=== PATIENT | male | born 1955 | race Two or more races ===

== ENCOUNTER → 2019-01-04 16:23 | Outpatient (CLI) | payer MEDICAID, SELFPAY ==
[2019-01-04 15:28] VITALS: BMI 30.7
[2019-01-04 17:40] LABS: International Normalized Ratio 1.1; Partial Thromboplast Time 30.7 Seconds (24.1-36.2)
[2019-01-04 17:45] LABS: Hemoglobin 14.2 g/dl (13.0-16.5); Mean Corp Hgb Conc 33.8 g/gl (32-36); Mean Corpuscular Volume 94.6 fL (80-94); Platelet Count 155 K/mm3 (150-450); RBC Distribution Width CV 13.3 % (11.6-14.6); RBC Distribution Width SD 44.8 fl (35.1-43.9); Red Blood Count 4.44 M/mm3 (4.6-6.2)
[2019-01-04 17:50] LABS: AST(SGOT) 19 U/L (15-37); Alanine Aminotransfer ALT/SGPT 23 U/L (16-61); Albumin, Serum 4.1 g/dL (3.2-5.0); Alkaline Phosphatase 51 U/L (45-117); Anion Gap 3 (5-15); BUN 16 mg/dL (7-18); Bilirubin, Direct 0.12 mg/dL (0.00-0.30); Calcium,Total 8.9 mg/dL (8.5-10.1); Chloride 107 mmol/L (98-107); Cholesterol 206 mg/dL (200); Creatinine, Serum 1.23 mg/dL (0.70-1.30); EST Glomerular Filtration Rate 63 mL/min (>60); Est Glom Filt Rate - Afr Amer 77 mL/min (>60); Globulin 3.6 g/dL (2.2-4.2); Glucose 90 mg/dL (74-106); High Density Lipoprotein 32 mg/dL; Magnesium 2.3 mg/dL (1.6-2.6); Potassium 4.7 mmol/L (3.5-5.1); Protein, Total 7.7 g/dL (6.4-8.2); Sodium Level 138 mmol/L (136-145); T4 Total, Thyroxin 7.8 ug/dL (4.5-12.1); Triglycerides 349 mg/dL; Very Low Density Lipoprotein 70 mg/dL (5-40)
[2019-01-04 17:59] LABS: Scan Indicated on CBC? Y/N NO
== END ==
PROVIDERS: Referring Provider Internal Medicine Cardiovascular Disease; Visit Provider Internal Medicine Cardiovascular Disease
DX: I47.2 Ventricular tachycardia (principal); R07.9 Chest pain, unspecified; E78.5 Hyperlipidemia, unspecified; I25.10 Atherosclerotic heart disease of native coronary artery without angina pectoris; Z95.1 Presence of aortocoronary bypass graft
CPT/HCPCS: 36415; 80048; 80061; 80076; 83735; 84436; 84443; 85027; 85610; 85730

== ENCOUNTER → 2019-01-05 12:49 | Outpatient (CLI) | payer MEDICAID, SELFPAY ==
[2019-01-04 15:28] VITALS: BMI 30.7
[2019-01-05 13:54] LABS: Cholesterol 206 mg/dL (200); High Density Lipoprotein 32 mg/dL; Triglycerides 360 mg/dL; Very Low Density Lipoprotein 72 mg/dL (5-40)
== END ==
PROVIDERS: Referring Provider Internal Medicine Cardiovascular Disease; Visit Provider Internal Medicine Cardiovascular Disease
DX: E78.5 Hyperlipidemia, unspecified (principal); I25.10 Atherosclerotic heart disease of native coronary artery without angina pectoris; Z95.5 Presence of coronary angioplasty implant and graft
CPT/HCPCS: 36415; 80061

== ENCOUNTER → 2019-01-19 10:31 | Outpatient (CLI) | payer MEDICAID, SELFPAY ==
[2019-01-04 15:28] VITALS: BMI 30.7
[2019-01-19 09:40] VITALS: BMI 30.7
--- NOTE | 2019-01-19 10:33 | STEWCON_ITS ---
Version 2 Reason For Study: S/P CABG Stress Results Protocol: LINA WITH DEFINITY Maximum Predicted HR: 158 bpm Target HR: 134 bpm % Maximum Predicted HR: 75 % DurationHeart Rate Stage (mm:ss) (bpm) BP Comment BASELINE 50 120/602CC DEFINITY STAGE 1 3:00 80 132/60 STAGE 2 3:00 106 160/80SOB STAGE 3 2:16 118 / INCREASED SOB, 1 CC DEFINITY RECOVERY 77 160/800.5 CC DEFINITY Stress Duration: 8:16 mm:ss Maximum Stress HR: 118 bpm Baseline Echocardiogram Findings The estimated ejection fraction is 50 %. Stress Echo Wall motion Data Resting WM Intermediate WM Stress WM Resting Wall Motion Wall Motion Stress Mid-Posterior: Mildly Mid-Inferior: Mildly hypokinetic. hypokinetic. Lateral-Basal: Mildly hypokinetic. Posterior-Basal: Mildly hypokinetic. EKG Data The baseline ECG displays normal sinus rhythm. The patient exercised according to the regular Lina protocol for a total duration of 8:16. The maximum heart rate attained was 118 beats per minute. This was 74% of maximum predicted heart rate. The patient exercised into stage 3 of the Lina protocol. During stress, there were no ST or T wave changes noted to suggest ischemia. No clinical angina was noted. Interpretation Summary The estimated ejection fraction is 50 %. Mid-Posterior: Mildly hypokinetic at baseline Abnormal, submaximal, treadmill echocardiogram. Positive for ischemia by echocardiographic criteria. No anginal symptoms noted. Patient had ventricular bigeminy at rest, followed by ventricular couplets, ventricular triplets, with eventual normalization during the first part of exercise. The patient then developed PVCs, ventricular couplets and ventricular triplets in the early stages of recovery. Patient had baseline mild inferior posterior hypokinesis which then worsened to posterior lateral and inferolateral hypokinesis at peak exercise. Poor echo windows requiring Definity agent. Hypertensive BP response to exercise. Average exercise capacity for age. Final LVEF of 55%. Test terminated due to dyspnea. The study was technically difficult. Contrast injection was performed. Ordering Physician: Abraham Dai Referring Physician: Abraham Dai Performed By: Aurora Hui RDCS, RVT
== END ==
PROVIDERS: Referring Provider Internal Medicine Cardiovascular Disease; Visit Provider Internal Medicine Cardiovascular Disease
DX: I25.10 Atherosclerotic heart disease of native coronary artery without angina pectoris (principal); I10 Essential (primary) hypertension; I47.2 Ventricular tachycardia; E78.5 Hyperlipidemia, unspecified; R07.9 Chest pain, unspecified; Z95.1 Presence of aortocoronary bypass graft
CPT/HCPCS: 93017; 93350; Q9957; A4216; C8928

== ENCOUNTER 2019-01-26 08:41 | Day surgery (SDC) | payer MEDICAID, SELFPAY ==
--- NOTE | 2018-01-20 15:45 | HP_ITS ---
HPI HPI Surgical H&P: Yes Details: DEBBIE EDDY, is a 63 nondiabetic hypertensive [place] M who presents to the office today for a follow-up on his blood pressure adjustments after recent establishment. Patient also has a stress test scheduled for today. He does have a history of hypertension, hypercholesterolemia, coronary artery disease status post 3 vessel bypass surgery on 02/27/07 in [place]. Apparently this may have been complicated by a right pleural effusion requiring a chest tube. Patient relocated to the [facility] recently and is here with his son who is also a patient of mine. Patient has not taken his medications for little over a year or takes them intermittently. He has not seen a doctorate of chiropractic in some time. He has not had a stress test or catheterization since his bypass surgery. At his last office visit we started him on a low-dose of Coreg. However it was noted that this needed to be monitored closely as he does have a history of bradycardia. Patient is a previous smoker who quit in 2006 after a [id number] smoking history. It was noted that according to his son his physicians in [place] had recommended a pacemaker prior to his departure however he did not receive that. Patient states that he feels slightly better since his last office visit however he does note occasional lightheadedness and dizziness. He also does note palpitations. He does feel that he is short of breath with exertional activities. 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 Is patient in pain?: No Allergies No Known Allergies Allergy (Verified 01/19/19 09:40) Medications aspirin 81 mg tablet,delayed release 81 mg PO DAILY #90 tab 01/04/19 [Rx Confirmed 01/19/19] carvedilol 3.125 mg tablet 3.125 mg PO BID #30 tab 01/04/19 [Rx Confirmed 01/19/19] gemfibrozil 600 mg tablet 600 mg PO BID #180 tab 01/04/19 [Rx Confirmed 01/19/19] clopidogrel 75 mg tablet 75 mg PO DAILY #30 tab 01/19/19 [Rx] [facility] Medical History Abnormal stress echo (Acute) Chest pain (Acute) Ventricular tachycardia (Acute) Hypertension (Chronic) Hyperlipidemia (Chronic) Atherosclerotic heart disease of [place] coronary artery without angina pectoris (Chronic) Surgical History S/P CABG (coronary artery bypass graft) (Chronic 02/27/07) Family History Other CAD (coronary artery disease) Myocardial infarction Social History Smoking Status: Former smoker quit date: 02/16/07 ROS Const Const: Positive for other (Transferring care to our office, had CABG.); negative for fatigue, weakness, body ache, fever(s), headache(s), chills, frequent falls, night sweats, daytime sleepiness, difficulty sleeping, excessive sweating, weight gain, weight loss, increased appetite, poor appetite or anorexia Eyes Eyes: Negative for blind spots, loss of peripheral vision, transient loss of vision, blurry vision, change in vision, double vision, floaters, tunnel vision or other ENT ENT: Negative for headache(s) or balance problems Cardio Chest Pain: Yes (occasionally on exertion) Palpitations: No Muscle aches with walking: None Resp Respiratory: Positive for SOB with activity; negative for SOB at rest, SOB orthopnea\SOB lying down, Cough, Coughing up blood/hemoptysis, chest congestion, pain on inspiration, snoring, stridor, wheezing, crackles, paroxysmal nocturnal dyspnea or other GI GI: Negative nausea, vomiting, heartburn, constipation, belching, bloating, cramping, vomiting blood/hematemesis, bright, red blood in stools, black,tarry stools, loose stools, Difficulty Swallowing or other : Negative for hematuria, frequent nighttime urination/ nocturia, erectile dysfunction or abnormal vaginal bleeding Musc Musc: Negative for muscle aches/ myalgia, muscle weakness, joint pain or balance problems Skin Skin: Negative redness, non-healing lesions, rash, unusual bruising, skin ulcer, wounds, jaundice or other Neuro Neuro: Negative for frequent falls, headache(s), weakness, blurry vision or double vision [place] Hematologic/Lymphatic: Negative for easy bleeding, easy bruising, enlarged lymph nodes or other Endo Endo: Negative for fatigue or excessive sweating Psych Psych: Negative for anxiety, depression, thoughts of harming anyone, thoughts of harming yourself, visual hallucinations, panic attacks or audible hallucinations Allergy Allergy/Immunology: Negative for rash Cardiology Exam Const Appearance: cooperative, healthy appearing and no acute distress Nutritional Appearance: well nourished Orientation: alert, oriented x3 and oriented to person Head Head: normal to inspection, normocephalic and atraumatic Nose: external nose normal Face and Sinus: face symmetric Mouth: oral mucosae normal Eyes General: appearance normal, both eyes and all related structures Eyelids: eyelids normal Conjunctivae: conjunctivae normal Pupils: PERRL and normal by confrontation EOM: EOM intact bilaterally Neck Neck: normal visual inspection and full ROM Carotids: normal carotid upstroke Chest Chest inspection: normal inspection of the chest Auscultation: Bilateral: Clear to Auscultation Cardio Palpation: normal PMI Rate: regular rate Rhythm: regular rhythm and ectopic beats Heart sounds: S1 normal and S2 normal GI GI: normal to inspection, no hepatosplenomegaly and bowel sounds present Neuro General: alert, awake, oriented x3, CN's II-XI intact bilaterally and moves all extremities Skin Skin: no rashes or lesions noted Extremities Pulses: Normal: Right Femoral Pulse, Left Femoral Pulse, Right Dorsalis Pedis Pulse, Left Dorsalis Pedis Pulse, Right Posterior Tibial Pulse, Left Posterior Tibial Pulse, Right Radial Pulse, Left Radial Pulse Lower Extremity Edema: None: Bilateral Psych Psychological: normal affect Assessment & Plan 1. Atherosclerosis of [place] coronary artery of [place] heart without angina pectoris I25.10 CABG 02/27/2007 @ [facility]. Plan Patient does not have any symptoms of angina however he does have shortness of breath with exertion. He also does note fatigue. He did have a stress echo today which was abnormal. Because of his significantly abnormal stress test we will proceed with a diagnostic heart catheterization patient is agreeable to proceed Orders Orders: 12 Lead EKG performed by ARMANDO 01/19/19 2. Essential hypertension I10 Plan Blood pressure is better controlled with current dose of Coreg however based upon his frequent PVCs and bradycardia this may need to be adjusted. We will reconsider adjusting medications after his stress test 3. Pure hypercholesterolemia E78.00; E78.0 Plan Recent lipid profile demonstrates a total cholesterol of 206, HDL 32, LDL 102, triglycerides 360. Patient will continue with current dose of gemfibrozil. We will continue to monitor 4. Frequent PVCs I49.3 Plan With frequent amount of PVCs, ventricular couplets and ventricular triplets will proceed with a diagnostic heart catheterization in lieu of his abnormal stress test that patient had done today. Plan Detail Additional Comments The above patient was discussed with Dr. Dai, he agrees with plan of care. Thank you for allowing us to participate in patient's plan of care, if you have any questions please do not hesitate to call. This note was generated using a voice recognition system and there may be incorrect words, spelling or punctuation errors that were not noted when reviewing the office note prior to saving. Follow Up 1 Month (MMM) Coding Level of Care Code Off vis,est,level 4 Diagnoses Atherosclerosis of [place] coronary artery of [place] heart without angina pectoris I25.10 ??[place] vs. transplanted heart: [place] heart Essential hypertension I10 ??Hypertension type: essential hypertension Pure hypercholesterolemia E78.00; E78.0 ??Hyperlipidemia type: pure hypercholesterolemia Frequent PVCs I49.3 Coding Level of Care Code Off vis,est,level 4 Diagnoses Atherosclerosis of [place] coronary artery of [place] heart without angina pectoris I25.10 ??[place] vs. transplanted heart: [place] heart Essential hypertension I10 ??Hypertension type: essential hypertension Pure hypercholesterolemia E78.00; E78.0 ??Hyperlipidemia type: pure hypercholesterolemia Frequent PVCs I49.3 Supplemental Info Supplemental Information Stress echocardiogram: The estimated ejection fraction is 50 %. Mid-Posterior: Mildly hypokinetic at baseline Abnormal, submaximal, treadmill echocardiogram. Positive for ischemia by echocardiographic criteria. No anginal symptoms noted. Patient had ventricular bigeminy at rest, followed by ventricular couplets, ventricular triplets, with eventual normalization during the first part of exercise. The patient then developed PVCs, ventricular couplets and ventricular triplets in the early stages of recovery. Patient had baseline mild inferior posterior hypokinesis which then worsened to posterior lateral and inferolateral hypokinesis at peak exercise. Poor echo windows requiring Definity agent. Hypertensive BP response to exercise. Average exercise capacity for age. Final LVEF of 55%. Test terminated due to dyspnea. The study was technically difficult. Contrast injection was performed. Labs LDL Cholesterol 102 mg/dL (0-130) 01/05/19 HDL Cholesterol 32 mg/dL (40-) L 01/05/19 Triglycerides 360 mg/dL (-199) H 01/05/19 VLDL Cholesterol 72 mg/dL (5-40) H 01/05/19 Diagnostics Electrocardiogram 01/19/19 Stress Echocardiogram 01/19/19
[2019-01-19 09:40] VITALS: BMI 30.7
[2019-01-19 18:18] VITALS: BMI 30.7
--- NOTE | 2019-01-24 13:11 | RAD_ITS ---
STUDY: X-RAY CHEST REASON FOR EXAM: Male, 63 years old. Chest pain/pressure TECHNIQUE: PA and lateral views of the chest. COMPARISON: None. FINDINGS: The lungs are clear and expanded. There is no demonstrated pleural abnormality. Sternal cerclage wires and vascular clips are present from a prior sternotomy and coronary artery bypass graft procedure (CABG). Normal mediastinum and estefania. Normal visualized pulmonary arteries. Normal visualized aortic arch and descending thoracic aorta. Normal visualized thoracic spine. Normal visualized ribs, clavicles, and shoulders. There is no demonstrated abnormality of the visualized soft tissue structures of the upper abdomen. RAD/Chest PA and Lateral IMPRESSION: Normal x-ray examination of the chest. Electronically Signed: Sen Amaya MD at 13:24 EDT , Service support ,
[2019-01-25 09:37] VITALS: BMI 30.7
[2019-01-26] VITALS (27 sets, daily range): BP systolic 126–179; BP diastolic 42–100; PULSE 33–50; RESP 10–21; TEMP 36.6–36.8; O2SAT 92–100; BMI 31.1
--- NOTE | 2019-01-26 12:46 | CL.I_ITS ---
Patient Name: DEBBIE EDDY Study Date: 01/26/2019 Performing: Abraham Dai MD Ht: 68 inches 173 cm : 1955 Wt: 203.1 lbs 92 kg Age: 63 Gender: male BSA: 2.06 PROCEDURE(S) PERFORMED TN12-UPI/COR/LV/CABG [id number], CORONARY OR GRAFT, INITIAL VESSEL [id number] W OR WO PTCA, SINGLE CORONARY ARTERY CLINICAL PROFILE AND CO-MORBIDITIES Indications: Stable Known CAD, Cardiac Arrythmia, LV Dysfunction Heart Failure: NYHA Class: 2, Newly Diagnosed: No, Heart Failure Type: Systolic Stress/Imaging Date: 01/19/2019 Stress Echocardiogram: Positive Intermediate Risk Angina Classification Anginal Classification w/in 2 Weeks: CCS III CAD Presentations: Other: Palpitations, excessive PVCs, NSVT, Dyspnea on exertion, pre-syncope. Comorbidities/Risk Factors: Hypertension Dyslipidemia Prior CHF Prior [place] Prior CABG CONCLUSIONS Segmented LV systolic dysfunction- Severe LVEF: by LV gram 20-25 % Depressed Left Ventricular systolic function - Severe Triple vessel CAD of the LAD, LCX and RCA Patent CHAPA to LAD with L to L collaterals to OM Widely patent SVG to LCX Occluded SVG to RCA. Successful PTCA/DARRIUS ostial LAD with a 2.5 x 8 Promus Synergy, post dilated with a 2.75 x 8 NC Balloon at 14 mela; 85%-->0%, no dissection. RECOMMENDATIONS Staged for FFR Referred for immediate PCI Management as per referring Voltmeter Operator Highly recommend quitting all tobacco products Follow up with primary rice field worker Risk factor modification ASA Indefinitley Plavix for at least 12 months Routine post interventional care Refer for Outpatient Cardiac Rehab Manual sheath removal per protocol Follow up with Dr. Suhas Marks for PPM/AICD d/t severe LV dysfunction and PVCs/NSVT. Continue AMIO loading; start cozaar and lasix. Manual sheath removal due to concern for impact on inferior epigastric artery. DESCRIPTION OF PROCEDURE The patient arrived to the procedure lab. The risks and benefits of the procedure as well as a full d escription of our services here and lack of surgical backup were fully explained to the patient and/o r their significant other prior to the catheterization. The Timeout was completed, verifying the salvador ect patient and procedure. The patient's procedural site was prepped and draped in the usual fashion. Local anesthetic was given subcutaneously to right groin region with Lidocaine 2%. Using a modified Seldinger technique, arterial access was obtained via the right femoral artery, a 4Fr sheath was inse rted. Left Coronary Artery selective angiography was performed in multiple views using a 4 Fr. JL5 c atheter. Right Coronary Artery selective angiography was then performed in multiple views using a 4 F r. 3DRC catheter. Saphenous Vein graft to the RCA selective angiography was performed in multiple vie ws using a 4 Fr. 3DRC catheter. Left internal mammary artery graft to the LAD selective angiography was performed in multiple views using a 4 Fr. 3DRC catheter. Saphenous Vein graft to the Circumflex selective angiography was performed in multiple views using a 4 Fr. AR MOD 2 catheter. Lef t Ventriculography was performed in MEJIA projection using a 4 Fr. Pigtail catheter. LV to AO pullback pressures were then recordedThe images were reviewed and options discussed. A decision was then made to proceed with an Intervention, IVUS or other adjunct procedure. Arterial sheath was exchanged for a 6 Fr Sheath. EBU 3.75 Guide catheter was inserted and engaged into the LCA. The FFR/iFR wire was inserted. Adenosine was then given per protocol. Pressures and FF R/iFR were then recorded. FFR Ratio Baseline: 0.94 FFR Ratio post Adenosine: 0.82 Synergy 2.50x8 Drug Eluting stent was inserted. Angiogram performed post stent deployment. KS Emerge 2.75x8 Balloon cath eter was inserted. PTCA balloon inflated at 14 atms for 12 secs. PTCA balloon inflated at 14 atms for 6 secs. Angiogram performed post balloon dilatation. Contrast was injected through the sheath and th e Right Iliac and Femoral artery were assessed for possible closure device. The arterial sheath was sutured in place and capped CORONARY ANGIOGRAPHY DOMINANCE: Right Dominant LEFT HEART ASSESSMENT Left Ventricular Ejection Fraction: by LV Gram 20-25 % LVEDP: 26 mmHg Depressed Left Ventricular systolic function Inferior Basal Akinesis. Anterior Hypokinesis - Severe LEFT MAIN: No significant disease noted LEFT ANTERIOR DECENDING ARTERY: OSTIAL LAD: 75 % Stenosis MID LAD: is occluded CIRCUMFLEX ARTERY: is occluded RIGHT CORONARY ARTERY: is occluded GRAFTS: CHAPA graft to the LAD is patent Saphenous Vein graft to the Mid CIRC is patent Saphenous Vein graft to the RCA is totally occluded COLLATERAL FLOW: Collateral flow from Left to Left Collateral flow from Left to Right INTERVENTION INFORMATION LESION SITE: LAD (Ostial) Lesion Complexity: High/C, thrombus present: No, lesion length: 8 mm, culprit lesion: Yes Pre Stenosis: 85 % Pre intervention ABIGAIL flow: 3 PROCEDURE: FFR, Drug Eluting Stent with pre and post dilatation Post Stenosis: 0 % Post intervention ABIGAIL flow: 3 Lesion Devices: EdRover 6 Fr EBU3.75 100cm Guide Catheter IGT Devices ( [employer]) Coronary FFR Wire Matthew Sci Synergy MR DARRIUS 2.50x08 Matthew Sci NC EMERGE MR 2.75x08 BALLOON COMPLICATIONS No Complications PROCEDURE MEDICATIONS Oxygen: 2 L/min via nasal cannula Adenosine drip for FFR 774 ml IV-total infused 24.8 @ 01/26/2019 12:06:53 Heparin 6000 unit(s) IV 01/26/2019 12:00:48 Nitro 200 mcg IC 01/26/2019 12:05:42 Nitro 200 mcg IC 01/26/2019 12:05:42 Nitro 200 mcg IC 01/26/2019 12:15:27 IV Bolus: .9 NaCl 500 ml total 01/26/2019 12:29:10 SUMMARY OF HEMODYNAMIC DATA Time AIR REST ECG 09:17:41 AO 161/84 (109) SA 11:41:01 LV 156/1, 24 11:54:42 LV 165/0, 26 11:54:49 LVp 166/5, 30 11:54:58 AOp 159/60 (89) 11:55:03 AO 167/74 (103) 11:55:23 Signed By Abraham Dai MD On 01/26/2019 12:46:03 PM Abraham Dai MD
--- NOTE | 2019-01-26 13:31 | EKG12_ITS ---
Test Reason : POST PCI Blood Pressure : / mmHG Vent. Rate : 036 BPM Atrial Rate : 036 BPM P-R Int : 180 ms QRS Dur : 100 ms QT Int : 534 ms P-R-T Axes : 048 -20 -74 degrees QTc Int : 412 ms Marked sinus bradycardia ST & T wave abnormality, consider lateral ischemia Abnormal ECG No previous ECGs available Confirmed by YURI HEAD, BC ([id number]), editor news APRIL LEE ([id number]) on 01/31/2019 5:22:16 PM Referred By: Abraham Dai Confirmed By:BC WELCH MD
[2019-01-26 14:11] LABS: ACT Activated Clotting Time 197 sec (74-137)
--- NOTE | 2019-01-26 14:29 | CRPHASE1 ---
Patient Communication PHII Cardiac Rehab Discussed with Patient:: Yes Guide to Cardiac Rehab Given to Patient:: Yes Cardiac Rehab Facility Choice List Given to Patient:: Yes Choice Program [facility] CR PHII:: Communication Given to CR, Refer to [facility] Chaplain:: Abraham Dai Phase II Cardiac Rehab:: Yes Sessions:: 36 sessions - 3 days/wk, 12 weeks Risk Factors/Lifestyle Smoking Status: Former smoker Hx Hypertension: Yes Hx Diabetes Mellitus Type 1: No Hx Diabetes Mellitus Type 2: No Hx Dyslipidemia: Yes Hx Obesity: Yes Height: 5 ft 7 in Weight:: 90 kg BMI: 31.1 Stress: Long-standing Family History: Family History (Last Updated 01/04/19 @ 15:27 by Shannon Kaur) Other CAD (coronary artery disease) Myocardial infarction Hospital Course Cardiac Cath Date:: 01/26/19 Medical/Surgical History [place]:: Yes - 2006 Hypertension:: Yes Dyslipidemia:: Yes Arrhythmias:: Yes CABG: Yes PTCA:: Yes - 01/26/2019 Discharge/Home/Social Eval Discharge Disposition: Home Cardiac Rehabilitation Info Cardiac Rehabilitation Program Information: Cardiac Rehabilitation is important for patients like you who are recovering from a heart problem. Cardiac rehabilitation programs are recognized as integral to the continued care of the patient with coronary heart disease. The cardiac rehabilitation program is designed to optimize a patient's physical, psychological, and social functioning. Health ambulatory care work in cardiac rehabilitation programs and assist you with getting the treatments you need to get stronger and healthier - like exercise, healthy eating habits, and medications. Cardiac rehabilitation has been show to help people with heart problems live longer and have better life enjoyment than people who do not go to cardiac rehabilitation. Please contact the Cardiac Rehabilitation Program at [facility] at in two weeks if you have not heard from them.
--- NOTE | 2019-01-26 14:33 | CRPHASE1_ITS ---
Patient Communication PHII Cardiac Rehab Discussed with Patient:: Yes Guide to Cardiac Rehab Given to Patient:: Yes Cardiac Rehab Facility Choice List Given to Patient:: Yes Choice Program [facility] CR PHII:: Communication Given to CR, Refer to [facility] Grassland Conservationist:: Abraham Dai Phase II Cardiac Rehab:: Yes Sessions:: 36 sessions - 3 days/wk, 12 weeks Risk Factors/Lifestyle Smoking Status: Former smoker Hx Hypertension: Yes Hx Diabetes Mellitus Type 1: No Hx Diabetes Mellitus Type 2: No Hx Dyslipidemia: Yes Hx Obesity: Yes Height: 5 ft 7 in Weight:: 90 kg BMI: 31.1 Stress: Long-standing Family History: Family History (Last Updated 01/04/19 @ 15:27 by Shannon Kaur) Other CAD (coronary artery disease) Myocardial infarction Hospital Course Cardiac Cath Date:: 01/26/19 Medical/Surgical History [place]:: Yes - 2006 Hypertension:: Yes Dyslipidemia:: Yes Arrhythmias:: Yes CABG: Yes PTCA:: Yes - 01/26/2019 Discharge/Home/Social Eval Discharge Disposition: Home Cardiac Rehabilitation Info Cardiac Rehabilitation Program Information: Cardiac Rehabilitation is important for patients like you who are recovering from a heart problem. Cardiac rehabilitation programs are recognized as integral to the continued care of the patient with coronary heart disease. The cardiac rehabilitation program is designed to optimize a patient's physical, psychological, and social functioning. Health care specialist work in cardiac rehabilitation programs and assist you with getting the treatments you need to get stronger and healthier - like exercise, healthy eating habits, and medic ations. Cardiac rehabilitation has been show to help people with heart problems live longer and have better life enjoyment than people who do not go to cardiac rehabilitation. Please contact the Cardiac Rehabilitation Program at [facility] at in two weeks if you have not heard from them.
--- NOTE | 2019-01-26 14:34 | CRPH1.INSTRU ---
General Education Antiplatelet therapy: Patient communicates acknowledgment, Needs reinforcement Compliance of all prescribed medications: Patient communicates acknowledgment, Needs reinforcement Smoking Patient Nicotine/Smoking Risk Factors Are:: Non-smoker Dyslipidemia Patient Dyslipidemia Risk Factors Are:: Total Cholesterol - 206, Triglycerides - 360, HDL - 32, LDL - 102 Recommendations Include:: Lipid profile provided Overweight/Obesity Patient Overweight/Obesity Risk Factors Are:: Obesity - > or = 30 Hypertension Hypertension:: Patient communicates acknowledgment Heart Disease Patient Heart Disease Risk Factors Are:: Family history of heart disease < 65 years old, Previous cardiac event Heart Disease Response Code:: Patient communicates acknowledgment Diabetes Patient Diabetes Risk Factors Are:: No documented hx of diabetes Metabolic Syndrome Patient Metabolic Syndrome Risk Factors Are [3 of 5]:: Waist circumference > 35 [female] or 40 [male], High triglyceride >150, Hypertension, Low HDL <40 [male] or < 50 [female] Recommendations Include:: Encouraged follow-up with Primary Care Physician Metabolic Syndrome Response Code:: Needs reinforcement Sedentary Patient Sedentary Risk Factors Are:: Lack of regular exercise Recommendations Include:: Benefits of regular exercise, Discussed home walking program Sedentary Response Code:: Patient communicates acknowledgment Stress Recommendations Include:: Identification of stressors, and assessment of coping skills Stress Response Code:: Patient communicates acknowledgment
[2019-01-26] MEDS: 0.9% Normal Saline 1,000 ML 150 ML IV (15:00)
[2019-01-26 15:11] LABS: ACT Activated Clotting Time 153 sec (74-137)
[2019-01-26] MEDS: Gemfibrozil 600 MG Tablet PO (17:33)
[2019-01-26] MEDS: Amiodarone 200 MG Tablet 400 MG PO (22:19)
[2019-01-27] VITALS (15 sets, daily range): BP systolic 131–194; BP diastolic 53–94; PULSE 35–51; RESP 12–20; TEMP 36.7–36.9; O2SAT 93–100
[2019-01-27 04:55] LABS: Anion Gap 7 (5-15); BUN 14 mg/dL (7-18); BUN/Creat Ratio 11.1 RATIO (10-20); Calcium,Total 8.4 mg/dL (8.5-10.1); Chloride 111 mmol/L (98-107); Creatinine, Serum 1.26 mg/dL (0.70-1.30); EST Glomerular Filtration Rate 61 mL/min (>60); Est Glom Filt Rate - Afr Amer 74 mL/min (>60); Estimated Creatinine Clearance 56.83 ml/min; Glucose 102 mg/dL (74-106); Potassium 4.1 mmol/L (3.5-5.1); Sodium Level 143 mmol/L (136-145)
[2019-01-27 05:41] LABS: Hematocrit 37.7 % (40-54); Hemoglobin 12.7 g/dl (13.0-16.5); Mean Corp Hgb Conc 33.7 g/gl (32-36); Mean Corpuscular Hgb 30.9 pg (27.0-32.0); Mean Corpuscular Volume 91.7 fL (80-94); Mean Platelet Vol. 12.7 fl (6.2-12.0); Platelet Count 141 K/mm3 (150-450); RBC Distribution Width SD 39.6 fl (35.1-43.9); Red Blood Count 4.11 M/mm3 (4.6-6.2); White Blood Count 5.1 K/mm3 (4.4-11.0)
[2019-01-27 05:45] LABS: Scan Indicated on CBC? Y/N NO
[2019-01-27] MEDS: Gemfibrozil 600 MG Tablet PO (08:12)
[2019-01-27] MEDS: Clopidogrel Bisulfate 75 MG Tablet PO (08:12)
[2019-01-27] MEDS: Aspirin E.C. 81 MG Tablet PO (08:12)
[2019-01-27] MEDS: Carvedilol 3.125 MG TABLET PO (08:12)
[2019-01-27] MEDS: Losartan Potassium 25 MG Tablet PO (08:13)
[2019-01-27] MEDS: Furosemide 20 MG Tablet PO (08:13)
--- NOTE | 2019-01-27 09:26 | PCM.PN.CARD ---
Subjectve: Patient feels much better this morning. No 24-hour events. Telemetry showed sinus bradycardia with rare PVCs. No ventricular tachycardia. Right groin is clean/dry/intact. Hemoglobin and creatinine are within nominal limits. EKG shows sinus bradycardia, QT corrected of 4 1 4 ms. Objective: Vital Signs Temp Pulse Resp BP Pulse Ox 98.0 F 44 L 12 194/92 H 100 01/27/19 08:00 01/27/19 08:00 01/27/19 08:00 01/27/19 08:00 01/27/19 08:00 Oxygen Delivery Method Room Air Weight: 196 lb 3.382 oz Body Mass Index (BMI) 31.1 Intake and Output for Last 24 Hours 01/25/19 01/26/19 01/27/19 23:59 23:59 23:59 Intake Total 1200 / 1200 240 / 240 Output Total 1050 / 1050 850 / 850 Balance 150 / 150 -610 / -610 General: Awake, Alert, Oriented x 3 HEENT: PERRL, EOMI, Sclera Non Icteric Neck: Supple, Good ROM, No Lymph Node Enlargement Lungs: Clear to auscultation Cardiovascular: Regular Rhythm, Normal S1, Normal S2, No Murmurs, No Rubs, No Gallops Vascular: No Carotid Bruits, Normal Femoral Pulses, Normal Radial Pulses, Normal Dorsalis Pedal Pulse, Normal Posterior Tibial Pulses Abdomen: Bowel Sounds Present, Soft, Non Tender, No HSM, No Organomegaly Extremities: No Cyanosis, No Clubbing, No edema Neurological: No Focal Motor or Sensory Deficit 01/27/19 04:25: Sodium 143, Potassium 4.1, Chloride 111 H, Carbon Dioxide 25.0, Anion Gap 7, BUN 14, Creatinine 1.26, Est GFR (MDRD) Af Amer 74, Est GFR (MDRD) Non-Af 61, BUN/Creatinine Ratio 11.1, Glucose 102, Calcium 8.4 L 01/27/19 04:25: WBC 5.1, RBC 4.11 L, Hgb 12.7 L, Hct 37.7 L, MCV 91.7, MCH 30.9, MCHC 33.7, RDW 12.0, RDW Differential 39.6, Plt Count 141 L, MPV 12.7 H Rhythm: EKG: ECHO: Stress Test: Cardiac Cath: PCI: CT Surgery: Holter monitor: EPS: PPM: CXR: Chest CT Scan: Medical Necessity - Tobacco Use Smoking Status: Former smoker Assessment/Plan 1. Coronary artery disease: The patient is status post catheterization and FFR guided angioplasty and stenting of his ostial LAD giving rise to 2 moderately long diagonal branches. He had 2 out of his 3 grafts were patent, and his saphenous vein graft to the right system and [place] right coronary artery are occluded. His LV function is below 30% and the patient will require either a dual-chamber pacemaker/AICD or an AICD only. This will be arranged with Dr. Graham in the upcoming future. The meantime we will continue his aspirin, Plavix, Coreg, and we will start him on Cozaar 25 mg p.o. daily and Lasix 20 mill grams a day and titrate up as an outpatient. 2. PVCs: The patient had a copious amount of PVCs better than 50% of his total heartbeats before 24-hour period. Since starting amiodarone these have markedly improved to a minimum PVCs. We will decrease his amiodarone to 200 mg p.o. daily and continue his Coreg. 3. Hyperlipidemia: Continue aggressive LDL reduction. Continue statin based medications. 4. Patient will be discharged home and follow-up with Dr. Dai going forward. Code Visit Inpatient E&M: [id number] [facility] L2
--- NOTE | 2019-01-27 09:46 | DCINST_ITS ---
Discharge Diet: Low fat/ Low Cholesterol Discharge Activity: - - Do not lift anything greater than 10 lbs until I see you next week May shower in (days): 1 Lifting Restrictions: 10 pounds and also avoid any pushing or pulling for 3 days after your test. Call your doctor if your incision/area has: Continuous Slow Oozing, Sudden Increased Bleeding, Increased Pain/ Swelling, Increased Redness, Foul Smelling Discharge, Swelling at the incision site Call your doctor if you observe: Fever of 101 or Higher, Shortness of breath, Chest pain Remove Dressing in (days):: 1 Cleanse incision/area with: Soap & Water Additional Dressing/Incision Instructions:: Keep the dressing (bandage) on until the next morning. You may then shower, but do not take a tub bath for 5 days after your test. It is normal to have some tenderness and discomfort at the puncture site. Sometimes bruising also occurs. However, if pain, numbness, or coldness occurs below the puncture site (in your leg, toes, arms or fingers) call your doctor at once. You may have a small, marble sized knot at the puncture site. This is normal. Do not rub it. It will go away in 4-6 weeks. Bleeding can occur from the area where the puncture was done. Blood may spurt or drip from the site. If blood spurts, apply pressure right away to stop bleeding and call 911. Although rare, bleeding into the tissue (hematoma) can also occur. If this happens, a large, firm area goose egg under the skin will appear. If any of these occur, lie down as flat as you can and have someone apply firm pressure to the cath site with a gauze pad or a clean washcloth for 10-15 minutes. Call 911 or go to the Emergency Department. Additional Instructions: You were started on several medications during this hospital stay. Your started on amiodarone this is an 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. He will take this once a day. You were also started on Cozaar and Lasix. Cozaar is a blood pressure medication and Lasix as a diuretic. It is suggested that you take your Lasix in the morning. You may find that when you start your Lasix that he may urinate more frequently for the first few weeks. Both of these medications will help with your heart function. He will continue with your Coreg at 3.125 mg twice a day. You were also started on Plavix prior to your heart catheterization. This is a blood thinner. This will help with keeping her stent open. You cannot stop this medication and less if you discuss this with our office. She will be on this medication for at least one year. When you were seen in the office we will further discuss a prophylactic ICD with pacemaker. Plans are to have the scheduled for placement in February. I do not when she is starting cardiac rehab until after I see you next week. This may be put on hold until after you have your ICD placement. We will discuss this at that time. Allergies/Adverse Reactions: Allergies No Known Allergies Allergy (Verified 01/25/19 09:38) Medications to take at Discharge aspirin 81 mg tablet,delayed release 81 mg PO DAILY #90 tab 01/04/19 carvedilol 3.125 mg tablet 3.125 mg PO BID #30 tab 01/04/19 gemfibrozil 600 mg tablet 600 mg PO BID #180 tab 01/04/19 clopidogrel 75 mg tablet 75 mg PO DAILY #30 tab 01/19/19 Amiodarone HCl 200 mg PO DAILY #30 tablet 01/27/19 Furosemide [Lasix] 20 mg PO DAILY #30 tablet 01/27/19 Losartan Potassium [Cozaar] 25 mg PO DAILY #30 tablet 01/27/19 Nitroglycerin [Nitrostat] 0.4 mg SUBLINGUAL Q5M PRN #25 tablet 01/27/19 The following prescriptions were given: Amiodarone HCl 200 mg PO DAILY #30 tablet Furosemide [Lasix] 20 mg PO DAILY #30 tablet Losartan Potassium [Cozaar] 25 mg PO DAILY #30 tablet Nitroglycerin [Nitrostat] 0.4 mg SUBLINGUAL Q5M PRN #25 tablet PRN Reason: Cardiac/Chest Pain Orders to be completed after discharge: Phase II, Outpatient Cardiac Rehab Location: None Selected Primary Care Physician: Omar King MD [Primary Care Provider] - Please follow up with your Primary Care Physician in: 2-4 weeks Test Results: Test results from this visit will be discussed in further detail at your follow- up appointment, if applicable. Please Follow Up With: Khadijah Mckeon PA When: 02/04 at 1130 Cardiac Rehabilitation Info Cardiac Rehabilitation Program Information: Cardiac Rehabilitation is important for patients like you who are recovering from a heart problem. Cardiac rehabilitation programs are recognized as integral to the continued care of the patient with coronary heart disease. The cardiac rehabilitation program is designed to optimize a patient's physical, psychological, and social functioning. Health patient centered care specialist work in cardiac rehabilitation programs and assist you with getting the treatments you need to get stronger and healthier - like exercise, healthy eating habits, and medications. Cardiac rehabilitation has been show to help people with heart problems live longer and have better life enjoyment than people who do not go to cardiac rehabilitation. Please contact the Cardiac Rehabilitation Program at [facility] at in two weeks if you have not heard from them.
--- NOTE | 2019-01-27 10:00 | EKG12_ITS ---
Test Reason : AM EKG Blood Pressure : / mmHG Vent. Rate : 041 BPM Atrial Rate : 041 BPM P-R Int : 178 ms QRS Dur : 102 ms QT Int : 502 ms P-R-T Axes : 050 -19 257 degrees QTc Int : 414 ms Marked sinus bradycardia with occasional Premature ventricular complexes Abnormal ECG No previous ECGs available Confirmed by YURI HEAD, BC ([id number]), newspaper or periodical editor APRIL LEE ([id number] on 01/31/2019 5:21:51 PM Referred By: Abraham Dai Confirmed By:BC WELCH MD
== END 2019-01-27 11:35 | disposition home or self-care (01) ==
LOC: CLSP 08:44 → ICU 01-27 08:29
PROVIDERS: Family Provider Family Medicine; PCP Family Medicine; Referring Provider Internal Medicine Cardiovascular Disease; Visit Provider Internal Medicine Cardiovascular Disease
DX: I25.10 Atherosclerotic heart disease of native coronary artery without angina pectoris (principal); I11.0 Hypertensive heart disease with heart failure; I50.20 Unspecified systolic (congestive) heart failure; I47.2 Ventricular tachycardia; I25.2 Old myocardial infarction; I49.3 Ventricular premature depolarization; E78.5 Hyperlipidemia, unspecified; E78.00 Pure hypercholesterolemia, unspecified; Z95.1 Presence of aortocoronary bypass graft; Z95.5 Presence of coronary angioplasty implant and graft; Z79.82 Long term (current) use of aspirin; Z79.01 Long term (current) use of anticoagulants; Z79.899 Other long term (current) drug therapy; Z87.891 Personal history of nicotine dependence
CPT/HCPCS: 71046; 80048; 85027; 85347; 92928; 93005; 93458; 93571; J0153; J7030; J7040; Q9967; C1725; C1769; C1874; C1887; C1894; C9600

== ENCOUNTER 2019-02-04 23:50 | Observation (INO) | payer MEDICAID, SELFPAY ==
[2019-01-26 14:33] VITALS: BMI 31.1
[2019-02-04 11:40] VITALS: BMI 30.2
[2019-02-04 23:51] VITALS: BP 128/98; PULSE 65; RESP 13; TEMP 36.6; O2SAT 98; BMI 30.2
[2019-02-05] VITALS (10 sets, daily range): BP systolic 110–152; BP diastolic 62–86; PULSE 30–47; RESP 15–18; TEMP 36.2–36.7; O2SAT 97–100; BMI 29.5; BMI 29.6
--- NOTE | 2019-02-05 00:08 | EKG12_ITS ---
Test Reason : CP Blood Pressure : / mmHG Vent. Rate : 055 BPM Atrial Rate : 043 BPM P-R Int : 150 ms QRS Dur : 106 ms QT Int : 512 ms P-R-T Axes : 035 -25 135 degrees QTc Int : 489 ms Marked sinus bradycardia with frequent Premature ventricular complexes ST & T wave abnormality, consider anterolateral ischemia Abnormal ECG Confirmed by KERRIE HEAD, CHUCHO ([id number]), editor managing director APRIL LEE ([id number] on 02/08/2019 1:58:08 PM Referred By: Jose Bond Confirmed By:CHUCHO SY MD
--- NOTE | 2019-02-05 00:09 | RAD_ITS ---
HISTORY: Chest Pain EXAM:XR Chest 2 Views COMPARISON: 01/24/2019 FINDINGS: EKG leads in place. No significant change. Normal heart size. No vascular congestion, pleural effusion, or acute pulmonary infiltration. No pneumothorax. Midline sternotomy sutures and retrosternal surgical clips related to previous CABG. RAD/Chest PA and Lateral IMPRESSION: 1. No acute cardiopulmonary disease. No significant interval change. 2. Previous CABG. at 0045 Reported and signed by: Hugo Ling MD Electronically Signed: Hugo Ling, at 0:44 EDT Tel , Service support ,
[2019-02-05 00:35] LABS: Absolute Lymphocyte Count 1.93 X10^3/ul (0.83-4.51); Absolute Neutrophil Count 3.4 X10^3/uL (2.0-7.7); Basophil# 0.02 X10^3/uL; Basophil% 0.3 % (0-1); Eosinophil# 0.18 X10^3/uL; Eosinophils% 2.9 % (0-5); Hematocrit 39.3 % (40-54); Hemoglobin 13.7 g/dl (13.0-16.5); Lymphocyte # 1.93 X10^3/ul (4.0); Lymphocyte % 31.1 % (19-41); Mean Corp Hgb Conc 34.9 g/gl (32-36); Mean Corpuscular Hgb 31.2 pg (27.0-32.0); Mean Corpuscular Volume 89.5 fL (80-94); Monocyte# 0.62 X10^3/uL; Neutrophil # 3.43 X10^3/uL (2.7-7.7); Neutrophil % 55.4 % (47-70); Platelet Count 171 K/mm3 (150-450); RBC Distribution Width CV 11.8 % (11.6-14.6); RBC Distribution Width SD 37.7 fl (35.1-43.9); Red Blood Count 4.39 M/mm3 (4.6-6.2); White Blood Count 6.2 K/mm3 (4.4-11.0)
[2019-02-05 00:39] LABS: POSITIVE COUNT NO; POSITIVE DIFFERENTIAL NO; POSITIVE MORPHOLOGY NO
[2019-02-05 00:46] LABS: Anion Gap 7 (5-15); BUN 22 mg/dL (7-18); BUN/Creat Ratio 16.7 RATIO (10-20); Calcium,Total 8.4 mg/dL (8.5-10.1); Chloride 101 mmol/L (98-107); Creatinine, Serum 1.32 mg/dL (0.70-1.30); EST Glomerular Filtration Rate 58 mL/min (>60); Est Glom Filt Rate - Afr Amer 71 mL/min (>60); Estimated Creatinine Clearance 54.25 ml/min; Glucose 175 mg/dL (74-106); Potassium 5.9 mmol/L (3.5-5.1); Sodium Level 134 mmol/L (136-145)
--- NOTE | 2019-02-05 01:18 | HP.PCM_ITS ---
Problem List (1) Chest pain Status: Acute (2) Hypertension Status: Chronic Qualifiers: Hypertension type: essential hypertension Qualified Code(s): I10 - Essential (primary) hypertension (3) S/P CABG (coronary artery bypass graft) Status: Chronic Comment: CABG 02/27/2007 @ [facility]. (Unable to obtain report, Patient states X 3 vessels) History of Present Illness Date of Admission: 02/05/19 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: Palpitations and chest pain The patient is a 63 year old M with a significant history of CAD status post CABG in 2017; coronary stents on 20 January 2019; hypertension; and bradycardia who presented to the emergency department with few hour history of palpitations and continuous excruciating chest pain. His chest pain is primarily located under his left breast. Also had an episode where he had pain that started from his left upper chest and moved to under his left breast. He denies any nausea, vomiting or diaphoresis. Paramedics gave him nitroglycerin under his tongue that took his chest pain away. Also he was given aspirin by the paramedics. He reported that he felt as if the pain was going into his throat. At the emergency department patient was found to have sinus bradycardia and PVCs bigeminy. Before patient came to emergency department the plan was for patient to have a pacemaker; sometime middle of February 2019.. Patient had multiple family members who had congenital heart disease and sudden cardiac . He had many family members dying in their 40s from sudden cardiac . Past Medical History Past Medical History (Chronic Problems): Chronic Problems (Last Reviewed 02/05/19 @ 04:19 by Jose Bond MD) Stented coronary artery (Chronic 01/26/19) Segmented LV systolic dysfunction- Severe LVEF: by LV gram 20-25 % Depressed Left Ventricular systolic function - Severe Triple vessel CAD of the LAD, LCX and RCA Patent CHAPA to LAD with L to L collaterals to OM Widely patent SVG to LCX Occluded SVG to RCA. Successful PTCA/DARRIUS ostial LAD with a 2.5 x 8 Promus Synergy, post dilated with a 2.75 x 8 NC Balloon at 14 mela; 85%-->0%, no dissection. Per MANE @ [facility] 01/26/2019 Hypertension (Chronic) Hyperlipidemia (Chronic) S/P CABG (coronary artery bypass graft) (Chronic 02/27/07) CABG 02/27/2007 @ [facility]. (Unable to obtain report, Patient states X 3 vessels) Atherosclerotic heart disease of [place] coronary artery without angina pectoris (Chronic) CABG 02/27/2007 @ [facility], [facility]. Medical History: Medical History (Last Reviewed 02/05/19 @ 04:19 by Jose Bond MD) Abnormal stress echo (Acute) R94.39 Chest pain (Acute) R07.9 Ventricular tachycardia (Acute) I47.2 Hypertension (Chronic) I10 Hyperlipidemia (Chronic) E78.5 Atherosclerotic heart disease of [place] coronary artery without angina pectoris (Chronic) I25.10 [facility] Allergies No Known Allergies Allergy (Verified 02/04/19 23:51) Home Medications: Ambulatory Orders Medication Instructions Recorded aspirin 81 mg tablet,delayed 81 mg PO DAILY #90 tab 01/04/19 release Nitroglycerin [Nitrostat] 0.4 mg SUBLINGUAL Q5M PRN #25 01/27/19 tablet amiodarone 200 mg tablet 200 mg PO DAILY #90 tab 02/04/19 carvedilol 3.125 mg tablet 3.125 mg PO BID #180 tab 02/04/19 clopidogrel 75 mg tablet 75 mg PO DAILY #90 tab 02/04/19 furosemide 20 mg tablet 20 mg PO DAILY #90 tab 02/04/19 gemfibrozil 600 mg tablet 600 mg PO BID #180 tab 02/04/19 losartan 25 mg tablet 25 mg PO DAILY #90 tab 02/04/19 Surgical History: Surgical History (Last Updated 01/26/19 @ 13:04 by Shannon Kaur) Stented coronary artery (Chronic) Onset Date: 01/26/19 Z95.5 Segmented LV systolic dysfunction- Severe LVEF: by LV gram 20-25 % Depressed Left Ventricular systolic function - Severe Triple vessel CAD of the LAD, LCX and RCA Patent CHAPA to LAD with L to L collaterals to OM Widely patent SVG to LCX Occluded SVG to RCA. Successful PTCA/DARRIUS ostial LAD with a 2.5 x 8 Promus Synergy, post dilated with a 2.75 x 8 NC Balloon at 14 mela; 85%-->0%, no dissection. Per DJN @ [facility] 01/26/2019 S/P CABG (coronary artery bypass graft) (Chronic) Onset Date: 02/27/07 Z95.1 [facility] (Unable to obtain report, Patient states X 3 vessels) Lives: With Family Smoking Status: Former smoker Alcohol: None - *Family History Maternal Family History: Family History (Last Updated 02/05/19 @ 04:18 by Jose Bond MD) Other CAD (coronary artery disease) Myocardial infarction Tuberculosis Paternal Family History: Family History (Last Updated 02/05/19 @ 04:18 by Jose Bond MD) Other CAD (coronary artery disease) Myocardial infarction Tuberculosis Review of Systems Constitutional: Denies: Chills, Fever, Weight Change HEENT: Denies: Head Aches, Sinus Congestion, Sinus Drainage Cardiovascular: Reports: Chest Pain, Palpitations Respiratory: Denies: Cough, Shortness of breath at rest, Sputum production Gastrointestinal: Denies: Abdominal Pain, Nausea, Vomiting Genitourinary: Denies: Dysuria Musculoskeletal: Denies: Joint Pain, Joint Tenderness Skin: Denies: Rash, Wounds Neurological: Denies: Numbness, Tingling, Focal weakness Psychiatric: Denies: Anxiety, Depression, Homicidal Ideations, Suicidal Ideations Hematologic/ Lymphatic: Denies: Easy Bruising, Easy Bleeding VTE Information - Inpt Only VTE Present on Admission: No VTE Mechan Device Prophylaxis: None VTE Pharm Prophylaxis ordered?: Yes - Physical Exam General: Alert, Oriented x3, Cooperative HEENT: Atraumatic, PERRLA, EOMI, Normocephalic Neck: Supple, No JVD, Negative Carotid Bruits Lungs: Clear to auscultation, Normal air movement Cardiovascular: No murmurs, Bradycardic Abdomen: Bowel Sounds Present, Soft, Non Tender Extremities: No edema, Capillary Refill Less than 3 Seconds Skin: No rashes, No breakdown Musculoskeletal: No Tenderness to Palpation of Joints or Extremities Neurological: Cranial nerves II-XII grossly intact Psych/Mental Status: Normal Affect, Appropriate Vital Signs Temp Pulse Resp BP Pulse Ox 97.9 F 47 L 15 129/78 H 98 02/04/19 23:51 02/05/19 00:48 02/05/19 00:48 02/05/19 00:48 02/05/19 00:48 Oxygen Delivery Method Room Air Weight: 87.543 kg Body Mass Index (BMI) 30.2 Laboratory Tests Past 24 Hrs 02/05/19 02/05/19 00:05 00:05 WBC 6.2 RBC 4.39 L Hgb 13.7 Hct 39.3 L MCV 89.5 MCH 31.2 MCHC 34.9 RDW 11.8 RDW Differential 37.7 Plt Count 171 MPV 12.0 Immature Gran % (Auto) 0.300 Neut % (Auto) 55.4 Lymph % (Auto) 31.1 [place] % (Auto) 10.0 Eos % (Auto) 2.9 Baso % (Auto) 0.3 Absolute Neuts (auto) 3.4 Absolute Lymphs (auto) 1.93 Total Counted Not Reportable Sodium 134 L Potassium 5.9 H Chloride 101 Carbon Dioxide 26.0 Anion Gap 7 BUN 22 H Creatinine 1.32 H Estim Creat Clear Calc 54.25 Est GFR (MDRD) Af Amer 71 Est GFR (MDRD) Non-Af 58 L BUN/Creatinine Ratio 16.7 Glucose 175 H Calcium 8.4 L Troponin I < 0.015 Assessment/Plan All Active Problems (Last Reviewed 02/05/19 @ 04:19 by Jose Bond MD) Abnormal stress echo (Acute) Chest pain (Acute) Ventricular tachycardia (Acute) The patient is a 63 year old M with a significant history of CAD status post CABG in 2017; coronary stents on 20 January 2019; hypertension; and bradycardia who presented to the emergency department with few hour history of palpitations and continuous excruciating chest pain. Chest pain Admit to a monitored bed on pcu CXR independently reviewed confirms no acute cardiopulmonary process. EKG independently reviewed confirms marked sinus bradycardia with bigeminy PVCs. Received aspirin 325 mg by paramedics. ASA 81 mg p.o. daily continued. Plavix continued SL NTG 0.4 mg prn as needed for chest pain Serial cardiac enzymes Stat EKG as needed for chest pain At the time of evaluation patient's chest pain was normal. Since patient has extensive cardiac history will consult cardiology. Losartan continued Bradycardia with PVCs We will hold carvedilol and amiodarone until cardiology sees patient. Of note he reports being compliant with his medication. Ischemic cardiomyopathy His ejection fraction is 20-25% and the plan was a prophylactic ICD placement. Lasix continued. Hyperlipidemia Notably patient is not on any statin at this time. His lipids on 01/05/2019 showed a triglyceride of 360; cholesterol of 206; and LDL cholesterol was 102. Gemfibrozil continued. Will defer hyperlipidemia/ statin therapy to cardiology. Hyperkalemia Likely spurious His potassium was 5.9 but reportedly it was hemolyzed. Repeat potassium returned at 4.1. DVT prophylaxis Subcutaneous Lovenox ordered. Code Visit OBSV E&M: 79150 Initial observation care L3
--- NOTE | 2019-02-05 01:18 | ED.VISSUMM ---
- ER Visit Summary Date of Service: 02/05/19 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: Chest pain History of Present Illness: The patient is a 63 M who presents with chest pain. This began about 30 minutes prior to presentation. It was with light activity. It was on the left lower chest. It has since resolved. No associated nausea shortness of breath or diaphoresis. He does have a history of coronary disease, ischemic cardiomyopathy, history of nonsustained ventricular tachycardia. He has a history of CABG and stents. He is scheduled for a pacemaker per the cardiology note his last EF was 20-25%. Physical Examination: Afebrile vitals unremarkable Moist mucous membranes Heart regular bradycardia Lungs are clear Abdomen soft Extremities nontender Test Results: EKG shows ventricular bigeminy at a rate of 55. Labs notable for BUN 22, creatinine 1.32. Potassium is 5.9 but hemolyzed. Troponin negative. Chest x-ray shows no acute disease. Emergency Department Course and Treatment: Patient was given aspirin. Given patient's chest pain with extensive cardiac history as well as bradycardia and already plan for pacer defibrillator patient will be admitted. Treatment Plan: [] Disposition: Abdomen Impression: Chest pain Ventricular bigeminy This note was generated with [employer] dictation software. It may contain incorrect words, spelling, and punctuation that were not noted in review of the chart prior to signing ED Disposition - Plan for ED Patient: Referrals: Omar King MD [Primary Care Provider] -
--- NOTE | 2019-02-05 03:09 | EKG12_ITS ---
Test Reason : CP ADMISSION Blood Pressure : / mmHG Vent. Rate : 034 BPM Atrial Rate : 034 BPM P-R Int : 168 ms QRS Dur : 092 ms QT Int : 532 ms P-R-T Axes : -05 -33 268 degrees QTc Int : 399 ms Marked sinus bradycardia Left axis deviation ST & T wave abnormality, consider inferior ischemia ST & T wave abnormality, consider anterolateral ischemia Abnormal ECG When compared with ECG of 27-JAN-2019 04:53, Premature ventricular complexes are no longer Present Inverted T waves have replaced nonspecific T wave abnormality in Inferior leads Inverted T waves have replaced nonspecific T wave abnormality in Anterior leads Confirmed by JAZLYN MARIE ([id number]), fan mail editor JUSTIN BAILEY ([id number]) on 02/10/2019 11:06:47 AM Referred By: Jose Bond Confirmed By:JAZLYN MARIE
[2019-02-05 04:01] LABS: Potassium 4.1 mmol/L (3.5-5.1)
[2019-02-05] MEDS: Aspirin E.C. 81 MG Tablet PO (10:26)
[2019-02-05] MEDS: Gemfibrozil 600 MG Tablet PO (10:26)
[2019-02-05] MEDS: Enoxaparin 40 MG/0.4 ML Syringe SC (10:26)
[2019-02-05] MEDS: Losartan Potassium 25 MG Tablet PO (10:26)
[2019-02-05] MEDS: Clopidogrel Bisulfate 75 MG Tablet PO (10:26)
[2019-02-05] MEDS: Furosemide 20 MG Tablet PO (10:26)
--- NOTE | 2019-02-05 12:17 | PN_ITS ---
<Maninder Darnell - Last Filed: 02/05/19 12:08> Subjective: Pt complains of intermittent episodes of vibrating sensation over his left chest that have occurred since his last stent. Last episode was around 6:30 am to 7 AM, at that time he had PVCs on the monitor. He has no chest pain this AM. No LH or syncope. No SOB. He is eager to have a pacemaker / ICD placed, as expresses frustration at being discharged from the hospital only to be re-admitted later. He does not want to go home and then have to come back later again if there is still an underlying problem. - Physical Exam General: Alert, Oriented x3, Cooperative HEENT: Atraumatic, PERRLA, EOMI, Normocephalic Neck: Supple, No JVD, Negative Carotid Bruits Lungs: Clear to auscultation, Normal air movement Cardiovascular: Regular rate, No murmurs, Bradycardic Abdomen: Bowel Sounds Present, Soft, Non Tender Extremities: No edema, Capillary Refill Less than 3 Seconds Skin: No rashes, No breakdown Musculoskeletal: No Tenderness to Palpation of Joints or Extremities Neurological: Cranial nerves II-XII grossly intact Psych/Mental Status: Normal Affect, Appropriate, Alert and oriented to time, place, person, mood and affect Vital Signs Temp Pulse Resp BP Pulse Ox 98.1 F 56 L 16 136/66 H 100 02/05/19 11:00 02/05/19 11:00 02/05/19 11:00 02/05/19 11:00 02/05/19 11:00 Oxygen Delivery Method Room Air Weight: 194 lb 7.163 oz Body Mass Index (BMI) 29.5 Intake and Output for Last 24 Hours 02/03/19 02/04/19 02/05/19 23:59 23:59 23:59 Intake Total 0 / 0 Balance 0 / 0 Laboratory Tests Past 24 Hrs 02/05/19 02/05/19 02/05/19 00:05 00:05 03:25 WBC 6.2 RBC 4.39 L Hgb 13.7 Hct 39.3 L MCV 89.5 MCH 31.2 MCHC 34.9 RDW 11.8 RDW Differential 37.7 Plt Count 171 MPV 12.0 Immature Gran % (Auto) 0.300 Neut % (Auto) 55.4 Lymph % (Auto) 31.1 [place] % (Auto) 10.0 Eos % (Auto) 2.9 Baso % (Auto) 0.3 Absolute Neuts (auto) 3.4 Absolute Lymphs (auto) 1.93 Total Counted Not Reportable Sodium 134 L Potassium 5.9 H Chloride 101 Carbon Dioxide 26.0 Anion Gap 7 BUN 22 H Creatinine 1.32 H Estim Creat Clear Calc 54.25 Est GFR (MDRD) Af Amer 71 Est GFR (MDRD) Non-Af 58 L BUN/Creatinine Ratio 16.7 Glucose 175 H Calcium 8.4 L Troponin I < 0.015 0.015 02/05/19 02/05/19 03:25 06:20 WBC RBC Hgb Hct MCV MCH MCHC RDW RDW Differential Plt Count MPV Immature Gran % (Auto) Neut % (Auto) Lymph % (Auto) [place] % (Auto) Eos % (Auto) Baso % (Auto) Absolute Neuts (auto) Absolute Lymphs (auto) Total Counted Sodium Potassium 4.1 Chloride Carbon Dioxide Anion Gap BUN Creatinine Estim Creat Clear Calc Est GFR (MDRD) Af Amer Est GFR (MDRD) Non-Af BUN/Creatinine Ratio Glucose Calcium Troponin I 0.016 Medical Necessity - Tobacco Use Smoking Status: Former smoker Assessment/Plan All Active Problems (Last Reviewed 02/05/19 @ 04:19 by Jose Bond MD) Abnormal stress echo (Acute) Chest pain (Acute) Ventricular tachycardia (Acute) 1. Chest pain in the setting of CAD with prior CABG/PCI - recent x1 stent ostial LAD, placed per Dr. Dai on 01/27/2019. No further CP. Bradycardic into the 30s, I do not appreciate a block on the monitor or EKG. It is starting to improve. Coreg and Amio were held this AM. Cardiology to see the patient today. -cxr neg -trop neg -PVCs on tele -At last visit it was noted that he will later require possibly a dual chamber PM/AICD in the future. 2. Ischemic CM - EF 20-25%, previously considered for AICD. No evidence of CHF at this time. 3. PVC's - as noted on prior cardiology notes he was started on amio for this. He continues to have PVCs on the monitor, amio is held now given the b radycardia. 4. HLD - on gemfibrozil, not on statin. 5. Hx Nicotine abuse - no longer smokes. 6. HTN - improved DVT ppx: lovenox This patient was seen by Maninder Darnell PA-C under the supervision of Dr. Dominguez <Kishore Dominguez - Last Filed: 02/05/19 14:54> - Physical Exam General: Alert, Cooperative HEENT: Atraumatic, Normocephalic Lungs: Clear to auscultation, Normal air movement Cardiovascular: No murmurs, Bradycardic Abdomen: Bowel Sounds Present, Soft, Non Tender, Non-Distended Extremities: No edema, No Calf Tenderness Skin: No rashes, No breakdown Psych/Mental Status: Normal Affect, Appropriate Vital Signs Temp Pulse Resp BP Pulse Ox 36.7 C 45 L 16 136/66 H 98 02/05/19 11:00 02/05/19 13:05 02/05/19 11:00 02/05/19 11:00 02/05/19 11:16 Oxygen Delivery Method Room Air Weight: 88.2 kg Body Mass Index (BMI) 29.5 Intake and Output for Last 24 Hours 02/03/19 02/04/19 02/05/19 23:59 23:59 23:59 Intake Total 720 / 720 Balance 720 / 720 Laboratory Tests Past 24 Hrs 02/05/19 02/05/19 02/05/19 00:05 00:05 03:25 WBC 6.2 RBC 4.39 L Hgb 13.7 Hct 39.3 L MCV 89.5 MCH 31.2 MCHC 34.9 RDW 11.8 RDW Differential 37.7 Plt Count 171 MPV 12.0 Immature Gran % (Auto) 0.300 Neut % (Auto) 55.4 Lymph % (Auto) 31.1 [place] % (Auto) 10.0 Eos % (Auto) 2.9 Baso % (Auto) 0.3 Absolute Neuts (auto) 3.4 Absolute Lymphs (auto) 1.93 Total Counted Not Reportable Sodium 134 L Potassium 5.9 H Chloride 101 Carbon Dioxide 26.0 Anion Gap 7 BUN 22 H Creatinine 1.32 H Estim Creat Clear Calc 54.25 Est GFR (MDRD) Af Amer 71 Est GFR (MDRD) Non-Af 58 L BUN/Creatinine Ratio 16.7 Glucose 175 H Calcium 8.4 L Troponin I < 0.015 0.015 02/05/19 02/05/19 03:25 06:20 WBC RBC Hgb Hct MCV MCH MCHC RDW RDW Differential Plt Count MPV Immature Gran % (Auto) Neut % (Auto) Lymph % (Auto) [place] % (Auto) Eos % (Auto) Baso % (Auto) Absolute Neuts (auto) Absolute Lymphs (auto) Total Counted Sodium Potassium 4.1 Chloride Carbon Dioxide Anion Gap BUN Creatinine Estim Creat Clear Calc Est GFR (MDRD) Af Amer Est GFR (MDRD) Non-Af BUN/Creatinine Ratio Glucose Calcium Troponin I 0.016 Assessment/Plan Patient seen and examined independently. Data reviewed. I agree with the above note by the physician educational assistant. 1. Chest pain: Patient with known occlusion to the SVG of the right coronary artery with a left to right collaterals. Patient continue with aspirin and Plavix and nitrates. Recommendation from cardiology is to maximize beta- blockers, however given his bradycardia, that will need to be addressed first. With the patient's bradycardia it is felt by cardiology that needs to be evaluated for defibrillator/pacemaker so that the beta-blockers can be uptitrated. Cardiology has initiated conversation with [facility] and awaiting acceptance and potential transfer to the facility. Code Visit Inpatient E&M: 40488 Subs Hosp L2
--- NOTE | 2019-02-05 12:30 | PCM.CONS.C ---
Reason for Consult Date of Consultation: 02/05/19 History of Present Illness: The patient is a 63 year old M past medical history significant for coronary artery disease status post myocardial infarction and coronary artery bypass graft surgery in 2006. He has recently had an abnormal stress test. Coronary angiography was performed. His vein graft to the RCA was noted to be totally occluded. Left to right collaterals were noted. CHAPA to the LAD was patent and so was the vein graft to the obtuse marginal branch. Ostial LAD had significant stenosis. This was supplying to unprotected diagonal branches. Percutaneous intervention was performed to the ostial LAD with placement of drug-eluting stent. Last night patient had some left-sided chest discomfort. It was perceived as both sharp and pressure-like. No associated shortness of breath. No diaphoresis but says that he did have some pallor. Also felt palpitations. EMS was called. Patient was given nitroglycerin. This relieved his chest discomfort. On arrival to the emergency room, patient was noted to be bradycardic with his heart rate going down as low as into the 30s. Also noted ventricular bigeminy. He had previously been started on amiodarone for frequent PVCs with ventricular bigeminy and trigeminy. The amiodarone has been held today for his bradycardia. Patient denies any exertional angina. He denies any history of syncope or presyncope. No orthopnea or PND. Ejection fraction on left ventriculography was noted to be around 25-30%. [] Past Medical History Allergies/Adverse Reactions: Allergies No Known Allergies Allergy (Verified 02/04/19 23:51) Home Medications: Ambulatory Orders Medication Instructions Recorded aspirin 81 mg tablet,delayed 81 mg PO DAILY #90 tab 01/04/19 release Nitroglycerin [Nitrostat] 0.4 mg SUBLINGUAL Q5M PRN #25 01/27/19 tablet amiodarone 200 mg tablet 200 mg PO DAILY #90 tab 02/04/19 carvedilol 3.125 mg tablet 3.125 mg PO BID #180 tab 02/04/19 clopidogrel 75 mg tablet 75 mg PO DAILY #90 tab 02/04/19 furosemide 20 mg tablet 20 mg PO DAILY #90 tab 02/04/19 gemfibrozil 600 mg tablet 600 mg PO BID #180 tab 02/04/19 losartan 25 mg tablet 25 mg PO DAILY #90 tab 02/04/19 Past Medical History (Chronic Problems): Chronic Problems (Last Reviewed 02/05/19 @ 04:19 by Jose Bond MD) Stented coronary artery (Chronic 01/26/19) Segmented LV systolic dysfunction- Severe LVEF: by LV gram 20-25 % Depressed Left Ventricular systolic function - Severe Triple vessel CAD of the LAD, LCX and RCA Patent CHAPA to LAD with L to L collaterals to OM Widely patent SVG to LCX Occluded SVG to RCA. Successful PTCA/DARRIUS ostial LAD with a 2.5 x 8 Promus Synergy, post dilated with a 2.75 x 8 NC Balloon at 14 mela; 85%-->0%, no dissection. Per DJN @ [facility] 01/26/2019 Hypertension (Chronic) Hyperlipidemia (Chronic) S/P CABG (coronary artery bypass graft) (Chronic 02/27/07) [facility] (Unable to obtain report, Patient states X 3 vessels) Atherosclerotic heart disease of [place] coronary artery without angina pectoris (Chronic) CAB[facility]2007 [facility] - *Family History Maternal Family History: Family History (Last Updated 02/05/19 @ 04:18 by Jose Bond MD) Other CAD (coronary artery disease) Myocardial infarction Tuberculosis Paternal Family History: Family History (Last Updated 02/05/19 @ 04:18 by Jose Bond MD) Other CAD (coronary artery disease) Myocardial infarction Tuberculosis Lives: With Family Smoking Status: Former smoker Alcohol: None Review of Systems - Review of Systems General: Denies: Fever, Chills Cardiovascular: Reports: Chest Discomfort at Rest, Palpitations. Denies: Shortness of Breath, Orthopnea, PND, Peripheral Edema, Lightheadedness, Dizziness, Near Syncope, Syncope Respiratory: Denies: Cough, Hemoptysis Gastrointestinal: Denies: Abdominal Discomfort, Jaundice, Nausea, Emesis, Hematemesis Neurological: Denies: History of TIA, History of CVA Subjectve: Comfortable. No apparent distress. Objective: Vital Signs Temp Pulse Resp BP Pulse Ox 98.1 F 56 L 16 136/66 H 98 02/05/19 11:00 02/05/19 11:00 02/05/19 11:00 02/05/19 11:00 02/05/19 11:16 Oxygen Delivery Method Room Air Weight: 88.2 kg Body Mass Index (BMI) 29.5 Intake and Output for Last 24 Hours 02/03/19 02/04/19 02/05/19 23:59 23:59 23:59 Intake Total 0 / 0 Balance 0 / 0 General: Healthy Appearing, Awake, Alert, Oriented x 3, No Acute Distress HEENT: Atraumatic, Normocephalic Oral: Moist Mucosa Neck: Supple, No JVD Lungs: Clear to auscultation Cardiovascular: Regular Rhythm, Normal S1, Normal S2, Positive S3 Abdomen: Bowel Sounds Present, Soft Extremities: No edema Neurological: No Focal Motor or Sensory Deficit Psych/Mental Status: Appropriate 02/05/19 00:05: WBC 6.2, RBC 4.39 L, Hgb 13.7, Hct 39.3 L, MCV 89.5, MCH 31.2, MCHC 34.9, RDW 11.8, RDW Differential 37.7, Plt Count 171, MPV 12.0, Immature Gran % (Auto) 0.300, Neut % (Auto) 55.4, Lymph % (Auto) 31.1, [place] % (Auto) 10.0, Eos % (Auto) 2.9, Baso % (Auto) 0.3, Absolute Neuts (auto) 3.4, Total Counted Not Reportable 02/05/19 00:05: Sodium 134 L, Potassium 5.9 H, Chloride 101, Carbon Dioxide 26.0, Anion Gap 7, BUN 22 H, Creatinine 1.32 H, Est GFR (MDRD) Af Amer 71, Est GFR (MDRD) Non-Af 58 L, BUN/Creatinine Ratio 16.7, Glucose 175 H, Calcium 8.4 L, Troponin I < 0.015 02/05/19 03:25: Troponin I 0.015 02/05/19 03:25: Potassium 4.1 02/05/19 06:20: Troponin I 0.016 Rhythm: Sinus bradycardia. Occasional PVCs EKG: EKG from earlier this morning showed sinus bradycardia. Heart rate was 32 bpm. T wave changes consistent with anterolateral ischemia ECHO: Stress Test: Cardiac Cath: Ejection fraction on left ventriculography was noted to be 25-30% PCI: CT Surgery: Holter monitor: EPS: PPM: CXR: Chest CT Scan: Assessment/Plan 1. Chest pain. Consider angina pectoris. Patient has totally occluded SVG to the right coronary artery. Left to right collaterals noted. Start on nitrates. Continue aspirin and Plavix. Recent intervention to the ostial LAD supplying diagonals. Maximize beta blockers after backup permanent pacemaker/defibrillator is placed. 2. Ischemic cardiomyopathy. Functional class II. Ejection fraction 25-30% on left ventriculography. Continue angiotensin receptor irasema. Continue beta-blockers. 3. Palpitations. Ischemic cardiomyopathy as noted in #2 above. Marked sinus bradycardia with amiodarone and low-dose beta-irasema. Agree with stopping amiodarone. Continue beta-blockers. Patient is at increased risk for sudden cardiac . Need to maximize beta irasema however unable to do so presently because of sinus bradycardia with low doses. Recommend backup permanent pacemaker/defibrillator. We will try to make arrangements for transfer for placement of ICD/PPM. 4. Dyslipidemia. Managed as per internal medicine.
--- NOTE | 2019-02-05 12:35 | CON.PCM_ITS ---
Reason for Consult Date of Consultation: 02/05/19 History of Present Illness: The patient is a 63 year old M past medical history significant for coronary artery disease status post myocardial infarction and coronary artery bypass graft surgery in 2006. He has recently had an abnormal stress test. Coronary angiography was performed. His vein graft to the RCA was noted to be totally occluded. Left to right collaterals were noted. CHAPA to the LAD was patent and so was the vein graft to the obtuse marginal branch. Ostial LAD had significant stenosis. This was supplying to unprotected diagonal branches. Percutaneous intervention was performed to the ostial LAD with placement of drug-eluting stent. Last night patient had some left-sided chest discomfort. It was perceived as both sharp and pressure-like. No associated shortness of breath. No diaphoresis but says that he did have some pallor. Also felt palpitations. EMS was called. Patient was given nitroglycerin. This relieved his chest discomfort. On arrival to the emergency room, patient was noted to be bradycardic with his heart rate going down as low as into the 30s. Also noted ventricular bigeminy. He had previously been started on amiodarone for frequent PVCs with ventricular bigeminy and trigeminy. The amiodarone has been held today for his bradycardia. Patient denies any exertional angina. He denies any history of syncope or presyncope. No orthopnea or PND. Ejection fraction on left ventriculography was noted to be around 25-30%. [] Past Medical History Allergies/Adverse Reactions: Allergies No Known Allergies Allergy (Verified 02/04/19 23:51) Home Medications: Ambulatory Orders Medication Instructions Recorded aspirin 81 mg tablet,delayed 81 mg PO DAILY #90 tab 01/04/19 release Nitroglycerin [Nitrostat] 0.4 mg SUBLINGUAL Q5M PRN #25 01/27/19 tablet amiodarone 200 mg tablet 200 mg PO DAILY #90 tab 02/04/19 carvedilol 3.125 mg tablet 3.125 mg PO BID #180 tab 02/04/19 clopidogrel 75 mg tablet 75 mg PO DAILY #90 tab 02/04/19 furosemide 20 mg tablet 20 mg PO DAILY #90 tab 02/04/19 gemfibrozil 600 mg tablet 600 mg PO BID #180 tab 02/04/19 losartan 25 mg tablet 25 mg PO DAILY #90 tab 02/04/19 Past Medical History (Chronic Problems): Chronic Problems (Last Reviewed 02/05/19 @ 04:19 by Jose Bond MD) Stented coronary artery (Chronic 01/26/19) Segmented LV systolic dysfunction- Severe LVEF: by LV gram 20-25 % Depressed Left Ventricular systolic function - Severe Triple vessel CAD of the LAD, LCX and RCA Patent CHAPA to LAD with L to L collaterals to OM Widely patent SVG to LCX Occluded SVG to RCA. Successful PTCA/DARRIUS ostial LAD with a 2.5 x 8 Promus Synergy, post dilated with a 2.75 x 8 NC Balloon at 14 mela; 85%-->0%, no dissection. Per DJN @ [facility] 01/26/2019 Hypertension (Chronic) Hyperlipidemia (Chronic) S/P CABG (coronary artery bypass graft) (Chronic 02/27/07) [facility] (Unable to obtain report, Patient states X 3 vessels) Atherosclerotic heart disease of [place] coronary artery without angina pectoris (Chronic) [facility]2007 [facility] - *Family History Maternal Family History: Family History (Last Updated 02/05/19 @ 04:18 by Jose Bond MD) Other CAD (coronary artery disease) Myocardial infarction Tuberculosis Paternal Family History: Family History (Last Updated 02/05/19 @ 04:18 by Jose Bond MD) Other CAD (coronary artery disease) Myocardial infarction Tuberculosis Lives: With Family Smoking Status: Former smoker Alcohol: None Review of Systems - Review of Systems General: Denies: Fever, Chills Cardiovascular: Reports: Chest Discomfort at Rest, Palpitations. Denies: Shortness of Breath, Orthopnea, PND, Peripheral Edema, Lightheadedness, Dizziness, Near Syncope, Syncope Respiratory: Denies: Cough, Hemoptysis Gastrointestinal: Denies: Abdominal Discomfort, Jaundice, Nausea, Emesis, Hematemesis Neurological: Denies: History of TIA, History of CVA Subjectve: Comfortable. No apparent distress. Objective: Vital Signs Temp Pulse Resp BP Pulse Ox 98.1 F 56 L 16 136/66 H 98 02/05/19 11:00 02/05/19 11:00 02/05/19 11:00 02/05/19 11:00 02/05/19 11:16 Oxygen Delivery Method Room Air Weight: 88.2 kg Body Mass Index (BMI) 29.5 Intake and Output for Last 24 Hours 02/03/19 02/04/19 02/05/19 23:59 23:59 23:59 Intake Total 0 / 0 Balance 0 / 0 General: Healthy Appearing, Awake, Alert, Oriented x 3, No Acute Distress HEENT: Atraumatic, Normocephalic Oral: Moist Mucosa Neck: Supple, No JVD Lungs: Clear to auscultation Cardiovascular: Regular Rhythm, Normal S1, Normal S2, Positive S3 Abdomen: Bowel Sounds Present, Soft Extremities: No edema Neurological: No Focal Motor or Sensory Deficit Psych/Mental Status: Appropriate 02/05/19 00:05: WBC 6.2, RBC 4.39 L, Hgb 13.7, Hct 39.3 L, MCV 89.5, MCH 31.2, MCHC 34.9, RDW 11.8, RDW Differential 37.7, Plt Count 171, MPV 12.0, Immature Gran % (Auto) 0.300, Neut % (Auto) 55.4, Lymph % (Auto) 31.1, [facility] % (Auto) 10.0, Eos % (Auto) 2.9, Baso % (Auto) 0.3, Absolute Neuts (auto) 3.4, Total Counted Not Reportable 02/05/19 00:05: Sodium 134 L, Potassium 5.9 H, Chloride 101, Carbon Dioxide 26.0, Anion Gap 7, BUN 22 H, Creatinine 1.32 H, Est GFR (MDRD) Af Amer 71, Est GFR (MDRD) Non-Af 58 L, BUN/Creatinine Ratio 16.7, Glucose 175 H, Calcium 8.4 L, Troponin I < 0.015 02/05/19 03:25: Troponin I 0.015 02/05/19 03:25: Potassium 4.1 02/05/19 06:20: Troponin I 0.016 Rhythm: Sinus bradycardia. Occasional PVCs EKG: EKG from earlier this morning showed sinus bradycardia. Heart rate was 32 bpm. T wave changes consistent with anterolateral ischemia ECHO: Stress Test: Cardiac Cath: Ejection fraction on left ventriculography was noted to be 25-30% PCI: CT Surgery: Holter monitor: EPS: PPM: CXR: Chest CT Scan: Assessment/Plan 1. Chest pain. Consider angina pectoris. Patient has totally occluded SVG to the right coronary artery. Left to right collaterals noted. Start on nitrates. Continue aspirin and Plavix. Recent intervention to the ostial LAD supplying diagonals. Maximize beta blockers after backup permanent pacemaker/defibrillator is placed. 2. Ischemic cardiomyopathy. Functional class II. Ejection fraction 25-30% on left ventriculography. Continue angiotensin receptor irasema. Continue beta- blockers. 3. Palpitations. Ischemic cardiomyopathy as noted in #2 above. Marked sinus bradycardia with amiodarone and low-dose beta-irasema. Agree with stopping amiodarone. Continue beta-blockers. Patient is at increased risk for sudden cardiac . Need to maximize beta irasema however unable to do so presently because of sinus bradycardia with low doses. Recommend backup permanent pacemaker/defibrillator. We will try to make arrangements for transfer for placement of ICD/PPM. 4. Dyslipidemia. Managed as per internal medicine.
--- NOTE | 2019-02-05 12:43 | CASEMGMT ---
Insurance: Patient may be transferred to a tertiary care center. According to [employer] website the following hospitals are in network: [facility], [facility], [facility], [facility], [facility] in [place], and [facility]. [facility] is also in network. There were more on list however, these appear to be the main ones. Christa SWAN MSW
[2019-02-05] MEDS: Isosorbide DN 10 MG Tablet 5 MG PO (13:43)
--- NOTE | 2019-02-05 15:03 | PCM.DC.SUM ---
<Maninder Darnell - Last Filed: 02/05/19 15:12> Discharge Date and Diagnosis Date of Admission: 02/05/19 Date of Discharge: 02/05/19 - Primary Discharge Diagnosis Chest pain Bradycardia Recent stent CAD, prior stents/cabg Ischemic CM PVCs HLD Hx former smoker HTN - Secondary Discharge Diagnosis Chronic Problems (Last Reviewed 02/05/19 @ 04:19 by Jose Bond MD) Stented coronary artery (Chronic 01/26/19) Segmented LV systolic dysfunction- Severe LVEF: by LV gram 20-25 % Depressed Left Ventricular systolic function - Severe Triple vessel CAD of the LAD, LCX and RCA Patent CHAPA to LAD with L to L collaterals to OM Widely patent SVG to LCX Occluded SVG to RCA. Successful PTCA/DARRIUS ostial LAD with a 2.5 x 8 Promus Synergy, post dilated with a 2.75 x 8 NC Balloon at 14 mela; 85%-->0%, no dissection. Per DJN @ [facility] 01/26/2019 Hypertension (Chronic) Hyperlipidemia (Chronic) S/P CABG (coronary artery bypass graft) (Chronic 02/27/07) [facility] (Unable to obtain report, Patient states X 3 vessels) Atherosclerotic heart disease of [place] coronary artery without angina pectoris (Chronic) [facility] Hospital Course and Treatment Imaging Results: IMAGING: RAD/Chest PA and Lateral IMPRESSION: 1. No acute cardiopulmonary disease. No significant interval change. 2. Previous CABG. Consults: Cardiology - Jorge Operations: None Procedures: None Summary of Care Provided: Hospital Course: The patient is a 63 year old M with past medical history notably CAD with prior CABG, ischemic CM, HTN, HLD, PVCs, former 45 year smoker, presented to the emergency room with complaints of chest pain. The patient had a recent stent placed on 01/27/2019 to the LAD ostium. While at home he developed palpitations, excruciating chest pain under his left breast, that was relieved with nitroglycerin. He is found to have PVCs and sinus bradycardia in the emergency room. Troponin was negative, chest x-ray was negative. Cardiology was called and he was admitted to the PCU on telemetry. Throughout the night he continued to have palpitations and bradycardia. His amiodarone and Coreg were discontinued, he did have some improvement in his heart rate from the 30s to the 50s. He had previously been assessed for possible pacemaker and AICD placement given his cardiomyopathy. He has an underlying ejection fraction of 20-25%. After evaluation by cardiology it was decided he would be transferred to tertiary center for further intervention. He was discharged [facility] in stable condition. This patient was seen by Maninder Darnell PA-C under the supervision of Dr. Dominguez. [] - Physical Exam General: Alert, Oriented x3, Cooperative HEENT: Atraumatic, PERRLA, EOMI, Normocephalic Neck: Supple, No JVD, Negative Carotid Bruits Lungs: Clear to auscultation, Normal air movement Cardiovascular: No murmurs, Bradycardic Abdomen: Bowel Sounds Present, Soft, Non Tender Extremities: No edema, Capillary Refill Less than 3 Seconds Skin: No rashes, No breakdown Musculoskeletal: No Tenderness to Palpation of Joints or Extremities Neurological: Cranial nerves II-XII grossly intact Psych/Mental Status: Normal Affect, Appropriate, Alert and oriented to time, place, person, mood and affect Vital Signs Temp Pulse Resp BP Pulse Ox 98.1 F 45 L 16 136/66 H 98 02/05/19 11:00 02/05/19 13:05 02/05/19 11:00 02/05/19 11:00 02/05/19 11:16 Oxygen Delivery Method Room Air Weight: 194 lb 7.163 oz Body Mass Index (BMI) 29.5 Intake and Output for Last 24 Hours 02/03/19 02/04/19 02/05/19 23:59 23:59 23:59 Intake Total 720 / 720 Balance 720 / 720 Laboratory Tests Past 24 Hrs 02/05/19 02/05/19 02/05/19 00:05 00:05 03:25 WBC 6.2 RBC 4.39 L Hgb 13.7 Hct 39.3 L MCV 89.5 MCH 31.2 MCHC 34.9 RDW 11.8 RDW Differential 37.7 Plt Count 171 MPV 12.0 Immature Gran % (Auto) 0.300 Neut % (Auto) 55.4 Lymph % (Auto) 31.1 [place] % (Auto) 10.0 Eos % (Auto) 2.9 Baso % (Auto) 0.3 Absolute Neuts (auto) 3.4 Absolute Lymphs (auto) 1.93 Total Counted Not Reportable Sodium 134 L Potassium 5.9 H Chloride 101 Carbon Dioxide 26.0 Anion Gap 7 BUN 22 H Creatinine 1.32 H Estim Creat Clear Calc 54.25 Est GFR (MDRD) Af Amer 71 Est GFR (MDRD) Non-Af 58 L BUN/Creatinine Ratio 16.7 Glucose 175 H Calcium 8.4 L Troponin I < 0.015 0.015 02/05/19 02/05/19 03:25 06:20 WBC RBC Hgb Hct MCV MCH MCHC RDW RDW Differential Plt Count MPV Immature Gran % (Auto) Neut % (Auto) Lymph % (Auto) [place] % (Auto) Eos % (Auto) Baso % (Auto) Absolute Neuts (auto) Absolute Lymphs (auto) Total Counted Sodium Potassium 4.1 Chloride Carbon Dioxide Anion Gap BUN Creatinine Estim Creat Clear Calc Est GFR (MDRD) Af Amer Est GFR (MDRD) Non-Af BUN/Creatinine Ratio Glucose Calcium Troponin I 0.016 Discharge Diet: - - As directed by receiving facility Discharge Activity: - - As directed by receiving facility Home Medications: Medications to take at Discharge aspirin 81 mg tablet,delayed release 81 mg PO DAILY #90 tab 01/04/19 Nitroglycerin [Nitrostat] 0.4 mg SUBLINGUAL Q5M PRN #25 tablet 01/27/19 amiodarone 200 mg tablet 200 mg PO DAILY #90 tab 02/04/19 carvedilol 3.125 mg tablet 3.125 mg PO BID #180 tab 02/04/19 clopidogrel 75 mg tablet 75 mg PO DAILY #90 tab 02/04/19 furosemide 20 mg tablet 20 mg PO DAILY #90 tab 02/04/19 gemfibrozil 600 mg tablet 600 mg PO BID #180 tab 02/04/19 losartan 25 mg tablet 25 mg PO DAILY #90 tab 02/04/19 Primary Care Physician: Omar King MD [Primary Care Provider] - Please follow up with your Primary Care Physician in: As directed Please Follow Up With: Abraham Dai MD When: As directed Disposition: Acute care Hospital Minutes spent on discharge:: 35 Patient Condition:: Stable Medical Necessity - Tobacco Use Smoking Status: Former smoker Meaningful Use Info Meaningful Use Diagnoses (Choose all that apply): None applicable <Kishore Dominguez - Last Filed: 02/05/19 15:14> Discharge Date and Diagnosis - Secondary Discharge Diagnosis Chronic Problems (Last Reviewed 02/05/19 @ 04:19 by Jose Bond MD) Stented coronary artery (Chronic 01/26/19) Segmented LV systolic dysfunction- Severe LVEF: by LV gram 20-25 % Depressed Left Ventricular systolic function - Severe Triple vessel CAD of the LAD, LCX and RCA Patent CHAPA to LAD with L to L collaterals to OM Widely patent SVG to LCX Occluded SVG to RCA. Successful PTCA/DARRIUS ostial LAD with a 2.5 x 8 Promus Synergy, post dilated with a 2.75 x 8 NC Balloon at 14 mela; 85%-->0%, no dissection. Per DJN @ [facility] 01/26/2019 Hypertension (Chronic) Hyperlipidemia (Chronic) S/P CABG (coronary artery bypass graft) (Chronic 02/27/07) [facility] (Unable to obtain report, Patient states X 3 vessels) Atherosclerotic heart disease of [place] coronary artery without angina pectoris (Chronic) CAB[facility]2007 [facility] Hospital Course and Treatment Operations: None Procedures: None Summary of Care Provided: Patient seen and examined independently. Data reviewed. I agree with the above note by the physician clinical project assistant. 1. Chest pain: Patient with known occlusion to the SVG of the right coronary artery with a left to right collaterals. Patient continue with aspirin and Plavix and nitrates. Recommendation from cardiology is to maximize beta-blockers, however given his bradycardia, that will need to be addressed first. With the patient's bradycardia it is felt by cardiology that needs to be evaluated for defibrillator/pacemaker so that the beta-blockers can be uptitrated. Cardiology has initiated conversation with [facility] and awaiting acceptance and potential transfer to the facility. - Physical Exam Vital Signs Temp Pulse Resp BP Pulse Ox 36.7 C 45 L 16 136/66 H 98 02/05/19 11:00 02/05/19 13:05 02/05/19 11:00 02/05/19 11:00 02/05/19 11:16 Oxygen Delivery Method Room Air Weight: 88.2 kg Body Mass Index (BMI) 29.5 Intake and Output for Last 24 Hours 02/03/19 02/04/19 02/05/19 23:59 23:59 23:59 Intake Total 720 / 720 Balance 720 / 720 Laboratory Tests Past 24 Hrs 02/05/19 02/05/19 02/05/19 00:05 00:05 03:25 WBC 6.2 RBC 4.39 L Hgb 13.7 Hct 39.3 L MCV 89.5 MCH 31.2 MCHC 34.9 RDW 11.8 RDW Differential 37.7 Plt Count 171 MPV 12.0 Immature Gran % (Auto) 0.300 Neut % (Auto) 55.4 Lymph % (Auto) 31.1 [place] % (Auto) 10.0 Eos % (Auto) 2.9 Baso % (Auto) 0.3 Absolute Neuts (auto) 3.4 Absolute Lymphs (auto) 1.93 Total Counted Not Reportable Sodium 134 L Potassium 5.9 H Chloride 101 Carbon Dioxide 26.0 Anion Gap 7 BUN 22 H Creatinine 1.32 H Estim Creat Clear Calc 54.25 Est GFR (MDRD) Af Amer 71 Est GFR (MDRD) Non-Af 58 L BUN/Creatinine Ratio 16.7 Glucose 175 H Calcium 8.4 L Troponin I < 0.015 0.015 02/05/19 02/05/19 03:25 06:20 WBC RBC Hgb Hct MCV MCH MCHC RDW RDW Differential Plt Count MPV Immature Gran % (Auto) Neut % (Auto) Lymph % (Auto) [place] % (Auto) Eos % (Auto) Baso % (Auto) Absolute Neuts (auto) Absolute Lymphs (auto) Total Counted Sodium Potassium 4.1 Chloride Carbon Dioxide Anion Gap BUN Creatinine Estim Creat Clear Calc Est GFR (MDRD) Af Amer Est GFR (MDRD) Non-Af BUN/Creatinine Ratio Glucose Calcium Troponin I 0.016 Discharge Diet: - Discharge Activity: - Disposition: Acute care Hospital Patient Condition:: Stable Medical Necessity - Tobacco Use Smoking Status: Former smoker Meaningful Use Info Meaningful Use Diagnoses (Choose all that apply): None applicable Code Visit OBSV E&M: 20344 Observation care discharge
--- NOTE | 2019-02-05 15:09 | DS.PCM_ITS ---
Addendum entered and electronically signed by ОЛЬГА Coffman 02/05/19 15:12: Code Visit Accepting physician is Dr. Marbella Gardner Original Note: <Maninder Darnell - Last Filed: 02/05/19 15:12> Discharge Date and Diagnosis Date of Admission: 02/05/19 Date of Discharge: 02/05/19 - Primary Discharge Diagnosis Chest pain Bradycardia Recent stent CAD, prior stents/cabg Ischemic CM PVCs HLD Hx former smoker HTN - Secondary Discharge Diagnosis Chronic Problems (Last Reviewed 02/05/19 @ 04:19 by Jose Bond MD) Stented coronary artery (Chronic 01/26/19) Segmented LV systolic dysfunction- Severe LVEF: by LV gram 20-25 % Depressed Left Ventricular systolic function - Severe Triple vessel CAD of the LAD, LCX and RCA Patent CHAPA to LAD with L to L collaterals to OM Widely patent SVG to LCX Occluded SVG to RCA. Successful PTCA/DARRIUS ostial LAD with a 2.5 x 8 Promus Synergy, post dilated with a 2.75 x 8 NC Balloon at 14 mela; 85%-->0%, no dissection. Per DJN @ [facility] 01/26/2019 Hypertension (Chronic) Hyperlipidemia (Chronic) S/P CABG (coronary artery bypass graft) (Chronic 02/27/07) CABG 02[facility]27/[address] @ [facility] (Unable to obtain report, Patient states X 3 vessels) Atherosclerotic heart disease of [place] coronary artery without angina pectoris (Chronic) CABG 02/27/[address] @ [facility] Hospital Course and Treatment Imaging Results: IMAGING: RAD/Chest PA and Lateral IMPRESSION: 1. No acute cardiopulmonary disease. No significant interval change. 2. Previous CABG. Consults: Cardiology - Jorge Operations: None Procedures: None Summary of Care Provided: Hospital Course: The patient is a 63 year old M with past medical history notably CAD with prior CABG, ischemic CM, HTN, HLD, PVCs, former 45 year smoker, presented to the emergency room with complaints of chest pain. The patient had a recent stent placed on 01/27/2019 to the LAD ostium. While at home he developed palpitations, excruciating chest pain under his left breast, that was relieved with nitroglycerin. He is found to have PVCs and sinus bradycardia in the emergency room. Troponin was negative, chest x-ray was negative. Cardiology was called and he was admitted to the PCU on telemetry. Throughout the night he continued to have palpitations and bradycardia. His amiodarone and Coreg were discontinued, he did have some improvement in his heart rate from the 30s to the 50s. He had previously been assessed for possible pacemaker and AICD placement given his cardiomyopathy. He has an underlying ejection fraction of 20-25%. After evaluation by cardiology it was decided he would be transferred to tertiary center for further intervention. He was discharged [facility] in stable condition. This patient was seen by Maninder Darnell PA-C under the supervision of Dr. Dominguez. [] - Physical Exam General: Alert, Oriented x3, Cooperative HEENT: Atraumatic, PERRLA, EOMI, Normocephalic Neck: Supple, No JVD, Negative Carotid Bruits Lungs: Clear to auscultation, Normal air movement Cardiovascular: No murmurs, Bradycardic Abdomen: Bowel Sounds Present, Soft, Non Tender Extremities: No edema, Capillary Refill Less than 3 Seconds Skin: No rashes, No breakdown Musculoskeletal: No Tenderness to Palpation of Joints or Extremities Neurological: Cranial nerves II-XII grossly intact Psych/Mental Status: Normal Affect, Appropriate, Alert and oriented to time, place, person, mood and affect Vital Signs Temp Pulse Resp BP Pulse Ox 98.1 F 45 L 16 136/66 H 98 02/05/19 11:00 02/05/19 13:05 02/05/19 11:00 02/05/19 11:00 02/05/19 11:16 Oxygen Delivery Method Room Air Weight: 194 lb 7.163 oz Body Mass Index (BMI) 29.5 Intake and Output for Last 24 Hours 02/03/19 02/04/19 02/05/19 23:59 23:59 23:59 Intake Total 720 / 720 Balance 720 / 720 Laboratory Tests Past 24 Hrs 02/05/19 02/05/19 02/05/19 00:05 00:05 03:25 WBC 6.2 RBC 4.39 L Hgb 13.7 Hct 39.3 L MCV 89.5 MCH 31.2 MCHC 34.9 RDW 11.8 RDW Differential 37.7 Plt Count 171 MPV 12.0 Immature Gran % (Auto) 0.300 Neut % (Auto) 55.4 Lymph % (Auto) 31.1 [place] % (Auto) 10.0 Eos % (Auto) 2.9 Baso % (Auto) 0.3 Absolute Neuts (auto) 3.4 Absolute Lymphs (auto) 1.93 Total Counted Not Reportable Sodium 134 L Potassium 5.9 H Chloride 101 Carbon Dioxide 26.0 Anion Gap 7 BUN 22 H Creatinine 1.32 H Estim Creat Clear Calc 54.25 Est GFR (MDRD) Af Amer 71 Est GFR (MDRD) Non-Af 58 L BUN/Creatinine Ratio 16.7 Glucose 175 H Calcium 8.4 L Troponin I < 0.015 0.015 02/05/19 02/05/19 03:25 06:20 WBC RBC Hgb Hct MCV MCH MCHC RDW RDW Differential Plt Count MPV Immature Gran % (Auto) Neut % (Auto) Lymph % (Auto) [place] % (Auto) Eos % (Auto) Baso % (Auto) Absolute Neuts (auto) Absolute Lymphs (auto) Total Counted Sodium Potassium 4.1 Chloride Carbon Dioxide Anion Gap BUN Creatinine Estim Creat Clear Calc Est GFR (MDRD) Af Amer Est GFR (MDRD) Non-Af BUN/Creatinine Ratio Glucose Calcium Troponin I 0.016 Discharge Diet: - - As directed by receiving facility Discharge Activity: - - As directed by receiving facility Home Medications: Medications to take at Discharge aspirin 81 mg tablet,delayed release 81 mg PO DAILY #90 tab 01/04/19 Nitroglycerin [Nitrostat] 0.4 mg SUBLINGUAL Q5M PRN #25 tablet 01/27/19 amiodarone 200 mg tablet 200 mg PO DAILY #90 tab 02/04/19 carvedilol 3.125 mg tablet 3.125 mg PO BID #180 tab 02/04/19 clopidogrel 75 mg tablet 75 mg PO DAILY #90 tab 02/04/19 furosemide 20 mg tablet 20 mg PO DAILY #90 tab 02/04/19 gemfibrozil 600 mg tablet 600 mg PO BID #180 tab 02/04/19 losartan 25 mg tablet 25 mg PO DAILY #90 tab 02/04/19 Primary Care Physician: Omar King MD [Primary Care Provider] - Please follow up with your Primary Care Physician in: As directed Please Follow Up With: Abraham Dai MD When: As directed Disposition: Acute care Hospital Minutes spent on discharge:: 35 Patient Condition:: Stable Medical Necessity - Tobacco Use Smoking Status: Former smoker Meaningful Use Info Meaningful Use Diagnoses (Choose all that apply): None applicable <Kishore Dominguez - Last Filed: 02/05/19 15:14> Discharge Date and Diagnosis - Secondary Discharge Diagnosis Chronic Problems (Last Reviewed 02/05/19 @ 04:19 by Jose Bond MD) Stented coronary artery (Chronic 01/26/19) Segmented LV systolic dysfunction- Severe LVEF: by LV gram 20-25 % Depressed Left Ventricular systolic function - Severe Triple vessel CAD of the LAD, LCX and RCA Patent CHAPA to LAD with L to L collaterals to OM Widely patent SVG to LCX Occluded SVG to RCA. Successful PTCA/DARRIUS ostial LAD with a 2.5 x 8 Promus Synergy, post dilated with a 2.75 x 8 NC Balloon at 14 mela; 85%-->0%, no dissection. Per DJN @ [facility] 01/26/2019 Hypertension (Chronic) Hyperlipidemia (Chronic) S/P CABG (coronary artery bypass graft) (Chronic 02/27/07) [facility]2007 [facility] (Unable to obtain report, Patient states X 3 vessels) Atherosclerotic heart disease of [place] coronary artery without angina pectoris (Chronic) CABG 02/27/2007 @ [facility] Hospital Course and Treatment Operations: None Procedures: None Summary of Care Provided: Patient seen and examined independently. Data reviewed. I agree with the above note by the physician administrative office assistant. 1. Chest pain: Patient with known occlusion to the SVG of the right coronary artery with a left to right collaterals. Patient continue with aspirin and Plavix and nitrates. Recommendation from cardiology is to maximize beta- blockers, however given his bradycardia, that will need to be addressed first. With the patient's bradycardia it is felt by cardiology that needs to be evaluated for defibrillator/pacemaker so that the beta-blockers can be uptitrated. Cardiology has initiated conversation with [facility] and awaiting acceptance and potential transfer to the facility. - Physical Exam Vital Signs Temp Pulse Resp BP Pulse Ox 36.7 C 45 L 16 136/66 H 98 02/05/19 11:00 02/05/19 13:05 02/05/19 11:00 02/05/19 11:00 02/05/19 11:16 Oxygen Delivery Method Room Air Weight: 88.2 kg Body Mass Index (BMI) 29.5 Intake and Output for Last 24 Hours 02/03/19 02/04/19 02/05/19 23:59 23:59 23:59 Intake Total 720 / 720 Balance 720 / 720 Laboratory Tests Past 24 Hrs 02/05/19 02/05/19 02/05/19 00:05 00:05 03:25 WBC 6.2 RBC 4.39 L Hgb 13.7 Hct 39.3 L MCV 89.5 MCH 31.2 MCHC 34.9 RDW 11.8 RDW Differential 37.7 Plt Count 171 MPV 12.0 Immature Gran % (Auto) 0.300 Neut % (Auto) 55.4 Lymph % (Auto) 31.1 [place] % (Auto) 10.0 Eos % (Auto) 2.9 Baso % (Auto) 0.3 Absolute Neuts (auto) 3.4 Absolute Lymphs (auto) 1.93 Total Counted Not Reportable Sodium 134 L Potassium 5.9 H Chloride 101 Carbon Dioxide 26.0 Anion Gap 7 BUN 22 H Creatinine 1.32 H Estim Creat Clear Calc 54.25 Est GFR (MDRD) Af Amer 71 Est GFR (MDRD) Non-Af 58 L BUN/Creatinine Ratio 16.7 Glucose 175 H Calcium 8.4 L Troponin I < 0.015 0.015 02/05/19 02/05/19 03:25 06:20 WBC RBC Hgb Hct MCV MCH MCHC RDW RDW Differential Plt Count MPV Immature Gran % (Auto) Neut % (Auto) Lymph % (Auto) [place] % (Auto) Eos % (Auto) Baso % (Auto) Absolute Neuts (auto) Absolute Lymphs (auto) Total Counted Sodium Potassium 4.1 Chloride Carbon Dioxide Anion Gap BUN Creatinine Estim Creat Clear Calc Est GFR (MDRD) Af Amer Est GFR (MDRD) Non-Af BUN/Creatinine Ratio Glucose Calcium Troponin I 0.016 Discharge Diet: - Discharge Activity: - Disposition: Acute care Hospital Patient Condition:: Stable Medical Necessity - Tobacco Use Smoking Status: Former smoker Meaningful Use Info Meaningful Use Diagnoses (Choose all that apply): None applicable Code Visit OBSV E&M: 34794 Observation care discharge
--- NOTE | 2019-02-05 15:25 | NURSING ---
report called to Maddy REEVES at [facility]
== END 2019-02-05 15:53 | disposition short-term general hospital (02) ==
LOC: ED 02-05 00:14 → PCU 02-05 01:44
PROVIDERS: Admitting Provider Hospitalist; Emergency Provider Emergency Medicine; Family Provider Family Medicine; PCP Family Medicine; Referring Provider Hospitalist
DX: R07.89 Other chest pain (principal); I25.10 Atherosclerotic heart disease of native coronary artery without angina pectoris; E78.5 Hyperlipidemia, unspecified; I25.5 Ischemic cardiomyopathy; I10 Essential (primary) hypertension; I49.3 Ventricular premature depolarization; E87.5 Hyperkalemia; Z79.899 Other long term (current) drug therapy; Z79.02 Long term (current) use of antithrombotics/antiplatelets; Z79.82 Long term (current) use of aspirin; Z95.1 Presence of aortocoronary bypass graft; Z87.891 Personal history of nicotine dependence; Z82.49 Family history of ischemic heart disease and other diseases of the circulatory system; I25.2 Old myocardial infarction; R94.39 Abnormal result of other cardiovascular function study
CPT/HCPCS: 36415; 71046; 80048; 84132; 84484; 85025; 93005; 96372; 99218; 99285; J7030; G0378

== ENCOUNTER → 2019-02-25 10:49 | Outpatient (CLI) | payer MEDICAID, SELFPAY ==
[2019-01-26 14:33] VITALS: BMI 31.1
[2019-02-05 02:32] VITALS: BMI 29.5
[2019-02-25 12:35] LABS: AST(SGOT) 12 U/L (15-37); Alanine Aminotransfer ALT/SGPT 18 U/L (16-61); Alkaline Phosphatase 50 U/L (45-117); Bilirubin, Direct 0.14 mg/dL (0.00-0.30); Cholesterol 159 mg/dL (200); Globulin 3.7 g/dL (2.2-4.2); High Density Lipoprotein 56 mg/dL; Protein, Total 7.7 g/dL (6.4-8.2); Triglycerides 124 mg/dL; Very Low Density Lipoprotein 25 mg/dL (5-40)
== END ==
PROVIDERS: Family Provider Family Medicine; PCP Family Medicine; Referring Provider Internal Medicine Cardiovascular Disease; Visit Provider Internal Medicine Cardiovascular Disease
DX: E78.5 Hyperlipidemia, unspecified (principal); I25.10 Atherosclerotic heart disease of native coronary artery without angina pectoris
CPT/HCPCS: 36415; 80061; 80076

== ENCOUNTER → 2019-11-11 07:11 | Outpatient (CLI) | payer MEDICAID, SELFPAY ==
[2019-01-26 14:33] VITALS: BMI 31.1
[2019-11-10 15:00] VITALS: BMI 32.2
[2019-11-11 07:39] LABS: Absolute Neutrophil Count 2.8 X10^3/uL (2.0-7.7); Basophil# 0.02 X10^3/uL; Basophil% 0.4 % (0-1); Eosinophil# 0.09 X10^3/uL; Eosinophils% 1.8 % (0-5); Hemoglobin 13.6 g/dL (13.0-16.5); Lymphocyte % 31.6 % (19-41); Mean Corp Hgb Conc 32.4 g/dL (32-36); Mean Corpuscular Hgb 28.6 pg (27.0-32.0); Mean Corpuscular Volume 88.2 fL (80-94); Mean Platelet Vol. 10.7 fl (6.2-12.0); Monocyte# 0.51 X10^3/uL; Monocyte% 10.1 % (0-10); NRBC Flagged by Analyzer 0 % (0-5); Neutrophil # 2.82 X10^3/uL (2.7-7.7); Neutrophil % 55.7 % (47-70); Platelet Count 194 K/mm3 (150-450); RBC Distribution Width CV 12.1 % (11.6-14.6); RBC Distribution Width SD 39.5 fl (35.1-43.9); Red Blood Count 4.76 M/mm3 (4.6-6.2); White Blood Count 5.1 K/mm3 (4.4-11.0)
[2019-11-11 08:02] LABS: AST(SGOT) 21 U/L (15-37); Alanine Aminotransfer ALT/SGPT 32 U/L (16-61); Albumin, Serum 4.2 g/dL (3.2-5.0); Alkaline Phosphatase 49 U/L (45-117); Anion Gap 6 (5-15); BUN 16 mg/dL (7-18); BUN/Creat Ratio 12.1 RATIO (10-20); Bilirubin, Direct 0.13 mg/dL (0.00-0.30); Calcium,Total 9.2 mg/dL (8.5-10.1); Chloride 106 mmol/L (98-107); Cholesterol 182 mg/dL (200); Creatinine, Serum 1.32 mg/dL (0.70-1.30); EST Glomerular Filtration Rate 58 mL/min (>60); Est Glom Filt Rate - Afr Amer 70 mL/min (>60); Globulin 3.6 g/dL (2.2-4.2); Glucose 124 mg/dL (74-106); High Density Lipoprotein 42 mg/dL; Magnesium 2.4 mg/dL (1.6-2.6); Potassium 4.3 mmol/L (3.5-5.1); Protein, Total 7.8 g/dL (6.4-8.2); Sodium Level 140 mmol/L (136-145); Triglycerides 187 mg/dL; Very Low Density Lipoprotein 37 mg/dL (5-40)
== END ==
PROVIDERS: PCP Family Medicine; Referring Provider Nurse Practitioner Family; Visit Provider Nurse Practitioner Family
DX: I10 Essential (primary) hypertension (principal); I25.5 Ischemic cardiomyopathy; I25.10 Atherosclerotic heart disease of native coronary artery without angina pectoris; E78.5 Hyperlipidemia, unspecified; Z95.810 Presence of automatic (implantable) cardiac defibrillator; Z95.1 Presence of aortocoronary bypass graft
CPT/HCPCS: 36415; 80048; 80061; 80076; 83735; 85025

== ENCOUNTER → 2021-03-25 11:23 | Outpatient (CLI) | payer MEDICAID, SELFPAY ==
[2019-01-26 14:33] VITALS: BMI 31.1
[2021-03-25 10:39] VITALS: BMI 33.3
[2021-03-25 11:42] LABS: Absolute Lymphocyte Count 1.48 X10^3/uL (0.83-4.51); Absolute Neutrophil Count 4.8 X10^3/uL (2.0-7.7); Basophil# 0.03 X10^3/uL; Basophil% 0.4 % (0-1); Eosinophil# 0.07 X10^3/uL; Hematocrit 39.4 % (40-54); Hemoglobin 13.2 g/dL (13.0-16.5); Lymphocyte # 1.48 X10^3/ul (0.83-4.51); Lymphocyte % 20.9 % (19-41); Mean Corp Hgb Conc 33.5 g/dL (32-36); Mean Corpuscular Volume 86.6 fL (80-94); Mean Platelet Vol. 11.2 fl (6.2-12.0); Monocyte# 0.66 X10^3/uL; Monocyte% 9.3 % (0-10); NRBC Flagged by Analyzer 0 % (0-5); Neutrophil % 67.7 % (47-70); Platelet Count 212 K/mm3 (150-450); RBC Distribution Width CV 14.6 % (11.6-14.6); RBC Distribution Width SD 46.5 fl (35.1-43.9); Red Blood Count 4.55 M/mm3 (4.6-6.2); White Blood Count 7.1 K/mm3 (4.4-11.0)
[2021-03-25 12:21] LABS: ALB/GLOB Ratio 1.1 RATIO (0.9-2.4); AST(SGOT) 18 U/L (15-37); Alanine Aminotransfer ALT/SGPT 27 U/L (16-61); Albumin, Serum 3.9 g/dL (3.2-5.0); Alkaline Phosphatase 52 U/L (45-117); Anion Gap 5 (5-15); BUN 18 mg/dL (7-18); BUN/Creat Ratio 12.9 RATIO (10-20); Calcium,Total 8.9 mg/dL (8.5-10.1); Chloride 102 mmol/L (98-107); Cholesterol 167 mg/dL (200); Creatinine, Serum 1.39 mg/dL (0.70-1.30); EST Glomerular Filtration Rate 55 mL/min (>60); Est Glom Filt Rate - Afr Amer 66 mL/min (>60); Globulin 3.7 g/dL (2.2-4.2); Glucose 316 mg/dL (74-106); High Density Lipoprotein 41 mg/dL; Protein, Total 7.6 g/dL (6.4-8.2); Sodium Level 137 mmol/L (136-145); Triglycerides 355 mg/dL; Very Low Density Lipoprotein 71 mg/dL (5-40)
== END ==
PROVIDERS: Physician Assistant Medical; PCP Family Medicine; Referring Provider Internal Medicine Cardiovascular Disease; Visit Provider Internal Medicine Cardiovascular Disease
DX: I10 Essential (primary) hypertension (principal); I25.5 Ischemic cardiomyopathy; E78.00 Pure hypercholesterolemia, unspecified; I25.10 Atherosclerotic heart disease of native coronary artery without angina pectoris; Z95.810 Presence of automatic (implantable) cardiac defibrillator
CPT/HCPCS: 36415; 80053; 80061; 85025

== ENCOUNTER → 2021-04-03 10:54 | Outpatient (CLI) | payer MEDICAID, SELFPAY ==
[2019-01-26 14:33] VITALS: BMI 31.1
[2021-04-03 09:45] VITALS: BMI 33.3
[2021-04-03 12:39] LABS: PSA,Total- Diagnostic 0.83 ng/mL (0.0-4.0)
[2021-04-03 12:44] LABS: Hemoglobin A1c 7.2 % (3.8-5.6)
[2021-04-03 12:50] LABS: Microalbumin,Random Urine 20.6 mg/L (NO RANGE EST.); Microalbumin:Creatinine Ratio 7.6 mg/g CRE (<30 mg/g CRE)
== END ==
PROVIDERS: PCP Internal Medicine; Referring Provider Internal Medicine; Visit Provider Internal Medicine
DX: E11.9 Type 2 diabetes mellitus without complications (principal); N40.0 Benign prostatic hyperplasia without lower urinary tract symptoms
CPT/HCPCS: 36415; 82043; 82570; 83036; 84153

== ENCOUNTER → 2021-04-23 19:55 | Outpatient (CLI) | payer MEDICAID, SELFPAY ==
[2019-01-26 14:33] VITALS: BMI 31.1
[2021-04-03 09:45] VITALS: BMI 33.3
== END ==
PROVIDERS: PCP Internal Medicine; Referring Provider Internal Medicine; Visit Provider Internal Medicine
DX: G47.10 Hypersomnia, unspecified (principal)
CPT/HCPCS: 95810

== ENCOUNTER 2021-05-02 13:00 | Outpatient (RCR) | payer MEDICAID, SELFPAY ==
[2019-01-26 14:33] VITALS: BMI 31.1
[2021-04-03 09:45] VITALS: BMI 33.3
== END 2021-05-18 23:59 ==
LOC: DC 13:00
PROVIDERS: PCP Internal Medicine; Visit Provider Internal Medicine
DX: E11.9 Type 2 diabetes mellitus without complications (principal)
CPT/HCPCS: 97802; G0108

== ENCOUNTER → 2021-05-10 09:15 | Outpatient (CLI) | payer MEDICAID, SELFPAY ==
[2019-01-26 14:33] VITALS: BMI 31.1
[2021-05-09 16:05] VITALS: BMI 33.3
[2021-05-10 12:35] LABS: Anion Gap 6 (5-15); BUN 15 mg/dL (7-18); Calcium,Total 9.3 mg/dL (8.5-10.1); Chloride 103 mmol/L (98-107); Creatinine, Serum 1.25 mg/dL (0.70-1.30); EST Glomerular Filtration Rate 62 mL/min (>60); Est Glom Filt Rate - Afr Amer 75 mL/min (>60); Glucose 95 mg/dL (74-106); Potassium 4.4 mmol/L (3.5-5.1); Sodium Level 137 mmol/L (136-145); Uric Acid 6.9 mg/dL (3.5-7.2)
== END ==
PROVIDERS: PCP Internal Medicine; Referring Provider Internal Medicine; Visit Provider Internal Medicine
DX: I10 Essential (primary) hypertension (principal); M10.9 Gout, unspecified
CPT/HCPCS: 36415; 80048; 84550

== ENCOUNTER 2021-12-12 13:51 | Outpatient (CLI) | payer MEDICAID, SELFPAY ==
[2019-01-26 14:33] VITALS: BMI 31.1
[2021-12-12 15:41] LABS: Anion Gap 6 (5-15); BUN 22 mg/dL (7-18); BUN/Creat Ratio 19.3 RATIO (10-20); Calcium,Total 8.6 mg/dL (8.5-10.1); Chloride 108 mmol/L (98-107); Creatinine, Serum 1.14 mg/dL (0.70-1.30); EST Glomerular Filtration Rate 68 mL/min (>60); Est Glom Filt Rate - Afr Amer 83 mL/min (>60); Glucose 134 mg/dL (74-106); Potassium 3.8 mmol/L (3.5-5.1); Sodium Level 140 mmol/L (136-145)
[2021-12-12 15:59] LABS: Hemoglobin A1c 5.9 % (3.8-5.6)
[2021-12-12 16:03] LABS: Microalbumin,Random Urine 8.7 mg/L (NO RANGE EST.); Microalbumin:Creatinine Ratio 34.4 mg/g CRE (<30 mg/g CRE)
== END 2021-12-12 23:59 | disposition home or self-care (01) ==
LOC: BIMLAB 13:52
PROVIDERS: PCP Internal Medicine; Referring Provider Internal Medicine; Visit Provider Internal Medicine
DX: E11.9 Type 2 diabetes mellitus without complications (principal)
CPT/HCPCS: 36415; 80048; 82043; 82570; 83036

== ENCOUNTER → 2022-07-04 | Outpatient (CLI) | payer MEDICAID, SELFPAY ==
[2019-01-26 14:33] VITALS: BMI 31.1
--- NOTE | 2022-07-04 16:01 | RAD_ITS ---
STUDY: X-RAY CHEST REASON FOR EXAM: Male, 67 years old. Amiodarone TECHNIQUE: XR Chest 2 Views COMPARISON: 02/05/2019 FINDINGS: There are multiple median sternotomy wires. There is a left sided pacemaker batterypack. Normal size heart. Normal mediastinum and estefania. Normal visualized pulmonary arteries. There is atherosclerotic calcification of the aortic arch with tortuosity. There are diffuse degenerative changes of the visualized thoracic spine. There is degenerative osteoarthritis of the bilateral shoulders. There is no demonstrated abnormality of the visualized soft tissue structures of the upper abdomen. RAD/Chest PA and Lateral IMPRESSION: There are no acute findings. Electronically Signed: Checo Sims MD at 16:17 EDT ,
== END | disposition home or self-care (01) ==
LOC: RAD 16:00
PROVIDERS: PCP Internal Medicine; Referring Provider Internal Medicine Cardiovascular Disease; Visit Provider Internal Medicine Cardiovascular Disease
DX: Z79.899 Other long term (current) drug therapy (principal)
CPT/HCPCS: 71046

== ENCOUNTER → 2022-07-07 | Outpatient (CLI) | payer MEDICAID, SELFPAY ==
[2019-01-26 14:33] VITALS: BMI 31.1
[2022-07-07 11:38] LABS: Absolute Lymphocyte Count 2.06 X10^3/uL (0.83-4.51); Absolute Neutrophil Count 3.9 X10^3/uL (2.0-7.7); Basophil# 0.03 X10^3/uL; Basophil% 0.4 % (0-1); Eosinophil# 0.32 X10^3/uL; Eosinophils% 4.6 % (0-5); Hematocrit 42.2 % (40-54); Lymphocyte # 2.06 X10^3/ul (0.83-4.51); Lymphocyte % 29.8 % (19-41); Mean Corp Hgb Conc 33.2 g/dL (32-36); Mean Corpuscular Hgb 29.9 pg (27.0-32.0); Mean Platelet Vol. 11.2 fl (6.2-12.0); Monocyte# 0.59 X10^3/uL; Monocyte% 8.5 % (0-10); NRBC Flagged by Analyzer 0 % (0-5); Neutrophil # 3.86 X10^3/uL (2.7-7.7); Platelet Count 221 K/mm3 (150-450); RBC Distribution Width CV 13.3 % (11.6-14.6); RBC Distribution Width SD 43.7 fl (35.1-43.9); Red Blood Count 4.69 M/mm3 (4.6-6.2); White Blood Count 6.9 K/mm3 (4.4-11.0)
[2022-07-07 12:57] LABS: ALB/GLOB Ratio 0.9 RATIO (0.9-2.4); AST(SGOT) 19 U/L (15-37); Alanine Aminotransfer ALT/SGPT 28 U/L (16-61); Albumin, Serum 4.1 g/dL (3.2-5.0); Alkaline Phosphatase 56 U/L (45-117); Anion Gap 12 (5-15); BUN 20 mg/dL (7-18); BUN/Creat Ratio 14.3 RATIO (10-20); Calcium,Total 9.2 mg/dL (8.5-10.1); Chloride 103 mmol/L (98-107); Cholesterol 156 mg/dL (200); EST Glomerular Filtration Rate 54 mL/min (>60); Est Glom Filt Rate - Afr Amer 65 mL/min (>60); Globulin 4.6 g/dL (2.2-4.2); Glucose 120 mg/dL (74-106); High Density Lipoprotein 39 mg/dL; Potassium 4.3 mmol/L (3.5-5.1); Protein, Total 8.7 g/dL (6.4-8.2); Sodium Level 138 mmol/L (136-145); T4 Free Direct 0.94 ng/dL (0.76-1.46); Thyroid Stim Hormone (TSH) 6.58 uIU/mL (0.358-3.74); Triglycerides 145 mg/dL; Very Low Density Lipoprotein 29 mg/dL (5-40)
== END | disposition home or self-care (01) ==
LOC: LAB 09:23
PROVIDERS: PCP Internal Medicine; Referring Provider Nurse Practitioner Gerontology; Visit Provider Nurse Practitioner Gerontology
DX: I25.10 Atherosclerotic heart disease of native coronary artery without angina pectoris (principal); E78.00 Pure hypercholesterolemia, unspecified; Z79.899 Other long term (current) drug therapy
CPT/HCPCS: 36415; 80053; 80061; 84439; 84443; 85025

== ENCOUNTER → 2022-07-14 | Outpatient (CLI) | payer MEDICAID, SELFPAY ==
[2019-01-26 14:33] VITALS: BMI 31.1
--- NOTE | 2022-07-14 14:51 | RAD_ITS ---
EXAM: XR RIGHT FINGERS, 2 OR MORE VIEWS CLINICAL INDICATION: Right Thumb Pain TECHNIQUE: Frontal, lateral and oblique views of the fingers of the right hand. This report was created using adSage report generation technology. COMPARISON: None. FINDINGS: No acute or healing fracture or malalignment. Mild soft tissue fullness may represent swelling along the dorsal aspect of the first metacarpophalangeal joint. Mild degenerative changes at the first metacarpophalangeal joint. Mild degenerative changes at the first carpometacarpal joint No other focal soft tissue abnormalities. No other osseous or articular abnormalities. RAD/Finger(s) Min 2 Views IMPRESSION: Mild degenerative changes at the first metacarpophalangeal joint. No acute or healing fracture or malalignment. Electronically Signed: Chato Gonzales MD at 4:19 EDT ,
--- NOTE | 2022-07-14 14:51 | RAD_ITS ---
EXAM: XR LEFT SHOULDER COMPLETE, 2 OR MORE VIEWS CLINICAL INDICATION: Left Shoulder pain TECHNIQUE: Two or more views of the left shoulder. This report was created using Personally report generation technology. COMPARISON: None. FINDINGS: Moderate degenerative disease at the inferior glenohumeral joint. No acute or healing fracture or malalignment CABG post surgical changes. Left-sided AICD/pacer. Intact sternotomy wires. RAD/Shoulder min 2 Views IMPRESSION: No acute or healing fracture or malalignment. Electronically Signed: Chato Gonzales MD at 4:22 EDT ,
== END | disposition home or self-care (01) ==
LOC: MTRAD 14:50
PROVIDERS: PCP Internal Medicine; Referring Provider Internal Medicine; Visit Provider Internal Medicine
DX: M79.644 Pain in right finger(s) (principal); M25.512 Pain in left shoulder
CPT/HCPCS: 73030; 73140

== ENCOUNTER 2022-07-25 15:13 | Outpatient (RCR) | payer MEDICAID, SELFPAY ==
[2019-01-26 14:33] VITALS: BMI 31.1
--- NOTE | 2022-07-25 16:34 | HP.PTEVAL_ITS ---
Patient's Visit Information DEBBIE EDDY is a 67 year old M referred to Physical Therapy by Dr. Antonina Means MD with a diagnosis of PAIN IN LEFT SHOULDER. Date of Evaluation: 07/25/22 Physical Therapist: Mehdi Roque PT, Cert MDT, OCS - Visit Plan Frequency: 1-2x /Week Duration: 4 Weeks Plan: PRECAUTIONS: PACEMAKER. PATIENT WILL DO EX'S AT HOME. RECOMMEND OT FOR RIGHT THUMB. PT INTEVERTIONS WITH POSTURAL EX'S ,RTC/SCAPULAR STRENGTHNEING AND PATIENT EDUCATION - Subjective This 67 y/o male presents to physical therapy for left shoulder pain. This patient unable to speak [place] thus needs pacemaker. Patient has had left shoulder ~ 5months . Patient has had insidious onset of left shoulder pain . Pain located left shoulder global. Patient seen x-rays mod DJD/OA AC shoulder joint. Aggravating lifting , occasional ROM ,sleeping on left . Alleviating rest. Denies paresthesia/tingling . Patient has h/o CABG x3 2019 ,pacemaker pacemaker 2019. Patient pain affects QOL and function . Patient taking medication for pain. Patient has right thumb pain discussed with patient family needs order for thumb. VOCATION: retired. SOCAIL: lives with son - Pain Left Pain Intensity (Out of 10): 10 - Objective POSTURE: mild forward posture. PALPTION: unremarkable. NEURO: denies paresthesia/tingling. AROM: shoulder flexion/abduction 160 degrees ,ER 90 degrees ,IR T9. MMT: RTC/DELTOID 4/5 - Special Tests L Shoulder External Rotation Lag Test - RC Tear: Negative L Shoulder Empty Can - SS: Negative L Shoulder Neer - Impingement: Positive L Shoulder Kay Jerzy - Impingement: Positive L Shoulder Shrug Sign - OA/Adhesive Capsulitis: Negative - Balance/Special Test Scores Quick DASH Score: 22.7250 - Goals Goal 1:: Patient to be I with HEP for shoulder Goal Time Frame: 4-6 Weeks Goal 2:: Patient to demonstrate 50% improvement with improved function and less pain Goal Time Frame: 4-6 Weeks Goal 3:: Patient to improve quick dash by 5 points to improve QOL Goal Time Frame: 4-6 Weeks - Rehabilitation Potential Physical Therapy Diagnosis: This patient has left shoulder pain which showed OA AC with with pain with certain activity and has symptoms when sleeping on left shoulder Rehabilitation Potential: Good - Anticipated Interventions Patient/Client Instruction: Educate patient on: Condition, Plan of Care For the Purpose of:: To decrease pain, To increase ROM, To improve muscle performance and motor function, To improve ability to perform ADL's, To increase tolerance to activity/condition/position, To improve ability of physical actions for home/community/work/leisure, To improve health of tissue, To decrease soft tissue restriction, To increase flexibility/ROM, To reduce risk of recurrence Therapeutic Exercise to Include: Strength training, Postural training, Flexibilty training, Active ROM For the Purpose of:: To decrease pain, To increase ROM, To improve muscle performance and motor function, To improve ability to perform ADL's, To increase tolerance to activity/condition/position, To improve ability of physical actions for home/community/work/leisure, To improve health of tissue, To decrease soft tissue restriction, To increase flexibility/ROM, To prevent re-injury Thank you for the opportunity to evaluate your patient. For Medicare and Medicare HMO plans, please review the plan of care and approve it. It will need to be FAXED BACK to us at [phone] for Medicare purposes. For Medicare only, by signing this I certify the plan of care. Please let me know if there are questions or concerns regarding this plan of care. Physician Signature: Date:
--- NOTE | 2022-10-07 12:13 | HP.PTDCNRP_ITS ---
DEBBIE EDDY was seen in my office for initial evaluation on 07/25/22. The following Plan of Care was established for this patient: Initial Frequency: 1-2x /Week Initial Duration: 4 Weeks Patient/Client Instruction: Educate patient on: Condition, Plan of Care For the Purpose of:: To decrease pain, To increase ROM, To improve muscle performance and motor function, To improve ability to perform ADL's, To increase tolerance to activity/condition/position, To improve ability of physical actions for home/community/work/leisure, To improve health of tissue, To decrease soft tissue restriction, To increase flexibility/ROM, To reduce risk of recurrence Therapeutic Exercise to Include: Strength training, Postural training, Flexibilty training, Active ROM For the Purpose of:: To decrease pain, To increase ROM, To improve muscle per formance and motor function, To improve ability to perform ADL's, To increase tolerance to activity/condition/position, To improve ability of physical actions for home/community/work/leisure, To improve health of tissue, To decrease soft tissue restriction, To increase flexibility/ROM, To prevent re-injury This patient was last seen in our office . Pertinent comments regarding their Physical therapy will appear below: Patient seen for PT for shoulder pain for Evaluation and HEP thus d/c At this point I will be discontinuing this patient from physical therapy. I wo uld be happy to see this patient again in the future if found appropriate by the physician. Thank you! Mehdi Roque, PT, Cert MDT, OCS Balance/Gait/Functional tests - Balance/Special Test Scores Quick DASH Score: 22.7250
== END 2022-07-25 19:00 | disposition home or self-care (01) ==
LOC: PT 15:13
PROVIDERS: PCP Internal Medicine; Referring Provider Internal Medicine; Visit Provider Internal Medicine
DX: M79.644 Pain in right finger(s) (principal); M25.512 Pain in left shoulder
CPT/HCPCS: 97110; 97162

== ENCOUNTER → 2022-07-28 | Outpatient (CLI) | payer MEDICAID, SELFPAY ==
[2019-01-26 14:33] VITALS: BMI 31.1
--- NOTE | 2022-07-28 13:06 | ECHOD_ITS ---
Reason For Study: Cardiomyopathy Procedure This was a 2D Doppler, Color Flow transthoracic echocardiogram. Exam performed in department. Left Ventricle Mildly dilated left ventricle. Mild concentric left ventricular hypertrophy. Severe global left ventricular systolic dysfunction. The left ventricular ejection fraction is 30 %. Diastolic function is indeterminate. Right Ventricle There is a pacemaker lead in the right ventricle. Atria The left atrium is severely enlarged. ICD or pacer leads identified within the right atrium. Mitral Valve Mild (1+) mitral valve insufficiency. Tricuspid Valve Trivial tricuspid valve insufficiency. Aortic Valve Trisinus/trileaflet aortic valve. There is no aortic stenosis. No aortic valve insufficiency. Pulmonic Valve The pulmonic valve is not well visualized. Great Vessels Normal sized aortic root. Pericardium/Pleural No pericardial effusion. MMode/2D Measurements & Calculations LVIDd: 5.8 cm IVSd: 1.2 cm Ao root diam: 3.5 cm LVIDs: 4.5 cm LVPWd: 0.98 cm LA dimension: 4.7 cm RVDd: 4.3 cm FS: 23.2 % LAV(MOD-bp): 37.8 ml LA A4 area: 16.3 cm2 RA A4 area: 12.7 cm2 LAV(MOD-bp) Indexed: 18.7 ml/m2 LAV(MOD-sp2): 33.6 ml LAV(MOD-sp4): 42.3 ml Time Measurements MV dec time: 0.32 sec Doppler Measurements & Calculations MV E max octavio: 50.6 cm/sec Lat Peak E' Octavio: 8.4 cm/sec Med Peak E' Octavio: 5.2 cm/sec MV A max octavio: 81.3 cm/sec E/E' lat: 6.0 E/E' med: 9.8 MV E/A: 0.62 MV V2 max: 94.9 cm/sec MV P1/2t max octavio: 66.3 cm/sec Ao V2 max: 112.9 cm/sec MV max P.6 mmHg MV P1/2t: 116.4 msec Ao max P.1 mmHg MV V2 mean: 48.8 cm/sec MV dec slope: 166.9 cm/sec2 Ao V2 mean: 78.8 cm/sec MV mean P.1 mmHg MVA(P1/2t): 1.9 cm2 Ao mean P.8 mmHg MV V2 VTI: 23.5 cm Ao V2 VTI: 25.8 cm LV V1 max: 89.8 cm/sec PA V2 max: 97.5 cm/sec TR max octavio: 245.2 cm/sec LV V1 max P.2 mmHg PA V2 mean: 64.3 cm/sec TR max P.2 mmHg LV V1 mean P.5 mmHg LV V1 mean: 55.9 cm/sec LV V1 VTI: 19.3 cm ECHO/Echo Complete Interpretation Summary Mildly dilated left ventricle. Mild concentric left ventricular hypertrophy. The left ventricular ejection fraction is 30 %. Diastolic function is indeterminate. The left atrium is severely enlarged. Ordering Physician: Peggy Alvarenga Referring Physician: Antonina Means Performed By: Ronald Moore RCS
== END | disposition home or self-care (01) ==
PROVIDERS: PCP Internal Medicine; Referring Provider Nurse Practitioner Gerontology; Visit Provider Nurse Practitioner Gerontology
DX: I25.5 Ischemic cardiomyopathy (principal)
CPT/HCPCS: 93306

== ENCOUNTER → 2022-09-25 | Outpatient (CLI) | payer MEDICAID, SELFPAY ==
[2019-01-26 14:33] VITALS: BMI 31.1
[2022-09-25 13:00] LABS: Thyroid Stim Hormone (TSH) 7.75 uIU/mL (0.358-3.74)
== END | disposition home or self-care (01) ==
LOC: LAB 11:27
PROVIDERS: PCP Internal Medicine; Visit Provider Internal Medicine Cardiovascular Disease
DX: E11.9 Type 2 diabetes mellitus without complications (principal)
CPT/HCPCS: 36415; 84443

== ENCOUNTER → 2022-10-24 | Outpatient (CLI) | payer MEDICAID, SELFPAY ==
[2019-01-26 14:33] VITALS: BMI 31.1
[2022-10-24 12:16] LABS: Absolute Lymphocyte Count 1.93 X10^3/uL (0.83-4.51); Absolute Neutrophil Count 6.3 X10^3/uL (2.0-7.7); Basophil# 0.03 X10^3/uL; Basophil% 0.3 % (0-1); Eosinophil# 0.15 X10^3/uL; Eosinophils% 1.7 % (0-5); Hematocrit 35.3 % (40-54); Hemoglobin 12.2 g/dL (13.0-16.5); Lymphocyte # 1.93 X10^3/ul (0.83-4.51); Lymphocyte % 21.6 % (19-41); Mean Corp Hgb Conc 34.6 g/dL (32-36); Mean Corpuscular Hgb 30.6 pg (27.0-32.0); Mean Corpuscular Volume 88.5 fL (80-94); Mean Platelet Vol. 10.9 fl (6.2-12.0); Monocyte# 0.55 X10^3/uL; Monocyte% 6.2 % (0-10); NRBC Flagged by Analyzer 0 % (0-5); Neutrophil # 6.25 X10^3/uL (2.7-7.7); Neutrophil % 69.9 % (47-70); Platelet Count 198 K/mm3 (150-450); RBC Distribution Width CV 15.6 % (11.6-14.6); RBC Distribution Width SD 50.1 fl (35.1-43.9); Red Blood Count 3.99 M/mm3 (4.6-6.2); White Blood Count 8.9 K/mm3 (4.4-11.0)
[2022-10-24 12:27] LABS: AST(SGOT) 15 U/L (15-37); Alanine Aminotransfer ALT/SGPT 22 U/L (16-61); Alkaline Phosphatase 45 U/L (45-117); Anion Gap 7 (5-15); BUN 21 mg/dL (7-18); BUN/Creat Ratio 15.3 RATIO (10-20); Calcium,Total 9.6 mg/dL (8.5-10.1); Chloride 102 mmol/L (98-107); Creatinine, Serum 1.37 mg/dL (0.70-1.30); EST Glomerular Filtration Rate 55 mL/min (>60); Est Glom Filt Rate - Afr Amer 67 mL/min (>60); Globulin 4.1 g/dL (2.2-4.2); Glucose 146 mg/dL (74-106); Potassium 4.3 mmol/L (3.5-5.1); Protein, Total 8.1 g/dL (6.4-8.2); Sodium Level 136 mmol/L (136-145)
== END | disposition home or self-care (01) ==
LOC: BIMLAB 10:31
PROVIDERS: PCP Internal Medicine; Referring Provider Internal Medicine; Visit Provider Internal Medicine
DX: E11.9 Type 2 diabetes mellitus without complications (principal)
CPT/HCPCS: 36415; 80053; 85025

== ENCOUNTER → 2023-04-30 | Outpatient (CLI) | payer MEDICAID, SELFPAY ==
[2019-01-26 14:33] VITALS: BMI 31.1
[2023-04-30 14:42] LABS: Hematocrit 36.3 % (40-54); Mean Corp Hgb Conc 33.1 g/dL (32-36); Mean Corpuscular Hgb 29.6 pg (27.0-32.0); Mean Corpuscular Volume 89.4 fL (80-94); Mean Platelet Vol. 11.2 fl (6.2-12.0); Platelet Count 231 K/mm3 (150-450); RBC Distribution Width CV 14.3 % (11.6-14.6); RBC Distribution Width SD 46.4 fl (35.1-43.9); Red Blood Count 4.06 M/mm3 (4.6-6.2); White Blood Count 7.3 K/mm3 (4.4-11.0)
[2023-04-30 16:00] LABS: Thyroid Stim Hormone (TSH) 7.01 uIU/mL (0.358-3.74)
== END | disposition home or self-care (01) ==
PROVIDERS: PCP Internal Medicine; Referring Provider Internal Medicine Cardiovascular Disease; Visit Provider Internal Medicine Cardiovascular Disease
DX: I25.10 Atherosclerotic heart disease of native coronary artery without angina pectoris (principal); I25.5 Ischemic cardiomyopathy; D64.9 Anemia, unspecified; E03.9 Hypothyroidism, unspecified
CPT/HCPCS: 36415; 84443; 85027

== ENCOUNTER → 2023-05-08 | Outpatient (CLI) | payer MEDICAID, SELFPAY ==
[2019-01-26 14:33] VITALS: BMI 31.1
--- NOTE | 2023-05-08 09:08 | CDU_ITS ---
Reason For Study: CAD Rt. Velocities/BP Lt. Velocities/BP Prox CCA 104.7/26.7 cm/sec. Prox CCA 108.8/24.1 cm/sec. Mid CCA 113.5/31.1 cm/sec. Mid CCA 101.4/29.0 cm/sec. Dist CCA 89.7/24.8 cm/sec. Dist CCA 95.3/26.5 cm/sec. Prox ICA 69.9/16.0 cm/sec. Prox ICA 89.1/10.6 cm/sec. Mid ICA 79.8/24.8 cm/sec. Mid ICA 97.7/26.5 cm/sec. Dist ICA 74.0/30.4 cm/sec. Dist ICA 91.6/36.3 cm/sec. Rt. ICA/CCA = 79.8/113.5=1.4. Lt. ICA/CCA = 97.7/101.4=1.0. Prox ECA 100.7/21.5 cm/sec. Prox ECA 80.6/15.5 cm/sec. Rt. Vert. 33.9/12.1 cm/sec. Lt. Vert. 51.6/16.6 cm/sec. Right Extracranial There is intimal thickening but no significant atherosclerotic plaque noted in the right common carotid artery. There is intimal thickening but no significant atherosclerotic plaque noted in the right internal carotid artery. There is no significant atherosclerotic plaque noted in the right external carotid artery. Antegrade flow is noted in the right vertebral artery. Left Extracranial There is intimal thickening but no significant atherosclerotic plaque noted in the left common carotid artery. There is intimal thickening but no significant atherosclerotic plaque noted in the left internal carotid artery. There is intimal thickening but no significant atherosclerotic plaque noted in the left external carotid artery. Antegrade flow is noted in the left vertebral artery. Procedure Carotid Duplex 70008. This is a Carotid Duplex examination using B-mode, color flow and specral Doppler. Exam performed in department. VL/Carotid Duplex Ultrasound Interpretation Summary Normal right extracranial internal carotid. Normal left extracranial internal carotid. Patent and antegrade vertebrals bilaterally. Ordering Physician: Paola Patel Referring Physician: Antonina Means Performed By: Dipti Camara, VINNY, RVT
== END | disposition home or self-care (01) ==
LOC: PSN 09:06
PROVIDERS: PCP Internal Medicine; Referring Provider Internal Medicine Cardiovascular Disease; Visit Provider Internal Medicine Cardiovascular Disease
DX: I25.10 Atherosclerotic heart disease of native coronary artery without angina pectoris (principal); D64.9 Anemia, unspecified; E03.9 Hypothyroidism, unspecified; G47.10 Hypersomnia, unspecified; R07.9 Chest pain, unspecified
CPT/HCPCS: 93880

== ENCOUNTER → 2023-05-29 | Outpatient (CLI) | payer MEDICAID, SELFPAY ==
[2019-01-26 14:33] VITALS: BMI 31.1
--- NOTE | 2023-05-31 07:02 | PFT ---
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 Respiratory therapy reported good patient effort. Bronchodilators were used during testing. INTERPRETATION: Forced expiration spirometry demonstrates no evidence of a large airways obstructive ventilatory defect. There was no significant response to aerosolized bronchodilators. Spirograms are of good quality and plateau normally. Body plethysmography was performed and revealed lung volumes to be within normal limits. Diffusing capacity by single breath CO was mildly reduced at 70% of predicted. IMPRESSION: Isolated mild reduction in diffusing capacity.
== END | disposition home or self-care (01) ==
LOC: PSN 10:52
PROVIDERS: PCP Internal Medicine; Referring Provider Internal Medicine Cardiovascular Disease; Visit Provider Internal Medicine Cardiovascular Disease
DX: I47.20 Ventricular tachycardia, unspecified (principal); E03.2 Hypothyroidism due to medicaments and other exogenous substances; T46.2X1A Poisoning by other antidysrhythmic drugs, accidental (unintentional), initial encounter
CPT/HCPCS: 93225; 93226; 94060; 94726; 94729

== ENCOUNTER → 2023-07-13 | Outpatient (CLI) | payer MEDICAID, SELFPAY ==
[2019-01-26 14:33] VITALS: BMI 31.1
[2023-07-13 16:51] LABS: Absolute Lymphocyte Count 1.63 X10^3/uL (0.83-4.51); Basophil# 0.04 X10^3/uL; Basophil% 0.8 % (0-1); Eosinophil# 0.09 X10^3/uL; Eosinophils% 1.7 % (0-5); Hematocrit 36.4 % (40-54); Hemoglobin 12.4 g/dL (13.0-16.5); Lymphocyte # 1.63 X10^3/ul (0.83-4.51); Lymphocyte % 30.8 % (19-41); Mean Corp Hgb Conc 34.1 g/dL (32-36); Mean Corpuscular Volume 87.9 fL (80-94); Mean Platelet Vol. 11.1 fl (6.2-12.0); Monocyte# 0.48 X10^3/uL; Monocyte% 9.1 % (0-10); NRBC Flagged by Analyzer 0 % (0-5); Neutrophil # 3.03 X10^3/uL (2.7-7.7); Neutrophil % 57.2 % (47-70); Platelet Count 228 K/mm3 (150-450); RBC Distribution Width CV 14.3 % (11.6-14.6); RBC Distribution Width SD 45.6 fl (35.1-43.9); Red Blood Count 4.14 M/mm3 (4.6-6.2); White Blood Count 5.3 K/mm3 (4.4-11.0)
[2023-07-13 18:01] LABS: ALB/GLOB Ratio 1.1 RATIO (0.9-2.4); AST(SGOT) 18 U/L (15-37); Alanine Aminotransfer ALT/SGPT 24 U/L (16-61); Albumin, Serum 4.1 g/dL (3.2-5.0); Alkaline Phosphatase 43 U/L (45-117); Anion Gap 6 (5-15); BUN 23 mg/dL (7-18); BUN/Creat Ratio 14.1 RATIO (10-20); Calcium,Total 9.3 mg/dL (8.5-10.1); Chloride 108 mmol/L (98-107); Cholesterol 157 mg/dL (200); Creatinine, Serum 1.63 mg/dL (0.70-1.30); EST Glomerular Filtration Rate 45 mL/min (>60); Est Glom Filt Rate - Afr Amer 55 mL/min (>60); Globulin 3.8 g/dL (2.2-4.2); Glucose 127 mg/dL (74-106); High Density Lipoprotein 46 mg/dL; PSA,Total - Annual Screen 0.98 ng/mL (0.00-4.00); Potassium 3.9 mmol/L (3.5-5.1); Protein, Total 7.9 g/dL (6.4-8.2); Sodium Level 138 mmol/L (136-145); Thyroid Stim Hormone (TSH) 2.72 uIU/mL (0.358-3.74); Triglycerides 130 mg/dL; Very Low Density Lipoprotein 26 mg/dL (5-40)
== END | disposition home or self-care (01) ==
LOC: BIMLAB 15:32
PROVIDERS: PCP Internal Medicine; Referring Provider Internal Medicine; Visit Provider Internal Medicine
DX: N40.0 Benign prostatic hyperplasia without lower urinary tract symptoms (principal); E03.9 Hypothyroidism, unspecified; I10 Essential (primary) hypertension
CPT/HCPCS: 84153; 36415; 80053; 80061; 84443; 85025; G0103

== ENCOUNTER → 2024-01-20 | Outpatient (CLI) | payer MEDICAID, SELFPAY ==
[2019-01-26 14:33] VITALS: BMI 31.1
[2024-01-20 12:26] LABS: Absolute Neutrophil Count 5.6 X10^3/uL (2.0-7.7); Basophil# 0.03 X10^3/uL; Basophil% 0.4 % (0-1); Eosinophil# 0.05 X10^3/uL; Eosinophils% 0.6 % (0-5); Hematocrit 40.6 % (40-54); Hemoglobin 13.2 g/dL (13.0-16.5); Lymphocyte % 22.5 % (19-41); Mean Corp Hgb Conc 32.5 g/dL (32-36); Mean Corpuscular Hgb 28.3 pg (27.0-32.0); Mean Corpuscular Volume 87.1 fL (80-94); Mean Platelet Vol. 11.5 fl (6.2-12.0); Monocyte# 0.53 X10^3/uL; Monocyte% 6.6 % (0-10); NRBC Flagged by Analyzer 0 % (0-5); Neutrophil # 5.57 X10^3/uL (2.7-7.7); Neutrophil % 69.5 % (47-70); Platelet Count 182 K/mm3 (150-450); RBC Distribution Width CV 14.4 % (11.6-14.6); Red Blood Count 4.66 M/mm3 (4.6-6.2)
[2024-01-20 12:42] LABS: Vitamin B12 209 pg/mL (211-911)
[2024-01-20 12:56] LABS: ALB/GLOB Ratio 1.1 RATIO (0.9-2.4); AST(SGOT) 22 U/L (15-37); Alanine Aminotransfer ALT/SGPT 31 U/L (16-61); Albumin, Serum 4.1 g/dL (3.2-5.0); Alkaline Phosphatase 49 U/L (45-117); Anion Gap 6 (5-15); BUN 22 mg/dL (7-18); BUN/Creat Ratio 15.7 RATIO (10-20); Calcium,Total 9.3 mg/dL (8.5-10.1); Chloride 103 mmol/L (98-107); EST Glomerular Filtration Rate 54 mL/min (>60); Est Glom Filt Rate - Afr Amer 65 mL/min (>60); Globulin 3.6 g/dL (2.2-4.2); Glucose 154 mg/dL (74-106); PSA,Total- Diagnostic 0.97 ng/mL (0.0-4.0); Potassium 3.9 mmol/L (3.5-5.1); Protein, Total 7.7 g/dL (6.4-8.2); Sodium Level 137 mmol/L (136-145); T4 Free Direct 1.04 ng/dL (0.76-1.46); Thyroid Stim Hormone (TSH) 4.45 uIU/mL (0.358-3.74); Uric Acid 6.7 mg/dL (3.5-7.2)
== END | disposition home or self-care (01) ==
LOC: BIMLAB 09:47
PROVIDERS: PCP Internal Medicine; Referring Provider Internal Medicine; Visit Provider Internal Medicine
DX: G62.9 Polyneuropathy, unspecified (principal); E11.9 Type 2 diabetes mellitus without complications; N40.0 Benign prostatic hyperplasia without lower urinary tract symptoms; E03.9 Hypothyroidism, unspecified
CPT/HCPCS: 36415; 80053; 82607; 84153; 84439; 84443; 84550; 85025

== ENCOUNTER → 2024-02-24 | Outpatient (CLI) | payer MEDICAID, SELFPAY ==
[2019-01-26 14:33] VITALS: BMI 31.1
--- NOTE | 2024-02-24 13:06 | ART_ITS ---
Reason For Study: PVD Procedure A bilateral lower extremity continuous wave Doppler with analog waveform analysis,segmental pressures,and ankle brachial indexes without exercise. Left Segmental Pressures Left brachial= 111mmHg. Left posterior tibial artery = 137mmHg. Left dorsalis pedis artery = 126mmHg. Left digit = 97 mmHg. The left dorsalis pedis waveforms are triphasic. The left posterior tibial artery waveforms are triphasic. Right Segmental Pressures Right brachial= 118mmHg. Right posterior tibial artery = 142mmHg. Right dorsalis pedis artery = 142mmHg. Right digit = 124 mmHg. The right dorsalis pedis waveforms are triphasic. The right posterior tibial artery waveforms are triphasic. Indices The right ankle brachial index by the dorsalis pedis is 1.20. The right ankle brachial index by the posterior tibial artery is 1.20. The right digital-brachial index is 1.05. The left ankle brachial index by the dorsalis pedis is 1.07. The left ankle brachial index by the posterior tibial artery is 1.16. The left digital-brachial index is 0.82. VL/Lower Ext Art Exam w/o Exercis Interpretation Summary Triphasic Doppler waveforms are noted at ankle level bilaterally. Pulse-volume recordings appear satisfactory at all levels bilaterally. Resting ankle-brachial indices are norm al bilaterally. Digital-brachial indices are normal bilaterally. There is no evidence of significant arterial occlusive disease in the lower ext remities bilaterally. Ordering Physician: Abraham Patel Referring Physician: Antonina Means Performed By: Elise Rowe RVT
== END | disposition home or self-care (01) ==
LOC: CVS 13:03
PROVIDERS: PCP Internal Medicine; Referring Provider Podiatrist; Visit Provider Podiatrist
DX: I73.89 Other specified peripheral vascular diseases (principal)
CPT/HCPCS: 93923

== ENCOUNTER → 2024-03-02 | Outpatient (CLI) | payer MEDICAID, SELFPAY ==
[2019-01-26 14:33] VITALS: BMI 31.1
--- NOTE | 2024-03-02 14:54 | NEURO_ITS ---
NCS and/or EMG Patient Report Ordering Doctor: Abraham Patel DATE OF SERVICE: 03/02/24 Zaid presents with complaints of numbness and tingling in both feet for the past 18 months. He denies any back pain. Electrodiagnostic findings: Right peroneal motor nerve demonstrates prolonged distal latency with reduced amplitude and reduced conduction velocity. No significant drop in conduction across the fibular head. Left peroneal motor nerve demonstrates normal distal latency with reduced amplitude and reduced c onduction velocity. There is no significant drop in conduction across the fibular head. Right tibial motor nerve demonstrates normal distal latency with reduced amplitude and reduced conduction velocity. Left tibial motor nerve demonstrates normal distal latency with reduced amplitude and reduced conduction velocity. Prolonged tibial and peroneal F?waves. H-reflex is prolonged bilaterally. Sensory responses are not obtainable. Needle EMG testing was performed in the lower limbs. Motor unit action potentials of increased amplitude and duration noted bilaterally in the tibialis anterior and gastrocnemius. Electrodiagnostic impression: This is an abnormal study in the lower limbs 1. 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 This may be secondary to diabetes. 2. No electrodiagnostic evidence is noted for lumbosacral radiculopathy Multi Select Codes Neurology Neurology Interp Codes: 31100-11 Musc test done w/n test comp (interp) (2) and 89180-77 Nrv cndj test 9-10 studies (interp)
== END | disposition home or self-care (01) ==
LOC: PSN 12:18
PROVIDERS: PCP Internal Medicine; Referring Provider Podiatrist; Visit Provider Podiatrist
DX: R20.0 Anesthesia of skin (principal)
CPT/HCPCS: 95886; 95911

== ENCOUNTER → 2024-03-04 | Outpatient (CLI) | payer MEDICAID, SELFPAY ==
[2019-01-26 14:33] VITALS: BMI 31.1
[2024-03-04 11:17] LABS: Cholesterol 114 mg/dL (200); High Density Lipoprotein 41 mg/dL; Triglycerides 142 mg/dL; Very Low Density Lipoprotein 28 mg/dL (5-40)
[2024-03-04 11:44] LABS: Thyroid Stim Hormone (TSH) 2.94 uIU/mL (0.358-3.74)
== END | disposition home or self-care (01) ==
LOC: MTLAB 09:15
PROVIDERS: Internal Medicine Cardiovascular Disease; PCP Internal Medicine; Referring Provider Internal Medicine; Visit Provider Internal Medicine
DX: E03.9 Hypothyroidism, unspecified (principal); E78.00 Pure hypercholesterolemia, unspecified; N18.9 Chronic kidney disease, unspecified; R94.39 Abnormal result of other cardiovascular function study; I25.10 Atherosclerotic heart disease of native coronary artery without angina pectoris; Z95.810 Presence of automatic (implantable) cardiac defibrillator; Z95.5 Presence of coronary angioplasty implant and graft
CPT/HCPCS: 36415; 80061; 84443

== ENCOUNTER → 2024-04-01 | Outpatient (CLI) | payer MEDICAID, SELFPAY ==
[2019-01-26 14:33] VITALS: BMI 31.1
--- NOTE | 2024-04-01 13:06 | ECHOD_ITS ---
Reason For Study: CAD/ASHD Procedure This was a 2D Doppler, Color Flow transthoracic echocardiogram. Exam performed in department. Left Ventricle Normal LV size. Mild concentric left ventricular hypertrophy. Left ventricular systolic ejection fraction estimated at 45 to 50%. Normal diastology for age. Right Ventricle Normal right ventricle. There is a pacemaker lead in the right ventricle. Atria The left atrium is moderately enlarged. ICD or pacer leads identified within the right atrium. Mitral Valve Mild (1+) mitral valve insufficiency. Tricuspid Valve Mild (1+) tricuspid valve insufficiency. Normal pulmonary artery pressure. Aortic Valve Trisinus/trileaflet aortic valve. Pulmonic Valve The pulmonic valve is not well visualized. Great Vessels Normal sized aortic root. Pericardium/Pleural No pericardial effusion. MMode/2D Measurements & Calculations LVIDd: 5.2 cm IVSd: 0.94 cm Ao root diam: 3.0 cm LVIDs: 3.5 cm LVPWd: 1.4 cm RVDd: 3.9 cm FS: 33.3 % LAV(MOD-bp): 42.4 ml LVAd ap4: 24.9 cm2 SV(MOD-sp4): 26.3 ml LAV(MOD-bp) Indexed: 21.3 ml/m2 LVLd ap4: 7.9 cm LAV(MOD-sp2): 41.1 ml EDV(MOD-sp4): 64.9 ml LAV(MOD-sp4): 39.0 ml EDV(sp4-el): 66.7 ml LVAs ap4: 17.3 cm2 LVLs ap4: 7.0 cm ESV(MOD-sp4): 38.7 ml ESV(sp4-el): 36.7 ml EF(MOD-sp4): 40.4 % EF(sp4-el): 45.0 % SV(sp4-el): 30.0 ml LA A4 area: 15.6 cm2 LA dimension(2D): 4.2 cm RA A4 area: 15.8 cm2 TAPSE: 1.7 cm Time Measurements MV dec time: 0.30 sec Doppler Measurements & Calculations MV E max octavio: 68.5 cm/sec Lat Peak E' Octavio: 9.9 cm/sec Med Peak E' Octavio: 7.7 cm/sec MV A max octavio: 84.4 cm/sec E/E' lat: 6.9 E/E' med: 8.9 MV E/A: 0.81 Ao V2 max: 126.1 cm/sec LV V1 max: 113.9 cm/sec PA V2 max: 119.8 cm/sec Ao max P.4 mmHg LV V1 max P.2 mmHg TR max octavio: 250.8 cm/sec TR max P.2 mmHg ECHO/Echo Complete Interpretation Summary Mild concentric left ventricular hypertrophy. Left ventricular systolic ejection fraction estimated at 45 to 50% The left atrium is moderately enlarged. Mild (1+) mitral valve insufficiency. Mild (1+) tricuspid valve insufficiency. Ordering Physician: Paola Patel Referring Physician: MARCIN STODDARD Performed By: Malka Rose RDCS
== END | disposition home or self-care (01) ==
LOC: CVS 13:05
PROVIDERS: PCP Internal Medicine; Referring Provider Internal Medicine Cardiovascular Disease; Visit Provider Internal Medicine Cardiovascular Disease
DX: I25.10 Atherosclerotic heart disease of native coronary artery without angina pectoris (principal); N18.9 Chronic kidney disease, unspecified; R94.39 Abnormal result of other cardiovascular function study; Z95.5 Presence of coronary angioplasty implant and graft; Z95.810 Presence of automatic (implantable) cardiac defibrillator
CPT/HCPCS: 93306

== ENCOUNTER → 2024-04-29 | Outpatient (CLI) | payer MEDICAID, SELFPAY ==
[2019-01-26 14:33] VITALS: BMI 31.1
[2024-04-29 13:27] LABS: Vitamin B12 513 pg/mL (211-911)
[2024-04-29 13:33] LABS: Anion Gap 7 (5-15); BUN 18 mg/dL (7-18); BUN/Creat Ratio 14.8 RATIO (10-20); Calcium,Total 9.5 mg/dL (8.5-10.1); Chloride 109 mmol/L (98-107); Creatinine, Serum 1.22 mg/dL (0.70-1.30); EST Glomerular Filtration Rate 63 mL/min (>60); Est Glom Filt Rate - Afr Amer 76 mL/min (>60); Glucose 97 mg/dL (74-106); Potassium 4.8 mmol/L (3.5-5.1); Sodium Level 139 mmol/L (136-145)
== END | disposition home or self-care (01) ==
LOC: BIMLAB 09:28
PROVIDERS: PCP Internal Medicine; Referring Provider Internal Medicine; Visit Provider Internal Medicine
DX: G62.9 Polyneuropathy, unspecified (principal); E11.42 Type 2 diabetes mellitus with diabetic polyneuropathy
CPT/HCPCS: 36415; 80048; 82607

== ENCOUNTER → 2024-09-07 | Outpatient (CLI) | payer MEDICAID, SELFPAY ==
[2019-01-26 14:33] VITALS: BMI 31.1
[2024-09-07 12:20] LABS: Absolute Lymphocyte Count 1.63 X10^3/uL (0.83-4.51); Absolute Neutrophil Count 8.5 X10^3/uL (2.0-7.7); Basophil# 0.04 X10^3/uL; Basophil% 0.4 % (0-1); Eosinophil# 0.04 X10^3/uL; Eosinophils% 0.4 % (0-5); Hematocrit 38.2 % (40-54); Hemoglobin 12.5 g/dL (13.0-16.5); Lymphocyte # 1.63 X10^3/ul (0.83-4.51); Lymphocyte % 14.6 % (19-41); Mean Corp Hgb Conc 32.7 g/dL (32-36); Mean Corpuscular Hgb 28.2 pg (27.0-32.0); Mean Corpuscular Volume 86.2 fL (80-94); Mean Platelet Vol. 12.5 fl (6.2-12.0); Monocyte# 0.84 X10^3/uL; Monocyte% 7.5 % (0-10); NRBC Flagged by Analyzer 0 % (0-5); Neutrophil # 8.52 X10^3/uL (2.7-7.7); Neutrophil % 76.6 % (47-70); Platelet Count 148 K/mm3 (150-450); RBC Distribution Width CV 14.6 % (11.6-14.6); RBC Distribution Width SD 46.2 fl (35.1-43.9); Red Blood Count 4.43 M/mm3 (4.6-6.2); White Blood Count 11.1 K/mm3 (4.4-11.0)
[2024-09-07 12:46] LABS: ALB/GLOB Ratio 1.1 RATIO (0.9-2.4); AST(SGOT) 23 U/L (15-37); Alanine Aminotransfer ALT/SGPT 29 U/L (16-61); Albumin, Serum 3.9 g/dL (3.2-5.0); Alkaline Phosphatase 44 U/L (45-117); Anion Gap 4 (5-15); BUN 19 mg/dL (7-18); BUN/Creat Ratio 18.3 RATIO (10-20); Bilirubin, Direct 0.24 mg/dL (0.00-0.30); Calcium,Total 9.3 mg/dL (8.5-10.1); Chloride 110 mmol/L (98-107); Cholesterol 99 mg/dL (200); Creatinine, Serum 1.04 mg/dL (0.70-1.30); EST Glomerular Filtration Rate 75 mL/min (>60); Est Glom Filt Rate - Afr Amer 91 mL/min (>60); Globulin 3.4 g/dL (2.2-4.2); Glucose 104 mg/dL (74-106); High Density Lipoprotein 49 mg/dL; Potassium 4.3 mmol/L (3.5-5.1); Protein, Total 7.3 g/dL (6.4-8.2); Sodium Level 140 mmol/L (136-145); Triglycerides 65 mg/dL; Very Low Density Lipoprotein 13 mg/dL (5-40)
== END | disposition home or self-care (01) ==
PROVIDERS: Internal Medicine Cardiovascular Disease; PCP Internal Medicine; Referring Provider Physician Assistant; Visit Provider Physician Assistant
DX: E78.00 Pure hypercholesterolemia, unspecified (principal); N18.9 Chronic kidney disease, unspecified; E03.9 Hypothyroidism, unspecified
CPT/HCPCS: 36415; 80053; 80061; 82248; 84443; 85025

== ENCOUNTER → 2025-07-05 | Outpatient (CLI) | payer MEDICAID, SELFPAY ==
[2019-01-26 14:33] VITALS: BMI 31.1
[2025-07-05 15:23] LABS: Hematocrit 36.5 % (40-54); Hemoglobin 12.0 g/dL (13.0-16.5); Mean Corp Hgb Conc 32.9 g/dL (32-36); Mean Corpuscular Volume 84.5 fL (80-94); Mean Platelet Vol. 12.1 fl (6.2-12.0); Platelet Count 153 K/mm3 (150-450); RBC Distribution Width CV 13.7 % (11.6-14.6); RBC Distribution Width SD 42.7 fl (35.1-43.9); Red Blood Count 4.32 M/mm3 (4.6-6.2); White Blood Count 6.4 K/mm3 (4.4-11.0)
[2025-07-05 15:43] LABS: Prothrombin Time (Protime)PT. 14.3 SECONDS (11.7-14.9)
[2025-07-05 16:05] LABS: AST(SGOT) 29 U/L (<=37); Alanine Aminotransfer ALT/SGPT 27 U/L (<=46); Albumin, Serum 4.5 g/dL (3.4-4.8); Alkaline Phosphatase 49 U/L (40-129); Anion Gap 13 (5-15); BUN 19 mg/dL (4-19); BUN/Creat Ratio 14.7 RATIO (10-20); Calcium,Total 9.6 mg/dL (7.6-11.0); Carbon Dioxide 23.9 mmol/L (21.0-32.0); Chloride 101 mmol/L (98-108); Cholesterol 129 mg/dL (<=200); Globulin 3.1 g/dL (2.2-4.2); Glucose 91 mg/dL (70-99); Low Density Lipoprotein Calc. 60 mg/dL; PSA,Total - Annual Screen 0.82 ng/mL (0.02-4.00); Potassium 4.2 mmol/L (3.3-5.1); Triglycerides 127 mg/dL; Very Low Density Lipoprotein 25 mg/dL (5-40); cholesterol:hdl ratio screen 2.95
--- OUTSIDE RECORDS SUMMARY | 2025-07-05 19:46 | XMS RPT_ITS | CCD ---
Author Organization [facility] Care Team Providers Care Documentation Clerk Name Role Phone Dr. Antonina Means Primary Care Provider [phone] Dr. Antonina Means Referring Provider [phone] Lyle DIAMOND SIZER, ANNA Woods Attending Provider Dr. Antonina Means Attending Provider [phone] Perri Sierra Attending Provider Unavailable Dr. Paola Patel Attending Provider [phone] Dr. Antonina Means Primary Care Provider [phone] Dr. Antonina Means Referring Provider [phone] ANNA Alvarenga NP Attending Provider Dr. Antonina Means Attending Provider [phone] Perri Sierra Attending Provider Unavailable Dr. Paola Patel Attending Provider [phone] ОЛЬГА Jimenez Attending Provider Unavailab Tiffanie Menezes Attending Provider Unavailable Dr. Antonina Means Primary Care Provider [phone] Dr. Antonina Means Referring Provider [phone] Dr. Antonina Means Primary Care Provider [phone] Dr. Robert Saucedo Attending Provider [phone] Dr. Robert Saucedo Referring Provider [phone] Clifton Azar Attending Provider Unavailable Dr. Antonina Means Referring Provider [phone] Dr. Paola Patel Attending Provider [phone] Miguelangel, Dr. Sarkar Primary Care Provider [phone] Dr. Kishore Baker Attending Provider [phone] Jorge, Dr. Guevara Referring Provider [phone] Jorge, Dr. Guevara Other Provider Dr. Bairon Yañez Attending Provider Oleelidia, Dr. Sarkar Primary Care Provider [phone] Dr. Robert Saucedo Attending Provider [phone] Lewis, Dr. Jones Referring Provider [phone] Antonina Means Attending Provider [phone] Miguelangel, Dr. Sarkar Referring Provider [phone] DORIAN Feliz Attending Provider Unavailable Hugo Khan Attending Unavailable Oleghe, Efewongbe Referring Unavailable Oleghe, Efewongbe Primary Care Unavailable Jorge, Paola Attending Unavailable Oleghe, Efewongbe Referring Unavailable Oleghe, Efewongbe Primary Care Unavailable LewisJayleen burnettl Attending Unavailable Oleghe, Efewongbe Primary Care Unavailable LewisJayleen burnettl Referring Unavailable LewisRobert Attending Unavailable Oleghe, Efewongbe Primary Care Unavailable Jorge, Paola Attending Unavailable Jorge, Paola Referring Unavailable Oleghe, Efewongbe Primary Care Unavailable Arnold Harrell Attending Unavailable Oleghe, Efewongbe Primary Care Unavailable Abraham Patel Referring Unavailable Hugo Khan Attending Unavailable Hugo Khan Referring Unavailable Oleghe, Efewongbe Primary Care Unavailable Jorge, Paola Consulting Unavailable Oleghe, Efewongbe Attending Unavailable Oleghe, Efewongbe Referring Unavailable Oleghe, Efewongbe Primary Care Unavailable Abraham Patel Referring Unavailable Oleghe, Efewongbe Primary Care Unavailable Abraham Patel Attending Unavailable Oleghe, Efewongbe Primary Care Unavailable Jorge, Paola Attending Unavailable Jorge, Paola Referring Unavailable Oleghe, Efewongbe Attending Unavailable Jorge, Paola Consulting Unavailable Oleghe, Efewongbe Referring Unavailable Oleghe, Efewongbe Primary Care Unavailable Abraham Patel Attending Unavailable Oleghe, Efewongbe Primary Care Unavailable John Leach Attending Unavailable Oleghe, Efewongbe Referring Unavailable Oleghe, Efewongbe Attending Unavailable Oleghe, Efewongbe Referring Unavailable Oleghe, Efewongbe Primary Care Unavailable Oleghe, Efewongbe Primary Care Unavailable Lewis, [place] Attending Unavailable Oleghe, Efewongbe Primary Care Unavailable Paola Patel Attending Unavailable Oleghe, Efewongbe Referring Unavailable Lewis, [place] Referring Unavailable Oleghe, Efewongbe Primary Care Unavailable Lewis, [place] Attending Unavailable Miguelangel HEAD, Dr. Sarkar Primary Care Physician Dr. Antonina Means MD Referring Provider Hugo Khan Attending Physician Medications Current Medications Medication Drug Class(es) Dates Sig (Normalized) Sig (Original) aspirin 81 mg delayed release oral tablet (20 sources) Platelet Aggregation Inhibitor, Nonsteroidal Anti-inflammatory Drug Start: 01-03-2019 End: 09-07-2024 take 1 tablet by mouth once daily atorvastatin 40 mg oral tablet (20 sources) HMG-CoA Reductase Inhibitor Start: 09-01-2024 End: 09-07-2024 take 1 tablet by mouth once daily Start: 07-14-2023 End: 09-01-2024 take 1 tablet by mouth once daily Atorvastatin 80 mg tablet Discontinued 80 mg PO DAILY 180 180 2 September 03, 2023 10:12am September 01, 2024 4:13pm Start: 11-10-2019 End: 07-14-2023 take 1 tablet by mouth once daily Atorvastatin 20 mg tablet Discontinued 20 mg PO DAILY 180 1 December 20, 2019 6:56pm September 05, 2020 10:18am 6 mos supply for international travel Start: 01-03-2019 End: 01-04-2019 take 1 tablet by mouth once daily Atorvastatin 20 mg tablet Discontinued 20 mg PO DAILY January 03, 2019 12:00am January 04, 2019 3:48pm Presence of aortocoronary bypass graft Pt actually taking Lipirex mfg in [place] Blood Pressure Monitor kit (2 sources) Start: 01-28-2024 Blood Pressure Monitor kit Active 0 .MEDSUPPLY 1 0 January 28, 2024 1:59pm Essential (primary) hypertension Check blood pressure daily for hypertension I10 Start: 01-28-2024 End: 01-28-2024 Blood Pressure Monitor kit D iscontinued 0 .MEDSUPPLY 1 0 January 28, 2024 12:00am January 28, 2024 2:00pm Essential (primary) hypertension Check blood pressure daily for hypertension I10 Blood-Glucose Meter (Accu-Chek Guide Glucose Meter) misc (1 source) Start: 07-03-2025 Blood-Glucose Meter (Accu-Chek Guide Glucose Meter) misc Active 0 .ROUTE 1 0 July 03, 2025 12:00am Type 2 diabetes mellitus Type 2 diabetes mellitus with diabetic polyneuropathy As directed to check blood glucose twice daily for DMII carvedilol 25 mg oral tablet (20 sources) alpha-Adrenerg ic Irasema, beta-Adrenergi c Irasema Start: 2024 End: 09-07-2024 take 1 tablet by mouth twice daily at mealtime Start: 04-30-2023 End: 2024 take 1 tablet by mouth twice daily at mealtime Carvedilol 12.5 mg tablet Discontinued 12.5 mg PO TWICE A DAY 360 180 2 September 03, 2023 10:12am 2024 1:57pm must administer with a meal/food Start: 09-25-2022 End: 07-13-2023 take 1 tablet by mouth twice daily at mealtime Carvedilol 6.25 mg tablet Discontinued 6.25 mg PO TWICE A DAY 360 1 October 24, 2022 2:27pm July 13, 2023 2:50pm must administer with a meal/food Start: 01-04-2019 End: 09-25-2022 take 1 tablet by mouth twice daily at mealtime Carvedilol (Coreg) 3.125 mg tablet Discontinued 3.125 mg PO TWICE A DAY 360 1 December 20, 2019 6:57pm September 05, 2020 10:18am 6 mo supply for international travel must administer with a meal/food clopidogrel 75 mg oral tablet (20 sources) [id number] Platelet Inhibitor Start: 09-25-2022 End: 09-25-2022 Clopidogrel (Plavix) 75 mg tablet Discontinued 37.5 mg PO DAILY September 25, 2022 11:13am September 25, 2022 11:26am Start: 01-19-2019 End: 09-07-2024 take 1 tablet by mouth once daily empagliflozin 10 mg oral tablet (9 sources) Sodium-Glucose Cotransporter 2 Inhibitor Start: 04-30-2023 End: 09-07-2024 take 1 tablet by mouth once daily furosemide 20 mg oral tablet (20 sources) Loop Diuretic Start: 10-24-2022 End: 09-07-2024 take 1 tablet by mouth once daily Start: 01-27-2019 End: 09-25-2022 take 1 tablet by mouth once daily Furosemide 20 mg tablet Discontinued 20 mg PO DAILY 180 December 20, 2019 6:58pm September 05, 2020 10:18am 6 mo supply for international travel levothyroxine sodium 0.025 mg oral tablet (15 sources) l-Thyroxine Start: 09-25-2022 End: 09-07-2024 take 1 tablet by mouth once daily losartan potassium 25 mg oral tablet (20 sources) Angiotensin 2 Receptor Irasema Start: 11-21-2019 End: 09-07-2024 take 1 tablet by mouth once daily Start: 01-27-2019 End: 11-10-2019 take 1 tablet by mouth once daily Losartan 25 mg tablet Discontinued 25 mg PO DAILY 90 February 04, 2019 12:04pm November 10, 2019 4:05pm meloxicam 15 mg oral tablet (11 sources) Nonsteroidal Anti-inflammatory Drug Start: 04-29-2024 take 1 tablet by mouth once daily Start: 10-24-2022 End: 04-29-2024 take 1 tablet by mouth every other week as needed for pain Meloxicam 15 mg tablet Discontinued 15 mg PO .COMPLEX as needed for pain 7 October 28, 2022 3:24pm April 29, 2024 9:09am Take every other week as needed for shoulder pain. metFORMIN hydrochloride 1000 mg oral tablet (20 sources) Biguanide Start: 08-07-2022 End: 09-07-2024 take 1 tablet by mouth twice daily Start: 07-04-2022 End: 08-07-2022 take 1 tablet by mouth twice daily Metformin 500 mg tablet Discontinued 500 mg PO TWICE A DAY July 04, 2022 12:00am August 07, 2022 9:48am Start: 05-09-2021 End: 07-04-2022 take 1 tablet by mouth twice daily Metformin 1,000 mg tablet Discontinued 1000 mg PO TWICE A DAY 360 180 2 June 13, 2021 9:53am July 04, 2022 2:57pm Start: 04-03-2021 End: 05-09-2021 take 1 tablet by mouth twice daily Metformin 850 mg tablet Discontinued 850 mg PO TWICE A DAY 60 1 April 03, 2021 12:00am May 09, 2021 4:21pm tamsulosin hydrochloride 0.4 mg oral capsule (20 sources) alpha-Adrenergic Irasema Start: 04-03-2021 End: 09-07-2024 take 1 capsule by mouth at bedtime Completed/Discontinued Medications Medication Drug Class(es) Dates Sig (Normalized) Sig (Original) amiodarone hydrochloride 200 mg oral tablet (20 sources) Antiarrhythmic Start: 03-27-2021 End: 05-18-2023 Amiodarone 200 mg tablet Discontinued 100 mg PO DAILY 45 3 July 04, 2022 4:03pm May 18, 2023 4:20pm Start: 03-27-2021 End: 05-18-2023 take 100 mg by mouth once daily Amiodarone Discontinued 100 MG PO DAILY 45 July 04, 2022 4:03pm May 18, 2023 4:20pm Start: 01-25-2019 End: 03-27-2021 take 1 tablet by mouth once daily Amiodarone 200 mg tablet Discontinued 200 mg PO DAILY 180 1 December 20, 2019 6:55pm September 05, 2020 10:18am 6 mo supply for international travel Start: 01-25-2019 End: 01-27-2019 Amiodarone 400 MG tablet Dis continued 400 mg PO TWICE A DAY January 25, 2019 9:40am January 27, 2019 9:38am 400 mg PO TWICE DAILY FOR 5 Days, then start the 200 mg pills; Blood Pressure Cuff (11 sources) Start: 06-13-2021 End: 07-04-2022 Blood Pressure Cuff Disconti nued 0 .Route .MEDSUPPLY 1 0 June 13, 2021 12:00am July 04, 2022 2:56pm As directed Start: 06-13-2021 End: 07-04-2022 Blood Pressure Cuff Disconti nued 0 .Route .MEDSUPPLY 1 June 12, 2021 11:00pm July 04, 2022 1:56pm As directed Start: 06-13-2021 End: 07-04-2022 Blood Pressure Cuff Disconti nued 0 .Route .MEDSUPPLY 1 June 13, 2021 12:00am July 04, 2022 2:56pm As directed Blood-Glucose Meter (Freesty le Lite Meter) kit (13 sources) Start: 01-28-2024 End: 07-03-2025 Blood-Glucose Meter (Freesty le Lite Meter) kit Discontinued 0 .MEDSUPPLY 1 0 January 28, 2024 1:59pm July 03, 2025 2:18pm Type 2 diabetes mellitus with hyperglycemia As directed, check blood glucose daily for type 2 DM Start: 01-28-2024 End: 01-28-2024 Blood-Glucose Meter (Freesty le Lite Meter) kit Discontinued 0 .MEDSUPPLY 1 0 January 28, 2024 12:00am January 28, 2024 2:00pm Type 2 diabetes mellitus with hyperglycemia As directed, check blood glucose daily for type 2 DM Start: 04-03-2021 End: 07-03-2025 Blood-Glucose Meter (Freesty le Lite Meter) kit Discontinued 0 .MEDSUPPLY 1 0 April 03, 2021 12:00am July 03, 2025 2:18pm Type 2 diabetes mellitus with hyperglycemia As directed, check blood glucose daily for type 2 DM Start: 04-03-2021 Blood-Glucose Meter (Freestyle Lite Meter) kit Active 0 .MEDSUPPLY 1 April 02, 2021 11:00pm As directed, check blood glucose daily for type 2 DM Start: 04-03-2021 Blood-Glucose Meter (Freestyle Lite Meter) kit Active 0 .MEDSUPPLY 1 April 03, 2021 12:00am As directed, check blood glucose daily for type 2 DM 24 hr dilTIAZem hydrochloride 120 mg extended release oral capsule (20 sources) Calcium Channel Irasema Start: 11-10-2019 End: 03-27-2021 take 1 capsule by mouth once daily Diltiazem Hcl 120 mg capsule,extended release 24 hr Discontinued 120 mg PO DAILY 90 3 March 25, 2021 11:14am March 27, 2021 4:06pm gemfibrozil 600 mg oral tablet (20 sources) Peroxisome Proliferator Receptor alpha Agonist Start: 01-03-2019 End: 07-14-2023 take 1 tablet by mouth twice daily Gemfibrozil 600 mg tablet Discontinued 600 mg PO TWICE A DAY 360 180 July 01, 2022 11:19am July 04, 2022 4:07pm nitroglycerin 0.4 mg sublingual tablet (20 sources) Nitrate Vasodilator Start: 01-27-2019 End: 09-25-2022 Nitroglycerin 0.4 mg tablet, sublingual Discontinued 0.4 mg SL Q5M as needed for Cardiac/Chest Pain 25 July 04, 2022 4:07pm September 25, 2022 11:12am Start: 01-27-2019 End: 09-25-2022 Nitroglycerin Discontinued 0 .4 MG SL Q5M 50 December 20, 2019 6:59pm March 25, 2021 11:15am predniSONE 20 mg oral tablet (7 sources) Start: 09-26-2022 End: 10-24-2022 take 2 tablets by mouth once daily at mealtime Prednisone 20 mg tablet Discontinued 40 mg PO DAILY 10 02 16September 26, 2022 1:00am October 24, 2022 10:59am GOUT Take with food. Avoid other NSAIDs while taking. Tylenol okay. Start: 09-26-2022 End: 10-24-2022 take 40 mg by mouth once daily at mealtime Prednisone Discontinued 40 MG PO DAILY 10 September 26, 2022 1:00am October 24, 2022 10:59am Take with food. Avoid other NSAIDs while taking. Tylenol okay. Problems Active Problems Problem Classification Problem Date Documented Date Episodic/Chronic Administrative/social admission (3 sources) Encounter for health counseling related to travel; Translations: [Other specified counseling] Episodic Cardiac dysrhythmias (17 sources) Ventricular tachycardia; Translations: [Ventricular tachycardia] Chronic Chronic kidney disease (2 sources) Chronic kidney disease, unspecified; Translations: [Chronic kidney disease] Onset: 09-07-2024 09-07-2024 Chronic Conduction disorders (20 sources) Automatic implantable cardiac defibrillator in situ; Translations: [Presence of automatic (implantable) cardiac defibrillator] Onset: 09-01-2024 Chronic Coronary atherosclerosis and other heart disease (20 sources) Coronary atherosclerosis; Translations: [Atherosclerotic heart disease of [place] coronary artery without angina pectoris] Onset: 09-01-2024 Chronic Comment on above: CABG 02/27/2007 @ [facility]. Deficiency and other anemia (5 sources) Anemia; Translations: [Anemia, unspecified] 10-27-2022 Episodic Diabetes mellitus with complications (2 sources) Type 2 diabetes mellitus with diabetic polyneuropathy; Translations: [Type 2 diabetes mellitus with hyperglycemia] Onset: 09-07-2024 Chronic Diabetes mellitus without complication (20 sources) Type 2 diabetes mellitus; Translations: [Type 2 diabetes mellitus without complications] Chronic Disorders of lipid metabolism (20 sources) Hyperlipidemia; Translations: [Hyperlipidemia, unspecified] Onset: 09-01-2024 Chronic Essential hypertension (20 sources) Essential hypertension; Translations: [Essential (primary) hypertension] Onset: 09-01-2024 Chronic Gout and other crystal arthropathies (14 sources) Gout; Translations: [Gout, unspecified] Chronic Hyperplasia of prostate (12 sources) Benign prostatic hyperplasia; Translations: [Benign prostatic hyperplasia without lower urinary tract symptoms] 05-09-2021 Chronic Immunizations and screening for infectious disease (3 sources) Encounter for immunization; Translations: [Need for prophylactic vaccination and inoculation against influenza] Episodic Nonspecific chest pain (11 sources) Chest pain; Translations: [Chest pain, unspecified] 07-10-2020 Episodic Other aftercare (10 sources) Drug therapy finding; Translations: [Other senior living (current) drug therapy] 06-13-2021 Episodic Other aftercare (6 sources) Other senior living (current) drug therapy; Translations: [Long-term (current) use of other medications] Episodic Other aftercare (1 source) Long-term current use of amiodarone; Translations: [Other senior living (current) drug therapy] 02-16-2024 Episodic Other circulatory disease (1 source) Other specified peripheral vascular diseases; Translations: [Other specified peripheral vascular diseases] Onset: 03-03-2024 Chronic Other connective tissue disease (8 sources) Pain in thumb ; Translations: [Pain in right finger(s)] 07-11-2022 Episodic Other connective tissue disease (5 sources) Pain in right finger(s); Translations: [Pain in limb] Episodic Other connective tissue disease (1 source) Pain in right thumb; Translations: [Pain in right finger(s)] 07-11-2022 Episodic Other hereditary and degenerative nervous system conditions (2 sources) Blepharospasm; 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] 01-20-2024 Chronic Other hereditary and degenerative nervous system conditions (1 source) Blepharospasm; 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] 01-20-2024 Chronic Other nervous system disorders (2 sources) Neuropathy; Translations: [Polyneuropathy, unspecified] 01-20-2024 Chronic Other nervous system disorders (2 sources) Polyneuropathy, unspecified; Translations: [Mononeuritis of unspecified site] Onset: 05-10-2024 01-20-2024 Chronic Other non-traumatic joint disorders (5 sources) Shoulder pain; Translations: [Pain in left shoulder] 07-11-2022 Episodic Other non-traumatic joint disorders (10 sources) Pain in left shoulder; Translations: [Pain in joint, shoulder region] Episodic Other screening for suspected conditions (not mental disorders or infectious disease) (20 sources) Patient encounter status; Translations: [Encounter for screening for malignant neoplasm of colon] Onset: 2024 12-12-2021 Episodic Other upper respiratory disease (1 source) Bleeding from nose; Translations: [Epistaxis] 07-05-2025 Episodic Poisoning by other medications and drugs (3 sources) 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; Translations: [Poisoning by other antidysrhythmic drugs, accidental (unintentional), initial encounter] 05-18-2023 Episodic Residual codes; unclassified (11 sources) Obstructive sleep apnea syndrome; Translations: [Obstructive sleep apnea (adult) (pediatric)] 05-09-2021 Chronic Residual codes; unclassified (11 sources) Hypersomnia; Translations: [Hypersomnia, unspecified] 04-03-2021 Chronic Thyroid disorders (12 sources) Hypothyroidism; Translations: [Hypothyroidism, unspecified] Onset: 09-07-2024 Chronic Past or Other Problems Problem Classification Problem Date Documented Da te Episodic/Chronic Coronary atherosclerosis and other heart disease (12 sources) Stented coronary artery; Translations: [Presence of coronary angioplasty implant and graft] Onset: 01-17-2019 06-06-2021 Episodic Comment on above: Successful PTCA/DARRIUS ostial LAD with a 2.5 x 8 Promus Synergy, post dilated with a 2.75 x 8 NC Balloon at 14 mela; 85%-->0%, no dissection.Triple vessel CAD of the LAD, LCX and RCAPatent CHAPA to LAD with L to L collaterals to OMWidely patent SVG to LCXOccluded SVG to RCA. per cardiac cath 01/26/19 Dr. Dai Other nervous system disorders (1 source) Paresthesia of skin; Translations: [Paresthesia of skin] Onset: 03-23-2024 Episodic Results Test Name Value Interpretation Reference Range Facility Bilirubin, Directon 09-07-20 Bilirubin.direct [Mass/Vol] 0.24 mg/dL Normal 0.00-0.30 [facility] Comment on above: Performed By: #### L 500.4050, L501.4700, L500.4100 #### [facility] [address] [place], [address] CBC W/Diff, Automatedon 08-20 Absolute Lymph 1.63 X10 3/uL Normal 0.83-4.51 [facility] Comment on above: Performed By: #### L [id number], L100.0100 #### [facility] [address] [place], [address] Absolute Neut 8.5 X10 3/uL High 2.0-7.7 [facility] Comment on above: Performed By: #### L [id number], L100.0100 #### [facility] [address] [place], [address] Basophils/100 WBC (Bld) 0.4 % Normal 0-1 [facility] Comment on above: Performed By: #### L [id number], L100.0100 #### [facility] [address] [place], [address] Eosinophils/100 WBC (Bld) 0.4 % Normal 0-5 [facility] Comment on above: Performed By: #### L [id number], L100.0100 #### [facility] [address] [place], [address] Erythrocyte distribution width (RBC) [Ratio] 14.6 % Normal 11.6-14.6 [facility] Comment on above: Performed By: #### L [id number], L100.0100 #### [facility] [address] [place], [address] Hematocrit (Bld) [Volume fraction] 38.2 % Low 40-54 [facility] Comment on above: Performed By: #### L [id number], L100.0100 #### [facility] [address] [place], [address] Hemoglobin (Bld) [Mass/Vol] 12.5 g/dL Low 13.0-16.5 [facility] Comment on above: Performed By: #### L [id number], L100.0100 #### [facility] [address] [place], [address] IG% 0.500 Normal 0.0-0.9 [facility] Comment on above: Result Comment: IG% - Immature Granulocytes (promyelocytes, myelocytes and metamyelocytes) > 1% indicates that a LEFT SHIFT is Present. Performed By: #### L [id number], L100.0100 #### [facility] [address] [place], [address] Lymphocytes/100 WBC (Bld) 14.6 % Low 19-41 [facility] Comment on above: Performed By: #### L [id number], L100.0100 #### [facility] [address] [place], [address] MCH (RBC) [Entitic mass] 28.2 pg Normal 27.0-32.0 [facility] Comment on above: Performed By: #### L [id number], L100.0100 #### [facility] [address] [place], [address] MCHC (RBC) [Mass/Vol] 32.7 g/dL Normal 32-36 [facility] Comment on above: Performed By: #### L [id number], L100.0100 #### [facility] [address] [place], [address] MCV (RBC) [Entitic vol] 86.2 fL Normal 80-94 [facility] Comment on above: Performed By: #### L [id number], L100.0100 #### [facility] [address] [place], [address] Monocytes/100 WBC (Bld) 7.5 % Normal 0-10 [facility] Comment on above: Performed By: #### L [id number], L100.0100 #### [facility] [address] [place], [address] Neutrophils/100 WBC (Bld) 76.6 % High 47-70 [facility] Comment on above: Performed By: #### L [id number], L100.0100 #### [facility] [address] [place], [address] Nucleated RBC (Bld) [#/Vol] 0 10*3/uL Normal 0-5 [facility] Comment on above: Performed By: #### L [id number], L100.0100 #### [facility] [address] [place], [address] Platelet mean volume (Bld) [Entitic vol] 12.5 fL High 6.2-12.0 [facility] Comment on above: Performed By: #### L [id number], L100.0100 #### [facility] [address] [place], [address] Platelets (Bld) [#/Vol] 148 10*3/uL Low 150-450 [facility] Comment on above: Performed By: #### L [id number], L100.0100 #### [facility] [address] [place], [address] RBC (Bld) [#/Vol] 4.43 10*6/uL Low 4.6-6.2 [facility] Comment on above: Performed By: #### L [id number], L100.0100 #### [facility] [address] [place], [address] RDW SD 46.2 fl High 35.1-43.9 [facility] Comment on above: Performed By: #### L [id number], L100.0100 #### [facility] [address] [place], [address] WBC (Bld) [#/Vol] 11.1 10*3/uL High 4.4-11.0 [facility] Comment on above: Performed By: #### L [id number], L100.0100 #### [facility] [address] [place], [address] Comprehensive Metabolic Prof [place] 09-07-2024 Albumin [Mass/Vol] 3.9 g/dL Normal 3.2-5.0 [facility] Comment on above: Performed By: #### L [id number], L501.4700, L500.4100 #### [facility] [address] [place], [address] Albumin/Globulin [Mass ratio] 1.1 {ratio} Normal 0.9-2.4 [facility] Comment on above: Performed By: #### L 500.4050, [id number], L500.4100 #### [facility] [address] [place], [address] ALK P 44 U/L Low 45-117 [facility] Comment on above: Performed By: #### L 500.4050, [id number], L500.4100 #### [facility] [address] [place], [address] ALT [Catalytic activity/Vol] 29 U/L Normal 16-61 [facility] Comment on above: Performed By: #### L 500.4050, L501.4700, L500.4100 #### [facility] [address] [place], [address] AST [Catalytic activity/Vol] 23 U/L Normal 15-37 [facility] Comment on above: Performed By: #### L 500.4050, L501.4700, L500.4100 #### [facility] [address] [place], [address] Bilirubin [Mass/Vol] 0.80 mg/dL Normal 0.20-1.00 [facility] Comment on above: Result Comment: For patients on eltrombopag therapy, use of Dimension [place] TBIL is not recommended. Performed By: #### L 500.4050, L501.4700, L500.4100 #### [facility] [address] [place], [address] BUN/CRE 18.3 RATIO Normal 10-20 [facility] Comment on above: Performed By: #### L 500.4050, L501.4700, L500.4100 #### [facility] [address] [place], [address] CA,Total 9.3 mg/dL Normal 8.5-10.1 [facility] Comment on above: Performed By: #### L 500.4050, L501.4700, L500.4100 #### [facility] [address] [place], [address] Chloride [Moles/Vol] 110 mmol/L High 98-107 [facility] Comment on above: Performed By: #### L 500.4050, L501.4700, L500.4100 #### [facility] [address] [place], [address] CO2 [Moles/Vol] 26.0 mmol/L Normal 21.0-32.0 [facility] Comment on above: Performed By: #### L 500.4050, L501.4700, L500.4100 #### [facility] [address] [place], [address] Creatinine [Mass/Vol] 1.04 mg/dL Normal 0.70-1.30 [facility] Comment on above: Result Comment: The validity of the calculated GFR GFRAA in patients over 70 years has not been determined. Clinical correlation is essential. Performed By: #### L 500.4050, L501.4700, L500.4100 #### [facility] [address] [place], [address] EST GFR - AA 91 mL/min Normal >60 [facility] Comment on above: Result Comment: Afri can [place] GFR Calc Performed By: #### L 500.4050, L501.4700, L500.4100 #### [facility] [address] [place], [address] GAP 4 Low 5-15 [facility] Comment on above: Performed By: #### L 500.4050, L501.4700, L500.4100 #### [facility] [address] [place], [address] GFR/1.73 sq M.predicted among non-blacks MDRD (S/P/Bld) [Vol rate/Area] 75 mL/min/{1.73_m2} Normal >60 [facility] Comment on above: Result Comment: Non- GFR Calc Performed By: #### L 500.4050, L501.4700, L500.4100 #### [facility] [address] [place], [id number] Globulin (S) [Mass/Vol] 3.4 g/dL Normal 2.2-4.2 [facility] Comment on above: Performed By: #### L 500.4050, L501.4700, L500.4100 #### [facility] [address] [place], [id number] Glucose [Mass/Vol] 104 mg/dL Normal 74-106 [facility] Comment on above: Result Comment: Fast ing Glucose result from 100 to 125 mg/dL suggests IMPAIRED HOMEOSTASIS per A.D.A. criteria. Performed By: #### L 500.4050, L501.4700, L500.4100 #### [facility] [address] [place], [id number] Potassium [Moles/Vol] 4.3 mmol/L Normal 3.5-5.1 [facility] Comment on above: Performed By: #### L 500.4050, L501.4700, L500.4100 #### [facility] [address] [place], [id number] Sodium [Moles/Vol] 140 mmol/L Normal 136-145 [facility] Comment on above: Performed By: #### L 500.4050, L501.4700, L500.4100 #### [facility] [address] [place], [id number] T PROT 7.3 g/dL Normal 6.4-8.2 [facility] Comment on above: Performed By: #### L 500.4050, L501.4700, L500.4100 #### [facility] [address] [place], [id number] Urea nitrogen [Mass/Vol] 19 mg/dL High 7-18 [facility] Comment on above: Performed By: #### L 500.4050, L501.4700, L500.4100 #### [facility] [address] [place], [address] Internal Medicine Office Vis cassandra 09-07-2024 Internal Medicine Office Visit [facility] [address] [place] [address] [place] [address] OFFICE VISIT Date of Service: 09/07/24 MR#: [id number] Acct: [id number] Name: ZAID EDDY Rep #: [id number] : 1955 Provider: ОЛЬГА White Age/Sex: 69/M Location: [facility] Status: Signed Intake Vital Signs 04/29/24 09:13 09/01/24 08:18 09/07/24 08:58 Height 5 ft 8 in 5 ft 8 in 5 ft 8 in Weight: 175 lb 174 lb BMI 26.6 26.4 BP 120/76 118/70 Blood Pressure Location Lt brachial Lt brachial Position Sitting Sitting Respiration 16 16 Pulse 65 71 Pulse Source NIBP Monitor Temp 97.3 F L Temp Source Temporal Pulse Oximetry (%) 99 Oxygen Delivery Method room air Intake Visit Reasons: acute - med discussion 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: 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 Accompanied by: Self Is patient in pain?: No Allergies No Known Allergies Allergy (Verified 09/07/24 08:54) Medications ???Medication ???Instructions ???Recorded ???Confirmed ???Type blood-glucose meter (FreeStyle #1 ea 04/03/21 09/07/24 Rx Lite Meter kit) lancets 28 gauge (FreeStyle #200 ea 10/24/22 09/07/24 Rx Lancets) blood pressure monitor #1 ea 01/28/24 09/07/24 Rx blood sugar diagnostic (FreeStyle #100 ea 01/28/24 09/07/24 Rx Lite Strips) blood-glucose meter (FreeStyle #1 ea 01/28/24 09/07/24 Rx Lite Meter kit) meloxicam 15 mg tablet 15 mg PO DAILY 04/29/24 09/07/24 History aspirin 81 mg tablet,delayed 81 mg PO DAILY 6 months #180 tabs 09/07/24 09/07/24 Rx release (Adult Aspirin Regimen) atorvastatin 40 mg tablet 40 mg PO QDAY #180 tabs 09/07/24 09/07/24 Rx blood sugar diagnostic (OneTouch #600 ea 09/07/24 09/07/24 Rx Ultra Test strips) carvedilol 25 mg tablet 25 mg PO BID #360 tabs 09/07/24 09/07/24 Rx clopidogrel 75 mg tablet (Plavix) 75 mg PO DAILY 6 months #180 tabs 09/07/24 09/07/24 Rx empagliflozin 10 mg tablet 10 mg PO DAILY 6 months #180 tabs 09/07/24 09/07/24 Rx (Jardiance) furosemide 20 mg tablet 20 mg PO DAILY 6 months #180 tabs 09/07/24 09/07/24 Rx lancets 28 gauge (FreeStyle #200 ea 09/07/24 09/07/24 Rx Lancets) levothyroxine 25 mcg tablet 25 mcg PO DAILY 6 months #180 09/07/24 09/07/24 Rx TABLETS losartan 25 mg tablet 25 mg PO DAILY 6 months #180 tabs 09/07/24 09/07/24 Rx metformin 1,000 mg tablet 1,000 mg PO BID 6 months #360 09/07/24 09/07/24 Rx TABLETS tamsulosin 0.4 mg capsule 0.4 mg PO QHS 6 months #180 caps 09/07/24 09/07/24 Rx Have you fallen in the past year?: No PFSH Medical History Spasm of eyelids Neuropathy Hypothyroidism due to amiodarone Anemia Hypothyroidism Coronary artery disease Pain of right thumb Left shoulder pain Health care maintenance 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 Presence of stent in coronary artery ( 01/26/19) ZEHRA (obstructive sleep apnea) Gout Hypersomnolence BPH (benign prostatic hyperplasia) Type 2 diabetes mellitus Essential hypertension Ischemic cardiomyopathy Abnormal stress echo Chest pain Ventricular tachycardia Hyperlipidemia Atherosclerotic heart disease of [place] coronary artery without angina pectoris Surgical History Presence of coronary angioplasty implant and graft ( 01/26/19) History of coronary artery bypass graft x 3 ( 02/27/07) Presence of implantable cardioverter-defibrill ator (ICD) Family History Other CAD (coronary artery disease) Myocardial infarction Tuberculosis Social History Smoking Status: Former smoker quit date: 02/16/07 alcohol intake: never substance use type: does not use caffeine: Yes Type: tea HPI HPI 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: med discussion Details: ZAID EDDY, is a 69 M who presents to the office today for diabetes check-up. At this time patient states that he feels absolutely great and has no concerns or complaints. Patient was diagnosed with diabetes about 2 years ago. Patient sates that he changed his diet and lifestyle immensely. He states that he has lost at least 25 pounds. He walked regularly and really watches his diet. Patient does take all of his medications as directed. He has not had any side effects or tolerability issues. He does see his eye doctor regularly. No recent visual changes He has seen podiatry and does check his feet regularly. He denies any numbness or tingling He does still follow regularly with his disposition clerk for coronary artery disease as well as implantable defibrillator. They did just reduce one of his medications but he is not exactly sure which one. No does use nicotine, caffeine, or ETOH. He does d (more content not included)... Normal [facility] Lipid Profileon 09-07-2024 Cholesterol [Mass/Vol] 99 mg/dL Normal 200 [facility] Comment on above: Result Comment: <200 mg/dL Desirable 200-240 mg/dL Borderline >240 mg/dL High Risk Performed By: #### L 500.4050, L501.4700, L500.4100 #### [facility] [address] [place], [address] Cholesterol in HDL [Mass/Vol] 49 mg/dL Normal [facility] Comment on above: Result Comment: The drugs N-Acetylcysteine and Metamizole may falsely depress this assay. Reference Range HDL <40 mg/dL Low HDL Cholesterol HDL >or= 60 mg/dL High HDL Cholesterol Performed By: #### L 500.4050, L501.4700, L500.4100 #### [facility] [address] [place], [address] Cholesterol in LDL [Mass/Vol] 37 mg/dL Normal 0-130 [facility] Comment on above: Performed By: #### L 500.4050, L501.4700, L500.4100 #### [facility] [address] [place], [address] Cholesterol in VLDL [Mass/Vol] 13 mg/dL Normal 5-40 [facility] Comment on above: Performed By: #### L 500.4050, L501.4700, L500.4100 #### [facility] [address] [place], [address] Triglyceride [Mass/Vol] 65 mg/dL Normal [facility] Comment on above: Result Comment: The drugs N-Acetylcysteine and Metamizole may falsely depress this assay. Serum Triglycerides Reference Interval Normal <150 mg/dL Borderline high 150 - 199 mg/dL High 200 - 499 mg/dL Very High > or = 500 mg/dL Performed By: #### L 500.4050, L501.4700, L500.4100 #### [facility] [address] [place], [address] Thyroid Stim Hormone (TSH)on 09-07-2024 TSH 2.920 uIU/mL Normal 0.358-3.740 [facility] Comment on above: Performed By: #### L 501.9520, L100.0100 ####[facility] [address] [place], [address] Cardiology Visit Reporton Cardiology Visit Report [facility] [address] [place] [address] OFFICE VISIT Date of Service: 09/01/24 MR#: [id number] Acct: [id number] Name: ZAID EDDY Rep #: [id number] : 1955 Provider: Dr. Paola Patel MD Age/Sex: 69/M Location: [facility] Status: Signed HPI HPI History of Present Illness Details: This very pleasant gentleman is here for follow-up visit. His last echocardiogram showed improvement in his LVEF. His LVEF was estimated to be 45 to 50%. Denies any complaints today. No chest pains. No shortness of breath. No palpitations. No orthopnea or PND. No ankle edema. ICD check shows atrial pacing with ventricular sensing. No episodes of V-fib or V. tach were noted. 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 Accompanied by: Self Is patient in pain?: No Allergies No Known Allergies Allergy (Verified 09/01/24 13:13) Medications ???Medication ???Instructions ???Recorded ???Confirmed ???Type blood-glucose meter (FreeStyle #1 ea 04/03/21 09/01/24 Rx Lite Meter kit) lancets 28 gauge (FreeStyle #200 ea 10/24/22 09/01/24 Rx Lancets) metformin 1,000 mg tablet 1,000 mg PO BID 6 months #360 07/14/23 09/01/24 Rx TABLETS tamsulosin 0.4 mg capsule 0.4 mg PO QHS 6 months #180 caps 07/14/23 09/01/24 Rx aspirin 81 mg tablet,delayed 81 mg PO DAILY 6 months #180 tabs 09/03/23 09/01/24 Rx release (Adult Aspirin Regimen) atorvastatin 80 mg tablet 80 mg PO DAILY 6 months #180 tabs 09/03/23 09/01/24 Rx clopidogrel 75 mg tablet (Plavix) 75 mg PO DAILY 6 months #180 tabs 09/03/23 09/01/24 Rx empagliflozin 10 mg tablet 10 mg PO DAILY 6 months #180 tabs 09/03/23 09/01/24 Rx (Jardiance) furosemide 20 mg tablet 20 mg PO DAILY 6 months #180 tabs 09/03/23 09/01/24 Rx losartan 25 mg tablet 25 mg PO DAILY 6 months #180 tabs 09/03/23 09/01/24 Rx blood pressure monitor #1 ea 01/28/24 09/01/24 Rx blood sugar diagnostic (FreeStyle #100 ea 01/28/24 09/01/24 Rx Lite Strips) blood sugar diagnostic (OneTouch #600 ea 01/28/24 09/01/24 Rx Ultra Test strips) blood-glucose meter (FreeStyle #1 ea 01/28/24 09/01/24 Rx Lite Meter kit) lancets 28 gauge (FreeStyle #200 ea 01/28/24 09/01/24 Rx Lancets) carvedilol 25 mg tablet 25 mg PO BID #180 tabs 02/18/24 09/01/24 Rx meloxicam 15 mg tablet 15 mg PO DAILY 04/29/24 09/01/24 History levothyroxine 25 mcg tablet 25 mcg PO DAILY #90 TABLETS 07/04/24 09/01/24 Rx Ejection fraction %: 45 Have you fallen in the past year?: No PFSH Medical History Abnormal stress echo Anemia Atherosclerotic heart disease of [place] coronary artery without angina pectoris BPH (benign prostatic hyperplasia) Chest pain Colon cancer screening Coronary artery disease Essential hypertension Gout Health care maintenance Hyperlipidemia Hypersomnolence Hypothyroidism Hypothyroidism due to amiodarone Ischemic cardiomyopathy Left shoulder pain 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 Neuropathy ZEHRA (obstructive sleep apnea) Pain of right thumb Presence of stent in coronary artery ( 01/26/19) Spasm of eyelids Type 2 diabetes mellitus Ventricular tachycardia Surgical History History of coronary artery bypass graft x 3 ( 02/27/07) Presence of coronary angioplasty implant and graft ( 01/26/19) Presence of implantable cardioverter-defibrill ator (ICD) Family History Other CAD (coronary artery disease) Myocardial infarction Tuberculosis Social History Smoking Status: Former smoker quit date: 02/16/07 alcohol intake: never substance use type: does not use caffeine: Yes Type: tea ROS Const Const: Negative for fatigue, weakness, headache(s) or weight gain ENT ENT: Positive for dizziness (seldom); Negative for headache(s), Nosebleed/epistaxis or balance problems Cardio Chest Pain: No Palpitations: No Edema: None Muscle aches with walking: None Resp Respiratory: Negative for SOB with activity, SOB at rest or SOB orthopnea SOB lying down GI GI: Negative nausea, vomiting or heartburn Musc Musc: Negative for muscle aches/ myalgia, muscle weakness, joint pain or balance problems Neuro Neuro: Positive for dizziness (seldom); Negative for lightheadedness, yobani (more content not included)... Normal [facility] Basic Metabolic Profile (BMP )on 04-29-2024 BUN/CRE 14.8 RATIO Normal 10-20 [facility] Comment on above: Performed By: #### L 503.0105, L500.2500 #### [facility] [address] [place], [address] CA,Total 9.5 mg/dL Normal 8.5-10.1 [facility] Comment on above: Performed By: #### L 503.0105, L500.2500 #### [facility] [address] [place], [address] Chloride [Moles/Vol] 109 mmol/L High 98-107 [facility] Comment on above: Performed By: #### L 503.0105, L500.2500 #### [facility] [address] [place], [address] CO2 [Moles/Vol] 23.0 mmol/L Normal 21.0-32.0 [facility] Comment on above: Performed By: #### L 503.0105, L500.2500 #### [facility] [address] [place], [address] Creatinine [Mass/Vol] 1.22 mg/dL Normal 0.70-1.30 [facility] Comment on above: Result Comment: The validity of the calculated GFR GFRAA in patients over 70 years has not been determined. Clinical correlation is essential. Performed By: #### L 503.0105, L500.2500 #### [facility] [address] [place], [address] EST GFR - AA 76 mL/min Normal >60 [facility] Comment on above: Result Comment: Afri can [place] GFR Calc Performed By: #### L 503.0105, L500.2500 #### [facility] [address] [place], [address] GAP 7 Normal 5-15 [facility] Comment on above: Performed By: #### L 503.0105, L500.2500 #### [facility] [address] [place], [address] GFR/1.73 sq M.predicted among non-blacks MDRD (S/P/Bld) [Vol rate/Area] 63 mL/min/{1.73_m2} Normal >60 [facility] Comment on above: Result Comment: Non- GFR Calc Performed By: #### L 503.0105, L500.2500 #### [facility] [address] [place], [address] Glucose [Mass/Vol] 97 mg/dL Normal 74-106 [facility] Comment on above: Performed By: #### L 503.0105, L500.2500 #### [facility] [address] [place], [address] Potassium [Moles/Vol] 4.8 mmol/L Normal 3.5-5.1 [facility] Comment on above: Performed By: #### L 503.0105, L500.2500 #### [facility] [address] [place], [address] Sodium [Moles/Vol] 139 mmol/L Normal 136-145 [facility] Comment on above: Performed By: #### L 503.0105, L500.2500 #### [facility] [address] [place], [address] Urea nitrogen [Mass/Vol] 18 mg/dL Normal 7-18 [facility] Comment on above: Performed By: #### L 503.0105, L500.2500 #### [facility] [address] [place], [address] Internal Medicine Office Vis iton 04-29-2024 Internal Medicine Office Visit [facility] [address] [place] [address] [place] [address] OFFICE VISIT Date of Service: 04/29/24 MR#: [id number] Acct: [id number] Name: ZAID EDDY Rep #: [id number] : 1955 Provider: Dr. Antonina carter MD Age/Sex: 69/M Location: [facility] Status: Signed Intake Vital Signs 01/20/24 09:14 02/18/24 13:20 04/29/24 09:13 Height 5 ft 8 in 5 ft 8 in 5 ft 8 in Weight: 180 lb BMI 27.3 BP 124/82 H Blood Pressure Location Lt brachial Position Sitting Respiration 17 Pulse 66 Pulse Source Monitor Temp 98.2 F Temp Source Temporal Pulse Oximetry (%) 98 Oxygen Delivery Method room air Intake Visit Reasons: 3 M FU 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: 3 m fu Is patient in pain?: No Allergies No Known Allergies Allergy (Verified 04/29/24 09:09) Medications ???Medication ???Instructions ???Recorded ???Confirmed ???Type blood-glucose meter (FreeStyle #1 ea 04/03/21 04/29/24 Rx Lite Meter kit) lancets 28 gauge (FreeStyle #200 ea 10/24/22 04/29/24 Rx Lancets) levothyroxine 25 mcg tablet 25 mcg PO DAILY 6 months #180 tabs 07/14/23 04/29/24 Rx (Synthroid) metformin 1,000 mg tablet 1,000 mg PO BID 6 months #360 07/14/23 04/29/24 Rx TABLETS tamsulosin 0.4 mg capsule 0.4 mg PO QHS 6 months #180 caps 07/14/23 04/29/24 Rx aspirin 81 mg tablet,delayed 81 mg PO DAILY 6 months #180 tabs 09/03/23 04/29/24 Rx release (Adult Aspirin Regimen) atorvastatin 80 mg tablet 80 mg PO DAILY 6 months #180 tabs 09/03/23 04/29/24 Rx clopidogrel 75 mg tablet (Plavix) 75 mg PO DAILY 6 months #180 tabs 09/03/23 04/29/24 Rx empagliflozin 10 mg tablet 10 mg PO DAILY 6 months #180 tabs 09/03/23 04/29/24 Rx (Jardiance) furosemide 20 mg tablet 20 mg PO DAILY 6 months #180 tabs 09/03/23 04/29/24 Rx losartan 25 mg tablet 25 mg PO DAILY 6 months #180 tabs 09/03/23 04/29/24 Rx blood pressure monitor #1 ea 01/28/24 04/29/24 Rx blood sugar diagnostic (FreeStyle #100 ea 01/28/24 04/29/24 Rx Lite Strips) blood sugar diagnostic (OneTouch #600 ea 01/28/24 04/29/24 Rx Ultra Test strips) blood-glucose meter (FreeStyle #1 ea 01/28/24 04/29/24 Rx Lite Meter kit) lancets 28 gauge (FreeStyle #200 ea 01/28/24 04/29/24 Rx Lancets) carvedilol 25 mg tablet 25 mg PO BID #180 tabs 02/18/24 04/29/24 Rx meloxicam 15 mg tablet 15 mg PO DAILY 04/29/24 04/29/24 History Have you fallen in the past year?: No PFSH Medical History Spasm of eyelids Neuropathy Hypothyroidism due to amiodarone Anemia Hypothyroidism Coronary artery disease Pain of right thumb Left shoulder pain Health care maintenance 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 Presence of stent in coronary artery ( 01/26/19) ZEHRA (obstructive sleep apnea) Gout Hypersomnolence BPH (benign prostatic hyperplasia) Type 2 diabetes mellitus Essential hypertension Ischemic cardiomyopathy Abnormal stress echo Chest pain Ventricular tachycardia Hyperlipidemia Atherosclerotic heart disease of [place] coronary artery without angina pectoris Surgical History Presence of coronary angioplasty implant and graft ( 01/26/19) History of coronary artery bypass graft x 3 ( 02/27/07) Presence of implantable cardioverter-defibrill ator (ICD) Family History Other CAD (coronary artery disease) Myocardial infarction Tuberculosis Social History Smoking Status: Former smoker quit date: 02/16/07 alcohol intake: never substance use type: does not use caffeine: Yes Type: tea HPI HPI 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: 3 m fu Details: ZAID EDDY, is a 69 M who presents to the office today for follow-up of his chronic medical conditions. No acute concerns at this time. A1c today is at 6 down from 6.4. He states that he is taking his medication as prescribed. States that lower extremity numbness has also improved. No new concerns reported. Other chronic medical conditions are also stable. Blood pressure today is at 124/82 mmHg. No chest pain, palpitation or shortness of breath. ROS Const Constitutional: No body ache, chills, excessive sweating, fatigue, fever(s), frequent falls, headache(s), snoring, weight change, sleep problems, abnormal sleep pattern or change in appetite Eyes Eyes: No blurry vision, change in vision, floaters, eye pain or Light sensitivity ENT ENT: No abnormal hearing, ear or mastoid pain, tinnitus, balance problems, nosebleed/epistaxis, nasal congestion, headache(s), neck pain or sore throat Resp Respiratory: No cough, excessive phlegm production, pain on inspiration, shortness of breath, snoring or wheezing Car (more content not included)... Normal [facility] Vitamin B12on 04-29-2024 Cobalamin (Vitamin B12) [Mass/Vol] 513 pg/mL Normal 211-911 [facility] Comment on above: Performed By: #### L 503.0105, L500.2500 #### [facility] [address] [place], [place], [address] Echo Completeon 04-01-[address] [facility] [address] [place] [address] Echo Complete 04/01/24 1314 MR#: [id number] Acct: [id number] Name: ZAID EDDY Rep #: [id number] : 1955 69 From: Paola Patel MD Attending Dr: Dr. Paola Patel MD Status: REG CLI Ordering Dr: Paola Patel MD Date: 04/01/24 Location: [facility] Sex: M UTD Admitted: Reason For Study: CAD/ASHD Procedure This was a 2D Doppler, Color Flow transthoracic echocardiogram. Exam performed in department. Left Ventricle Normal LV size. Mild concentric left ventricular hypertrophy. Left ventricular systolic ejection fraction estimated at 45 to 50%. Normal diastology for age. Right Ventricle Normal right ventricle. There is a pacemaker lead in the right ventricle. Atria The left atrium is moderately enlarged. ICD or pacer leads identified within the right atrium. Mitral Valve Mild (1+) mitral valve insufficiency. Tricuspid Valve Mild (1+) tricuspid valve insufficiency. Normal pulmonary artery pressure. Aortic Valve Trisinus/trileaflet aortic valve. Pulmonic Valve The pulmonic valve is not well visualized. Great Vessels Normal sized aortic root. Pericardium/Pleural No pericardial effusion. MMode/2D Measurements Calculations LVIDd: 5.2 cm IVSd: 0.94 cm Ao root diam: 3.0 cm LVIDs: 3.5 cm LVPWd: 1.4 cm RVDd: 3.9 cm FS: 33.3 % LAV(MOD-bp): 42.4 ml LVAd ap4: 24.9 cm2 SV(MOD-sp4): 26.3 ml LAV(MOD-bp) Indexed: 21.3 ml/m2 LVLd ap4: 7.9 cm LAV(MOD-sp2): 41.1 ml EDV(MOD-sp4): 64.9 ml LAV(MOD-sp4): 39.0 ml EDV(sp4-el): 66.7 ml LVAs ap4: 17.3 cm2 LVLs ap4: 7.0 cm ESV(MOD-sp4): 38.7 ml ESV(sp4-el): 36.7 ml EF(MOD-sp4): 40.4 % EF(sp4-el): 45.0 % SV(sp4-el): 30.0 ml LA A4 area: 15.6 cm2 LA dimension(2D): 4.2 cm RA A4 area: 15.8 cm2 TAPSE: 1.7 cm Time Measurements MV dec time: 0.30 sec Doppler Measurements Calculations MV E max chris: 68.5 cm/sec Lat Peak E' Chris: 9.9 cm/sec Med Peak E' Chris: 7.7 cm/sec MV A max chris: 84.4 cm/sec E/E' lat: 6.9 E/E' med: 8.9 MV E/A: 0.81 Ao V2 max: 126.1 cm/sec LV V1 max: 113.9 cm/sec PA V2 max: 119.8 cm/sec Ao max P.4 mmHg LV V1 max P.2 mmHg TR max chris: 250.8 cm/sec TR max P.2 mmHg ECHO/Echo Complete Interpretation Summary Mild concentric left ventricular hypertrophy. Left ventricular systolic ejection fraction estimated at 45 to 50% The left atrium is moderately enlarged. Mild (1+) mitral valve insufficiency. Mild (1+) tricuspid valve insufficiency. Ordering Physician: Paola Patel Referring Physician: MARCIN MEANS Performed By: Malka Rose RDCS 04/07/24 1243 Date Paola Patel MD CC: Dr. Paola Patel MD; Dr. Antonina Means MD Date Dictated: 04/01/24 1314 Date Transcribed: 04/07/24 1243 Backup Operator: Signed Normal [facility] Lipid Profileon 03-04-2024 Cholesterol [Mass/Vol] 114 mg/dL Normal 200 [facility] Comment on above: Result Comment: <200 mg/dL Desirable 200-240 mg/dL Borderline >240 mg/dL High Risk Performed By: #### L 500.4100 #### [facility] [address] [place], [address] Cholesterol in HDL [Mass/Vol] 41 mg/dL Normal [facility] Comment on above: Result Comment: The drugs N-Acetylcysteine and Metamizole may falsely depress this assay. Reference Range HDL <40 mg/dL Low HDL Cholesterol HDL >or= 60 mg/dL High HDL Cholesterol Performed By: #### L 500.4100 #### [facility] [address] [place], [address] Cholesterol in LDL [Mass/Vol] 45 mg/dL Normal 0-130 [facility] Comment on above: Performed By: #### L 500.4100 #### [facility] [address] [place], [address] Cholesterol in VLDL [Mass/Vol] 28 mg/dL Normal 5-40 [facility] Comment on above: Performed By: #### L 500.4100 #### [facility] [address] [place], [address] Triglyceride [Mass/Vol] 142 mg/dL Normal [facility] Comment on above: Result Comment: The drugs N-Acetylcysteine and Metamizole may falsely depress this assay. Serum Triglycerides Reference Interval Normal <150 mg/dL Borderline high 150 - 199 mg/dL High 200 - 499 mg/dL Very High > or = 500 mg/dL Performed By: #### L 500.4100 #### [facility] [address] [place], [address] Thyroid Stim Hormone (TSH)on 03-04-2024 TSH 2.94 uIU/mL Normal 0.358-3.74 [facility] Comment on above: Performed By: #### L 501.9520 #### [facility] [address] [place], [address] NCS and/or EMG Patienton NCS and/or EMG Patient [facility] Pulmonary Services/Neurology [address] [place] [address] MR#: [id number] Acct: [id number] Name: ZAID EDDY Rep #: [id number] : 1955 69 From: Arnold Harrell MD Referring Dr: Abraham Patel DPM Status: REG CL I Location: PSN Date: 03/02/24 Sex: M UTD NCS and/or EMG Patient Report Ordering Doctor: Abraham Patel DATE OF SERVICE: 03/02/24 Zaid presents with complaints of numbness and tingling in both feet for the past 18 months. He denies any back pain. Electrodiagnostic findings: Right peroneal motor nerve demonstrates prolonged distal latency with reduced amplitude and reduced conduction velocity. No significant drop in conduction across the fibular head. Left peroneal motor nerve demonstrates normal distal latency with reduced amplitude and reduced conduction velocity. There is no significant drop in conduction across the fibular head. Right tibial motor nerve demonstrates normal distal latency with reduced amplitude and reduced conduction velocity. Left tibial motor nerve demonstrates normal distal latency with reduced amplitude and reduced conduction velocity. Prolonged tibial and peroneal F???waves. H-reflex is prolonged bilaterally. Sensory responses are not obtainable. Needle EMG testing was performed in the lower limbs. Motor unit action potentials of increased amplitude and duration noted bilaterally in the tibialis anterior and gastrocnemius. Electrodiagnostic impression: This is an abnormal study in the lower limbs 1. 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 This may be secondary to diabetes. 2. No electrodiagnostic evidence is noted for lumbosacral radiculopathy Multi Select Codes Neurology Neurology Interp Codes: 65679-56 Musc test done w/n test comp (interp) (2) and 54650-53 Nrv cndj test 9-10 studies (interp) 03/02/24 1458 Date Arnold Harrell MD CC: DPM Dr. Abraham Patel; Dr. Arnold Harrell MD; Dr. Antonina Means MD Date Dictated: 03/02/24 1454 Date Transcribed: 03/02/241453 Backup Operator: AA Signed [facility] Art Exam w/o Exerc agustina 02-24-2024 Lower Ext Art Exam w/o Exercis [facility] Cardiovascular [place] [address] Lower Ext Art Exam w/o Exercis 02/24/24 1309 MR#: [id number] Acct: [id number] Name: ZAID EDDY Rep #: [id number] : 1955 69 From: Robby Fuentes MD Attending Dr: Dr. Abraham Patel, PALOMO Status: R EG CLI Ordering Dr: Abraham Patel DPM Date: 02/24/24 Location: CVS Sex: M UTD Admitted: Reason For Study: PVD Procedure A bilateral lower extremity continuous wave Doppler with analog waveform analysis,segmental pressures,and ankle brachial indexes without exercise. Left Segmental Pressures Left brachial= 111mmHg. Left posterior tibial artery = 137mmHg. Left dorsalis pedis artery = 126mmHg. Left digit = 97 mmHg. The left dorsalis pedis waveforms are triphasic. The left posterior tibial artery waveforms are triphasic. Right Segmental Pressures Right brachial= 118mmHg. Right posterior tibial artery = 142mmHg. Right dorsalis pedis artery = 142mmHg. Right digit = 124 mmHg. The right dorsalis pedis waveforms are triphasic. The right posterior tibial artery waveforms are triphasic. Indices The right ankle brachial index by the dorsalis pedis is 1.20. The right ankle brachial index by the posterior tibial artery is 1.20. The right digital-brachial index is 1.05. The left ankle brachial index by the dorsalis pedis is 1.07. The left ankle brachial index by the posterior tibial artery is 1.16. The left digital-brachial index is 0.82. VL/Lower Ext Art Exam w/o Exercis Interpretation Summary Triphasic Doppler waveforms are noted at ankle level bilaterally. Pulse-volume recordings appear satisfactory at all levels bilaterally. Resting ankle-brachial indices are normal bilaterally. Digital-brachial indices are normal bilaterally. There is no evidence of significant arterial occlusive disease in the lower extremities bilaterally. Ordering Physician: Abraham Patel Referring Physician: Antonina Means Performed By: Elise Rowe RVT 02/24/242130 Date Robby Fuentes MD CC: DPM Dr. Abraham Patel; Dr. Antonina Means MD Date Dictated: 02/24/24 1309 Date Transcribed: 02/24/242130 Backup Operator: Signed Normal [facility] Cardiology Visit Reporton Cardiology Visit Report [facility] [place] [address] OFFICE VISIT Date of Service: 02/18/24 MR#: [id number] Acct: [id number] Name: ZAID EDDY Rep #: [id number] : 1955 Provider: Dr. Paola Patel MD Age/Sex: 69/M Location: [facility] [place] Status: Signed HPI HPI History of Present Illness Details: This very pleasant gentleman is here for follow-up visit. Denies any complaints. No orthopnea. No PND. No ankle edema. No chest pains or shortness of breath. Intake Vital Signs 01/20/24 09:14 02/18/24 13:20 Height 5 ft 8 in 5 ft 8 in Weight: 186 lb BMI 28.3 BP 144/77 H Blood Pressure Location Lt brachial Position Sitting Respiration 16 Pulse 66 Pulse Source NIBP Intake Visit Reasons: 6 M FU [employer] Grade [employer] Required: No Is patient in pain?: No Allergies No Known Allergies Allergy (Verified 02/18/24 13:29) Medications blood-glucose meter (FreeStyle Lite Meter kit) #1 ea 04/03/21 [Rx Confirmed 01/20/24] lancets 28 gauge (FreeStyle Lancets) #200 ea 10/24/22 [Rx Confirmed 01/20/24] meloxicam 15 mg tablet 15 mg PO .COMPLEX PRN pain #7 tabs 10/28/22 [Rx Confirmed 02/18/24] levothyroxine 25 mcg tablet (Synthroid) 25 mcg PO DAILY 6 months #180 tabs 07/14/23 [Rx Confirmed 02/18/24] metformin 1,000 mg tablet 1,000 mg PO BID 6 months #360 TABLETS 07/14/23 [Rx Confirmed 02/18/24] tamsulosin 0.4 mg capsule 0.4 mg PO QHS 6 months #180 caps 07/14/23 [Rx Confirmed 02/18/24] aspirin 81 mg tablet,delayed release (Adult Aspirin Regimen) 81 mg PO DAILY 6 months #180 tabs 09/03/23 [Rx Confirmed 02/18/24] atorvastatin 80 mg tablet 80 mg PO DAILY 6 months #180 tabs 09/03/23 [Rx Confirmed 02/18/24] carvedilol 12.5 mg tablet 12.5 mg PO BID 6 months #360 tabs 09/03/23 [Rx Confirmed 02/18/24] clopidogrel 75 mg tablet (Plavix) 75 mg PO DAILY 6 months #180 tabs 09/03/23 [Rx Confirmed 02/18/24] empagliflozin 10 mg tablet (Jardiance) 10 mg PO DAILY 6 months #180 tabs 09/03/23 [Rx Confirmed 02/18/24] furosemide 20 mg tablet 20 mg PO DAILY 6 months #180 tabs 09/03/23 [Rx Confirmed 02/18/24] losartan 25 mg tablet 25 mg PO DAILY 6 months #180 tabs 09/03/23 [Rx Confirmed 02/18/24] blood pressure monitor #1 ea 01/28/24 [Rx] blood sugar diagnostic (FreeStyle Lite Strips) #100 ea 01/28/24 [Rx] blood sugar diagnostic (OneTouch Ultra Test strips) #600 ea 01/28/24 [Rx] blood-glucose meter (FreeStyle Lite Meter kit) #1 ea 01/28/24 [Rx] lancets 28 gauge (FreeStyle Lancets) #200 ea 01/28/24 [Rx] Ejection fraction %: 30 [facility] Medical History Abnormal stress echo Anemia Atherosclerotic heart disease of [place] coronary artery without angina pectoris BPH (benign prostatic hyperplasia) Chest pain Colon cancer screening Coronary artery disease Essential hypertension Gout Health care maintenance Hyperlipidemia Hypersomnolence Hypothyroidism Hypothyroidism due to amiodarone Ischemic cardiomyopathy Left shoulder pain penitentiary current use of amiodarone Neuropathy ZEHRA (obstructive sleep apnea) Pain of right thumb Presence of stent in coronary artery ( 01/26/19) Spasm of eyelids Type 2 diabetes mellitus Ventricular tachycardia Surgical History History of coronary artery bypass graft x 3 ( 02/27/07) Presence of coronary angioplasty implant and graft ( 01/26/19) Presence of implantable cardioverter-defibrill ator (ICD) Family History Other CAD (coronary artery disease) Myocardial infarction Tuberculosis Social History Smoking Status: Former smoker quit date: 02/16/07 alcohol intake: never substance use type: does not use caffeine: Yes Type: tea ROS Const Const: Negative for fatigue, weakness, headache(s), frequent falls, difficulty sleeping or excessive sweating Eyes Eyes: Negative for loss of peripheral vision, transient loss of vision, blurry vision, double vision or tunnel vision ENT ENT: Positive for dizziness (Occasionally when standing up quickly); Negative for headache(s), Nosebleed/epistaxis or balance problems Cardio Chest Pain: No Palpitations: No Edema: None Muscle aches with walking: None Resp Respiratory: Positive for SOB with activity (Occasionally when walking fast. Unchanged from previous); Negative for SOB at rest, SOB orthopnea SOB lying down, Cough or paroxysmal nocturnal dyspnea GI GI: Negative nausea, vomiting, heartburn or black,tarry stools : Negative for hematuria Musc Musc: Positive for joint pain; Negative for muscle aches/ myalgia, muscle weakness or balance problems Skin Skin: Negative non-healing lesions, rash or unusual bruising Neuro Neuro: Positive for dizziness (Occasionally when (more content not included)... Normal [facility] Absolute lymphocyte countOrd ered By: Antonina Means on 01-20-2024 Lymphocytes Auto (Unsp spec) [#/Vol] 1.80 10*3/uL 0.83-4.51 [facility] Automated lymphocyte count a s percentage of total leukocytesOrdered By: Antonina Means on 01-20-2024 Lymphocytes/100 WBC Auto (Unsp spec) 22.5 % 19-41 [facility] Basophil percentageOrdered B y: Antonina Means on 01-20-2024 Basophil percentage 0.97 ng/mL 0.0-4.0 [facility] Comment on above: This test was perfor med using the TPSA assay method for [employer] chemistry system. Values obtained with differentassay methods cannot be used interchangably.When changing PSA assays in the course of monitoring apatient, additional sequential testing should be carriedout to confirm baseline values. Basophils/100 WBC (Bld) 0.4 % 0-1 [facility] Bilirubin [Mass/Vol] 0.70 mg/dL 0.20-1.00 [facility] Comment on above: For patients on eltr ombopag therapy, use of Dimension [place] TBIL is not recommended. Chloride [Moles/Vol] 103 mmol/L 98-107 [facility] Eosinophils/100 WBC (Bld) 0.6 % 0-5 [facility] Glucose [Mass/Vol] 154 mg/dL 74-106 [facility] Comment on above: Fasting Glucose resu lt greater than or equal to 126 mg/dL suggests DIABETES MELLITUS per A.D.A. criteria. Hemoglobin (Bld) [Mass/Vol] 13.2 g/dL 13.0-16.5 [facility] Monocytes/100 WBC (Bld) 6.6 % 0-10 [facility] Neutrophils (Bld) [#/Vol] 5.6 10*3/uL 2.0-7.7 [facility] Neutrophils/100 WBC (Bld) 69.5 % 47-70 [facility] Potassium [Moles/Vol] 3.9 mmol/L 3.5-5.1 [facility] Protein [Mass/Vol] 7.7 g/dL 6.4-8.2 [facility] Sodium [Moles/Vol] 137 mmol/L 136-145 [facility] WBC (Bld) [#/Vol] 8.0 10*3/uL 4.4-11.0 [facility] Determination of erythrocyte mean corpuscular volume (MCV)Ordered By: sarwat Means on 01-20-2024 MCV (RBC) [Entitic vol] 87.1 fL 80-94 [facility] Erythrocyte distribution wid th ratioOrdered By: [facility] Tyronesebastian on 01-20-2024 Erythrocyte distribution width (RBC) [Ratio] 14.4 % 11.6-14.6 [facility] Erythrocyte distribution wid th standard deviationOrdered By: [facility] Tyronesebastian on 01-20-2024 Erythrocyte distribution width (RBC) [Entitic vol] 46.0 fL 35.1-43.9 [facility] Hematocrit Auto (Bld) [Volum e fraction]Ordered By: [facility] Tyronesebastian on 01-20-2024 Hematocrit (Bld) [Volume fraction] 40.6 % 40-54 [facility] Immature granulocytes/100 WB C Auto (Bld)Ordered By: [facility] Tyronesebastian on 01-20-2024 Immature granulocytes/100 WBC (Bld) 0.400 % 0.0-0.9 [facility] Comment on above: IG% - Immature Granu locytes (promyelocytes, myelocytes and metamyelocytes) > 1% indicates that a LEFT SHIFT is Present. Laboratory - Chemistry and C hemistry - challengeOrdered By: [facility] [facility]armen Means on 01-20-2024 Albumin/Globulin [Mass ratio] 1.1 {ratio} 0.9-2.4 [facility] ALP [Catalytic activity/Vol] 49 U/L 45-117 [facility] ALT [Catalytic activity/Vol] 31 U/L 16-61 [facility] CO2 [Moles/Vol] 28.0 mmol/L 21.0-32.0 [facility] Cobalamin (Vitamin B12) [Mass/Vol] 209 pg/mL 211-911 [facility] Globulin (S) [Mass/Vol] 3.6 g/dL 2.2-4.2 [facility] Urea nitrogen/Creatinine [Mass ratio] 15.7 mg/mg 10-20 [facility] - Hematology and Cell countsOrdered By: [facility] Hansensebastian on 01-20-2024 MCH (RBC) [Entitic mass] 28.3 pg 27.0-32.0 [facility] MCHC (RBC) [Mass/Vol] 32.5 g/dL 32-36 [facility] Nucleated RBC/100 WBC (Bld) [Ratio] 0 % 0-5 [facility] Platelet mean volume (Bld) [Entitic vol] 11.5 fL 6.2-12.0 [facility] Platelets (Bld) [#/Vol] 182 10*3/uL 150-450 [facility] - Hematology and Cell countson 01-20-2024 HbA1c (Bld) [Mass fraction] 6.4 % 4.2-6.3 [facility] No Panel InformationOrdered By: Antonina Means on 01-20-2024 Estimated GFR (MDRD) Amer 65 mL/min >60 [facility] Comment on above: GFR Calc Estimated GFR (MDRD) Non-Af Amer 54 mL/min >60 [facility] Comment on above: Non- GFR Calc RBC Auto (Bld) [#/Vol]Ordere d By: Antonina Means on 01-20-2024 RBC (Bld) [#/Vol] 4.66 10*6/uL 4.6-6.2 [facility] Serum or plasma calcium niesha urement (mass/volume)Ordered By: Antonina Means on 01-20-2024 Calcium [Mass/Vol] 9.3 mg/dL 8.5-10.1 [facility] Serum or plasma creatinine m easurement (mass/volume)Ordered By: Antonina Means on 01-20-2024 Creatinine [Mass/Vol] 1.40 mg/dL 0.70-1.30 [facility] Comment on above: The validity of the calculated GFR & GFRAA in patients over 70 years has not been determined. Clinical correlation is essential. Serum or plasma thyroid stim ulating hormone (TSH) measurement (units/volume)Ordered By: Antonina Means on 01-20-2024 TSH Qn 4.45 uIU/mL 0.358-3.74 [facility] Serum or plasma urea nitroge n measurement (mass/volume)Ordered By: Antonina Means on 01-20-2024 Urea nitrogen [Mass/Vol] 22 mg/dL 7-18 [facility] Serum or plasma uric acid me asurement (mass/volume)Ordered By: Antonina Means on 01-20-2024 Urate [Mass/Vol] 6.7 mg/dL 3.5-7.2 [facility] Comment on above: The drugs N-Acetylcy steine and Metamizole may falsely depress this assay. Thin prep Papanicolaou smear with manual screeningOrdered By: Antonina Means on 01-20-2024 Thin prep Papanicolaou smear with manual screening 4.1 g/dL 3.2-5.0 [facility] Thin prep Papanicolaou smear with manual screening 22 U/L 15-37 [facility] Thin prep Papanicolaou smear with manual screening 6 5-15 [facility] Thin prep Papanicolaou smear with manual screening 1.04 ng/dL 0.76-1.46 [facility] Basophil percentageOrdered B y: Paola Patel on 04-30-2023 WBC (Bld) [#/Vol] 7.3 10*3/uL 4.4-11.0 [facility] Blood erythrocytes count (nu mber/volume)Ordered By: Paola Patel on 04-30-2023 RBC (Bld) [#/Vol] 4.06 10*6/uL 4.6-6.2 [facility] Blood hemoglobin measurement (mass/volume)Ordered By: Paola Patel on 04-30-2023 Hemoglobin (Bld) [Mass/Vol] 12.0 g/dL 13.0-16.5 [facility] Blood platelet mean volumeOr dered By: Paola Patel on 04-30-2023 Platelet mean volume (Bld) [Entitic vol] 11.2 fL 6.2-12.0 [facility] Determination of erythrocyte mean corpuscular volume (MCV)Ordered By: Paola Patel on 04-30-2023 MCV (RBC) [Entitic vol] 89.4 fL 80-94 [facility] Hematocrit Auto (Bld) [Volum e fraction]Ordered By: Paola Patel on 04-30-2023 Hematocrit (Bld) [Volume fraction] 36.3 % 40-54 [facility] - Hematology and Cell countsOrdered By: Paola Patel on 04-30-2023 Erythrocyte distribution width (RBC) [Entitic vol] 46.4 fL 35.1-43.9 [facility] Erythrocyte distribution width (RBC) [Ratio] 14.3 % 11.6-14.6 [facility] MCH (RBC) [Entitic mass] 29.6 pg 27.0-32.0 [facility] MCHC Auto (RBC) [Mass/Vol]Or dered By: Paola Patel on 04-30-2023 MCHC (RBC) [Mass/Vol] 33.1 g/dL 32-36 [facility] No Panel InformationOrdered By: Paola Patel on 04-30-2023 Thyroid Stimulating Hormone (TSH) 7.01 uIU/mL 0.358-3.74 [facility] Platelets bldOrdered By: Orlando Patel on 04-30-2023 Platelets (Bld) [#/Vol] 231 10*3/uL 150-450 [facility] Absolute lymphocyte countOrd ered By: Dr. Means on 10-24-2022 Lymphocytes Auto (Unsp spec) [#/Vol] 1.93 10*3/uL 0.83-4.51 [facility] Basophil percentageOrdered B y: Dr. Means on 10-24-2022 Basophils/100 WBC (Bld) 0.3 % 0-1 [facility] Bilirubin [Mass/Vol] 0.60 mg/dL 0.20-1.00 [facility] Comment on above: For patients on eltr ombopag therapy, use of Dimension [place] TBIL is not recommended. Chloride [Moles/Vol] 102 mmol/L 98-107 [facility] Eosinophils/100 WBC (Bld) 1.7 % 0-5 [facility] Glucose [Mass/Vol] 146 mg/dL 74-106 [facility] Comment on above: Fasting Glucose resu lt greater than or equal to 126 mg/dL suggests DIABETES MELLITUS per A.D.A. criteria. Neutrophils (Bld) [#/Vol] 6.3 10*3/uL 2.0-7.7 [facility] Neutrophils/100 WBC (Bld) 69.9 % 47-70 [facility] Potassium [Moles/Vol] 4.3 mmol/L 3.5-5.1 [facility] Protein [Mass/Vol] 8.1 g/dL 6.4-8.2 [facility] Sodium [Moles/Vol] 136 mmol/L 136-145 [facility] WBC (Bld) [#/Vol] 8.9 10*3/uL 4.4-11.0 [facility] Blood erythrocytes count (nu mber/volume)Ordered By: Dr. Means on 10-24-2022 RBC (Bld) [#/Vol] 3.99 10*6/uL 4.6-6.2 [facility] Blood hemoglobin measurement (mass/volume)Ordered By: Dr. Means on 10-24-2022 Hemoglobin (Bld) [Mass/Vol] 12.2 g/dL 13.0-16.5 [facility] Blood lymphocytes/100 leukoc ytesOrdered By: Dr. Means on 10-24-2022 Lymphocytes/100 WBC (Bld) 21.6 % 19-41 [facility] Blood monocytes/100 leukocyt esOrdered By: Dr. Means on 10-24-2022 Monocytes/100 WBC (Bld) 6.2 % 0-10 [facility] Blood platelet mean volumeOr dered By: Dr. Means on 10-24-2022 Platelet mean volume (Bld) [Entitic vol] 10.9 fL 6.2-12.0 [facility] Determination of erythrocyte mean corpuscular volume (MCV)Ordered By: Dr. Means on 10-24-2022 MCV (RBC) [Entitic vol] 88.5 fL 80-94 [facility] Hematocrit Auto (Bld) [Volum e fraction]Ordered By: Dr. Means on 10-24-2022 Hematocrit (Bld) [Volume fraction] 35.3 % 40-54 [facility] - Chemistry and C hemistry - challengeOrdered By: Dr. Means on 10-24-2022 ALP [Catalytic activity/Vol] 45 U/L 45-117 [facility] ALT [Catalytic activity/Vol] 22 U/L 16-61 [facility] CO2 [Moles/Vol] 27.0 mmol/L 21.0-32.0 [facility] Globulin (S) [Mass/Vol] 4.1 g/dL 2.2-4.2 [facility] Urea nitrogen/Creatinine [Mass ratio] 15.3 mg/mg 10-20 [facility] - Hematology and Cell countson 10-24-2022 HbA1c (Bld) [Mass fraction] 6.0 % 4.2-6.3 [facility] - Hematology and Cell countsOrdered By: Dr. Means on 10-24-2022 Erythrocyte distribution width (RBC) [Entitic vol] 50.1 fL 35.1-43.9 [facility] Erythrocyte distribution width (RBC) [Ratio] 15.6 % 11.6-14.6 [facility] Immature granulocytes/100 WBC (Bld) 0.300 % 0.0-0.9 [facility] Comment on above: IG% - Immature Granu locytes (promyelocytes, myelocytes and metamyelocytes) > 1% indicates that a LEFT SHIFT is Present. MCH (RBC) [Entitic mass] 30.6 pg 27.0-32.0 [facility] Nucleated RBC/100 WBC (Bld) [Ratio] 0 % 0-5 [facility] MCHC Auto (RBC) [Mass/Vol]Or dered By: Dr. Means on 10-24-2022 MCHC (RBC) [Mass/Vol] 34.6 g/dL 32-36 [facility] No Panel InformationOrdered By: Dr. Means on 10-24-2022 Estimated GFR (MDRD) Amer 67 mL/min >60 [facility] Comment on above: GFR Calc Estimated GFR (MDRD) Non-Af Amer 55 mL/min >60 [facility] Comment on above: Non- GFR Calc Platelets bldOrdered By: Dr. Means on 10-24-2022 Platelets (Bld) [#/Vol] 198 10*3/uL 150-450 [facility] Serum or plasma albumin niesha urement (mass/volume)Ordered By: Dr. Means on 10-24-2022 Albumin [Mass/Vol] 4.0 g/dL 3.2-5.0 [facility] Serum or plasma albumin/glob ulin mass ratioOrdered By: Dr. Means on 10-24-2022 Albumin/Globulin [Mass ratio] 1.0 {ratio} 0.9-2.4 [facility] Serum or plasma calcium niesha urement (mass/volume)Ordered By: Dr. Means on 10-24-2022 Calcium [Mass/Vol] 9.6 mg/dL 8.5-10.1 [facility] Serum or plasma creatinine m easurement (mass/volume)Ordered By: Dr. Means on 10-24-2022 Creatinine [Mass/Vol] 1.37 mg/dL 0.70-1.30 [facility] Comment on above: The validity of the calculated GFR & GFRAA in patients over 70 years has not been determined. Clinical correlation is essential. Serum or plasma urea nitroge n measurement (mass/volume)Ordered By: Dr. Means on 10-24-2022 Urea nitrogen [Mass/Vol] 21 mg/dL 7-18 [facility] Thin prep Papanicolaou smear with manual screeningOrdered By: Dr. Means on 10-24-2022 Thin prep Papanicolaou smear with manual screening 15 U/L 15-37 [facility] Thin prep Papanicolaou smear with manual screening 7 5-15 [facility] No Panel InformationOrdered By: Dr. Patel on 09-25-2022 Thyroid Stimulating Hormone (TSH) 7.75 uIU/mL 0.358-3.74 [facility] - Hematology and Cell countson 07-11-2022 HbA1c (Bld) [Mass fraction] 6.3 % 4.2-6.3 [facility] Absolute lymphocyte counton 07-07-2022 Lymphocytes Auto (Unsp spec) [#/Vol] 2.06 10*3/uL 0.83-4.51 [facility] Work Phone: Basophil percentageon 2021 Basophils/100 WBC (Bld) 0.4 % 0-1 [facility] Work Phone: Bilirubin [Mass/Vol] 0.40 mg/dL 0.20-1.00 [facility] Work Phone: Comment on above: For patients on eltr ombopag therapy, use of Dimension Lawrence TBIL is not recommended. Chloride [Moles/Vol] 103 mmol/L 98-107 [facility] Work Phone: Cholesterol [Mass/Vol] 156 mg/dL <200 [facility] Work Phone: Comment on above: <200 mg/dL Desirable 200-240 mg/dL Borderline >240 mg/dL High Risk Eosinophils/100 WBC (Bld) 4.6 % 0-5 [facility] Work Phone: Glucose [Mass/Vol] 120 mg/dL 74-106 [facility] Work Phone: Comment on above: Fasting Glucose resu lt from 100 to 125 mg/dL suggests IMPAIRED HOMEOSTASIS per A.D.A. criteria. Neutrophils (Bld) [#/Vol] 3.9 10*3/uL 2.0-7.7 [facility] Work Phone: Neutrophils/100 WBC (Bld) 56.0 % 47-70 [facility] Work Phone: Potassium [Moles/Vol] 4.3 mmol/L 3.5-5.1 [facility] Work Phone: Protein [Mass/Vol] 8.7 g/dL 6.4-8.2 [facility] Work Phone: Sodium [Moles/Vol] 138 mmol/L 136-145 [facility] Work Phone: Triglyceride [Mass/Vol] 145 mg/dL <199 [facility] Work Phone: Comment on above: The drugs N-Acetylcy steine and Metamizole may falsely depress this assay.Serum Triglycerides Reference Interval Normal <150 mg/dL Borderline high 150 - 199 mg/dL High 200 - 499 mg/dL Very High > or = 500 mg/dL WBC (Bld) [#/Vol] 6.9 10*3/uL 4.4-11.0 [facility] Work Phone: Blood erythrocytes count (nu mber/volume)on 07-07-2022 RBC (Bld) [#/Vol] 4.69 10*6/uL 4.6-6.2 [facility] Work Phone: Blood hemoglobin measurement (mass/volume)on 07-07-2022 Hemoglobin (Bld) [Mass/Vol] 14.0 g/dL 13.0-16.5 [facility] Work Phone: Blood lymphocytes/100 leukoc yteson 07-07-2022 Lymphocytes/100 WBC (Bld) 29.8 % 19-41 [facility] Work Phone: Blood monocytes/100 leukocyt eson 07-07-2022 Monocytes/100 WBC (Bld) 8.5 % 0-10 [facility] Work Phone: Blood platelet mean volumeon 07-07-2022 Platelet mean volume (Bld) [Entitic vol] 11.2 fL 6.2-12.0 [facility] Work Phone: Determination of erythrocyte mean corpuscular volume (MCV)on 07-07-2022 MCV (RBC) [Entitic vol] 90.0 fL 80-94 [facility] Work Phone: Hematocrit Auto (Bld) [Volum e fraction]on 07-07-2022 Hematocrit (Bld) [Volume fraction] 42.2 % 40-54 [facility] Work Phone: Laboratory - Chemistry and C hemistry - challengeon 07-07-2022 ALP [Catalytic activity/Vol] 56 U/L 45-117 [facility] Work Phone: ALT [Catalytic activity/Vol] 28 U/L 16-61 [facility] Work Phone: CO2 [Moles/Vol] 23.0 mmol/L 21.0-32.0 [facility] Work Phone: Free T4 [Mass/Vol] 0.94 ng/dL 0.76-1.46 [facility] Work Phone: Globulin (S) [Mass/Vol] 4.6 g/dL 2.2-4.2 [facility] Work Phone: Urea nitrogen/Creatinine [Mass ratio] 14.3 mg/mg 10-20 [facility] Work Phone: Laboratory - Hematology and Cell countson 07-07-2022 Erythrocyte distribution width (RBC) [Entitic vol] 43.7 fL 35.1-43.9 [facility] Work Phone: Erythrocyte distribution width (RBC) [Ratio] 13.3 % 11.6-14.6 [facility] Work Phone: Immature granulocytes/100 WBC (Bld) 0.700 % 0.0-0.9 [facility] Work Phone: Comment on above: IG% - Immature Granu locytes (promyelocytes, myelocytes and metamyelocytes) > 1% indicates that a LEFT SHIFT is Present. MCH (RBC) [Entitic mass] 29.9 pg 27.0-32.0 [facility] Work Phone: Nucleated RBC/100 WBC (Bld) [Ratio] 0 % 0-5 [facility] Work Phone: MCHC Auto (RBC) [Mass/Vol]on 07-07-2022 MCHC (RBC) [Mass/Vol] 33.2 g/dL 32-36 [facility] Work Phone: No Panel Informationon 07-07 Estimated GFR (MDRD) Amer 65 mL/min >60 [facility] Work Phone: Comment on above: GFR Calc Estimated GFR (MDRD) Non-Af Amer 54 mL/min >60 [facility] Work Phone: Comment on above: Non- GFR Calc Thyroid Stimulating Hormone (TSH) 6.58 uIU/mL 0.358-3.74 [facility] Work Phone: Platelets bldon 07-07-2022 Platelets (Bld) [#/Vol] 221 10*3/uL 150-450 [facility] Work Phone: Serum or plasma albumin niesha urement (mass/volume)on 07-07-2022 Albumin [Mass/Vol] 4.1 g/dL 3.2-5.0 [facility] Work Phone: Serum or plasma albumin/glob ulin mass ratioon 07-07-2022 Albumin/Globulin [Mass ratio] 0.9 {ratio} 0.9-2.4 [facility] Work Phone: Serum or plasma calcium niesha urement (mass/volume)on 07-07-2022 Calcium [Mass/Vol] 9.2 mg/dL 8.5-10.1 [facility] Work Phone: Serum or plasma cholesterol in HDL measurement (mass/volume)on 07-07-2022 Cholesterol in HDL [Mass/Vol] 39 mg/dL >40 [facility] Work Phone: Comment on above: The drugs N-Acetylcy steine and Metamizole may falsely depress this assay. Reference Range HDL <40 mg/dL Low HDL Cholesterol HDL >or= 60 mg/dL High HDL Cholesterol Serum or plasma cholesterol in VLDL measurement (mass/volume)on 07-07-2022 Cholesterol in VLDL [Mass/Vol] 29 mg/dL 5-40 [facility] Work Phone: Serum or plasma creatinine m easurement (mass/volume)on 07-07-2022 Creatinine [Mass/Vol] 1.40 mg/dL 0.70-1.30 [facility] Work Phone: Comment on above: The validity of the calculated GFR & GFRAA in patients over 70 years has not been determined. Clinical correlation is essential. Serum or plasma low density lipoprotein (LDL) cholesterol measurement (mass/volume)on 07-07-2022 Cholesterol in LDL [Mass/Vol] 88 mg/dL 0-130 [facility] Work Phone: Serum or plasma urea nitroge n measurement (mass/volume)on 07-07-2022 Urea nitrogen [Mass/Vol] 20 mg/dL 7-18 [facility] Work Phone: Thin prep Papanicolaou smear with manual screeningon 07-07-2022 Thin prep Papanicolaou smear with manual screening 19 U/L 15-37 [facility] Work Phone: Thin prep Papanicolaou smear with manual screening 12 5-15 [facility] Work Phone: CNPNon 06-09-2019 CNPN Telephone (AGCARDPOB ) ZAID EDDY ([id number]) 1955 Date Time Provider Department 06/09/19 AUGUSTIN CASTELLANOS During your visit today, we recorded the following information about you: Loren Goodman 06/09/2019 10:25 AM Signed Spoke with [id number]-[id number] Hollie about appt with Earl Galindo APRN on 06/13/19. Patient is still traveling in [place]. Noted that his has and that the family is unsure when he will be returning. Requested that family just touch base with the office about rescheduling a yearly check up with Dr. Castellanos whenever he is back in the [place] and ready to schedule. Loren Goodman Delia Christiansen RN 11/07/2019 10:09 AM Signed Pt's [id number] calls to request pt be scheduled MARIA ANTONIA for Sotalol load. She reports pt loses his insurance coverage 11/18/19. LEANDRO Gaines MD 11/08/2019 4:56 PM Signed I reviewed his case. I would only recommend sotalol if the PVCs are causing him excessively bothersome symptoms. If he does not notice the PVCs or in particular the PVCs are not bothersome, then there is no need for sotalol. Augustin Castellanos MD November 08, 2019 4:56 PM Delia Christiansen RN 11/09/2019 8:28 AM Signed Attempted to call Hollie. No anwer; no voicemail available. LEANDRO Gaines RN 11/09/2019 8:55 AM Signed Hollie notified of Dr Castellanos's recommendation. She voices understanding she reports she will ask pt about his symptoms. Pt has an appointment with his general disposition clerk in [place] tomorrow. She will notify him of Dr Castellanos's recommendation. Delia Christiansen RN Allergies As of Date: 06/09/2019 (No Known Allergies) Date Reviewed: 04/11/2019 Reviewed by: El Carroll Ma - Fully Assessed Reason for Visit: Appointment Cancelled [1023] Prescriptions as of 06/09/2019 Sig: ATORVASTATIN 20 MG TABLET Take 1 tablet by mouth daily * FUROSEMIDE 20 MG TABLET Take 1 tablet by mouth once d* ALLOPURINOL 100 MG TABLET Take 1 tablet by mouth once d* COMPOUNDED PRESCRIPTION BLOOD PRESSURE MONITOR FOR HO* CARVEDILOL 6.25 MG TABLET Take 1 tablet by mouth twice * CLOPIDOGREL 75 MG TABLET Take 1 tablet by mouth once d* LOSARTAN 25 MG TABLET Take 1 tablet by mouth once d* ASPIRIN 81 MG TABLET,DELAYED * 1 tablet once daily. GEMFIBROZIL 600 MG TABLET 1 tablet twice daily. Problem List As Of Date 06/09/2019 Noted Resolved Hypertension [I10] Hyperlipidemia [E78.5] Overweight (BMI 25.0-29.9) [E66.3] Bradycardia [R00.1] 02/05/2019 02/08/2019 Coronary artery disease involving [place]* Hx of CABG [Z95.1] Chronic ischemic heart disease [I25.9] Chronic systolic heart failure (HCC) [I50.22] Sinus node dysfunction (HCC) [I49.5] At risk for sudden cardiac [Z91.89] Near syncope [R55] 02/08/2019 History of percutaneous coronary intervention [* 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 drug [Z* More... 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 [Z79.899] More... Coronary artery disease involving [place]* Premature ventricular contractions (PVCs) (VPCs* More... Ventricular bigeminy [I49.9] 02/08/2019 Nonsustained paroxysmal ventricular tachycardia* 02/08/2019 Chronotropic incompetence with sinus node dysfu* Episodic lightheadedness [R42] 02/08/2019 Exertional dyspnea [R06.09] 02/08/2019 Presence of implantable cardioverter-defibrill a*02/07/2019 More... Encounter Status:Closed by LOREN GOODMAN on 06/09/19 Normal [facility] CNPNon 04-25-2019 CNPN Telephone (AGCARDPOB ) ZAID EDDY ([id number]) 1955 M Date Time Provider Department 04/25/19 AUGUSTIN CASTELLANOS AGCARDPAMELLA During your visit today, we recorded the following information about you: Delia Christiansen RN 04/25/2019 1:03 PM Signed Pt's daughter in law Hollie calls to report pt wishes to travel to [facility] for 3 months. Pt wishes to postpone his 05/10/19 Sotalol load until his return. Pt wishes to know if Dr Castellanos feels this is safe from an electrophysiologic standpoint. Pt denies any ICD firings. Reports he feels well. Device check from 03/22/19 scanned into [facility]. LEANDRO Gaines MD 04/26/2019 5:44 PM Signed The sotalol is for suppression of PVCs and not for an emergency or life-threatening condition. So the delay is not likely to be dangerous or pose a problem with his safety. Augustin Castellanos MD April 26, 2019 5:43 PM Delia Christiansen RN 04/27/2019 9:26 AM Signed Spoke with Hollie. Notified of Dr Castellanos's message. She voices understanding and will notify pt. She requests 05/10/19 sotalol load be cancelled. Delia Christiansen, RN Loren Goodman 04/27/2019 9:43 AM Signed Spoke with Prasad in operations. Bed reservation cancelled. Event removed from Dr. Castellanos's calendar. Loren Goodman Allergies As of Date: 04/25/2019 (No Known Allergies) Date Reviewed: 04/11/2019 Reviewed by: El Carroll Ma - Fully Assessed Reason for Visit: Patient Question [1477] Prescriptions as of 04/25/2019 Sig: ATORVASTATIN 20 MG TABLET Take 1 tablet by mouth daily * FUROSEMIDE 20 MG TABLET Take 1 tablet by mouth once d* ALLOPURINOL 100 MG TABLET Take 1 tablet by mouth once d* COMPOUNDED PRESCRIPTION BLOOD PRESSURE MONITOR FOR HO* ASPIRIN 81 MG TABLET,DELAYED * 1 tablet once daily. GEMFIBROZIL 600 MG TABLET 1 tablet twice daily. Problem List As Of Date 04/25/2019 Noted Resolved Hypertension [I10] Hyperlipidemia [E78.5] Overweight (BMI 25.0-29.9) [E66.3] Bradycardia [R00.1] INVALID FOR*02/08/2019 Coronary artery disease involving [place]* Hx of CABG [Z95.1] Chronic ischemic heart disease [I25.9] Chronic systolic heart failure (HCC) [I50.22] Sinus node dysfunction (HCC) [I49.5] At risk for sudden cardiac [Z91.89] Near syncope [R55] 02/08/2019 History of percutaneous coronary intervention [* penitentiary current use of 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 drug [Z* More... 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 [Z79.899] More... Coronary artery disease involving [place]* Premature ventricular contractions (PVCs) (VPCs* More... Ventricular bigeminy [I49.9] 02/08/2019 Nonsustained paroxysmal ventricular tachycardia* 02/08/2019 Chronotropic incompetence with sinus node dysfu* Episodic lightheadedness [R42] 02/08/2019 Exertional dyspnea [R06.09] 02/08/2019 Presence of implantable cardioverter-defibrill a*INVALID FOR* More... Encounter Status:Closed by AUGUSTIN CASTELLANOS MD on 04/26/19 [facility] CNPNon 04-06-2019 CNPN Telephone (AGCARDPOB ) ZAID EDDY ([id number]) 1955 M Date Time Provider Department 04/06/19 AUGUSTIN CASTELLANOS AGCARDPOB During your visit today, we recorded the following information about you: Delia Christiansen RN 04/06/2019 11:03 AM Signed Pt's daughter Hollie calls to report pt has had constant hicupps for 3 days. Pt saw PCP yesterday. Daughter is concerned it may be related to ICD. Last device check done 03/22/19 through [place] [facility]. Delia Christiansen RN FYI-Pt did not come in yesterday for Sotalol loading. Augustin Castellanos MD 04/06/2019 5:29 PM Signed Reviewed. It is not likely that the hiccups are due to the ICD, but to evaluate for that they should contact the [place] [facility] and go in for a check. Augustin Castellanos MD April 06, 2019 5:29 PM Delia Christiansen RN 04/07/2019 8:50 AM Signed [facility] requesting Hollie return call. Office phone number provided. LEANDRO Gaines RN, RN 04/07/2019 9:59 AM Signed Mrs returns call and is given Dr. Yañez comments and recommendations. She states that he had seen his PCP who states it was food related. I advised her that if the hiccups return to proceed to the [place] [facility] to be checked. She gives verbal understanding an is agreeable. Emily Flores RN Allergies As of Date: 04/06/2019 (No Known Allergies) Date Reviewed: 04/01/2019 Reviewed by: Cara Burt Ma - Fully Assessed Reason for Visit: Symptoms [3640] Prescriptions as of 04/06/2019 Sig: PREDNISONE 10 MG TABLET Take 4 tabs daily x 3 days, t* COMPOUNDED PRESCRIPTION BLOOD PRESSURE MONITOR FOR HO* FUROSEMIDE 20 MG TABLET Take 1 tablet by mouth once d* CARVEDILOL 6.25 MG TABLET Take 1 tablet by mouth twice * CLOPIDOGREL 75 MG TABLET Take 1 tablet by mouth once d* LOSARTAN 25 MG TABLET Take 1 tablet by mouth once d* ASPIRIN 81 MG TABLET,DELAYED * 1 tablet once daily. GEMFIBROZIL 600 MG TABLET 1 tablet twice daily. Problem List As Of Date 04/06/2019 Noted Resolved Hypertension [I10] Hyperlipidemia [E78.5] Overweight (BMI 25.0-29.9) [E66.3] Bradycardia [R00.1] INVALID FOR*02/08/2019 Coronary artery disease involving [place]* Hx of CABG [Z95.1] Chronic ischemic heart disease [I25.9] Chronic systolic heart failure (HCC) [I50.22] Sinus node dysfunction (HCC) [I49.5] At risk for sudden cardiac [Z91.89] Near syncope [R55] 02/08/2019 History of percutaneous coronary intervention [* penitentiary current use of 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 drug [Z* More... penitentiary current use of amiodarone [Z79.899] More... Coronary artery disease involving [place]* Premature ventricular contractions (PVCs) (VPCs* More... Ventricular bigeminy [I49.9] 02/08/2019 Nonsustained paroxysmal ventricular tachycardia* 02/08/2019 Chronotropic incompetence with sinus node dysfu* Episodic lightheadedness [R42] 02/08/2019 Exertional dyspnea [R06.09] 02/08/2019 Presence of implantable cardioverter-defibrill a*INVALID FOR* More... Encounter Status:Closed by AUGUSTIN CASTELLANOS MD on 04/06/19 [facility] Valarie 02-15-2019 CNOV Office Visit (AGCARDPOB) ZAID EDDY ([id number]) 1955 M Date Time Provider Department 02/15/19 3:00 PM NURSE CARD [facility]INT CAN AGCARDPOB During your visit today, we recorded the following information about you: Temperature 97.5 degrees Emily Flores RN, RN 02/15/2019 3:37 PM Signed Pt here with son Lindsey Franco for s/p implantation of Permanent defibrillator with transvenous leads to left chest wall wound check. Incision to left chest wall is well approximated with steri strips intact. No redness, edema or swelling, or drainage is noted to site. Pt denies pain and is afebrile at 97.5 degrees farenheit. Pt escorted to the desk for 3 month follow up appointment with Earl Galindo NP. LEANDRO Brooks, MSN, LAMINATION MACHINE OPERATOR.BIN WORKER 02/21/2019 9:09 PM Signed Assessment noted, agree with the plan. Samantha Galindo, MSN, LAMINATION MACHINE OPERATOR.BIN WORKER Referring Provider: SELF [200] Allergies As of Date: 02/15/2019 (No Known Allergies) Date Reviewed: 02/08/2019 Reviewed by: Tim (Rn) LEANDRO Cornelius - Fully Assessed Reason for Visit: Wound Check [133] Cmt: implantable defebrillator Primary Visit Diagnosis:Encounter for assessment of automatic implantable cardioverter-defibrill ator (AICD) [Z45.02] Prescriptions as of 02/15/2019 Sig: COMPOUNDED PRESCRIPTION BLOOD PRESSURE MONITOR FOR HO* FUROSEMIDE 20 MG TABLET Take 1 tablet by mouth once d* CARVEDILOL 6.25 MG TABLET Take 1 tablet by mouth twice * CLOPIDOGREL 75 MG TABLET Take 1 tablet by mouth once d* LOSARTAN 25 MG TABLET Take 1 tablet by mouth once d* ASPIRIN 81 MG TABLET,DELAYED * 1 tablet once daily. GEMFIBROZIL 600 MG TABLET 1 tablet twice daily. Problem List As Of Date 02/15/2019 Noted Resolved Hypertension [I10] Hyperlipidemia [E78.5] Overweight (BMI 25.0-29.9) [E66.3] Bradycardia [R00.1] INVALID FOR*02/08/2019 Coronary artery disease involving [place]* Hx of CABG [Z95.1] Chronic ischemic heart disease [I25.9] Chronic systolic heart failure (HCC) [I50.22] Sinus node dysfunction (HCC) [I49.5] At risk for sudden cardiac [Z91.89] Near syncope [R55] 02/08/2019 History of percutaneous coronary intervention [* 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 drug [Z* More... 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 [Z79.899] More... Coronary artery disease involving [place]* Premature ventricular contractions (PVCs) (VPCs* More... Ventricular bigeminy [I49.9] 02/08/2019 Nonsustained paroxysmal ventricular tachycardia* 02/08/2019 Chronotropic incompetence with sinus node dysfu* Episodic lightheadedness [R42] 02/08/2019 Exertional dyspnea [R06.09] 02/08/2019 Presence of implantable cardioverter-defibrill a*INVALID FOR* More... Visit Notes: >> Emily Quigley) LEANDRO Flores sebastian Feb 15, 2019 3:22 PM Status: Signed Pt here with son Lindsey Franco for s/p implantation of Permanent defibrillator with transvenous leads to left chest wall wound check. Incision to left chest wall is well approximated with steri strips intact. No redness, edema or swelling, or drainage is noted to site. Pt denies pain and is afebrile at 97.5 degrees farenheit. Pt escorted to the desk for 3 month follow up appointment with Earl Glaindo NP. Emily Flores RN >> Earl Galindo [facility] February 21, 2019 9:09 PM Status: Signed Assessment noted, agree with the plan. Samantha Galindo, MSN, LAMINATION MACHINE OPERATOR.[facility] Encounter Status:Closed by ZIYAD BERRIOS on 02/17/19 [facility] Georges 02-09-2019 GARYN Telephone (AGCARDPHR Chrystal) ZAID EDDY ([id number]) 1955 M Date Time Provider Department 02/09/19 EARL GALINDO During your visit today, we recorded the following information about you: Samantha Galindo, MSN, LAMINATION MACHINE OPERATOR.GARY 02/09/2019 10:37 AM Signed Zaid Florencia was seen in consultation by Dr. Castellanos and underwent an ICD implantation. He has PVC's and was on Amiodarone which was stopped. He is on Coeg 6.25mg BID. He will have a device check on 03/22/19 in the AM, if he is having frequent PVC's Dr. Castellanos would like him admitted for Sotalol loading. I'll have Dr. Castellanos request the admission on 03/22/19. If he doesn't need to be admitted then will cancel. Samantha Galindo, MSN, LAMINATION MACHINE OPERATOR.GARY Langston 02/10/2019 3:01 PM Addendum Spoke with Jillian at operations, pt has been scheduled for tele bed (Sotalol Drug Loading) on 03/22/2019 @ 8:00am. LM informing pt of admit date and time. Also informed pt to check in @ [facility] (admitting). Admit dates have been added onto Dr. Castellanos's and Earl Galindo outlook calendar. Asked pt to call back to confirm. 02/10/2019 14:34:59 Clifton Castellanos ?You; Earl (Gary) [place] 17 hours ago (8:40 PM) This is not something that I can request using the procedure request function in [employer]. I do not agree with our office trying to get us to use this function in this manner, such as with any drug loading that does not require a procedure (ie, cardioversion). So I'm not sure what I can do to request that he be admitted other than request that he be admitted -- please consider this the request. Thanks Bj Routing Comment Delia Christiansen RN 02/14/2019 10:49 AM Signed Pt's name has been added to nicolas procedure board. LEANDRO Gaines 02/25/2019 10:29 AM Signed Spoke with Mr. Eddy he is agreeable to admit date of 03/22/2019 @ 8:00am for Sotalol Drug Loading. Informed pt to check in at [facility] (admitting). 02/25/2019 10:28:42 Clifton Starr 03/15/2019 9:11 AM Signed Per Rosie at [place] no prior authorization is required. (no reference# provided) Rhea Starr Supervisor [place] Clifton Langston 03/16/2019 9:27 AM Addendum Pt's admit date for Sotalol Drug Loading has been r/s to 04/05/2019 @ 8:00am. Spoke with Jillian at [facility] she is aware. Called pt to inform him of new admit date, No answer. Will call pt back. 03/16/2019 09:20:57 Clifton Langston 03/16/2019 11:53 AM Signed Pt's daughter-in law called in to confirm new admit date of 04/05/2019 @ 8:00am along with instructions. 03/16/2019 11:53:05 Clifton Christiansen RN 03/16/2019 1:40 PM Signed [facility] procedure board updated. LEANDRO Gaines RN 04/06/2019 10:54 AM Signed Pt's Daughter Hollie calls to report when she call [facility] in regard to Sotalol loading admit for today she was told they had no record of pt. She is asking for return call in this regard. LEANDRO Gaines 04/07/2019 8:43 AM Addendum Pt missed his sotalol drug loading admit date on 04/05/2019. Drug loading date has been r/s to 05/10/2019 @ 8:00am. Spoke with Hollie, pt's daughter in law. She is aware and agreeable and voices understanding pt to check in at [facility] admitting; Spoke to Prasad at [facility] is aware and agreeable. Dr. Castellanos's outlook calendar has been updated. 04/06/2019 13:30:36 Clifton Christiansen RN 04/06/2019 1:36 PM Signed [facility] procedure board updated. Delia Christiansen RN Loren Goodman 04/13/2019 1:32 PM Signed Ywnglxsh-ve-hkl Hollie called office today 04/13/19 at about 1pm to notify office that patient will no longer have insurance after the end of April. Spoke with Hollie. She stated that they just received the letter today. She states that she's already been in contact with the insurance and JFS for her oynpvp-rx-cqz's medicaid insurance. States that she is working on getting his insurance continued through April. I informed her that if he does not have insurance in April that his hospital admission will have to be cancelled and they have the options of going through the financial clearance process as self-pay or to have this rescheduled at a later time whenever her mrlyxb-gf-kxi has insurance. I informed ewckjvjd-hs-rry that I would be in touch with her next week in regards to the insurance and that she should keep the office updated as well. Loren Goodman Allergies As of Date: 02/09/2019 (No Known Allergies) Date Reviewed: 02/08/2019 Reviewed by: Tim (Rn) LEANDRO Cornelius - Fully Assessed Reason for Visit: Hospital Follow Up [177] Preparations For Procedures [899] Cmt: Sotalol Drug Loading Reason For Visit History Recorded Prescriptions as of 02/09/2019 Sig: FUROSEMIDE 20 MG TABLET Take 1 tablet by mouth once d* CARVEDILOL 6.25 MG TABLET Take 1 tablet by mouth twice * CLOPIDOGREL 75 MG TABLET Take 1 tablet by mouth once d* LOSARTAN 25 MG TABLET Take 1 tablet by mouth once d* X FUROSEMIDE 20 MG TABLET Take 1 tablet by mouth once d* ASPIRIN 81 MG TABLET,DELAYED * 1 tablet once daily. GEMFIBROZIL 600 MG TABLET 1 tablet twice daily. X COMPOUNDED PRESCRIPTION BLOOD PRESSURE CUFF FOR HOME * Problem List As Of Date 02/09/2019 Noted Resolved Hypertension [I10] Hyperlipidemia [E78.5] Overweight (BMI 25.0-29.9) [E66.3] Bradycardia [R00.1] INVALID FOR*02/08/2019 Coronary artery disease involving [place]* Hx of CABG [Z95.1] Chronic ischemic heart disease [I25.9] Chronic systolic heart failure (HCC) [I50.22] Sinus node dysfunction (HCC) [I49.5] At risk for sudden cardiac [Z91.89] Near syncope [R55] 02/08/2019 History of percutaneous coronary intervention [* penitentiary current use of 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 drug [Z* More... penitentiary current use of amiodarone [Z79.899] More... Coronary artery disease involving [place]* Premature ventricular contractions (PVCs) (VPCs* More... Ventricular bigeminy [I49.9] 02/08/2019 Nonsustained paroxysmal ventricular tachycardia* 02/08/2019 Chronotropic incompetence with sinus node dysfu* Episodic lightheadedness [R42] 02/08/2019 Exertional dyspnea [R06.09] 02/08/2019 Presence of implantable cardioverter-defibrill a*INVALID FOR* More... Encounter Status:Closed by CLIFTON LANGSTON on 02/10/19 Normal [facility] Basic Panelon 02-08-2019 Creatinine [Mass/Vol] 1.33 mg/dL High 0.67-1.[address] [facility] Comment on above: Performed By: #### P 8 #### [facility] [address] [place], [place] [address] Anion gap [Moles/Vol] 10 mmol/L Normal 8-[address] [facility] Comment on above: Performed By: #### P 8 #### [facility] [address] [place], [place] [address] Calcium [Mass/Vol] 8.7 mg/dL Normal 8.5-10.1 [facility] Comment on above: Performed By: #### P 8 #### [facility] [address] [place], [place] [address] CO2 [Moles/Vol] 25 mmol/L Normal 21-32 [facility] Comment on above: Performed By: #### P 8 #### [facility] [address] [place], [place] [address] Glucose [Mass/Vol] 114 mg/dL High 70-99 [facility] Comment on above: Performed By: #### P 8 #### [facility] [address] [place], [place] [address] Urea nitrogen [Mass/Vol] 16 mg/dL Normal 7-18 [facility] Comment on above: Performed By: #### P 8 #### [facility] [address] [place], [place] [address] Chloride [Moles/Vol] 108 mmol/L High 98-107 [facility] Comment on above: Performed By: #### P 8 #### [facility] [address] [place], [place] [address] Potassium [Moles/Vol] 4.1 mmol/L Normal 3.5-5.[address] [facility] Comment on above: Performed By: #### P 8 #### [facility] [address] [place], [place] [address] Sodium [Moles/Vol] 139 mmol/L Normal 136-145 [facility] Comment on above: Performed By: #### P 8 #### [facility] [address] [place], [place] [address] ECG COMPLETEon 02-08-2019 ECG COMPLETE NAME : ZAID EDDY PID : [id number] : 1955 Gender : Male Race : Unknown ORD : [id number] Procedure Date : Feb 08 2019 08:50:23 Edit Date : Feb 09 2019 12:08:35 Diagnosis:Atrial-paced rhythm with prolonged AV conduction T WAVE ABNORMALITY, CONSIDER LATERAL ISCHEMIA ABNORMAL ECG WHEN COMPARED WITH ECG OF 06-FEB-2019 23:04, ELECTRONIC ATRIAL PACEMAKER HAS REPLACED SINUS RHYTHM Confirmed by DO SIERRA JEFF ([id number]) on 02/09/2019 12:08:32 PM Ventricular Rate : 60 BPM Atrial Rate : 60 BPM P-R Interval : 238 ms QRS Duration : 96 ms Q-T Interval : 418 ms QTC Calculation(Bezet) : 418 ms P [place] : 176 degrees R [place] : -21 degrees T [place] : 246 degrees Test Reason : Arrhythmia Location : 42 : [id number] Overread By : DO SIERRA JEFF Edited By : DO SIERRA JEFF Referred By : , Acquired by : BOONE OTT [facility] Hemogramon 02-08-2019 Erythrocyte distribution width (RBC) [Ratio] 11.8 % Normal 11.6-14.4 [facility] Comment on above: Performed By: #### C BC1 #### [facility] [address] [place] [address] Hematocrit (Bld) [Volume fraction] 38.5 % Low 40.1-51.0 [facility] Comment on above: Performed By: #### C BC1 #### [facility] [address] [place] [address] Hemoglobin (Bld) [Mass/Vol] 13.0 g/dL Low 13.7-17.5 [facility] Comment on above: Performed By: #### C BC1 #### [facility] [address] [place] [address] MCH (RBC) [Entitic mass] 31.3 pg Normal 25.7-32.2 [facility] Comment on above: Performed By: #### C BC1 #### [facility] [address] [place] [address] MCHC (RBC) [Mass/Vol] 33.8 % Normal 32.3-36.[address] [facility] Comment on above: Performed By: #### C BC1 #### [facility] [address] [place] [address] MCV (RBC) [Entitic vol] 92.8 fL Normal 83.2-95.6 [facility] Comment on above: Performed By: #### C BC1 #### [facility] [address] [place] [address] Platelet mean volume (Bld) [Entitic vol] 11.9 fL Normal 8.7-12.0 [facility] Comment on above: Performed By: #### C BC1 #### [facility] [address] [place] [address] Platelets (Bld) [#/Vol] 169 thou/cmm Normal 141-365 [facility] Comment on above: Performed By: #### C BC1 #### [facility] [address] [place] [address] RBC (Bld) [#/Vol] 4.15 mil/cmm Low 4.63-6.08 [facility] Comment on above: Performed By: #### C BC1 #### [facility] [address] [place] [address] RDW SD 39.8 fl Normal 36.1-45.8 [facility] Comment on above: Performed By: #### C BC1 #### [facility] [address] [place], [place] [address] WBC (Bld) [#/Vol] 6.67 thou/cmm Normal 4.23-9.07 [facility] Comment on above: Performed By: #### C BC1 #### [address] [address] MDRD GFRon 02-08-2019 GFR/1.73 sq M predicted among non-blacks MDRD (S/P/Bld) [Vol rate/Area] 54.31 mL/min/{1.73_m2} Normal >60mL/min/1.7 3m2 [facility] Comment on above: Result Comment: If t he patient is , multiply the result by 1.210. Performed By: #### G FR #### [address] [address] PLAN OF CAREon 02-08-2019 PLAN OF CARE HNO ID: [id number] Author: Becky Hurtado (Pharmacist) Service: Pharmacy Author Type: Pharmacist Type: Plan of Care Filed: 02/08/2019 12:41 PM Note Text: DISCHARGE MEDICATION REVIEW BY PHARMACY Patient Name: Zaid Eddy Account #: Data Unavailable Admission Date: 02/05/2019 Date of Contact: February 08, 2019 Time of Contact: 12:41 PM Medication list was reviewed by a Pharmacist for drug interactions or drug related problems:Yes Below is a summary of pharmacist recommendations discussed with LIP: No Recommendations at this time from Discharge Medication List. BECKY HURTADO, PHARMACIST February 08, 2019 12:41 PM Pager: [phone] 02/08/2019 12:41 PM Medication List START taking these medications clopidogrel 75 mg tablet Commonly known as: PLAVIX Take 1 tablet by mouth once daily. Start taking on: 02/09/2019 furosemide 20 mg tablet Commonly known as: LASIX Take 1 tablet by mouth once daily. Start taking on: 02/09/2019 losartan 25 mg tablet Commonly known as: COZAAR Take 1 tablet by mouth once daily. Start taking on: 02/09/2019 CHANGE how you take these medications carvedilol 6.25 mg tablet Commonly known as: COREG Take 1 tablet by mouth twice daily with meals. What changed: ? medication strength ? how much to take ? how to take this CONTINUE taking these medications aspirin, enteric coated 81 mg EC tablet Commonly known as: ASPIRIN, ENTERIC COATED 1 tablet once daily. COMPOUNDED PRESCRIPTION BLOOD PRESSURE CUFF FOR HOME USE. DX: LABILE BLOOD PRESSURE gemfibrozil 600 mg tablet Commonly known as: LOPID 1 tablet twice daily. Where to Get Your Medications You can get these medications from any pharmacy Bring a paper prescription for each of these medications ? carvedilol 6.25 mg tablet ? clopidogrel 75 mg tablet ? losartan 25 mg tablet Normal [facility] PROGRESSon 02-08-2019 PROGRESS HNO ID: [id number] Author: Araseli (Rn) LEANDRO Gallardo Service: Electrophysiology Author Type: Registered Nurse Type: Progress Notes Filed: 02/08/2019 12:06 PM Note Text: 02-08-19: Stable device function. See full report under cardiac tab. Will do discharge teaching when son is here. Sukumar REEVES [facility] PROGRESS HNO ID: [id number] Author: Earl Galindo Service: Electrophysiology Author Type: Nurse Practitioner Type: Progress Notes Filed: 02/08/2019 11:36 AM Note Text: HRA PROGRESS NOTE: EP CARDIOLOGY SERVICE SERVICE DATE: 02/08/2019 SERVICE TIME: 11:27 AM Subjective INTERIM HISTORY: Zaid Eddy is laying in bed, NAD. He denies CP, SOB, dizziness, syncope, palpitations, ICD shocks Objective PHYSICAL EXAM: Body mass index is 30.14 kg/m?. O2 Therapy: Room Air No data recorded Patient Vitals for the past 24 hrs: BP Temp Temp src Pulse Resp SpO2 Weight 02/08/19 0900 163/86 36.6 ?C (97.9 ?F) Oral 61 16 100 % ? 02/08/19 0700 ? 89.2 kg (196 lb 9.6 oz) 02/08/19 0241 137/76 36.8 ?C (98.2 ?F) Oral 60 16 99 % ? 02/07/19 2048 133/79 36.8 ?C (98.2 ?F) Axillary 60 16 97 % ? 02/07/19 1634 162/82 ? 02/07/19 1528 181/86 36.4 ?C (97.5 ?F) Oral 60 16 ? ? 02/07/19 1415 158/98 36.3 ?C (97.3 ?F) Oral 60 16 100 % ? 02/07/19 1345 158/96 36.4 ?C (97.5 ?F) Oral (!) 55 16 100 % ? 02/07/19 1315 156/97 36.6 ?C (97.9 ?F) Oral (!) 53 16 100 % ? 02/07/19 1300 155/95 36.3 ?C (97.3 ?F) Oral 60 16 100 % ? 02/07/19 1245 145/99 36.3 ?C (97.3 ?F) Oral 61 16 100 % ? 02/07/19 1230 150/98 (!) 35.9 ?C (96.6 ?F) Oral 60 16 100 % ? Pleasant, comfortable, not in acute distress. Awake, alert, oriented times 3. Moves all extremities. SKIN: No rash or lumps. HEENT: Normocephalic, face symmetrical. NECK: Supple, no JVD, no carotid bruit, no thyromegaly. LUNGS: Clear to auscultation bilaterally. CARDIAC: Rhythm: regular rate and rhythm, Rate: normal, S1: normal intensity, S2: normal intensity, No murmur, left prepectoral incision without erythema, DSD removed steri strips intact. ABDOMEN: Soft, nontender, bowel sounds present. EXTREMITIES: No edema. PULSES: Peripheral pulses present. MEDICATIONS: Current Facility-Administered Medications Medication Dose Route Frequency - gemfibrozil 600 mg tab(s) (LOPID) 600 mg ORAL BID - aspirin, enteric coated 81 mg tab(s) 81 mg ORAL DAILY - clopidogrel 75 mg tab(s) (PLAVIX) 75 mg ORAL DAILY - furosemide 20 mg tab(s) (LASIX) 20 mg ORAL DAILY - losartan 25 mg tab(s) (COZAAR) 25 mg ORAL DAILY - NaCl 0.9% 3-5 mL 3-5 mL INTRAVENOUS q 12 H - ondansetron 4 mg tab(s) (ZOFRAN) 4 mg ORAL q 6 H PRN Or - ondansetron (PF) 4 mg injection (ZOFRAN) 4 mg INTRAVENOUS q 6 H PRN - docusate sodium 100 mg cap(s) (COLACE) 100 mg ORAL BID PRN - acetaminophen 650 mg tab(s) (TYLENOL) 650 mg ORAL q 6 H PRN - lactated ringers infusion 125 mL/hr INTRAVENOUS CONTINUOUS - meperidine (PF) 12.5 mg injection (DEMEROL) 12.5 mg INTRAVENOUS q 10 MIN PRN - fentaNYL 50 mcg/mL 50 mcg injection (SUBLIMAZE) 50 mcg INTRAVENOUS q 5 MIN PRN - ondansetron (PF) 4 mg injection (ZOFRAN) 4 mg INTRAVENOUS PRN - carvedilol 6.25 mg tab(s) (COREG) 6.25 mg ORAL BID w MEALS - metoclopramide HCl 10 mg tab(s) (REGLAN) 10 mg ORAL q 6 H PRN Or - metoclopramide HCl 10 mg injection (REGLAN) 10 mg INTRAVENOUS q 6 H PRN - oxyCODONE-acetaminophe n 5-325 mg 1-2 tablet (PERCOCET) 1-2 tablet ORAL q 4 H PRN - morphine 1 mg injection 1 mg INTRAVENOUS q 1 H PRN DATA: Diagnostic tests reviewed for today's visit: Most recent labs Most recent telemetry Past 72 Hour Labs: Recent Labs 02/08/19 0300 WBC 6.67 RBC 4.15* HB 13.0* HCT 38.5* MCV 92.8 MCH 31.3 MCHC 33.8 PLT 169 MPV 11.9 GLUC 114* BUN 16 CREAT 1.33* NA 139 K 4.1 CHLOR 108* CO2 25 CA 8.7 Last Lab Drawn: No results found for this basename: TSH,PROBNP,TG,HDL,LDL, CHOL Assessment/Plan Active Problems: Bradycardia POA: Yes Assessment AND Plan: s/p dual chamber ICD implantation. Coronary artery disease involving [place] coronary artery of [place] heart without angina pectoris POA: Yes Assessment AND Plan: Hx of CABG POA: Yes Assessment AND Plan: stable, follows with Dr. Dai Chronic ischemic heart disease POA: Yes Assessment AND Plan: s/p Dual chamber ICD implantation. Device check and xray are ok. He is euvolemic. He will continue HR medications. Coreg has been increased to 6.25mg BID, Losartan, lasix. OK to D/C home from an EP standpoint. Chronic systolic heart failure (HCC) POA: Yes Assessment AND Plan: stable Sinus node dysfunction (HCC) POA: Yes Assessment AND Plan: At risk for sudden cardiac POA: Yes Assessment AND Plan: Near syncope POA: Yes Assessment AND Plan: History of percutaneous coronary intervention POA: Yes Assessment AND Plan: penitentiary current use of 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 drug POA: Yes Assessment AND Plan: penitentiary current use of amiodarone POA: Yes Assessment AND Plan: discontinued 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 pectoris (HCC) POA: Yes Assessment AND Plan: Premature ventricular contractions (PVCs) (VPCs) POA: Yes Assessment AND Plan: he has PVC's that are not symptomatic. Coreg was increased to 6.25.mg BID. Plan Is to reassess at the 6 week device check and admit for Sotalol loading if he continues to have frequent PVC's. Ventricular bigeminy POA: Yes Assessment AND Plan: Nonsustained paroxysmal ventricular tachycardia (HCC) POA: Yes Assessment AND Plan: Chronotropic incompetence with sinus node dysfunction (HCC) POA: Yes Assessment AND Plan: Episodic lightheadedness POA: Yes Assessment AND Plan: Exertional dyspnea POA: Yes Assessment AND Plan: Presence of implantable cardioverter-defibrill ator (ICD) POA: Yes Assessment AND Plan: Resolved Problems: * No resolved hospital problems. 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 PATIENT NAME: Zaid Eddy DATE: February 08, 2019 TIME: 11:27 AM PAGER/CONTACT #: [phone] [facility] ANES Fatou 02-07-2019 ANES POST HNO ID: [id number] Author: John Tran Service: Anesthesiology Author Type: Physician Type: Anesthesia PostOp Filed: 02/07/2019 12:22 PM Note Text: POST ANESTHESIA EVALUATION NOTE SERVICE DATE: 02/07/2019 SERVICE TIME: 12:22 PM : 1955 Vitals: 02/06/19 15402/06/19210802/07/1934002/07/19 0744 Temp: 36.6 ?C (97.9 ?F) 36.7 ?C (98.1 ?F) 36.6 ?C (97.9 ?F) 36.5 ?C (97.7 ?F) 02/06/19154602/06/19210802/07/1934002/07/19 0744 BP: 120/60 118/62 124/78 179/80 02/06/19154602/06/19210802/07/1934002/07/19 0744 Pulse: 65 (!) 53 (!) 55 (!) 50 02/06/19154602/06/19210802/07/1934002/07/19 0744 Resp: 18 18 18 16 02/06/19154602/06/19210802/07/1934002/07/19 0744 SpO2: 97% 98% 100% 95% Validated Vital Signs: Yes POST ANES STATUS: No apparent anesthetic complications. The patient is appropriately hydrated with stable respiratory and cardiovascular status. Patient has safe and adequate airway control. The patient has appropriate pain relief and no significant post operative nausea or vomiting. The patient has achieved baseline mental status. Intra-Operative Events: No Significant Anesthesia Events Further assessment by Anesthesia Service: None Other Remarks: SIGNATURE: John Tran MD PATIENT NAME: Zaid Eddy DATE: February 07, 2019 TIME: 12:22 PM PAGER/CONTACT #: [facility] ANES PREOPon 02-07-2019 ANES PREOP HNO ID: [id number] Author: John Tran Service: Anesthesiology Author Type: Physician Type: Anesthesia PreOp Filed: 02/07/2019 9:38 AM Note Text: ANESTHESIOLOGY DAY OF SURGERY NOTE SERVICE DATE: 02/07/2019 SERVICE TIME: 9:37 AM Late entry : 1955 Procedure(s) (LRB): INSERTION PERM IMPLANTABLE DEFIBRILLATOR SYSTEM, W/TRANSVENOUS LEAD(S) (Left) (EP STUDY) COM ELECTOPHYS EVAL W INSERT REPO ELEC CATH W INDUC ARHYTHM W RT ATRIAL VENT HIS BUN PACE RECOR (N/A) Surgeon(s): Augustin Castellanos Estimated body mass index is 29.58 kg/m? as calculated from the following: Height as of this encounter: 172 cm (5' 7.72). Weight as of this encounter: 87.5 kg (192 lb 14.4 oz). Most recent hematocrit and potassium results: HCT 39.2 02/06/2019 Potassium 3.9 02/06/2019 ANES DOS/PREOP NOTE: Vitals: 02/06/19 1547 02/06/19 2109 02/07/19 0341 02/07/19 0744 BP: 120/60 118/62 124/78 179/80 Pulse: 65 (!) 53 (!) 55 (!) 50 Resp: 18 18 18 16 Temp: 36.6 ?C (97.9 ?F) 36.7 ?C (98.1 ?F) 36.6 ?C (97.9 ?F) 36.5 ?C (97.7 ?F) TempSrc: Oral Oral Oral Oral SpO2: 97% 98% 100% 95% Weight: Height: ACTIVE PROBLEM LIST Hypertension Hyperlipidemia Overweight (Bmi 25.0-29.9) Bradycardia Coronary Artery Disease Involving [place] Coronary Artery of [place] Heart Without Angina Pectoris Hx of Cabg Chronic Ischemic Heart Disease Chronic Systolic Heart Failure (Hcc) Sinus Node Dysfunction (Hcc) At Risk for Sudden Cardiac Near Syncope History of Percutaneous Coronary Intervention 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 Drug 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 Current Use of Amiodarone Coronary Artery Disease Involving [place] Coronary Artery of [place] Heart With Angina Pectoris (Hcc) Premature Ventricular Contractions (Pvcs) (Vpcs) Ventricular Bigeminy Nonsustained Paroxysmal Ventricular Tachycardia (Hcc) Chronotropic Incompetence With Sinus Node Dysfunction (Hcc) Episodic Lightheadedness Exertional Dyspnea PAST MEDICAL HISTORY Diagnosis Date - At risk for sudden cardiac - Bradycardia symptomatic; secondary to sinus node dysfunction exacerbated by necessary medical therapy for CAD and ventricular arrhythmias (beta-irasema, amiodarone) - Cataract left - Chronic ischemic heart disease - Chronic systolic heart failure (HCC) NYHA FC II - Chronotropic incompetence with sinus node dysfunction (HCC) - 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 pectoris (HCC) - Coronary artery disease involving [place] coronary artery of [place] heart without angina pectoris s/p MT; s/p CABG 2006; s/p PCI/stent ostial LAD 01/2019 - Episodic lightheadedness - Essential hypertension - Exertional dyspnea - Family history of early sudden - History of percutaneous coronary intervention - History of tobacco use - Hx of CABG 3-vessel CABG 02/2007 ([place]): CHAPA-LAD, SVG-CX, SVG-RCA - Hyperlipidemia - penitentiary current use of amiodarone indication: frequent PVCs - 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 drug amiodarone; indication: frequent PVCs - Near syncope - Noncompliance with medication regimen - Nonsustained paroxysmal ventricular tachycardia (HCC) - Old myocardial infarction - Overweight (BMI 25.0-29.9) - Palpitations - Premature ventricular contractions (PVCs) (VPCs) treated with amiodarone - Sinus node dysfunction (HCC) symptomatic bradycardia - Ventricular bigeminy PAST SURGICAL HISTORY Procedure Laterality Date - CABG (3) VEIN GRAFTS AND ARTERIAL GRAFT(S) 02/27/2007 3-vessel CABG: CHAPA-LAD, SVG-OM, SVG-RCA; [facility], [facility] - CARDIAC CATH 01/26/2019 severe 3V CAD, including severe ostial LAD lesion with distal unprotected diagonal branches; CHAPA-LAD and SVG-CX patent; SVG-RCA occluded with left to right collaterals; LVEF 20-25% - CATARACT EXTRACTION HX Left 2016 in [place] - INSERT INTRACORONARY STENT 01/26/2019 PCI/DARRIUS to ostial LAD; [facility], Dr. Dai - STRESS ECHOCARDIOGRAM 01/19/2019 abnormal study: 74% MPHR, PVCs and NSVT; baseline LVEF 50%; +ischemia by echo images; [facility] FAMILY HISTORY Problem Relation Age of Onset - Heart disease Mother - Diabetes Mother - Hyperlipidemia Mother - Heart disease Father - Hypertension Father - Hyperlipidemia Father - Heart disease Maternal Grandfather - Heart disease Paternal Grandfather - Diabetes Sister - Heart Attack Brother 40 - Diabetes Brother severe DM - other (sudden ) Brother suddenly in his early 40s, presumed heart attack - Heart Son - Hyperlipidemia Son very high triglycerides (> 600) - other (sleep apnea) Son - No Known Problems Son - No Known Problems Daughter - No Known Problems Daughter - Heart Grandchild congenital heart disease (pulmonary stenosis) Social History: Social History Tobacco Use - Smoking status: Former Smoker Packs/day: 1.50 Years: 30.00 Pack years: 45.00 Types: Cigarettes Last attempt to quit: 02/27/2007 Years since quittin.9 - Smokeless tobacco: Never Used Substance Use Topics - Alcohol use: Not Currently - Drug use: Not Currently No current facility-administered medications on file prior to encounter. Current Outpatient Medications on File Prior to Encounter: aspirin, enteric coated (ASPIRIN, ENTERIC COATED) 81 mg EC tablet 1 tablet once daily. carvedilol (COREG) 3.125 mg tablet 1 tablet twice daily with meals. gemfibrozil (LOPID) 600 mg tablet 1 tablet twice daily. Blood Pressure Cuff - Home Use BLOOD PRESSURE CUFF FOR HOME USE. DX: LABILE BLOOD PRESSURE Current Facility-Administered Medications: [MAR Hold due to Transfer] bacitracin 50,000 Units in sodium chloride 0.9 % 250 mL 50,000 Units IRRIGATION ONCE Augustin Castellanos [MAR Hold due to Transfer] vancomycin 1.25 g in D5W 250 mL (VANCOCIN) 0.015 g/kg/dose INTRAVENOUS ONCE Augustin Chrystal Mcbridet [MAR Hold due to Transfer] gemfibrozil 600 mg tab(s) (LOPID) 600 mg ORAL BID Jalyn Cristal Quicho 600 mg at 02/06/192113 [MAR Hold due to Transfer] aspirin, enteric coated 81 mg tab(s) 81 mg ORAL DAILY Jalyn Cristal Quicho 81 mg at 02/06/19809 [MAR Hold due to Transfer] clopidogrel 75 mg tab(s) (PLAVIX) 75 mg ORAL DAILY Jalyn Cristal Quicho 75 mg at 02/06/19809 [MAR Hold due to Transfer] furosemide 20 mg tab(s) (LASIX) 20 mg ORAL DAILY Jalyn Cristal Quicho 20 mg at 02/06/19809 [MAR Hold due to Transfer] losartan 25 mg tab(s) (COZAAR) 25 mg ORAL DAILY Jalyn Cristal Quicho 25 mg at 02/06/19809 [MAR Hold due to Transfer] NaCl 0.9% 3-5 mL 3-5 mL INTRAVENOUS q 12 H Jalyn Cristal Quicho 5 mL at 02/06/192113 [MAR Hold due to Transfer] ondansetron 4 mg tab(s) (ZOFRAN) 4 mg ORAL q 6 H PRN Jalyn Cristal Quicho Or [MAR Hold due to Transfer] ondansetron (PF) 4 mg injection (ZOFRAN) 4 mg INTRAVENOUS q 6 H PRN Jalyn Cristal Quicho [MAR Hold due to Transfer] docusate sodium 100 mg cap(s) (COLACE) 100 mg ORAL BID PRN Jalyn Cristal Quicho [MAR Hold due to Transfer] acetaminophen 650 mg tab(s) (TYLENOL) 650 mg ORAL q 6 H PRN Jalyn Cristal Quicho Allergies: ALLERGIES No Known Allergies DOS EXAM: Adequate NPO status: Yes Anesthetic risks, benefits, alternatives, personnel and consent discussed: Yes Patient agrees to proceed: Yes Previous Anesthesia: No history of adverse event. Airway Assessment: MP 3; Neck ROM: Full ROM without neurologic symptoms; Airway Evaluation: Damico Present Symptoms of Sleep Apnea: Hypertension, Age over 50 (63 year old) and Male gender Dentition: Teeth intact Additional Physical Exam: Lungs: Patient health status unchanged since recent history and physical. See history and physical for exam findings. Cardiac: Patient health status unchanged since recent history and physical. See history and physical for exam findings. Additional Pertinent Findings: N/A Blood Products: Not anticipated for this procedure. Anesthetic Plan: MAC with Sedation Pain Management Plan: Parenteral or Oral ASA Class: 4 Other Medical Problems: Severe LV dysfunction, EF 20-25% Chronic Beta Irasema medication administered within 24 hours: Yes I have interviewed and examined the patient. I have reviewed the medical record and/or the pre-anesthesia evaluation, pertinent labs, and test results. Significant changes in the patient's condition since the History and Physical, not otherwise documented in primary service progress notes: No This contains updated information obtained within 48 hours of Surgery/Procedure. 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 ) Health Literacy: 1. How often do you need to have someone help you when you read instructions, pamphlets, or other written material from your doctor or pharmacy? Rarely - 2 2. How confident are you filling out medical forms by yourself? Quite a bit - 2 If Patient scores > 3 on either question, the following interventions were put into place: Use of plain language and active listening with Patient and family, Use concrete and specific phrases, avoid medical jargon and Forms of communication used with patient and family FUNCTIONAL AND COGNITIVE/BEHAVIORAL PRIOR TO ADMISSION: Baseline Mental Status: Alert AND Oriented, Person, Place , Time and Situation Functional Status: Independent Does Patient Currently Receive Any Community Services or Home Care? None Equipment Prior to Admission: None Has the Patient Been in a Long Term Facility in the Past 30 days? No SOCIAL: Living Arrangement: Home Lives With: Son Financial Resources: N/A Primary Contact: Extended Emergency Contact Information Primary Emergency Contact: Dominic Ivey [place] Relation: Son Supportive: Yes Other Important Patient Contacts: None Caregiver Assessment: Caregiver is ready, willing and able to meet the patient's needs as recommended by the inter-professional team? No Caregiver Needed Patient's transition needs and plan for meeting these needs: Family willing to assist as able. Does the patient have an acute stroke diagnosis, or has the patient had a stroke during this admission? No Medication Adherence: I am convinced of the importance of my prescription medication: Agree mostly - 0 I worry that my prescription medication will do more harm than good to me Disagree mostly - 0 I feel financially burdened by my [id number] expenses for my prescription medication: Disagree mostly -0 Patient is categorized as low risk < 2 Are you interested in bedside delivery of your medications? Yes Food Concerns: In the Last Month, Have You had Trouble Getting Food? No trouble getting food During the Last Month, Have You Worried Whether Your Food Would Run Out Before You Had Enough Money to Buy More? No Is the Patient Psychosocially Complex? No ASSESSMENT AND PLAN: Medical Needs: None Psychosocial Needs: None FREEDOM OF CHOICE EXPLAINED: N/A POTENTIAL TRANSITION PLANS Home Spoke with pt at the bedside. 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 Plan for pt to return home when medically ready. Pts son states that he is able to transport at d/c. Will follow. SIGNATURE: Sophia Shahid RN PATIENT NAME: Zaid Eddy DATE: February 07, 2019 TIME: 3:35 PM PAGER/CONTACT #: [phone] [facility] 02-07-2019 [facility] Telephone (AKPRAD) ZAID EDDY ([id number]) 1955 M Date Time Provider Department 02/07/19 AUGUSTIN CASTELLANOS During your visit today, we recorded the following information about you: Augustin Castellanos MD 02/07/2019 4:30 PM Signed Mr. Eddy needs an appointment with a nurse in 7 - 10 days for wound check after device surgical procedure today. Augustin Castellanos MD February 07, 2019 4:30 PM Alessia Malave 02/08/2019 2:16 PM Signed I scheduled pt on 02-21-19 @ 2:30 for wound check. Allergies As of Date: 02/07/2019 (No Known Allergies) Date Reviewed: 02/07/2019 Reviewed by: Jam ByrdRn) LEANDRO Gomez - Fully Assessed Reason for Visit: Appointment [[id number]] Reason For Visit History Recorded Prescriptions as of 02/07/2019 Sig: ASPIRIN 81 MG TABLET,DELAYED * 1 tablet once daily. GEMFIBROZIL 600 MG TABLET 1 tablet twice daily. COMPOUNDED PRESCRIPTION BLOOD PRESSURE CUFF FOR HOME * X CARVEDILOL 3.125 MG TABLET 1 tablet twice daily with luc* Problem List As Of Date 02/07/2019 Noted Resolved Hypertension [I10] Hyperlipidemia [E78.5] Overweight (BMI 25.0-29.9) [E66.3] Bradycardia [R00.1] INVALID FOR* Coronary artery disease involving [place]* Hx of CABG [Z95.1] Chronic ischemic heart disease [I25.9] Chronic systolic heart failure (HCC) [I50.22] Sinus node dysfunction (HCC) [I49.5] At risk for sudden cardiac [Z91.89] Near syncope [R55] History of percutaneous coronary intervention [* penitentiary current use of 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 drug [Z* More... penitentiary current use of amiodarone [Z79.899] More... Coronary artery disease involving [place]* Premature ventricular contractions (PVCs) (VPCs* More... Ventricular bigeminy [I49.9] Nonsustained paroxysmal ventricular tachycardia* Chronotropic incompetence with sinus node dysfu* Episodic lightheadedness [R42] Exertional dyspnea [R06.09] Presence of implantable cardioverter-defibrill a*INVALID FOR* More... Encounter Status:Closed by AUGUSTIN CASTELLANOS MD on 02/07/19 Normal [facility] ECG COMPLETEon 02-07-2019 ECG COMPLETE NAME : ZAID EDDY PID : [id number] : 1955 Gender : Male Race : Unknown ORD : [id number] Procedure Date : Feb 06 2019 23:04:04 Edit Date : Feb 07 2019 08:57:48 Diagnosis:SINUS BRADYCARDIA WITH FREQUENT PREMATURE VENTRICULAR COMPLEXES LEFT AXIS DEVIATION MINIMAL VOLTAGE CRITERIA FOR LVH, MAY BE NORMAL VARIANT NONSPECIFIC T WAVE ABNORMALITY ABNORMAL ECG NO PREVIOUS ECGS AVAILABLE Confirmed by DO SIERRA JEFF ([id number]) on 02/07/2019 8:57:40 AM Ventricular Rate : 54 BPM Atrial Rate : 46 BPM P-R Interval : 174 ms QRS Duration : 102 ms Q-T Interval : 478 ms QTC Calculation(Bezet) : 453 ms P [place] : 45 degrees R [place] : -31 degrees T [place] : 98 degrees Test Reason : Arrhythmia Location : 42 : [id number] Overread By : DO SIERRA JEFF Edited By : DO SIERRA JEFF Referred By : , Acquired by : CHRISTOPHER SAUER [facility] PROGRESSon 02-07-2019 PROGRESS HNO ID: [id number] Author: Jalyn Payton Service: Hospital Medicine Author Type: Physician Type: Progress Notes Filed: 02/07/2019 3:59 PM Note Text: DEPARTMENT OF HOSPITAL MEDICINE PROGRESS NOTE SERVICE DATE: 02/07/2019 SERVICE TIME: 3:58 PM Hospital Medicine/Primary Attending: Jalyn Bernal MD NIGHT AND WEEKEND COVERAGE: After 7pm please page [phone] SUBJECTIVE: Pt is a 63 yo M who is here for bradycardia. Feels well. No CP or SOB. OBJECTIVE: PHYSICAL EXAM: BP 181/86 Pulse 60 Temp (Src) 97.5 (Oral) Resp 16 Ht 5' 7.717 (1.72m) Wt 192 lb 14.4 oz (87.5kg) SpO2 100% BMI 29.58 kg/(m2). O2 Therapy: Room Air GEN: AANDOx3, NAD HEENT: NCAT, No lymphadenopathy CVS: RRR, S1 S2 RESP: CTAB ABD: S/NT/ND (+) BS SKIN: No rash EXT: (+) pulses, no edema NEURO: CNII-XII grossly intact. Sensation and strength intact MEDICATIONS: Current Facility-Administered Medications Medication Dose Route Frequency - gemfibrozil 600 mg tab(s) (LOPID) 600 mg ORAL BID - aspirin, enteric coated 81 mg tab(s) 81 mg ORAL DAILY - clopidogrel 75 mg tab(s) (PLAVIX) 75 mg ORAL DAILY - furosemide 20 mg tab(s) (LASIX) 20 mg ORAL DAILY - losartan 25 mg tab(s) (COZAAR) 25 mg ORAL DAILY - NaCl 0.9% 3-5 mL 3-5 mL INTRAVENOUS q 12 H - ondansetron 4 mg tab(s) (ZOFRAN) 4 mg ORAL q 6 H PRN Or - ondansetron (PF) 4 mg injection (ZOFRAN) 4 mg INTRAVENOUS q 6 H PRN - docusate sodium 100 mg cap(s) (COLACE) 100 mg ORAL BID PRN - acetaminophen 650 mg tab(s) (TYLENOL) 650 mg ORAL q 6 H PRN - vancomycin 1.25 g in D5W 250 mL (VANCOCIN) 0.015 g/kg/dose INTRAVENOUS ONCE - lactated ringers infusion 125 mL/hr INTRAVENOUS CONTINUOUS - meperidine (PF) 12.5 mg injection (DEMEROL) 12.5 mg INTRAVENOUS q 10 MIN PRN - fentaNYL 50 mcg/mL 50 mcg injection (SUBLIMAZE) 50 mcg INTRAVENOUS q 5 MIN PRN - ondansetron (PF) 4 mg injection (ZOFRAN) 4 mg INTRAVENOUS PRN - carvedilol 6.25 mg tab(s) (COREG) 6.25 mg ORAL BID w MEALS - metoclopramide HCl 10 mg tab(s) (REGLAN) 10 mg ORAL q 6 H PRN Or - metoclopramide HCl 10 mg injection (REGLAN) 10 mg INTRAVENOUS q 6 H PRN - oxyCODONE-acetaminophe n 5-325 mg 1-2 tablet (PERCOCET) 1-2 tablet ORAL q 4 H PRN - morphine 1 mg injection 1 mg INTRAVENOUS q 1 H PRN DATA: Diagnostic tests reviewed for today's visit: CBC: No results for input(s): WBC, RBC, HB, HCT, PLT, MCV, MCH, MPV, RDW in the last 24 hours. Coags: No results for input(s): INR, APTT in the last 24 hours. Invalid input(s): PT BMP: No results for input(s): NA, K, CHLOR, CO2, BUN, CREAT, GLUC in the last 24 hours. CMP: No results for input(s): NA, K, CHLOR, CO2, BUN, CREAT, GLUC, TPROT, CA, MG, ALBUMIN, TBILI, ALKPHOS, ALT, AST, ANION in the last 24 hours. Cardiac Enzymes: No results for input(s): CK, MB, CKMB, TROPT in the last 24 hours. Liver Function, Amylase, Lipase: No results for input(s): TPROT, ALB, ALT, AST, ALKPHOS, TBILI, AMYLASE, LIPASE, LACTATE in the last 24 hours. MG/PHOS: No results for input(s): MG, P in the last 24 hours. Heme: No results for input(s): RETICP, ABSRETIC, LD, CE, FE, TIBC, TRANSFERSAT in the last 24 hours. No results found for: UALBCR Assessment/Plan 1. Bradycardia - amiodarone and beta blockers have been held. Monitor on telemetry. S/P ICD placement today, Follow up EP. ? 2. CAD - on asa and plavix ? 3. HPL - on gemfibrozil ? 4. HTN - on losartan ? 5. Cardiomyopathy - continue with Lasix 20 mg PO VTE Prophylaxis: Lovenox 40mg Sub Q Daily Disposition: Home Plan of care discussed with: Patient SIGNATURE: Jalyn Bernal MD PATIENT NAME: Zaid Eddy DATE: February 07, 2019 TIME: 3:58 PM PAGER/CONTACT #: My Pager Normal [facility] Basic Panelon 02-06-2019 Creatinine [Mass/Vol] 1.12 mg/dL Normal 0.67-1.[address] [facility] Comment on above: Performed By: #### P 8 #### [address] [address] Anion gap [Moles/Vol] 12 mmol/L Normal 8-[address] [facility] Comment on above: Performed By: #### P 8 #### [facility] [address] [place], [place] [address] CO2 [Moles/Vol] 26 mmol/L Normal 21-32 [facility] Comment on above: Performed By: #### P 8 #### [facility] [address] [place], [place] [address] Glucose [Mass/Vol] 119 mg/dL High 70-99 [facility] Comment on above: Performed By: #### P 8 #### [facility] [address] [place], [place] [address] Urea nitrogen [Mass/Vol] 12 mg/dL Normal 7-18 [facility] Comment on above: Performed By: #### P 8 #### [address] [address] Calcium [Mass/Vol] 8.3 mg/dL Low 8.5-10.1 [facility] Comment on above: Performed By: #### P 8 #### [facility] [address] [place], [place] [address] Chloride [Moles/Vol] 107 mmol/L Normal 98-107 [facility] Comment on above: Performed By: #### P 8 #### [facility] [address] [place], [place] [address] Potassium [Moles/Vol] 3.9 mmol/L Normal 3.5-5.[address] [facility] Comment on above: Performed By: #### P 8 #### [facility] [address] [place], [place] [address] Sodium [Moles/Vol] 141 mmol/L Normal 136-145 [facility] Comment on above: Performed By: #### P 8 #### [facility] [address] [place], [place] [address] CASE MANAGEMon 02-06-2019 CASE MANAGEM HNO ID: [id number] Author: Marilou Melo (Sw) Service: Case Management Author Type: Hydropress Operator Type: Care Mgt Progress Note Filed: 02/06/2019 5:59 PM Note Text: CARE MANAGEMENT PROGRESS NOTE SERVICE DATE: 02/06/2019 SERVICE TIME: 17:00 LOS: 1 day Advance Directives Received consult from LAENDRO re: Pt/pt's son would like more information on advance directives. Met with pt/pt's son (at bedside); explained use and purpose of documents to pt (through pt's son). Per pt's son's question, explained [place] ([facility]) decision making hierarchy. Pt/pt's son declined to complete advance directives at this time. Pt is but his is in [place]. Pt's son (Hefiz [phone]) would then become decision maker should pt not be able to make his own decisions. Pt does have a dtr who is younger than his son. SIGNATURE: SOSA Bustillo PATIENT NAME: Zaid Eddy DATE: February 06, 2019 TIME: 5:56 PM PAGER/CONTACT #: [phone] Normal [facility] CONSULTon 02-06-2019 CONSULT HNO ID: [id number] Author: Augustin Castellanos Service: Electrophysiology Author Type: Physician Type: Consults Filed: 02/06/2019 3:41 PM Note Text: CONSULT: CARDIOLOGY SERVICE [facility] Electrophysiology (EP) - [facility] ([facility]) SERVICE DATE: 02/06/2019 SERVICE TIME: 2:46 PM CONSULTING PHYSICIAN: Augustin Castellanos MD PCP: Erick King MD ATTENDING: Rosaura Gardner REASON FOR CONSULT: Arrhythmias and risk for sudden cardiac arrest Subjective CHIEF COMPLAINT: palpitations bradycardia near syncope HISTORY OF PRESENT ILLNESS: Mr. 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 He has been experiencing symptomatic bradycardia from sinus node dysfunction, exacerbated by the necessary cardiac medications including beta-irasema therapy for his heart disease. He has a long history of CAD, with MT in 2006 at the age of 52 years. He underwent CABG (3-vessel) at that time in [place]. A couple months ago he has come to the [facility] and lives with his son. Mr. Eddy speaks and understands Ethiopian fairly well, but his son was here with him today and provided some translation assistance. More recently, Mr. Eddy had been experiencing exertional shortness of breath and chest pain. A cardiac stress test was abnormal for ischemia and subsequent cardiac catheterization earlier this month revealed severe CAD with an occluded SVG-RCA, and a severe lesion in the proximal LAD that served unbypassed diagonal branches. The LV systolic function was noted to be severely decreased, with LVEF 20-25%. So he underwent PCI/stent to the LAD at that time. He is also known to have frequent PVCs and had been treated with amiodarone. He states he would sometimes feel palpitations but overall has not been very aware of the PVCs. He presented to [facility] a couple days ago with chest discomfort and palpitations. He was found to have severe sinus bradycardia. The amiodarone and beta-irasema medications were held but these medications are considered important treatments for his heart disease and arrhythmia. He was therefore transferred to [facility] to be considered for cardiac pacing, and with the extensive and severe heart disease possibly also an ICD. Presently, he is pain free and not short of breath at rest, and not having severe lightheadedness, near syncope or syncope. PAST MEDICAL HISTORY Diagnosis Date - At risk for sudden cardiac - Bradycardia symptomatic; secondary to sinus node dysfunction exacerbated by necessary medical therapy for CAD and ventricular arrhythmias (beta-irasema, amiodarone) - Cataract left - Chronic ischemic heart disease - Chronic systolic heart failure (HCC) NYHA FC II - Chronotropic incompetence with sinus node dysfunction (HCC) - 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 pectoris (HCC) - Coronary artery disease involving [place] coronary artery of rapp[place]ock heart without angina pectoris s/p MT; s/p CABG 2006; s/p PCI/stent ostial LAD 01/2019 - Episodic lightheadedness - Essential hypertension - Exertional dyspnea - Family history of early sudden - History of percutaneous coronary intervention - History of tobacco use - Hx of CABG 3-vessel CABG 02/2007 ([facility]): CHAPA-LAD, SVG-CX, SVG-RCA - Hyperlipidemia - 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 indication: frequent PVCs - penitentiary current use of 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 drug amiodarone; indication: frequent PVCs - Near syncope - Noncompliance with medication regimen - Nonsustained paroxysmal ventricular tachycardia (HCC) - Old myocardial infarction - Overweight (BMI 25.0-29.9) - Palpitations - Premature ventricular contractions (PVCs) (VPCs) treated with amiodarone - Sinus node dysfunction (HCC) symptomatic bradycardia - Ventricular bigeminy PAST SURGICAL HISTORY Procedure Laterality Date - CABG (3) VEIN GRAFTS AND ARTERIAL GRAFT(S) 02/27/2007 3-vessel CABG: CHAPA-LAD, SVG-OM, SVG-RCA[facility] 01/26/2019 severe 3V CAD, including severe ostial LAD lesion with distal unprotected diagonal branches; CHAPA-LAD and SVG-CX patent; SVG-RCA occluded with left to right collaterals; LVEF 20-25% - CATARACT EXTRACTION HX Left 2017 in [place] - INSERT INTRACORONARY STENT 01/26/2019 PCI/DARRIUS to ostial LAD; [facility], Dr. Dai - STRESS ECHOCARDIOGRAM 01/19/2019 abnormal study: 74% MPHR, PVCs and NSVT; baseline LVEF 50%; +ischemia by echo images; [facility] FAMILY HISTORY Problem Relation Age of Onset - Heart disease Mother - Diabetes Mother - Hyperlipidemia Mother - Heart disease Father - Hypertension Father - Hyperlipidemia Father - Heart disease Maternal Grandfather - Heart disease Paternal Grandfather - Diabetes Sister - Heart Attack Brother 40 - Diabetes Brother severe DM - other (sudden ) Brother suddenly in his early 40s, presumed heart attack - Heart Son - Hyperlipidemia Son very high triglycerides (> 600) - other (sleep apnea) Son - No Known Problems Son - No Known Problems Daughter - No Known Problems Daughter - Heart Grandchild congenital heart disease (pulmonary stenosis) Social History Tobacco Use - Smoking status: Former Smoker Packs/day: 1.50 Years: 30.00 Pack years: 45.00 Types: Cigarettes Last attempt to quit: 02/27/2007 Years since quittin.9 - Smokeless tobacco: Never Used Substance Use Topics - Alcohol use: Not Currently - Drug use: Not Currently Prior to Admission Medications Prescriptions Last Dose Informant Patient Reported? Taking? Blood Pressure Cuff - Home Use No No Sig: BLOOD PRESSURE CUFF FOR HOME USE. DX: LABILE BLOOD PRESSURE aspirin, enteric coated (ASPIRIN, ENTERIC COATED) 81 mg EC tablet No No Si tablet once daily. carvedilol (COREG) 3.125 mg tablet No No Si tablet twice daily with meals. gemfibrozil (LOPID) 600 mg tablet No No Si tablet twice daily. Facility-Administered Medications: None Current Facility-Administered Medications Medication Dose Route Frequency - gemfibrozil 600 mg tab(s) (LOPID) 600 mg ORAL BID - aspirin, enteric coated 81 mg tab(s) 81 mg ORAL DAILY - clopidogrel 75 mg tab(s) (PLAVIX) 75 mg ORAL DAILY - furosemide 20 mg tab(s) (LASIX) 20 mg ORAL DAILY - losartan 25 mg tab(s) (COZAAR) 25 mg ORAL DAILY - enoxaparin 40 mg injection (LOVENOX) 40 mg SUBCUTANEOUS DAILY - NaCl 0.9% 3-5 mL 3-5 mL INTRAVENOUS q 12 H - ondansetron 4 mg tab(s) (ZOFRAN) 4 mg ORAL q 6 H PRN Or - ondansetron (PF) 4 mg injection (ZOFRAN) 4 mg INTRAVENOUS q 6 H PRN - docusate sodium 100 mg cap(s) (COLACE) 100 mg ORAL BID PRN - acetaminophen 650 mg tab(s) (TYLENOL) 650 mg ORAL q 6 H PRN ALLERGIES No Known Allergies REVIEW OF SYSTEMS: The following systems were reviewed with the patient, and are unremarkable other than as described below. SYSTEMIC: No fever, chills, or change in weight or appetite PAIN ASSESSMENT: Negative for pain, history of chronic pain, or current treatment for a chronic pain condition. HEENT: No recent change in vision or hearing. NECK: Negative for lumps, goiter, pain and significant neck swelling RESPIRATORY: See HPI, he has exertional shortness of breath CARDIOVASCULAR: See HPI GI: No recent nausea, vomiting or diarrhea. : No recent hematuria or dysuria. SKIN: No recent itching or eruption. PSYCH: No recent active anxiety or depression. HEMATOLOGY/ONCOLOGY: No recent diagnosis of bleeding or cancer. ENDOCRINE: No recent polyuria or heat intolerance. NEURO: No recent TIA, stroke or seizures. RHEUMATOLOGY: No recent active connective tissue disease. Objective PHYSICAL EXAM: Pleasant, comfortable, not in acute distress. Awake, alert, oriented times 3. Moves all extremities. SKIN: No rash or lumps. HEENT: Normocephalic, face symmetrical. EYES: EOMI NECK: No jugulovenous distention, No carotid bruits, Carotid pulse normal contour, Supple LUNGS: Clear to auscultation bilaterally. CARDIAC: Rhythm: regular rate and rhythm with intermittent ectopic beats, Rate: bradycardia, S1: normal intensity, S2: normal intensity, Gr I/ systolic murmur upper sternal borders ABDOMEN: Soft, nontender, bowel sounds present. EXTREMITIES: No edema. NEURO: Grossly normal cognition, motor function, and cranial nerves III-XII PULSES: Peripheral pulses present. Body mass index is 29.58 kg/m?. O2 Therapy: Room Air No data recorded Patient Vitals for the past 48 hrs: BP Temp Temp src Pulse Resp SpO2 Height Weight 02/06/19 1200 134/73 36.8 ?C (98.2 ?F) Oral (!) 51 18 100 % ? ? 02/06/19 0900 ? 87.5 kg (192 lb 14.4 oz) 02/06/19 0800 105/62 36.8 ?C (98.2 ?F) Oral (!) 59 18 100 % ? ? 02/06/19 0403 106/70 36.8 ?C (98.2 ?F) Oral (!) 54 18 98 % ? ? 02/05/192017 132/63 36.6 ?C (97.9 ?F) Oral (!) 46 18 96 % ? ? 02/05/19 1742 ? 172 cm (5' 7.72) 86.6 kg (190 lb 14.7 oz) 02/05/19 1719 130/63 36.4 ?C (97.5 ?F) Oral 76 16 97 % ? ? DATA: Diagnostic tests reviewed for today's visit: Most recent labs and imaging results. Most recent EKG Most recent telemetry monitoring Outside chart from [facility] reviewed. Past 72 Hour Labs: Recent Labs 02/06/19 0404 WBC 4.43 RBC 4.27* HB 13.2* HCT 39.2* MCV 91.8 MCH 30.9 MCHC 33.7 PLT 172 MPV 12.0 GLUC 119* BUN 12 CREAT 1.12 NA 141 K 3.9 CHLOR 107 CO2 26 CA 8.3* Last Lab Drawn: No results found for this basename: TSH,PROBNP,TG,HDL,LDL, CHOL Prior Cardiac Workup: Last Ejection Fraction: 20-25% Impression/Recommendat ions Active Problems: Bradycardia POA: Yes Assessment AND Plan: symptomatic bradycardia due to sinus node dysfunction, exacerbated by medication(s) necessary and/or important for treatment of his heart disease (such as beta-blockers). Cardiac pacing is indicated at this point. An ICD would also be indicated for primary prevention of SCA, although the recent revascularization and also the fact that the LVEF was documented to be only recently < 36% poses an issue for the indication for an ICD from the standpoint of current practice guidelines. I will say that it would not be in the patient's best interest to just implant a pacemaker and then have him undergo an upgrade to an ICD in a few months. Current practice guidelines do support an evaluation of the potential risk for future life-threatening ventricular arrhythmias in patients with possible risk for sudden cardiac arrest who are being considered for cardiac pacing. However, in light of the frequent ventricular ectopy and NSVT, an ICD would be indicated by MUSTT criteria if he were to have inducible sustained VT/VF at EP study. Therefore, I proposed to Mr. Eddy and his son that we perform an EP study prior to device implantation, and if inducible sustained VT/VF then an ICD would be indicated as opposed to a cardiac pacemaker. As noted above, I believe it is in the patient's best interest to implant an ICD regardless at this point but we can see what the EP study shows. See further discussion below. Cardiac resynchronization therapy AKA biventricular pacing would not be indicated as he does not have ventricular dyssynchrony such as from bundle branch block or anticipated high frequency of ventricular pacing in the future. Coronary artery disease involving [place] coronary artery of rapp[place]annock heart without angina pectoris POA: Yes Assessment AND Plan: stable on medical therapy, although beta-irasema therapy has been held due to symptomatic bradycardia Hx of CABG POA: Yes Assessment AND Plan: CABG x 3 vessels in 2006; SVG-RCA known to be occluded Chronic ischemic heart disease POA: Yes Assessment AND Plan: severe, LVEF 20-25% Chronic systolic heart failure (HCC) POA: Yes Assessment AND Plan: presently compensated; NYHA FC II Sinus node dysfunction (HCC) POA: Yes Assessment AND Plan: see bradycardia above At risk for sudden cardiac POA: Yes Assessment AND Plan: chronic ischemic heart disease; ICD indicated for primary prevention SCA particularly if inducible sustained VT/VF at EP study (MUSTT criteria) Near syncope POA: Yes Assessment AND Plan: worrisome symptom, possibly due to bradycardia although could also be due to ventricular arrhythmia including NSVT History of percutaneous coronary intervention POA: Yes Assessment AND Plan: [facility] current use of 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 drug POA: Yes Assessment AND Plan: amiodarone for symptomatic ventricular ectopy (frequent PVCs and NSVT); held recently due to symptomatic bradycardia 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 POA: Yes Assessment AND Plan: see above 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 pectoris (HCC) POA: Yes Assessment AND Plan: stable on medical therapy; see above Premature ventricular contractions (PVCs) (VPCs) POA: Yes Assessment AND Plan: somewhat symptomatic; had been treated with amiodarone for suppression (see above), held due to symptomatic bradycardia Ventricular bigeminy POA: Yes Assessment AND Plan: see above Nonsustained paroxysmal ventricular tachycardia (HCC) POA: Yes Assessment AND Plan: NSVT; see above Chronotropic incompetence with sinus node dysfunction (HCC) POA: Yes Assessment AND Plan: documented by recent cardiac stress testing; associated with symptomatic bradycardia and is evidence for sinus node dysfunction Episodic lightheadedness POA: Yes Assessment AND Plan: multiple potential etiologies including bradycardia, ventricular ectopy, NSVT, orthostatic hypotension or medication related Exertional dyspnea POA: Yes Assessment AND Plan: stable with treatment of CAD, CHF Mr. Eddy has symptomatic bradycardia due to sinus node dysfunction. See above regarding discussion of treatment plan of care, including rationale. We are planning EP study tomorrow followed by CIED implant, likely ICD as this would be the most appropriate cardiac device for him at this point. Dual-chamber device would be indicated to maintain AV synchrony. Please keep him NPO except medications after midnight tonight. I have held subcutaneous heparin after this morning. This should not be resumed for the first 48 hours after device implantation unless approved by the EP service. I had a detailed discussion with Mr. Eddy and his son (his son assisted with translation) regarding my evaluation and recommendations. After our discussion, Mr. Eddy expressed his understanding and I answered all his questions to his apparent satisfaction. He very much wishes to proceed as outlined. A formal shared decision making discussion was conducted with the patient during which the benefits and risks of ICDs along with his values, preferences and wishes were considered. Educational materials provided. Thank you for this consult. Please call with questions or concerns. The EP group pager is [phone]). SIGNATURE: Augustin Castellanos MD PATIENT NAME: Zaid Eddy DATE: February 06, 2019 TIME: 2:46 PM PAGER/CONTACT #: [phone] Normal [facility] Hemogramon 02-06-2019 Erythrocyte distribution width (RBC) [Ratio] 11.9 % Normal 11.6-14.4 [facility] Comment on above: Performed By: #### C BC1 #### [facility] [address] [place], [place] [address] Hematocrit (Bld) [Volume fraction] 39.2 % Low 40.1-51.0 [facility] Comment on above: Performed By: #### C BC1 #### [facility] [address] [place], [place] [address] Hemoglobin (Bld) [Mass/Vol] 13.2 g/dL Low 13.7-17.5 [facility] Comment on above: Performed By: #### C BC1 #### [facility] [address] [place], [place] [address] MCH (RBC) [Entitic mass] 30.9 pg Normal 25.7-32.2 [facility] Comment on above: Performed By: #### C BC1 #### [facility] [address] [place], [place] [address] MCHC (RBC) [Mass/Vol] 33.7 % Normal 32.3-36.[address] [facility] Comment on above: Performed By: #### C BC1 #### [facility] [address] [place] [address] MCV (RBC) [Entitic vol] 91.8 fL Normal 83.2-95.6 [facility] Comment on above: Performed By: #### C BC1 #### [facility] [address] [place] [address] Platelet mean volume (Bld) [Entitic vol] 12.0 fL Normal 8.7-12.0 [facility] Comment on above: Performed By: #### C BC1 #### [facility] [address] [place], [place] [address] Platelets (Bld) [#/Vol] 172 thou/cmm Normal 141-365 [facility] Comment on above: Performed By: #### C BC1 #### [facility] [address] [place], [place] [address] RBC (Bld) [#/Vol] 4.27 mil/cmm Low 4.63-6.08 [facility] Comment on above: Performed By: #### C BC1 #### [facility] [address] [place], [place] [address] RDW SD 40.3 fl Normal 36.1-45.8 [facility] Comment on above: Performed By: #### C BC1 #### [facility] [address] [place], [place] [address] WBC (Bld) [#/Vol] 4.43 thou/cmm Normal 4.23-9.07 [facility] Comment on above: Performed By: #### C BC1 #### [facility] [address] [place] [address] NUTRITIONon 02-06-2019 NUTRITION HNO ID: [id number] Author: Sherrie Gómez) RISHI Acosta Service: Nutrition Therapy Author Type: Registered Dietitian Type: Nutrition Filed: 02/06/2019 2:20 PM Note Text: NUTRITION THERAPY SCREENING NOTE SERVICE DATE: 02/06/2019 SERVICE TIME: 7:48 AM NUTRITION CARE PLAN Patient's weight change was desirable and intentional and nutritional intake is adequate. Patient is not at risk for malnutrition at this time. Intervention: Continue on Heart Healthy Diet Coordination of Care: Nursing Discharge Nutrition Recommendations: Diet: Heart Healthy --------- Chart reviewed for weight loss prior to admission Per HPI: 63 year old male who presents with bradycardia. He has a history of CAD with a previous CABG in 2017 and recent stent placement at the [facility] this month of January 20 2019 He first presented to [facility] with chest pain that was sharp and pressure like. He was admitted to their hospital and observed. After receiving nitro his CP subsided. He also complained of palpitations, and later was found to have persistent bradycardia, with HR as low as 34 BPM. His betablockers and amiodarone was held due to his bradycardia. He was then transferred to [facility] for possible placement of a ICD/PPM. Currently he feels well. No CP or SOB. He sometimes feels as if his heart is vibrating. No fever or chills. ACTIVE PROBLEM LIST Hypertension Hyperlipidemia Overweight (Bmi 25.0-29.9) Bradycardia PAST MEDICAL HISTORY Diagnosis Date - CAD (coronary artery disease) - Cataract left - History of tobacco use - Hx of CABG - Hyperlipidemia - Hypertension - Overweight (BMI 25.0-29.9) PAST SURGICAL HISTORY Procedure Laterality Date - CABG (3) VEIN GRAFTS AND ARTERIAL GRAFT(S) 2006 - CATARACT EXTRACTION HX Left 2017 in [place] Social History Socioeconomic History Marital status: Spouse name: Not on file Number of children: Not on file Years of education: Not on file Highest education level: Not on file Social Needs Financial resource strain: Not on file Food insecurity - worry: Not on file Food insecurity - inability: Not on file Transportation needs - medical: Not on file Transportation needs - non-medical: Not on file Occupational History 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 Orders Placed This Encounter DIET HEART HEALTHY Standing Status: Standing Number of Occurrences: 1 Order Specific Question: Heart Healthy Answer: 2 GM SODIUM (<200 MG CHOL / LOW SAT FAT) Nutritional Intake Prior to Admission: >75% estimated energy needs over the past >1 month(s), reports good intake has been working on weight loss and eating more fruits and vegetables Anthropometrics: Height: 172 cm (5' 7.72) Admission Weight: 86.6 kg (190 lb 14.7 oz) Current Weight: 87.5 kg (192 lb 14.4 oz) Body mass index is 29.58 kg/m?. overweight Weight has decreased by 4.3 kg over 1 months representing 4.7 % weight change Reports weight loss has been intentional with changing eating habits and eating healthier. Last Wt 02/06/19 : 87.5 kg (192 lb 14.4 oz) 02/05/19 : 86.6 kg (190 lb 14.7 oz) 01/19/19 : 196 lb 01/17/19 : 86.6 kg (191 lb), family practice 01/04/19 : 91.8 kg (202 lb), 1 month Recent Labs 02/06/19 0404 GLUC 119* BUN 12 CREAT 1.12 NA 141 K 3.9 CHLOR 107 CO2 26 HB 13.2* HCT 39.2* WBC 4.43 MNT Billing Type: Initial Assess/15 min 2 units SIGNATURE: Sherrie Acosta RD, LD PATIENT NAME: Zaid Eddy DATE: February 06, 2019 TIME: 2:14 PM PAGER: [phone] Normal [facility] PROGRESSon 02-06-2019 PROGRESS HNO ID: [id number] Author: Jalyn Payton Service: Hospital Medicine Author Type: Physician Type: Progress Notes Filed: 02/06/2019 3:52 PM Note Text: DEPARTMENT OF HOSPITAL MEDICINE PROGRESS NOTE SERVICE DATE: 02/06/2019 SERVICE TIME: 3:50 PM Hospital Medicine/Primary Attending: Jalyn Bernal MD NIGHT AND WEEKEND COVERAGE: After 7pm please page [phone] SUBJECTIVE: Pt is a 63 yo M who is here for bradycardia. No complaints or over night events. No CP or SOB. OBJECTIVE: PHYSICAL EXAM: BP 120/60 Pulse 65 Temp (Src) 97.9 (Oral) Resp 18 Ht 5' 7.717 (1.72m) Wt 192 lb 14.4 oz (87.5kg) SpO2 97% BMI 29.58 kg/(m2). O2 Therapy: Room Air GEN: AANDOx3, NAD HEENT: NCAT, No lymphadenopathy CVS: RRR, S1 S2 RESP: CTAB ABD: S/NT/ND (+) BS SKIN: No rash EXT: (+) pulses, no edema NEURO: CNII-XII grossly intact. Sensation and strength intact MEDICATIONS: Current Facility-Administered Medications Medication Dose Route Frequency - gemfibrozil 600 mg tab(s) (LOPID) 600 mg ORAL BID - aspirin, enteric coated 81 mg tab(s) 81 mg ORAL DAILY - clopidogrel 75 mg tab(s) (PLAVIX) 75 mg ORAL DAILY - furosemide 20 mg tab(s) (LASIX) 20 mg ORAL DAILY - losartan 25 mg tab(s) (COZAAR) 25 mg ORAL DAILY - NaCl 0.9% 3-5 mL 3-5 mL INTRAVENOUS q 12 H - ondansetron 4 mg tab(s) (ZOFRAN) 4 mg ORAL q 6 H PRN Or - ondansetron (PF) 4 mg injection (ZOFRAN) 4 mg INTRAVENOUS q 6 H PRN - docusate sodium 100 mg cap(s) (COLACE) 100 mg ORAL BID PRN - acetaminophen 650 mg tab(s) (TYLENOL) 650 mg ORAL q 6 H PRN - [START ON 02/07/2019] bacitracin 50,000 Units in sodium chloride 0.9 % 250 mL 50,000 Units IRRIGATION ONCE - [START ON 02/07/2019] vancomycin 1.25 g in D5W 250 mL (VANCOCIN) 0.015 g/kg/dose INTRAVENOUS ONCE DATA: Diagnostic tests reviewed for today's visit: CBC: Recent Labs 02/06/194 WBC 4.43 RBC 4.27* HB 13.2* HCT 39.2* PLT 172 MCV 91.8 MCH 30.9 MPV 12.0 RDW 11.9 Coags: No results for input(s): INR, APTT in the last 24 hours. Invalid input(s): PT BMP: Recent Labs 02/06/194 NA 141 K 3.9 CHLOR 107 CO2 26 BUN 12 CREAT 1.12 GLUC 119* CMP: Recent Labs 02/06/19403 NA 141 K 3.9 CHLOR 107 CO2 26 BUN 12 CREAT 1.12 GLUC 119* CA 8.3* ANION 12 Cardiac Enzymes: No results for input(s): CK, MB, CKMB, TROPT in the last 24 hours. Liver Function, Amylase, Lipase: No results for input(s): TPROT, ALB, ALT, AST, ALKPHOS, TBILI, AMYLASE, LIPASE, LACTATE in the last 24 hours. MG/PHOS: No results for input(s): MG, P in the last 24 hours. Heme: No results for input(s): RETICP, ABSRETIC, LD, CE, FE, TIBC, TRANSFERSAT in the last 24 hours. No results found for: UALBCR Assessment/Plan 1. Bradycardia - amiodarone and beta blockers have been held. Monitor on telemetry. Follow up EP, who plans to place an ICD tomorrow. ? 2. CAD - on asa and plavix ? 3. HPL - on gemfibrozil ? 4. HTN - on losartan ? 5. Cardiomyopathy - continue with Lasix 20 mg PO VTE Prophylaxis: Lovenox 40mg Sub Q Daily Disposition: Home Plan of care discussed with: Patient SIGNATURE: Jalyn Bernal MD PATIENT NAME: Zaid Eddy DATE: February 06, 2019 TIME: 3:50 PM PAGER/CONTACT #: My Pager Normal [facility] HISTORY PHYSICALon HISTORY PHYSICAL HNO ID: [id number] Author: Jalyn Payton Service: Hospital Medicine Author Type: Physician Type: HANDP Filed: 02/05/2019 6:39 PM Note Text: DEPARTMENT OF HOSPITAL MEDICINE HISTORY AND PHYSICAL EXAM SERVICE DATE: 02/05/2019 SERVICE TIME: 6:25 PM Primary Care Physician: Erick King MD NIGHT AND WEEKEND COVERAGE: After 7pm, please call cross cover pager #[phone] Subjective CHIEF COMPLAINT: Bradycardia HPI: This is a 63 year old male who presents with bradycardia. He has a history of CAD with a previous CABG in 2017 and recent stent placement at the [facility] this month of January 20 2019 He first presented to [facility] with chest pain that was sharp and pressure like. He was admitted to their hospital and observed. After receiving nitro his CP subsided. He also complained of palpitations, and later was found to have persistent bradycardia, with HR as low as 34 BPM. His betablockers and amiodarone was held due to his bradycardia. He was then transferred to [facility] for possible placement of a ICD/PPM. Currently he feels well. No CP or SOB. He sometimes feels as if his heart is vibrating. No fever or chills. PAST MEDICAL HISTORY Diagnosis Date - CAD (coronary artery disease) - Cataract left - History of tobacco use - Hx of CABG - Hyperlipidemia - Hypertension - Overweight (BMI 25.0-29.9) PAST SURGICAL HISTORY Procedure Laterality Date - CABG (3) VEIN GRAFTS AND ARTERIAL GRAFT(S) 2006 - CATARACT EXTRACTION HX Left 2016 in [place] FAMILY HISTORY Problem Relation Age of Onset - Heart disease Mother - Heart disease Father - Hypertension Father - Heart disease Maternal Grandfather - Heart disease Paternal Grandfather - Diabetes Sister - Heart Attack Brother 40 - Heart Son Social History Tobacco Use - Smoking status: Former Smoker Packs/day: 1.50 Years: 30.00 Pack years: 45.00 Types: Cigarettes Last attempt to quit: 02/27/2007 Years since quittin.9 - Smokeless tobacco: Never Used Substance Use Topics - Alcohol use: Not Currently - Drug use: Not Currently MEDICATIONS: Reviewed ALLERGIES No Known Allergies REVIEW OF SYSTEM: All systems were reviewed and negative, except for what is mentioned in the HPI. Objective PHYSICAL EXAM: BP 130/63 Pulse 76 Temp (Src) 97.5 (Oral) Resp 16 Ht 5' 7.717 (1.72m) Wt 190 lb 14.7 oz (86.6kg) SpO2 97% BMI 29.27 kg/(m2). O2 Therapy: Room Air GENERAL: Alert, no distress, cooperative SKIN: Skin color, texture, turgor normal. No rashes or lesions. HEAD/SINUSES: No significant findings EYES: PERRLA, EOMI LUNGS: Lungs clear to auscultation, Good diaphragmatic excursion CARDIAC: Normal S1 and S2; no rubs, murmurs, or gallops, Rate: bradycardia ABDOMEN: Abdomen soft, non-tender, BS normal, No masses or organomegaly EXTREMITIES: Extremities normal, no deformities, edema, clubbing or skin discoloration. Good capillary refill., No ulcers NEURO: Gait normal. Reflexes normal and symmetric. Sensation grossly intact, Cranial nerves II-XII intact PULSES: 2+ radial, 2+ carotid DATA: Diagnostic tests reviewed for today's visit: MEDICATIONS: Current Facility-Administered Medications Medication Dose Route Frequency - gemfibrozil 600 mg tab(s) (LOPID) 600 mg ORAL BID - aspirin, enteric coated 81 mg tab(s) 81 mg ORAL DAILY - [START ON 02/06/2019] clopidogrel 75 mg tab(s) (PLAVIX) 75 mg ORAL DAILY - [START ON 02/06/2019] furosemide 20 mg tab(s) (LASIX) 20 mg ORAL DAILY - losartan 25 mg tab(s) (COZAAR) 25 mg ORAL DAILY - enoxaparin 40 mg injection (LOVENOX) 40 mg SUBCUTANEOUS DAILY - NaCl 0.9% 3-5 mL 3-5 mL INTRAVENOUS q 12 H - ondansetron 4 mg tab(s) (ZOFRAN) 4 mg ORAL q 6 H PRN Or - ondansetron (PF) 4 mg injection (ZOFRAN) 4 mg INTRAVENOUS q 6 H PRN - docusate sodium 100 mg cap(s) (COLACE) 100 mg ORAL BID PRN - acetaminophen 650 mg tab(s) (TYLENOL) 650 mg ORAL q 6 H PRN DATA: Diagnostic tests reviewed for today's visit: CBC: No results for input(s): WBC, RBC, HB, HCT, PLT, MCV, MCH, MPV, RDW in the last 24 hours. Coags: No results for input(s): INR, APTT in the last 24 hours. Invalid input(s): PT BMP: No results for input(s): NA, K, CHLOR, CO2, BUN, CREAT, GLUC in the last 24 hours. CMP: No results for input(s): NA, K, CHLOR, CO2, BUN, CREAT, GLUC, TPROT, CA, MG, ALBUMIN, TBILI, ALKPHOS, ALT, AST, ANION in the last 24 hours. Cardiac Enzymes: No results for input(s): CK, MB, CKMB, TROPT in the last 24 hours. Liver Function, Amylase, Lipase: No results for input(s): TPROT, ALB, ALT, AST, ALKPHOS, TBILI, AMYLASE, LIPASE, LACTATE in the last 24 hours. MG/PHOS: No results for input(s): MG, P in the last 24 hours. Renal Panel: No results for input(s): ALBUMIN, CREAT, BUN, GLUC, CA, P, CHLOR, K, CO2, NA in the last 24 hours. Heme: No results for input(s): RETICP, ABSRETIC, LD, CE, FE, TIBC, TRANSFERSAT in the last 24 hours. No results found for: UALBCR Assessment/Plan 1. Bradycardia - amiodarone and beta blockers have been held. Monitor on telemetry. Follow up EP consult 2. CAD - on asa and plavix 3. HPL - on gemfibrozil, does not seem to be on a statin, will likely need to start if no allergy or sensitivity to statins. 4. HTN - on losartan 5. Cardiomyopathy - with EF of 25% - continue with Lasix 20 mg PO VTE Prophylaxis: Lovenox 40mg Sub Q Daily Disposition: Home Plan of care discussed with: Patient and Son SIGNATURE: Jalyn Bernal MD PATIENT NAME: Zaid Eddy DATE: February 05, 2019 TIME: 6:25 PM PAGER/CONTACT #: [phone] [facility] HOSPon 02-05-2019 HOSP Patient:Zaid Eddy MRN: Height:5' 7.717(1.72 m) Weight:192 lb 14.4 oz (87.5 kg) Outpatient Medications as of 02/07/19: aspirin, enteric coated (ASPIRIN, ENTERIC COATED) 81 mg EC tablet carvedilol (COREG) 3.125 mg tablet gemfibrozil (LOPID) 600 mg tablet Blood Pressure Cuff - Home Use Admission/Clinic Administered Medications as of 02/07/19: bacitracin 50,000 Units in sodium chloride 0.9 % 250 mL vancomycin 1.25 g in D5W 250 mL (VANCOCIN) gemfibrozil 600 mg tab(s) (LOPID) aspirin, enteric coated 81 mg tab(s) clopidogrel 75 mg tab(s) (PLAVIX) furosemide 20 mg tab(s) (LASIX) losartan 25 mg tab(s) (COZAAR) NaCl 0.9% 3-5 mL ondansetron 4 mg tab(s) (ZOFRAN) ondansetron (PF) 4 mg injection (ZOFRAN) docusate sodium 100 mg cap(s) (COLACE) acetaminophen 650 mg tab(s) (TYLENOL) Problem List: Hypertension [I10] Hyperlipidemia [E78.5] Overweight (BMI 25.0-29.9) [E66.3] Bradycardia [R00.1] Coronary artery disease involving [place] coronary artery of [place] heart without angina pectoris [I25.10] Hx of CABG [Z95.1] Chronic ischemic heart disease [I25.9] Chronic systolic heart failure (HCC) [I50.22] Sinus node dysfunction (HCC) [I49.5] At risk for sudden cardiac [Z91.89] Near syncope [R55] History of percutaneous coronary intervention [Z98.61] [facility] current use of 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 drug [Z79.899] [facility] current use of amiodarone [Z79.899] 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 pectoris (HCC) [I25.119] Premature ventricular contractions (PVCs) (VPCs) [I49.3] Ventricular bigeminy [I49.9] Nonsustained paroxysmal ventricular tachycardia (HCC) [I47.2] Chronotropic incompetence with sinus node dysfunction (HCC) [I49.5] Episodic lightheadedness [R42] Exertional dyspnea [R06.09] Allergies: No Known Allergies Date Verified:02/06/19 Lab Values Lab Value Units Date High Low POTA* 3.9 mEq/L 02/06/2019 5.1 3.5 RACHEL* 39.2 % 02/06/2019 51.0 40.1 Progress Notes (): Jalyn Bernal MD 02/05/2019 6:39 PM Signed DEPARTMENT OF HOSPITAL MEDICINE HISTORY AND PHYSICAL EXAM SERVICE DATE: 02/05/2019 SERVICE TIME: 6:25 PM Primary Care Physician: Ercik King MD NIGHT AND WEEKEND COVERAGE: After 7pm, please call cross cover pager #[phone] Subjective CHIEF COMPLAINT: Bradycardia HPI: This is a 63 year old male who presents with bradycardia. He has a history of CAD with a previous CABG in 2017 and recent stent placement at the [facility] this month of January 20 2019 He first presented to [facility] with chest pain that was sharp and pressure like. He was admitted to their hospital and observed. After receiving nitro his CP subsided. He also complained of palpitations, and later was found to have persistent bradycardia, with HR as low as 34 BPM. His betablockers and amiodarone was held due to his bradycardia. He was then transferred to [facility] for possible placement of a ICD/PPM. Currently he feels well. No CP or SOB. He sometimes feels as if his heart is vibrating. No fever or chills. PAST MEDICAL HISTORY Diagnosis Date - CAD (coronary artery disease) - Cataract left - History of tobacco use - Hx of CABG - Hyperlipidemia - Hypertension - Overweight (BMI 25.0-29.9) PAST SURGICAL HISTORY Procedure Laterality Date - CABG (3) VEIN GRAFTS AND ARTERIAL GRAFT(S) 2006 - CATARACT EXTRACTION HX Left 2017 in [place] FAMILY HISTORY Problem Relation Age of Onset - Heart disease Mother - Heart disease Father - Hypertension Father - Heart disease Maternal Grandfather - Heart disease Paternal Grandfather - Diabetes Sister - Heart Attack Brother 40 - Heart Son Social History Tobacco Use - Smoking status: Former Smoker Packs/day: 1.50 Years: 30.00 Pack years: 45.00 Types: Cigarettes Last attempt to quit: 02/27/2007 Years since quittin.9 - Smokeless tobacco: Never Used Substance Use Topics - Alcohol use: Not Currently - Drug use: Not Currently MEDICATIONS: Reviewed ALLERGIES No Known Allergies REVIEW OF SYSTEM: All systems were reviewed and negative, except for what is mentioned in the HPI. Objective PHYSICAL EXAM: BP 130/63 Pulse 76 Temp (Src) 97.5 (Oral) Resp 16 Ht 5' 7.717 (1.72m) Wt 190 lb 14.7 oz (86.6kg) SpO2 97% BMI 29.27 kg/(m2). O2 Therapy: Room Air GENERAL: Alert, no distress, cooperative SKIN: Skin color, texture, turgor normal. No rashes or lesions. HEAD/SINUSES: No significant findings EYES: PERRLA, EOMI LUNGS: Lungs clear to auscultation, Good diaphragmatic excursion CARDIAC: Normal S1 and S2; no rubs, murmurs, or gallops, Rate: bradycardia ABDOMEN: Abdomen soft, non-tender, BS normal, No masses or organomegaly EXTREMITIES: Extremities normal, no deformities, edema, clubbing or skin discoloration. Good capillary refill., No ulcers NEURO: Gait normal. Reflexes normal and symmetric. Sensation grossly intact, Cranial nerves II-XII intact PULSES: 2+ radial, 2+ carotid DATA: Diagnostic tests reviewed for today's visit: MEDICATIONS: Current Facility-Administered Medications Medication Dose Route Frequency - gemfibrozil 600 mg tab(s) (LOPID) 600 mg ORAL BID - aspirin, enteric coated 81 mg tab(s) 81 mg ORAL DAILY - [START ON 02/06/2019] clopidogrel 75 mg tab(s) (PLAVIX) 75 mg ORAL DAILY - [START ON 02/06/2019] furosemide 20 mg tab(s) (LASIX) 20 mg ORAL DAILY - losartan 25 mg tab(s) (COZAAR) 25 mg ORAL DAILY - enoxaparin 40 mg injection (LOVENOX) 40 mg SUBCUTANEOUS DAILY - NaCl 0.9% 3-5 mL 3-5 mL INTRAVENOUS q 12 H - ondansetron 4 mg tab(s) (ZOFRAN) 4 mg ORAL q 6 H PRN Or - ondansetron (PF) 4 mg injection (ZOFRAN) 4 mg INTRAVENOUS q 6 H PRN - docusate sodium 100 mg cap(s) (COLACE) 100 mg ORAL BID PRN - acetaminophen 650 mg tab(s) (TYLENOL) 650 mg ORAL q 6 H PRN DATA: Diagnostic tests reviewed for today's visit: CBC: No results for input(s): WBC, RBC, HB, HCT, PLT, MCV, MCH, MPV, RDW in the last 24 hours. Coags: No results for input(s): INR, APTT in the last 24 hours. Invalid input(s): PT BMP: No results for input(s): NA, K, CHLOR, CO2, BUN, CREAT, GLUC in the last 24 hours. CMP: No results for input(s): NA, K, CHLOR, CO2, BUN, CREAT, GLUC, TPROT, CA, MG, ALBUMIN, TBILI, ALKPHOS, ALT, AST, ANION in the last 24 hours. Cardiac Enzymes: No results for input(s): CK, MB, CKMB, TROPT in the last 24 hours. Liver Function, Amylase, Lipase: No results for input(s): TPROT, ALB, ALT, AST, ALKPHOS, TBILI, AMYLASE, LIPASE, LACTATE in the last 24 hours. MG/PHOS: No results for input(s): MG, P in the last 24 hours. Renal Panel: No results for input(s): ALBUMIN, CREAT, BUN, GLUC, CA, P, CHLOR, K, CO2, NA in the last 24 hours. Heme: No results for input(s): RETICP, ABSRETIC, LD, CE, FE, TIBC, TRANSFERSAT in the last 24 hours. No results found for: UALBCR Assessment/Plan 1. Bradycardia - amiodarone and beta blockers have been held. Monitor on telemetry. Follow up EP consult 2. CAD - on asa and plavix 3. HPL - on gemfibrozil, does not seem to be on a statin, will likely need to start if no allergy or sensitivity to statins. 4. HTN - on losartan 5. Cardiomyopathy - with EF of 25% - continue with Lasix 20 mg PO VTE Prophylaxis: Lovenox 40mg Sub Q Daily Disposition: Home Plan of care discussed with: Patient and Son SIGNATURE: Jalyn Bernal MD PATIENT NAME: Zaid Eddy DATE: February 05, 2019 TIME: 6:25 PM PAGER/CONTACT #: Sherrie Acosta RD, LD, RD 02/06/2019 2:20 PM Signed NUTRITION THERAPY SCREENING NOTE SERVICE DATE: 02/06/2019 SERVICE TIME: 7:48 AM NUTRITION CARE PLAN Patient's weight change was desirable and intentional and nutritional intake is adequate. Patient is not at risk for malnutrition at this time. Intervention: Continue on Heart Healthy Diet Coordination of Care: Nursing Discharge Nutrition Recommendations: Diet: Heart Healthy Chart reviewed for weight loss prior to admission Per HPI: 63 year old male who presents with bradycardia. He has a history of CAD with a previous CABG in 2017 and recent stent placement at the LAD this month of January 20 2019 He first presented to [facility] with chest pain that was sharp and pressure like. He was admitted to their hospital and observed. After receiving nitro his CP subsided. He also complained of palpitations, and later was found to have persistent bradycardia, with HR as low as 34 BPM. His betablockers and amiodarone was held due to his bradycardia. He was then transferred to [facility] for possible placement of a ICD/PPM. Currently he feels well. No CP or SOB. He sometimes feels as if his heart is vibrating. No fever or chills. ACTIVE PROBLEM LIST Hypertension Hyperlipidemia Overweight (Bmi 25.0-29.9) Bradycardia PAST MEDICAL HISTORY Diagnosis Date - CAD (coronary artery disease) - Cataract left - History of tobacco use - Hx of CABG - Hyperlipidemia - Hypertension - Overweight (BMI 25.0-29.9) PAST SURGICAL HISTORY Procedure Laterality Date - CABG (3) VEIN GRAFTS AND ARTERIAL GRAFT(S) 2006 - CATARACT EXTRACTION HX Left 2017 in [place] Social History Socioeconomic History Marital status: Spouse name: Not on file Number of children: Not on file Years of education: Not on file Highest education level: Not on file Social Needs Financial resource strain: Not on file Food insecurity - worry: Not on file Food insecurity - inability: Not on file Transportation needs - medical: Not on file Transportation needs - non-medical: Not on file Occupational History 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 Orders Placed This Encounter DIET HEART HEALTHY Standing Status: Standing Number of Occurrences: 1 Order Specific Question: Heart Healthy Answer: 2 GM SODIUM (<200 MG CHOL / LOW SAT FAT) Nutritional Intake Prior to Admission: >75% estimated energy needs over the past >1 month(s), reports good intake has been working on weight loss and eating more fruits and vegetables Anthropometrics: Height: 172 cm (5' 7.72) Admission Weight: 86.6 kg (190 lb 14.7 oz) Current Weight: 87.5 kg (192 lb 14.4 oz) Body mass index is 29.58 kg/m?. overweight Weight has decreased by 4.3 kg over 1 months representing 4.7 % weight change Reports weight loss has been intentional with changing eating habits and eating healthier. Last Wt 02/06/19 : 87.5 kg (192 lb 14.4 oz) 02/05/19 : 86.6 kg (190 lb 14.7 oz) 01/19/19 : 196 lb 01/17/19 : 86.6 kg (191 lb), family practice 01/04/19 : 91.8 kg (202 lb), 1 month Recent Labs 02/06/19 0404 GLUC 119* BUN 12 CREAT 1.12 NA 141 K 3.9 CHLOR 107 CO2 26 HB 13.2* HCT 39.2* WBC 4.43 MNT Billing Type: Initial Assess/15 min 2 units SIGNATURE: Sherrie Acosta RD, LD PATIENT NAME: Zaid Eddy DATE: February 06, 2019 TIME: 2:14 PM PAGER: [phone] Augustin Castellanos MD 02/06/2019 3:41 PM Signed CONSULT: CARDIOLOGY SERVICE [facility] (EP) - [facility] ([facility]) SERVICE DATE: 02/06/2019 SERVICE TIME: 2:46 PM CONSULTING PHYSICIAN: Augustin Castellanos MD PCP: Erick King MD ATTENDING: Rosaura Gardner REASON FOR CONSULT: Arrhythmias and risk for sudden cardiac arrest Subjective CHIEF COMPLAINT: palpitations bradycardia near syncope HISTORY OF PRESENT ILLNESS: Mr. 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 He has been experiencing symptomatic bradycardia from sinus node dysfunction, exacerbated by the necessary cardiac medications including beta-irasema therapy for his heart disease. He has a long history of CAD, with MT in 2006 at the age of 52 years. He underwent CABG (3-vessel) at that time in [place]. A couple months ago he has come to the [place] and lives with his son. Mr. Eddy speaks and understands Ethiopian fairly well, but his son was here with him today and provided some translation assistance. More recently, Mr. Eddy had been experiencing exertional shortness of breath and chest pain. A cardiac stress test was abnormal for ischemia and subsequent cardiac catheterization earlier this month revealed severe CAD with an occluded SVG-RCA, and a severe lesion in the proximal LAD that served unbypassed diagonal branches. The LV systolic function was noted to be severely decreased, with LVEF 20-25%. So he underwent PCI/stent to the LAD at that time. He is also known to have frequent PVCs and had been treated with amiodarone. He states he would sometimes feel palpitations but overall has not been very aware of the PVCs. He presented to [facility] a couple days ago with chest discomfort and palpitations. He was found to have severe sinus bradycardia. The amiodarone and beta-irasema medications were held but these medications are considered important treatments for his heart disease and arrhythmia. He was therefore transferred to [facility] to be considered for cardiac pacing, and with the extensive and severe heart disease possibly also an ICD. Presently, he is pain free and not short of breath at rest, and not having severe lightheadedness, near syncope or syncope. PAST MEDICAL HISTORY Diagnosis Date - At risk for sudden cardiac - Bradycardia symptomatic; secondary to sinus node dysfunction exacerbated by necessary medical therapy for CAD and ventricular arrhythmias (beta-irasema, amiodarone) - Cataract left - Chronic ischemic heart disease - Chronic systolic heart failure (HCC) NYHA FC II - Chronotropic incompetence with sinus node dysfunction (HCC) - 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 pectoris (HCC) - Coronary artery disease involving rappahannock coronary artery of rappahannock heart without angina pectoris s/p MT; s/p CABG 2006; s/p PCI/stent ostial LAD 01/2019 - Episodic lightheadedness - Essential hypertension - Exertional dyspnea - Family history of early sudden - History of percutaneous coronary intervention - History of tobacco use - Hx of CABG 3-vessel CABG 02/2007 ([place]): CHAPA-LAD, SVG-CX, SVG-RCA - Hyperlipidemia - 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 indication: frequent PVCs [facility] current use of 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 drug amiodarone; indication: frequent PVCs - Near syncope - Noncompliance with medication regimen - Nonsustained paroxysmal ventricular tachycardia (HCC) - Old myocardial infarction - Overweight (BMI 25.0-29.9) - Palpitations - Premature ventricular contractions (PVCs) (VPCs) treated with amiodarone - Sinus node dysfunction (HCC) symptomatic bradycardia - Ventricular bigeminy PAST SURGICAL HISTORY Procedure Laterality Date - CABG (3) VEIN GRAFTS AND ARTERIAL GRAFT(S) 02/27/2007 3-vessel CABG: CHAPA-LAD, SVG-OM, SVG-RCA; [facility], [facility] - CARDIAC CATH 01/26/2019 severe 3V CAD, including severe ostial LAD lesion with distal unprotected diagonal branches; CHAPA-LAD and SVG-CX patent; SVG-RCA occluded with left to right collaterals; LVEF 20-25% - CATARACT EXTRACTION HX Left 2016 in [facility] - INSERT INTRACORONARY STENT 01/26/2019 PCI/DARRIUS to ostial LAD; [facility], Dr. Dai - STRESS ECHOCARDIOGRAM 01/19/2019 abnormal study: 74% MPHR, PVCs and NSVT; baseline LVEF 50%; +ischemia by echo images; [facility] FAMILY HISTORY Problem Relation Age of Onset - Heart disease Mother - Diabetes Mother - Hyperlipidemia Mother - Heart disease Father - Hypertension Father - Hyperlipidemia Father - Heart disease Maternal Grandfather - Heart disease Paternal Grandfather - Diabetes Sister - Heart Attack Brother 40 - Diabetes Brother severe DM - other (sudden ) Brother suddenly in his early 40s, presumed heart attack - Heart Son - Hyperlipidemia Son very high triglycerides (> 600) - other (sleep apnea) Son - No Known Problems Son - No Known Problems Daughter - No Known Problems Daughter - Heart Grandchild congenital heart disease (pulmonary stenosis) Social History Tobacco Use - Smoking status: Former Smoker Packs/day: 1.50 Years: 30.00 Pack years: 45.00 Types: Cigarettes Last attempt to quit: 02/27/2007 Years since quittin.9 - Smokeless tobacco: Never Used Substance Use Topics - Alcohol use: Not Currently - Drug use: Not Currently Prior to Admission Medications Prescriptions Last Dose Informant Patient Reported? Taking? Blood Pressure Cuff - Home Use No No Sig: BLOOD PRESSURE CUFF FOR HOME USE. DX: LABILE BLOOD PRESSURE aspirin, enteric coated (ASPIRIN, ENTERIC COATED) 81 mg EC tablet No No Si tablet once daily. carvedilol (COREG) 3.125 mg tablet No No Si tablet twice daily with meals. gemfibrozil (LOPID) 600 mg tablet No No Si tablet twice daily. Facility-Administered Medications: None Current Facility-Administered Medications Medication Dose Route Frequency - gemfibrozil 600 mg tab(s) (LOPID) 600 mg ORAL BID - aspirin, enteric coated 81 mg tab(s) 81 mg ORAL DAILY - clopidogrel 75 mg tab(s) (PLAVIX) 75 mg ORAL DAILY - furosemide 20 mg tab(s) (LASIX) 20 mg ORAL DAILY - losartan 25 mg tab(s) (COZAAR) 25 mg ORAL DAILY - enoxaparin 40 mg injection (LOVENOX) 40 mg SUBCUTANEOUS DAILY - NaCl 0.9% 3-5 mL 3-5 mL INTRAVENOUS q 12 H - ondansetron 4 mg tab(s) (ZOFRAN) 4 mg ORAL q 6 H PRN Or - ondansetron (PF) 4 mg injection (ZOFRAN) 4 mg INTRAVENOUS q 6 H PRN - docusate sodium 100 mg cap(s) (COLACE) 100 mg ORAL BID PRN - acetaminophen 650 mg tab(s) (TYLENOL) 650 mg ORAL q 6 H PRN ALLERGIES No Known Allergies REVIEW OF SYSTEMS: The following systems were reviewed with the patient, and are unremarkable other than as described below. SYSTEMIC: No fever, chills, or change in weight or appetite PAIN ASSESSMENT: Negative for pain, history of chronic pain, or current treatment for a chronic pain condition. HEENT: No recent change in vision or hearing. NECK: Negative for lumps, goiter, pain and significant neck swelling RESPIRATORY: See HPI, he has exertional shortness of breath CARDIOVASCULAR: See HPI GI: No recent nausea, vomiting or diarrhea. : No recent hematuria or dysuria. SKIN: No recent itching or eruption. PSYCH: No recent active anxiety or depression. HEMATOLOGY/ONCOLOGY: No recent diagnosis of bleeding or cancer. ENDOCRINE: No recent polyuria or heat intolerance. NEURO: No recent TIA, stroke or seizures. RHEUMATOLOGY: No recent active connective tissue disease. Objective PHYSICAL EXAM: Pleasant, comfortable, not in acute distress. Awake, alert, oriented times 3. Moves all extremities. SKIN: No rash or lumps. HEENT: Normocephalic, face symmetrical. EYES: EOMI NECK: No jugulovenous distention, No carotid bruits, Carotid pulse normal contour, Supple LUNGS: Clear to auscultation bilaterally. CARDIAC: Rhythm: regular rate and rhythm with intermittent ectopic beats, Rate: bradycardia, S1: normal intensity, S2: normal intensity, Gr I/ systolic murmur upper sternal borders ABDOMEN: Soft, nontender, bowel sounds present. EXTREMITIES: No edema. NEURO: Grossly normal cognition, motor function, and cranial nerves III-XII PULSES: Peripheral pulses present. Body mass index is 29.58 kg/m?. O2 Therapy: Room Air No data recorded Patient Vitals for the past 48 hrs: BP Temp Temp src Pulse Resp SpO2 Height Weight 02/06/19 1200 134/73 36.8 ?C (98.2 ?F) Oral (!) 51 18 100 % ? ? 02/06/19 0900 ? 87.5 kg (192 lb 14.4 oz) 02/06/19 0800 105/62 36.8 ?C (98.2 ?F) Oral (!) 59 18 100 % ? ? 02/06/19 0403 106/70 36.8 ?C (98.2 ?F) Oral (!) 54 18 98 % ? ? 02/05/19 2018 132/63 36.6 ?C (97.9 ?F) Oral (!) 46 18 96 % ? ? 02/05/19 1742 ? 172 cm (5' 7.72) 86.6 kg (190 lb 14.7 oz) 02/05/19 1719 130/63 36.4 ?C (97.5 ?F) Oral 76 16 97 % ? ? DATA: Diagnostic tests reviewed for today's visit: Most recent labs and imaging results. Most recent EKG Most recent telemetry monitoring Outside chart from [facility] reviewed. Past 72 Hour Labs: Recent Labs 02/06/19 0404 WBC 4.43 RBC 4.27* HB 13.2* HCT 39.2* MCV 91.8 MCH 30.9 MCHC 33.7 PLT 172 MPV 12.0 GLUC 119* BUN 12 CREAT 1.12 NA 141 K 3.9 CHLOR 107 CO2 26 CA 8.3* Last Lab Drawn: No results found for this basename: TSH,PROBNP,TG,HDL,LDL, CHOL Prior Cardiac Workup: Last Ejection Fraction: 20-25% Impression/Recommendat ions Active Problems: Bradycardia POA: Yes Assessment AND Plan: symptomatic bradycardia due to sinus node dysfunction, exacerbated by medication(s) necessary and/or important for treatment of his heart disease (such as beta-blockers). Cardiac pacing is indicated at this point. An ICD would also be indicated for primary prevention of SCA, although the recent revascularization and also the fact that the LVEF was documented to be only recently < 36% poses an issue for the indication for an ICD from the standpoint of current practice guidelines. I will say that it would not be in the patient's best interest to just implant a pacemaker and then have him undergo an upgrade to an ICD in a few months. Current practice guidelines do support an evaluation of the potential risk for future life-threatening ventricular arrhythmias in patients with possible risk for sudden cardiac arrest who are being considered for cardiac pacing. However, in light of the frequent ventricular ectopy and NSVT, an ICD would be indicated by MUSTT criteria if he were to have inducible sustained VT/VF at EP study. Therefore, I proposed to Mr. Eddy and his son that we perform an EP study prior to device implantation, and if inducible sustained VT/VF then an ICD would be indicated as opposed to a cardiac pacemaker. As noted above, I believe it is in the patient's best interest to implant an ICD regardless at this point but we can see what the EP study shows. See further discussion below. Cardiac resynchronization therapy AKA biventricular pacing would not be indicated as he does not have ventricular dyssynchrony such as from bundle branch block or anticipated high frequency of ventricular pacing in the future. Coronary artery disease involving rappahannock coronary artery of rappahannock heart without angina pectoris POA: Yes Assessment AND Plan: stable on medical therapy, although beta-irasema therapy has been held due to symptomatic bradycardia Hx of CABG POA: Yes Assessment AND Plan: CABG x 3 vessels in 2006; SVG-RCA known to be occluded Chronic ischemic heart disease POA: Yes Assessment AND Plan: severe, LVEF 20-25% Chronic systolic heart failure (HCC) POA: Yes Assessment AND Plan: presently compensated; NYHA FC II Sinus node dysfunction (HCC) POA: Yes Assessment AND Plan: see bradycardia above At risk for sudden cardiac POA: Yes Assessment AND Plan: chronic ischemic heart disease; ICD indicated for primary prevention SCA particularly if inducible sustained VT/VF at EP study (MUSTT criteria) Near syncope POA: Yes Assessment AND Plan: worrisome symptom, possibly due to bradycardia although could also be due to ventricular arrhythmia including NSVT History of percutaneous coronary intervention POA: Yes Assessment AND Plan: PCI/stent to LAD 01/2019 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 drug POA: Yes Assessment AND Plan: amiodarone for symptomatic ventricular ectopy (frequent PVCs and NSVT); held recently due to symptomatic bradycardia 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 POA: Yes Assessment AND Plan: see above 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 pectoris (HCC) POA: Yes Assessment AND Plan: stable on medical therapy; see above Premature ventricular contractions (PVCs) (VPCs) POA: Yes Assessment AND Plan: somewhat symptomatic; had been treated with amiodarone for suppression (see above), held due to symptomatic bradycardia Ventricular bigeminy POA: Yes Assessment AND Plan: see above Nonsustained paroxysmal ventricular tachycardia (HCC) POA: Yes Assessment AND Plan: NSVT; see above Chronotropic incompetence with sinus node dysfunction (HCC) POA: Yes Assessment AND Plan: documented by recent cardiac stress testing; associated with symptomatic bradycardia and is evidence for sinus node dysfunction Episodic lightheadedness POA: Yes Assessment AND Plan: multiple potential etiologies including bradycardia, ventricular ectopy, NSVT, orthostatic hypotension or medication related Exertional dyspnea POA: Yes Assessment AND Plan: stable with treatment of CAD, CHF Mr. Eddy has symptomatic bradycardia due to sinus node dysfunction. See above regarding discussion of treatment plan of care, including rationale. We are planning EP study tomorrow followed by CIED implant, likely ICD as this would be the most appropriate cardiac device for him at this point. Dual-chamber device would be indicated to maintain AV synchrony. Please keep him NPO except medications after midnight tonight. I have held subcutaneous heparin after this morning. This should not be resumed for the first 48 hours after device implantation unless approved by the EP service. I had a detailed discussion with Mr. Eddy and his son (his son assisted with translation) regarding my evaluation and recommendations. After our discussion, Mr. Eddy expressed his understanding and I answered all his questions to his apparent satisfaction. He very much wishes to proceed as outlined. A formal shared decision making discussion was conducted with the patient during which the benefits and risks of ICDs along with his values, preferences and wishes were considered. Educational materials provided. Thank you for this consult. Please call with questions or concerns. The EP group pager is [phone]). SIGNATURE: Augustin Castellanos MD PATIENT NAME: Zaid Eddy DATE: February 06, 2019 TIME: 2:46 PM PAGER/CONTACT #: [phone] Jalyn Bernal MD 02/06/2019 3:52 PM Signed DEPARTMENT OF HOSPITAL MEDICINE PROGRESS NOTE SERVICE DATE: 02/06/2019 SERVICE TIME: 3:50 PM Hospital Medicine/Primary Attending: Jalyn Bernal MD NIGHT AND WEEKEND COVERAGE: After 7pm please page [phone] SUBJECTIVE: Pt is a 63 yo M who is here for bradycardia. No complaints or over night events. No CP or SOB. OBJECTIVE: PHYSICAL EXAM: BP 120/60 Pulse 65 Temp (Src) 97.9 (Oral) Resp 18 Ht 5' 7.717 (1.72m) Wt 192 lb 14.4 oz (87.5kg) SpO2 97% BMI 29.58 kg/(m2). O2 Therapy: Room Air GEN: AANDOx3, NAD HEENT: NCAT, No lymphadenopathy CVS: RRR, S1 S2 RESP: CTAB ABD: S/NT/ND (+) BS SKIN: No rash EXT: (+) pulses, no edema NEURO: CNII-XII grossly intact. Sensation and strength intact MEDICATIONS: Current Facility-Administered Medications Medication Dose Route Frequency - gemfibrozil 600 mg tab(s) (LOPID) 600 mg ORAL BID - aspirin, enteric coated 81 mg tab(s) 81 mg ORAL DAILY - clopidogrel 75 mg tab(s) (PLAVIX) 75 mg ORAL DAILY - furosemide 20 mg tab(s) (LASIX) 20 mg ORAL DAILY - losartan 25 mg tab(s) (COZAAR) 25 mg ORAL DAILY - NaCl 0.9% 3-5 mL 3-5 mL INTRAVENOUS q 12 H - ondansetron 4 mg tab(s) (ZOFRAN) 4 mg ORAL q 6 H PRN Or - ondansetron (PF) 4 mg injection (ZOFRAN) 4 mg INTRAVENOUS q 6 H PRN - docusate sodium 100 mg cap(s) (COLACE) 100 mg ORAL BID PRN - acetaminophen 650 mg tab(s) (TYLENOL) 650 mg ORAL q 6 H PRN - [START ON 02/07/2019] bacitracin 50,000 Units in sodium chloride 0.9 % 250 mL 50,000 Units IRRIGATION ONCE - [START ON 02/07/2019] vancomycin 1.25 g in D5W 250 mL (VANCOCIN) 0.015 g/kg/dose INTRAVENOUS ONCE DATA: Diagnostic tests reviewed for today's visit: CBC: Recent Labs 02/06/194 WBC 4.43 RBC 4.27* HB 13.2* HCT 39.2* PLT 172 MCV 91.8 MCH 30.9 MPV 12.0 RDW 11.9 Coags: No results for input(s): INR, APTT in the last 24 hours. Invalid input(s): PT BMP: Recent Labs 02/06/19 0404 NA 141 K 3.9 CHLOR 107 CO2 26 BUN 12 CREAT 1.12 GLUC 119* CMP: Recent Labs 02/06/19 0404 NA 141 K 3.9 CHLOR 107 CO2 26 BUN 12 CREAT 1.12 GLUC 119* CA 8.3* ANION 12 Cardiac Enzymes: No results for input(s): CK, MB, CKMB, TROPT in the last 24 hours. Liver Function, Amylase, Lipase: No results for input(s): TPROT, ALB, ALT, AST, ALKPHOS, TBILI, AMYLASE, LIPASE, LACTATE in the last 24 hours. MG/PHOS: No results for input(s): MG, P in the last 24 hours. Heme: No results for input(s): RETICP, ABSRETIC, LD, CE, FE, TIBC, TRANSFERSAT in the last 24 hours. No results found for: UALBCR Assessment/Plan 1. Bradycardia - amiodarone and beta blockers have been held. Monitor on telemetry. Follow up EP, who plans to place an ICD tomorrow. ? 2. CAD - on asa and plavix ? 3. HPL - on gemfibrozil ? 4. HTN - on losartan ? 5. Cardiomyopathy - continue with Lasix 20 mg PO VTE Prophylaxis: Lovenox 40mg Sub Q Daily Disposition: Home Plan of care discussed with: Patient SIGNATURE: Jalyn Bernal MD PATIENT NAME: Zaid Eddy DATE: February 06, 2019 TIME: 3:50 PM PAGER/CONTACT #: My Pager SOSA Bustillo 02/06/2019 5:59 PM Signed CARE MANAGEMENT PROGRESS NOTE SERVICE DATE: 02/06/2019 SERVICE TIME: 17:00 LOS: 1 day Advance Directives Received consult from RN re: Pt/pt's son would like more information on advance directives. Met with pt/pt's son (at bedside); explained use and purpose of documents to pt (through pt's son). Per pt's son's question, explained [place] ([facility] decision making hierarchy. Pt/pt's son declined to complete advance directives at this time. Pt is but his is in [place]. Pt's son (Dominic [phone]) would then become decision maker should pt not be able to make his own decisions. Pt does have a dtr who is younger than his son. SIGNATURE: SOSA Bustillo PATIENT NAME: Zaid Eddy DATE: February 06, 2019 TIME: 5:56 PM PAGER/CONTACT #: [phone] Progress Notes ([facility]): Mey Seo LPN, NURSING ASSISTANTS TE[employer]ER 01/28/2019 9:41 AM Signed ----- Message from Erick King sent at 01/27/2019 7:45 PM EDT ----- Negative FOBT for blood. Repeat in 1 year for colon cancer screening. Mey Soe LPN, NURSING ASSISTANTS TE[employer]ER 01/28/2019 9:42 AM Signed Spoke with pt gave information provided. Pt voices understanding. Normal [facility] Vital Signs Date Time Vital Sign Value Performing Clinician Bere baker 07-05-2025 11:21-0400 Body height 172.[address] Antonina Means MD Work Phone: [facility] 07-05-2025 11:21-0400 Body mass index (BMI) [Ratio] 28.7 kg/m2 Dr. Antonina Means MD Work Phone: [facility] 07-05-2025 11:21-0400 Body temperature 97.2 [degF] Dr. Antonina Means MD Work Phone: [facility] 07-05-2025 11:21-0400 Body weight 85.[address] Antonina Means MD Work Phone: [facility] 07-05-2025 11:21-0400 Diastolic blood pressure 82 mm[Hg] Dr. Antonina Means MD Work Phone: [facility] 07-05-2025 11:21-0400 Heart rate 71 /min Dr. Antonina Means MD Work Phone: [facility] 07-05-2025 11:21-0400 Respiratory rate 18 /min Dr. Antonina Means MD Work Phone: [facility] 07-05-2025 11:21-0400 SaO2% (BldA) [Mass fraction] 95 % Dr. Antonina Means MD Work Phone: [facility] 07-05-2025 11:21-0400 Systolic blood pressure 144 mm[Hg] Dr. Antonina Means MD Work Phone: [facility] 01-20-2024 09:14-0400 Body height 172.[address] Antonina Means Work Phone: [facility] 01-20-2024 09:14-0400 Body mass index (BMI) [Ratio] 28.7 kg/m2 Dr. Antonina Means Work Phone: [facility] 01-20-2024 09:14-0400 Body temperature 97.4 [degF] Dr. Antonina Means Work Phone: [facility] 01-20-2024 09:14-0400 Body weight 85.[address] Antonina Means Work Phone: [facility] 01-20-2024 09:14-0400 Diastolic blood pressure 70 mm[Hg] Dr. Antonina Means Work Phone: [facility] 01-20-2024 09:14-0400 Heart rate 90 /min Dr. Antonina Means Work Phone: [facility] 01-20-2024 09:14-0400 Respiratory rate 17 /min Dr. Antonina Means Work Phone: [facility] 01-20-2024 09:14-0400 SaO2% (BldA) [Mass fraction] 95 % Dr. Antonina Means Work Phone: [facility] 01-20-2024 09:14-0400 Systolic blood pressure 124 mm[Hg] Dr. Antonina Means Work Phone: [facility] 04-30-2023 13:14-0400 Body height 172.[address] Antonina Means Work Phone: [facility] 04-30-2023 13:11-0400 Body mass index (BMI) [Ratio] 29.5 kg/m2 Dr. Antonina Means Work Phone: [facility] 04-30-2023 13:11-0400 Body weight 87.[address] Antonina Means Work Phone: [facility] 04-30-2023 13:11-0400 Diastolic blood pressure 76 mm[Hg] Dr. Antonina Means Work Phone: [facility] 04-30-2023 13:11-0400 Heart rate 88 /min Dr. Antonina Means Work Phone: [facility] 04-30-2023 13:11-0400 Respiratory rate 16 /min Dr. Antonina Means Work Phone: [facility] 04-30-2023 13:11-0400 SaO2% (BldA) [Mass fraction] 98 % Dr. Antonina Means Work Phone: [facility] 04-30-2023 13:11-0400 Systolic blood pressure 126 mm[Hg] Dr. Antonina Means Work Phone: [facility] 10-24-2022 10:04-0500 Body height 172.[address] Antonina Means Work Phone: [facility] 10-24-2022 10:04-0500 Body mass index (BMI) [Ratio] 29 kg/m2 Dr. Antonina Means Work Phone: [facility] 10-24-2022 10:04-0500 Body temperature 98.8 [degF] Dr. Antonina Means Work Phone: [facility] 10-24-2022 10:04-0500 Body weight 86.[address] Antonina Means Work Phone: [facility] 10-24-2022 10:04-0500 Diastolic blood pressure 70 mm[Hg] Dr. Antonina Means Work Phone: [facility] 10-24-2022 10:04-0500 Heart rate 43 /min Dr. Antonina Means Work Phone: [facility] 10-24-2022 10:04-0500 Respiratory rate 16 /min Dr. Antonina Means Work Phone: [facility] 10-24-2022 10:04-0500 SaO2% (BldA) [Mass fraction] 98 % Dr. Antonina Means Work Phone: [facility] 10-24-2022 10:04-0500 Systolic blood pressure 110 mm[Hg] Dr. Antonina Means Work Phone: [facility] 09-26-2022 14:19-0500 Body temperature 98.6 [degF] Dr. Antonina Means Work Phone: [facility] 09-26-2022 14:19-0500 Body weight 86.[address] Antonina Means Work Phone: [facility] 09-26-2022 14:19-0500 Diastolic blood pressure 98 mm[Hg] Dr. Antonina Means Work Phone: [facility] 09-26-2022 14:19-0500 Heart rate 63 /min Dr. Antonina Means Work Phone: [facility] 09-26-2022 14:19-0500 Respiratory rate 18 /min Dr. Antonina Means Work Phone: [facility] 09-26-2022 14:19-0500 SaO2% (BldA) [Mass fraction] 98 % Dr. Antonina Means Work Phone: [facility] 09-26-2022 14:19-0500 Systolic blood pressure 130 mm[Hg] Dr. Antonina Means Work Phone: [facility] 09-25-2022 10:27-0500 Body height 172.[address] Antonina Means Work Phone: [facility] Work Phone: 09-25-2022 10:27-0500 Body mass index (BMI) [Ratio] 29.3 kg/m2 Dr. Antonina Means Work Phone: [facility] 09-25-2022 10:27-0500 Body weight 87.[address] Antonina Means Work Phone: [facility] 09-25-2022 10:27-0500 Diastolic blood pressure 65 mm[Hg] Dr. Antonina Means Work Phone: [facility] 09-25-2022 10:27-0500 Heart rate 73 /min Dr. Antonina Means Work Phone: [facility] 09-25-2022 10:27-0500 Respiratory rate 16 /min Dr. Antonina Means Work Phone: [facility] 09-25-2022 10:27-0500 Systolic blood pressure 111 mm[Hg] Dr. Antonina Means Work Phone: [facility] 07-11-2022 11:20-0400 Body height 172.[address] Antonina Means Work Phone: [facility] Work Phone: 07-11-2022 11:20-0400 Body mass index (BMI) [Ratio] 30.4 kg/m2 Dr. Antonina Means Work Phone: [facility] 07-11-2022 11:20-0400 Body temperature 98.7 [degF] Dr. Antonina Means Work Phone: [facility] 07-11-2022 11:20-0400 Body weight 90.[address] Antonina Means Work Phone: [facility] 07-11-2022 11:20-0400 Diastolic blood pressure 78 mm[Hg] Dr. Atnonina Means Work Phone: [facility] 07-11-2022 11:20-0400 Heart rate 64 /min Dr. Antonina Means Work Phone: [facility] 07-11-2022 11:20-0400 Respiratory rate 18 /min Dr. Antonina Means Work Phone: [facility] 07-11-2022 11:20-0400 SaO2% (BldA) [Mass fraction] 97 % Dr. Antonina Means Work Phone: [facility] 07-11-2022 11:20-0400 Systolic blood pressure 140 mm[Hg] Dr. Antonina Means Work Phone: [facility] 07-04-2022 14:51-0400 Body height 172.[address] Antonina Means Work Phone: [facility] Work Phone: 07-04-2022 14:51-0400 Body mass index (BMI) [Ratio] 29.5 kg/m2 Dr. Antonina Means Work Phone: [facility] Work Phone: 07-04-2022 14:51-0400 Body weight 87.[address] Antonina Means Work Phone: [facility] Work Phone: 07-04-2022 14:51-0400 Diastolic blood pressure 70 mm[Hg] Dr. Antonina Means Work Phone: [facility] Work Phone: 07-04-2022 14:51-0400 Heart rate 60 /min Dr. Antonina Means Work Phone: [facility] Work Phone: 07-04-2022 14:51-0400 Respiratory rate 16 /min Dr. Antonina Means Work Phone: [facility] Work Phone: 07-04-2022 14:51-0400 Systolic blood pressure 133 mm[Hg] Dr. Antonina Means Work Phone: [facility] Work Phone: Encounters Encounter Date Encounter Type Care Provider Facility Start: 07-05-2025 End: 07-05-[address] Antonina Means MD Work Phone: -[facility] Start: 07-05-2025 End: 07-05-2025 Patient encounter procedure Hugo ROLON -[facility] Work Phone: Start: 02-04-2025 End: 02-04-2025 ambulatory Efewongcarmen Marie Facility:[facility] Start: 11-04-2024 End: 11-04-2024 ambulatory Robert Lewis Facility:[facility] Start: 09-07-2024 End: 09-07-2024 ambulatory Hugo ROLON Facility:[facility] Start: 09-07-2024 End: 09-07-2024 ambulatory Hugo ROLON Facility:[facility] Start: 09-01-2024 End: 09-01-2024 ambulatory Paola Jorge Facility:[facility] Start: 08-05-2024 End: 08-05-2024 ambulatory Columbus Lewis Facility:[facility] Start: 05-14-2024 End: 05-14-2024 ambulatory Robert Lewis Facility:[facility] Start: 04-29-2024 End: 04-29-2024 ambulatory Efewongbe Oleghe Facility:[facility] Start: 04-29-2024 End: 04-29-2024 ambulatory Efewongbe Oleghe Facility:[facility] Start: 04-01-2024 ambulatory Paola Jorge Facility:[facility] Start: 04-01-2024 End: 04-01-2024 ambulatory Efewongbe Oleghe Facility:[facility] Start: 03-04-2024 End: 03-04-2024 ambulatory Efewongbe Oleghe Facility:[facility] Start: 03-02-2024 End: 03-02-2024 ambulatory Arsal Ahmad Facility:[facility] Start: 02-24-2024 End: 02-24-2024 ambulatory Abraham Patel Facility:[facility] Start: 2024 End: 2024 ambulatory Antonina Means Facility:[facility] Start: 02-12-2024 ambulatory Antonina Means Facili ty:[facility] Start: 01-21-2024 Non-patient / Non-visit Dr. Endy Means Work Phone: [facility] Work Phone: Start: 01-20-2024 End: 01-20-[address] Antonina Means Work Phone: [facility] Work Phone: Start: 01-20-2024 End: 01-20-[address] Antonina Means Work Phone: [facility] Work Phone: Start: 11-06-2023 End: 11-06-[address] Antonina Means Work Phone: [facility] Work Phone: Start: 05-31-2023 Non-patient / Non-visit Dr. Endy Means Work Phone: [facility] Start: 05-29-2023 End: 05-29-[address] Antonina Means Work Phone: [facility] Work Phone: Start: 05-29-2023 End: 05-29-[address] Antonina Means Work Phone: [facility] Services/Neurology Work Phone: Start: 05-08-2023 Non-patient / Non-visit Dr. Endy Means Work Phone: [facility] Start: 05-08-2023 End: 05-08-[address] [facility] Start: 04-30-2023 End: 04-30-[address] Antonina Means Work Phone: [facility] Work Phone: Start: 04-30-2023 End: 04-30-[address] Antonina Means Work Phone: [facility] Work Phone: Start: 03-11-2023 Non-patient / Non-visit Dr. Endy Means Work Phone: [facility] Work Phone: Start: 01-14-2023 End: 01-14-[address] Antonina Means Work Phone: [facility] Work Phone: Start: 10-24-2022 End: 10-24-[address] Antonina Means Work Phone: [facility] Work Phone: Start: 10-24-2022 End: 10-24-[address] Antonina Means Work Phone: [facility] Start: 10-08-2022 End: 10-08-[address] Antonina Means Work Phone: [facility] Start: 09-26-2022 End: 09-26-[address] Antonina Means Work Phone: [facility] Start: 09-25-2022 End: 09-25-[address] Antonina Means Work Phone: [facility] Work Phone: Start: 09-25-2022 End: 09-25-[address] Antonina Means Work Phone: [facility]-Laboratory Start: 09-25-2022 End: 09-25-[address] Antonina Means Work Phone: [facility] Start: 07-28-2022 Non-patient / Non-visit Dr. Endy Means Work Phone: [facility] Start: 07-28-2022 End: 07-28-[address] Antonina Means Work Phone: [facility] Work Phone: Start: 07-28-2022 End: 07-28-[address] Antonina Means Work Phone: [facility]Cardiovascular Services Start: 07-25-2022 End: 07-25-[address] Antonina Means Work Phone: [facility] Work Phone: Start: 07-25-2022 End: 07-25-[address] Antonina Means Work Phone: [facility] Therapy Start: 07-25-[address] Leobardo Means Work Phone: [facility] Start: 07-15-2022 Non-patient / Non-visit Dr. Endy Means Work Phone: [facility] Start: 07-14-2022 End: 07-14-[address] Antonina Means Work Phone: [facility] Work Phone: Start: 07-14-2022 End: 07-14-[address] Antonina Means Work Phone: [facility] Start: 07-11-2022 End: 07-11-[address] Antonina Menas Work Phone: [facility] Start: 07-07-2022 End: 07-07-[address] Antonina Means Work Phone: [facility] Work Phone: Start: 07-07-2022 End: 07-07-[address] Antonina Means Work Phone: [facility] Start: 07-04-2022 End: 07-04-[address] Antonina Means Work Phone: [facility] Work Phone: Start: 07-04-2022 End: 07-04-[address] Antonina Means Work Phone: [facility] Start: 07-04-2022 End: 07-04-[address] Antonina Means Work Phone: [facility] Start: 12-12-[address] Antonina Means Work Phone: [facility] Procedures Date Procedure Procedure Detail Performing Clinician Start: 07-14-2022 Diagnostic radiograp hy of finger Dr. Antonina Means Work Phone: Start: 07-14-2022 Plain X-ray of shoulder Dr. Antonina Means Work Phone: Start: 07-04-2022 Plain chest X-ray Dr. Sebastian Means Work Phone: Start: 02-16-2007 History of coronary artery bypass grafting History of coronary artery bypass graft x 3 Dr. Antonina Means Work Phone: Comment on above: CABG 02/27/2007 @ [facility] [employer] [facility]. (Unable to obtain report, Patient states X 3 vessels) Plan of Treatment Date Care Activity Detail Author Start: 07-05-2025 Complete blood count [facility] Start: 07-05-2025 Comprehensive metabo lic 2000 panel - Serum or Plasma [facility] Start: 07-05-2025 Hemoglobin A1c/Hemog lobin.total in Blood [facility] Start: 07-05-2025 Lipid 1996 panel - Serum or Plasma [facility] Start: 07-05-2025 Prostate specific an tigen measurement [facility] Start: 07-05-2025 Prothrombin time [facility] Start: 07-05-2025 Thyroid stimulating hormone measurement [facility] Start: 07-05-2025 von Willebrand facto r (vWf) ristocetin cofactor actual/normal in Platelet poor plasma by Platelet aggregation [facility] Start: 01-20-2024 Patient referral [facility] Work Phone: Start: 07-11-2022 Patient referral [facility] Work Phone: Alanine aminotransfe rase [Enzymatic activity/volume] in Serum or Plasma [facility] Albumin [Mass/volume ] in Serum or Plasma [facility] Alkaline phosphatase [Enzymatic activity/volume] in Serum or Plasma [facility] Anion gap in Serum or Plasma [facility] Bilirubin, total measurement [facility] BUN/Creatinine ratio [facility] Calcium [Mass/volume ] in Serum or Plasma [facility] Carbon dioxide, tota l [Moles/volume] in Central venous blood [facility] Cholesterol [Mass/vo lume] in Serum or Plasma [facility] Cholesterol in HDL [ Mass/volume] in Serum or Plasma [facility] Creatinine [Mass/vol ume] in Serum or Plasma [facility] Erythrocyte mean cor puscular volume determination [facility] Glucose [Mass/volume ] in Serum or Plasma [facility] Hematocrit [Volume F raction] of Blood [facility] Hemoglobin [Mass/volume] in Blood [facility] INR in Blood by Coagulation assay [facility] Leukocytes [#/volume] in Blood [facility] Low density lipoprot ein cholesterol measurement [facility] Mean corpuscular hem oglobin concentration determination [facility] Mean corpuscular hem oglobin determination [facility] Measurement of renal function [facility] Measurement of respi ratory function [facility] Patient referral [facility] Work Phone: Platelets [#/volume] in Blood [facility] Potassium measurement [facility] Red blood cell count [facility] Red cell distributio n width determination [facility] Serum chloride measurement [facility] Sodium measurement [facility] T4 free measurement [facility] Work Phone: T4 free measurement [facility] Total cholesterol:HD L ratio measurement [facility] Total protein measurement [facility] Triglycerides measurement [facility] Triiodothyronine, free measurement [facility] Work Phone: Triiodothyronine, free measurement [facility] Urea nitrogen [Mass/ volume] in Serum or Plasma [facility] US Carotid arteries [facility] US Heart [facility] Work Phone: VLDL cholesterol measurement [facility] Immunizations Immunization Date Immunization Notes Care Provider [facility] 08-20-2024 influenza, high dose seasonal, preservative-free Dr. Antonina Means MD Work Phone: [facility] 07-06-2023 Influenza High-Dose Quadrivalent Dr. Antonina Means MD Work Phone: [facility] 06-03-2023 Pneumococcal Vaccine PCV20 (Prevnar 20) Dr. Antonina Means MD Work Phone: [facility] 09-26-2022 influenza, injectabl e, quadrivalent, preservative free Dr. Antonina Means Work Phone: [facility] 09-26-2022 influenza, seasonal, injectable Dr. Antonina Means Work Phone: [facility] 07-03-[address] Antonina Means Work Phone: [facility] 01-06-2022 tetanus toxoid, redu richar diphtheria toxoid, and acellular pertussis vaccine, adsorbed Dr. Antonina Means Work Phone: [facility] 01-06-[address] Antonina Means Work Phone: [facility] 12-30-2021 Covid (Pfizer) Dr. Antonina Means Work Phone: [facility] 12-12-2021 pneumococcal polysaccharide vaccine, [address] Antonina Means Work Phone: [facility] 04-12-2021 Covid (Pfizer) Dr. Antonina Means Work Phone: [facility] 03-22-2021 Covid (Pfizer) Dr. Antonina Means Work Phone: [facility] 08-06-2020 Influenza, injectabl e, Madin Hien Canine Kidney, preservative free, quadrivalent Dr. Antonina Means MD Work Phone: [facility] 12-09-2019 influenza, injectabl e, quadrivalent, preservative free Dr. Antonina Means MD Work Phone: [facility] 03-19-[address] Antonina Means Work Phone: [facility] Payers Date Payer Category Payer Self-pay [id number] 2024 Medicaid [id number] Unknown [facility] [id number] Unknown [id number] Unknown [id number] 2.16.8 [id number] Unknown [id number] 2.16.8 [id number] Unknown [id number] 2.16.8 [id number] Unknown [id number] 2.16.8 [id number] Unknown [id number] 2.16.8 [id number] Unknown [id number] 2.16.8 [id number] Unknown [id number] 2.16.8 [id number] Unknown [id number] 2.16.8 [id number] Unknown [id number] 2.16.8 [id number] Unknown [id number] 2.16.8 [id number] Unknown [id number] 2.16.8 [id number] Unknown [id number] 2.16.8 [id number] Unknown [id number] 2.16.8 [id number] Unknown [id number] 2.16.8 [id number] Unknown [id number] 2.16.8 [id number] Unknown [id number] 2.16.8 [id number] Unknown [id number] 2.16.8 [id number] Social History Date Type Detail Facility Start: 07-04-2022 End: 01-20-2024 Tobacco smoking status HIIS Unknown if ever smoked [facility] Start: 02-05-2019 None [facility] Start: 02-05-2019 With Family [facility] Start: 1955 Sex Assigned At Male [facility] Start: 01-20-2024 Tobacco smoking stat us NHIS Ex-smoker (finding) [facility] Sex Male [facility] Medical Equipment Procedure Code Equipment Code Equipment Origin al Text Equipment Identifier Dates Blood Sugar Diagnostic (Onetouch Ultra Test) strip Start: 07-08-2022 Blood Sugar Diagnostic (Onetouch Verio Test Strips) strip Start: 04-26-2021 Lancets (Freesty le Lancets) 28 gauge misc Start: 04-03-2021 Blood Sugar Diagnostic (Freestyle Lite Strips) strip Start: 04-03-2021 End: 04-26-2021 Blood Sugar Diagnostic (Freestyle Lite Strips) strip Start: 04-26-2021 End: 07-08-2022 Blood Sugar Diagnostic (Onetouch Ultra Test) strip Start: 07-08-2022 Blood Sugar Diagnostic (Onetouch Verio Test Strips) strip Start: 04-26-2021 Lancets (Freesty le Lancets) 28 gauge misc Start: 04-03-2021 Blood Sugar Diagnostic (Freestyle Lite Strips) strip Start: 04-03-2021 End: 04-26-2021 Blood Sugar Diagnostic (Freestyle Lite Strips) strip Start: 04-26-2021 End: 07-08-2022 Blood Sugar Diagnostic (Onetouch Ultra Test) strip Start: 07-15-2022 Lancets (Freesty le Lancets) 28 gauge misc Start: 04-03-2021 Blood Sugar Diagnostic (Freestyle Lite Strips) strip Start: 04-03-2021 End: 04-26-2021 Blood Sugar Diagnostic (Freestyle Lite Strips) strip Start: 04-26-2021 End: 07-08-2022 Blood Sugar Diagnostic (Onetouch Ultra Test) strip Start: 07-08-2022 End: 07-15-2022 Blood Sugar Diagnostic (Onetouch Verio Test Strips) strip Start: 07-11-2022 End: 07-15-2022 Blood Sugar Diagnostic (Onetouch Verio Test Strips) strip Start: 04-26-2021 End: 07-11-2022 Blood Sugar Diagnostic (Onetouch Verio Test Strips) strip Start: 07-15-2022 End: 07-15-2022 Blood Sugar Diagnostic (Onetouch Ultra Test) strip Start: 07-15-2022 Lancets (Freesty le Lancets) 28 gauge misc Start: 04-03-2021 Blood Sugar Diagnostic (Freestyle Lite Strips) strip Start: 04-03-2021 End: 04-26-2021 Blood Sugar Diagnostic (Freestyle Lite Strips) strip Start: 04-26-2021 End: 07-08-2022 Blood Sugar Diagnostic (Onetouch Ultra Test) strip Start: 07-08-2022 End: 07-15-2022 Blood Sugar Diagnostic (Onetouch Verio Test Strips) strip Start: 07-11-2022 End: 07-15-2022 Blood Sugar Diagnostic (Onetouch Verio Test Strips) strip Start: 04-26-2021 End: 07-11-2022 Blood Sugar Diagnostic (Onetouch Verio Test Strips) strip Start: 07-15-2022 End: 07-15-2022 Blood Sugar Diagnostic (Onetouch Ultra Test) strip Start: 07-15-2022 Lancets (Freesty le Lancets) 28 gauge misc Start: 04-03-2021 Blood Sugar Diagnostic (Freestyle Lite Strips) strip Start: 04-03-2021 End: 04-26-2021 Blood Sugar Diagnostic (Freestyle Lite Strips) strip Start: 04-26-2021 End: 07-08-2022 Blood Sugar Diagnostic (Onetouch Ultra Test) strip Start: 07-08-2022 End: 07-15-2022 Blood Sugar Diagnostic (Onetouch Verio Test Strips) strip Start: 07-11-2022 End: 07-15-2022 Blood Sugar Diagnostic (Onetouch Verio Test Strips) strip Start: 04-26-2021 End: 07-11-2022 Blood Sugar Diagnostic (Onetouch Verio Test Strips) strip Start: 07-15-2022 End: 07-15-2022 Blood Sugar Diagnostic (Onetouch Ultra Test) strip Start: 07-15-2022 Lancets (Freesty le Lancets) 28 gauge misc Start: 04-03-2021 Blood Sugar Diagnostic (Freestyle Lite Strips) strip Start: 04-03-2021 End: 04-26-2021 Blood Sugar Diagnostic (Freestyle Lite Strips) strip Start: 04-26-2021 End: 07-08-2022 Blood Sugar Diagnostic (Onetouch Ultra Test) strip Start: 07-08-2022 End: 07-15-2022 Blood Sugar Diagnostic (Onetouch Verio Test Strips) strip Start: 07-11-2022 End: 07-15-2022 Blood Sugar Diagnostic (Onetouch Verio Test Strips) strip Start: 04-26-2021 End: 07-11-2022 Blood Sugar Diagnostic (Onetouch Verio Test Strips) strip Start: 07-15-2022 End: 07-15-2022 Blood Sugar Diagnostic (Onetouch Ultra Test) strip Start: 07-15-2022 Lancets (Freesty le Lancets) 28 gauge misc Start: 10-24-2022 Blood Sugar Diagnostic (Freestyle Lite Strips) strip Start: 04-03-2021 End: 04-26-2021 Blood Sugar Diagnostic (Freestyle Lite Strips) strip Start: 04-26-2021 End: 07-08-2022 Blood Sugar Diagnostic (Onetouch Ultra Test) strip Start: 07-08-2022 End: 07-15-2022 Blood Sugar Diagnostic (Onetouch Verio Test Strips) strip Start: 07-11-2022 End: 07-15-2022 Blood Sugar Diagnostic (Onetouch Verio Test Strips) strip Start: 04-26-2021 End: 07-11-2022 Blood Sugar Diagnostic (Onetouch Verio Test Strips) strip Start: 07-15-2022 End: 07-15-2022 Lancets (Freesty le Lancets) 28 gauge misc Start: 04-03-2021 End: 10-17-2022 Lancets (Freesty le Lancets) 28 gauge misc Start: 10-17-2022 End: 10-24-2022 Blood Sugar Diagnostic (Onetouch Ultra Test) strip Start: 07-15-2022 Lancets (Freesty le Lancets) 28 gauge misc Start: 10-24-2022 Blood Sugar Diagnostic (Freestyle Lite Strips) strip Start: 04-03-2021 End: 04-26-2021 Blood Sugar Diagnostic (Freestyle Lite Strips) strip Start: 04-26-2021 End: 07-08-2022 Blood Sugar Diagnostic (Onetouch Ultra Test) strip Start: 07-08-2022 End: 07-15-2022 Blood Sugar Diagnostic (Onetouch Verio Test Strips) strip Start: 07-11-2022 End: 07-15-2022 Blood Sugar Diagnostic (Onetouch Verio Test Strips) strip Start: 04-26-2021 End: 07-11-2022 Blood Sugar Diagnostic (Onetouch Verio Test Strips) strip Start: 07-15-2022 End: 07-15-2022 Lancets (Freesty le Lancets) 28 gauge misc Start: 04-03-2021 End: 10-17-2022 Lancets (Freesty le Lancets) 28 gauge misc Start: 10-17-2022 End: 10-24-2022 Blood Sugar Diagnostic (Onetouch Ultra Test) strip Start: 07-15-2022 Lancets (Freesty le Lancets) 28 gauge misc Start: 10-24-2022 Blood Sugar Diagnostic (Freestyle Lite Strips) strip Start: 04-03-2021 End: 04-26-2021 Blood Sugar Diagnostic (Freestyle Lite Strips) strip Start: 04-26-2021 End: 07-08-2022 Blood Sugar Diagnostic (Onetouch Ultra Test) strip Start: 07-08-2022 End: 07-15-2022 Blood Sugar Diagnostic (Onetouch Verio Test Strips) strip Start: 07-11-2022 End: 07-15-2022 Blood Sugar Diagnostic (Onetouch Verio Test Strips) strip Start: 04-26-2021 End: 07-11-2022 Blood Sugar Diagnostic (Onetouch Verio Test Strips) strip Start: 07-15-2022 End: 07-15-2022 Lancets (Freesty le Lancets) 28 gauge misc Start: 04-03-2021 End: 10-17-2022 Lancets (Freesty le Lancets) 28 gauge misc Start: 10-17-2022 End: 10-24-2022 Blood Sugar Diagnostic (Onetouch Ultra Test) strip Start: 07-14-2023 Lancets (Freesty le Lancets) 28 gauge misc Start: 10-24-2022 Blood Sugar Diagnostic (Freestyle Lite Strips) strip Start: 04-03-2021 End: 04-26-2021 Blood Sugar Diagnostic (Freestyle Lite Strips) strip Start: 04-26-2021 End: 07-08-2022 Blood Sugar Diagnostic (Onetouch Ultra Test) strip Start: 07-08-2022 End: 07-15-2022 Blood Sugar Diagnostic (Onetouch Ultra Test) strip Start: 07-15-2022 End: 07-14-2023 Blood Sugar Diagnostic (Onetouch Verio Test Strips) strip Start: 07-11-2022 End: 07-15-2022 Blood Sugar Diagnostic (Onetouch Verio Test Strips) strip Start: 04-26-2021 End: 07-11-2022 Blood Sugar Diagnostic (Onetouch Verio Test Strips) strip Start: 07-15-2022 End: 07-15-2022 Lancets (Freesty le Lancets) 28 gauge misc Start: 04-03-2021 End: 10-17-2022 Lancets (Freesty le Lancets) 28 gauge misc Start: 10-17-2022 End: 10-24-2022 Blood Sugar Diagnostic (Accu-Chek Guide Test Strips) strip Start: 07-03-2025 Lancets (Accu-Ch ek Softclix Lancets) misc Start: 07-03-2025 Blood Sugar Diagnostic (Freestyle Lite Strips) strip Start: 04-03-2021 End: 04-26-2021 Blood Sugar Diagnostic (Freestyle Lite Strips) strip Start: 04-26-2021 End: 07-08-2022 Blood Sugar Diagnostic (Freestyle Lite Strips) strip Start: 01-28-2024 End: 01-28-2024 Blood Sugar Diagnostic (Freestyle Lite Strips) strip Start: 01-28-2024 End: 07-03-2025 Blood Sugar Diagnostic (Onetouch Ultra Test) strip Start: 09-07-2024 End: 07-03-2025 Blood Sugar Diagnostic (Onetouch Ultra Test) strip Start: 07-08-2022 End: 07-15-2022 Blood Sugar Diagnostic (Onetouch Ultra Test) strip Start: 07-15-2022 End: 07-14-2023 Blood Sugar Diagnostic (Onetouch Ultra Test) strip Start: 07-14-2023 End: 01-28-2024 Blood Sugar Diagnostic (Onetouch Ultra Test) strip Start: 01-28-2024 End: 09-07-2024 Blood Sugar Diagnostic (Onetouch Verio Test Strips) strip Start: 07-11-2022 End: 07-15-2022 Blood Sugar Diagnostic (Onetouch Verio Test Strips) strip Start: 04-26-2021 End: 07-11-2022 Blood Sugar Diagnostic (Onetouch Verio Test Strips) strip Start: 07-15-2022 End: 07-15-2022 Lancets (Freesty le Lancets) 28 gauge misc Start: 04-03-2021 End: 10-17-2022 Lancets (Freesty le Lancets) 28 gauge misc Start: 10-24-2022 End: 09-12-2024 Lancets (Freesty le Lancets) 28 gauge misc Start: 09-07-2024 End: 09-12-2024 Lancets (Freesty le Lancets) 28 gauge misc Start: 10-17-2022 End: 10-24-2022 Lancets (Freesty le Lancets) 28 gauge misc Start: 01-28-2024 End: 09-07-2024 Lancets (Freesty le Lancets) 28 gauge misc Start: 09-12-2024 End: 09-12-2024 Lancets (Freesty le Lancets) 28 gauge misc Start: 09-12-2024 End: 07-03-2025 Clinical Notes 02-04-2021 to 05-31-2023 Note Date & Type Note Facility 05-31-2023 Procedure note [facility] 08-23-2021 Note HNO ID: [id number] Author: Eileen Ivan Service: ? Author Type: ? Type: Progress Notes Filed: 08/23/2021 12:54 PM Note Text: POPULATION HEALTH NAVIGATION OUTREACH Action/FYI *Colorectal Cancer Screening Due Called patient to offer scheduling for colonoscopy, automated messages says caller is not available (multiple attempts) patient is not active on MyChart Contact made with patient or family member? NO Pt identified by name and : NO Outreach Outcome/Action Unable to reach patient: Phone number not valid / voicemail full Reason for Outreach Care Gap or Scheduling/Wellness visits Payer: Payor: [place] MEDICA[place] / Plan: [place] [facility] MEDICAID / Product Type: Medicaid / Care Gap Reviewed:: Colorectal Cancer Screening Reminder: Reminder note to check Health Maintenance for items below Health Maintenance items due: ABDOMINAL AORTIC ANEURYSM SCREENING Never done COVID-19 VACCINE(1) Never done HEPATITIS C SCREENING Never done HIV SCREENING Never done BP CONTROLLED (<130/80) Never done DTAP,TDAP,TD(1 - Tdap) Never done SHINGRIX VACCINE(1 of 2) Never done PROSTATE CANCER SCREENING DISCUSSION Never done DEPRESSION SCREENING due on 01/18/2020 COLORECTAL CANCER SCREENING due on 01/25/2020 ANNUAL PCP TEAM CHRONIC DISEASE VISIT due on 04/11/2020 LDL CHOLESTEROL due on 11/11/2020 ADVANCE DIRECTIVE DISCUSSION Never done PNEUMOVAX AGE 65 AND OVER WITH 5YR LOOKBACK(1) Never done INFLUENZA(1) due on 06/19/2021 Advanced Directives Completed: Have you ever planned for future healthcare decisions with a power of orthodontist vice president, living will, or advance directives? Referrals: Message Sent to Practice: NO Navigation Signature: Eileen Ivan August 23, 2021 12:52 PM [facility] 08-23-2021 Note Patient Outreach (BRUNO PIRESAV) ZAID EDDY ([id number]) 1955 M Date Time Provider Department 08/23/21 EILEEN IVAN (DARRICK LIRIANO During your visit today, we recorded the following information about you: Eileen Ivan 08/23/2021 12:54 PM Signed POPULATION HEALTH NAVIGATION OUTREACH Action/ *Colorectal Cancer Screening Due Called patient to offer scheduling for colonoscopy, automated messages says caller is not available (multiple attempts) patient is not active on MyChart Contact made with patient or family member? NO Pt identified by name and : NO Outreach Outcome/Action Unable to reach patient: Phone number not valid / voicemail full Reason for Outreach Care Gap or Scheduling/Wellness visits Payer: Payor: [place] MEDICAID / Plan: [employer] [facility] MEDICAID / Product Type: Medicaid / Care Gap Reviewed:: Colorectal Cancer Screening Reminder: Reminder note to check Health Maintenance for items below Health Maintenance items due: ABDOMINAL AORTIC ANEURYSM SCREENING Never done COVID-19 VACCINE(1) Never done HEPATITIS C SCREENING Never done HIV SCREENING Never done BP CONTROLLED (<130/80) Never done DTAP,TDAP,TD(1 - Tdap) Never done SHINGRIX VACCINE(1 of 2) Never done PROSTATE CANCER SCREENING DISCUSSION Never done DEPRESSION SCREENING due on 01/18/2020 COLORECTAL CANCER SCREENING due on 01/25/2020 ANNUAL PCP TEAM CHRONIC DISEASE VISIT due on 04/11/2020 LDL CHOLESTEROL due on 11/11/2020 ADVANCE DIRECTIVE DISCUSSION Never done PNEUMOVAX AGE 65 AND OVER WITH 5YR LOOKBACK(1) Never done INFLUENZA(1) due on 06/19/2021 Advanced Directives Completed: Have you ever planned for future healthcare decisions with a power of orthodontist vice president, living will, or advance directives? Referrals: Message Sent to Practice: NO Navigation Signature: Eileen Ivan August 23, 2021 12:52 PM Allergies As of Date: 08/23/2021 (No Known Allergies) Date Reviewed: 04/11/2019 Reviewed by: El Carroll Ma - Fully Assessed Reason for Visit: Population Health Navigation Outreach [3910] Cmt: Colorectal Cancer Screening Due Prescriptions as of 08/23/2021 - atorvastatin (LIPITOR) 20 mg tablet Take 1 tablet by mouth daily at bedtime. For cholesterol. - furosemide (LASIX) 20 mg tablet Take 1 tablet by mouth once daily. - allopurinol (ZYLOPRIM) 100 mg tablet Take 1 tablet by mouth once daily. For gout. - COMPOUNDED PRESCRIPTION BLOOD PRESSURE MONITOR FOR HOME USE. DX: LABILE BLOOD PRESSURE - carvedilol (COREG) 6.25 mg tablet Take 1 tablet by mouth twice daily with meals. - clopidogrel (PLAVIX) 75 mg tablet Take 1 tablet by mouth once daily. - losartan (COZAAR) 25 mg tablet Take 1 tablet by mouth once daily. - aspirin, enteric coated (ASPIRIN, ENTERIC COATED) 81 mg EC tablet 1 tablet once daily. - gemfibrozil (LOPID) 600 mg tablet 1 tablet twice daily. 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 drug [Z* penitentiary current use of amiodarone [Z79.899] Coronary artery disease involving [place]* Premature ventricular contractions (PVCs) (VPCs* Ventricular bigeminy [I49.8] 02/08/2019 Nonsustained paroxysmal ventricular tachycardia* 02/08/2019 Chronotropic incompetence with sinus node dysfu* Episodic lightheadedness [R42] 02/08/2019 Exertional dyspnea [R06.00] 02/08/2019 Presence of implantable cardioverter-defibrilla* 9 Encounter Status:Closed by EILEEN IVAN on 08/23/21 [facility] 03-13-2021 Note HNO ID: [id number] Author: Mey Seo LPN Service: ? Author Type: LICENSED NURSE Type: Progress Notes Filed: 03/13/2021 7:26 PM Note Text: POPULATION HEALTH NAVIGATION OUTREACH Action/FYI htn Contact made with patient or family member? NO Pt identified by name and : YES Outreach Outcome/Action Unable to reach patient Reason for Outreach Care Gap or Scheduling/Wellness visits Payer: Payor: [place] MEDICAID / Plan: [employer] [facility] MEDICAID / Product Type: Medicaid / Care Gap Reviewed:: Controlling Blood Pressure Reminder: Reminder note to check Health Maintenance for items below Health Maintenance items due: ABDOMINAL AORTIC ANEURYSM SCREENING Never done COVID-19 VACCINE(1) Never done HEPATITIS C SCREENING Never done HIV SCREENING Never done BP CONTROLLED (<130/80) Never done DTAP,TDAP,TD(1 - Tdap) Never done SHINGRIX VACCINE(1 of 2) Never done PROSTATE CANCER SCREENING DISCUSSION Never done DEPRESSION SCREENING due on 01/18/2020 COLORECTAL CANCER SCREENING due on 01/25/2020 ANNUAL PCP TEAM CHRONIC DISEASE VISIT due on 04/11/2020 LDL CHOLESTEROL due on 11/11/2020 ADVANCE DIRECTIVE DISCUSSION Never done PNEUMOVAX AGE 65 AND OVER WITH 5YR LOOKBACK(1) due on 02/17/2021 Advanced Directives Completed: Have you ever planned for future healthcare decisions with a power of orthodontist vice president, living will, or advance directives? Referrals: N/A Message Sent to Practice: NO Navigation Signature: Mey Seo LPN March 13, 2021 7:24 PM [facility] 03-13-2021 Note Patient Outreach (MILDRED HUNT) ZAID EDDY ([id number]) 1955 M Date Time Provider Department 03/13/21 MEY SEO During your visit today, we recorded the following information about you: Mey Seo LPN 03/13/2021 7:26 PM Signed POPULATION HEALTH NAVIGATION OUTREACH Action/FYI htn Contact made with patient or family member? NO Pt identified by name and : YES Outreach Outcome/Action Unable to reach patient Reason for Outreach Care Gap or Scheduling/Wellness visits Payer: Payor: [place] MEDICAID / Plan: [facility] MEDICAID / Product Type: Medicaid / Care Gap Reviewed:: Controlling Blood Pressure Reminder: Reminder note to check Health Maintenance for items below Health Maintenance items due: ABDOMINAL AORTIC ANEURYSM SCREENING Never done COVID-19 VACCINE(1) Never done HEPATITIS C SCREENING Never done HIV SCREENING Never done BP CONTROLLED (<130/80) Never done DTAP,TDAP,TD(1 - Tdap) Never done SHINGRIX VACCINE(1 of 2) Never done PROSTATE CANCER SCREENING DISCUSSION Never done DEPRESSION SCREENING due on 01/18/2020 COLORECTAL CANCER SCREENING due on 01/25/2020 ANNUAL PCP TEAM CHRONIC DISEASE VISIT due on 04/11/2020 LDL CHOLESTEROL due on 11/11/2020 ADVANCE DIRECTIVE DISCUSSION Never done PNEUMOVAX AGE 65 AND OVER WITH 5YR LOOKBACK(1) due on 02/17/2021 Advanced Directives Completed: Have you ever planned for future healthcare decisions with a power of orthodontist vice president, living will, or advance directives? Referrals: N/A Message Sent to Practice: NO Navigation Signature: Mey Seo LPN March 13, 2021 7:24 PM Allergies As of Date: 03/13/2021 (No Known Allergies) Date Reviewed: 04/11/2019 Reviewed by: El Carroll Ma - Fully Assessed Reason for Visit: Appointment [186] Cmt: htn Prescriptions as of 03/13/2021 Sig: ATORVASTATIN 20 MG TABLET Take 1 tablet by mouth daily * FUROSEMIDE 20 MG TABLET Take 1 tablet by mouth once d* ALLOPURINOL 100 MG TABLET Take 1 tablet by mouth once d* COMPOUNDED PRESCRIPTION BLOOD PRESSURE MONITOR FOR HO* CARVEDILOL 6.25 MG TABLET Take 1 tablet by mouth twice * CLOPIDOGREL 75 MG TABLET Take 1 tablet by mouth once d* LOSARTAN 25 MG TABLET Take 1 tablet by mouth once d* ASPIRIN 81 MG TABLET,DELAYED * 1 tablet once daily. GEMFIBROZIL 600 MG TABLET 1 tablet twice daily. 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 Author Type: Park Worker Supervisor Type: Progress Notes Filed: 02/04/2021 4:47 PM Note Text: Care Gap Reviewed: Follow-up appointment Phone call placed to patient. Pt identified by name and : NO Outreach Outcome/Action: Unable to reach patient: Phone number not valid / voicemail full If patient deferred or declined to schedule appointment, please indicate the reason(s): Other Lux Brock [facility] 02-04-2021 Note Patient Outreach (FA MPWS) ZAID EDDY ([id number]) 1955 Date Time Provider Department 02/04/21 LUX BROCK During your visit today, we recorded the following information about you: Lux Brock MA 02/04/2021 4:47 PM Signed Care Gap Reviewed: Follow-up appointment Phone call placed to patient. Pt identified by name and : NO Outreach Outcome/Action: Unable to reach patient: Phone number not valid / voicemail full If patient deferred or declined to schedule appointment, please indicate the reason(s): Other Lux Brock Allergies As of Date: 02/04/2021 (No Known Allergies) Date Reviewed: 04/11/2019 Reviewed by: El Carroll Ma - Fully Assessed Reason for Visit: Appointment [186] Cmt: HTN Prescriptions as of 02/04/2021 Sig: ATORVASTATIN 20 MG TABLET Take 1 tablet by mouth daily * FUROSEMIDE 20 MG TABLET Take 1 tablet by mouth once d* ALLOPURINOL 100 MG TABLET Take 1 tablet by mouth once d* COMPOUNDED PRESCRIPTION BLOOD PRESSURE MONITOR FOR HO* CARVEDILOL 6.25 MG TABLET Take 1 tablet by mouth twice * CLOPIDOGREL 75 MG TABLET Take 1 tablet by mouth once d* LOSARTAN 25 MG TABLET Take 1 tablet by mouth once d* ASPIRIN 81 MG TABLET,DELAYED * 1 tablet once daily. GEMFIBROZIL 600 MG TABLET 1 tablet twice daily. Problem List As Of Date 02/04/2021 Noted Resolved Hypertension [I10] Hyperlipidemia [E78.5] Overweight (BMI 25.0-29.9) [E66.3] Bradycardia [R00.1] 02/05/2019 02/08/2019 Coronary artery disease involving [place]* Hx of CABG [Z95.1] Chronic ischemic heart disease [I25.9] Chronic systolic heart failure (HCC) [I50.22] Sinus node dysfunction (HCC) [I49.5] At risk for sudden cardiac [Z91.89] Near syncope [R55] 02/08/2019 History of percutaneous coronary intervention [* 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 drug [Z* penitentiary current use of amiodarone [Z79.899] Coronary artery disease involving [place]* Premature ventricular contractions (PVCs) (VPCs* Ventricular bigeminy [I49.8] 02/08/2019 Nonsustained paroxysmal ventricular tachycardia* 02/08/2019 Chronotropic incompetence with sinus node dysfu* Episodic lightheadedness [R42] 02/08/2019 Exertional dyspnea [R06.00] 02/08/2019 Presence of implantable cardioverter-defibrilla* 9 Encounter Status:Closed by LUX BROCK MA on 02/04/21 [facility] Evaluation note Diagnosis Onset Date Atherosclerotic heart diseas e of [place] coronary artery without angina pectoris chronic Essential hypertension chron ic Hyperlipidemia chronic Ischemic cardiomyopathy 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 [place] penitentiary current use of amiodarone chronic Presence of implantable cardioverter-defibrillator (ICD) chronic Ventricular tachycardia 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 kendall [facility] Work Phone: Evaluation note* Diagnosis Onset Date Resolution Status Atherosclerotic heart diseas e of [place] coronary artery without angina pectoris chronic Essential hypertension chron ic Hyperlipidemia chronic Ischemic cardiomyopathy 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 kendall 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 chronic Presence of implantable card ioverter-defibrillator (ICD) chronic Ventricular tachycardia 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 kendall Essential hypertension chron ic Left shoulder pain chronic Pain of right thumb chronic Type 2 diabetes mellitus chr onic [facility] Work Phone: Evaluation note* Diagnosis Onset Date Resolution Status Atherosclerotic heart diseas e of [place] coronary artery without angina pectoris chronic Essential hypertension chron ic Hyperlipidemia chronic Ischemic cardiomyopathy 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 [place] penitent[facility] current use of amiodarone chronic Presence of implantable card ioverter-defibrillator (ICD) chronic Ventricular tachycardia 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 kendall Essential hypertension chron ic Left shoulder pain chronic Pain of right thumb chronic Type 2 diabetes mellitus chr onic Coronary artery disease 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 k[place]all Essential hypertension chron ic Hyperlipidemia chronic Ischemic cardiomyopathy 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 [place] Presence of implantable card ioverter-defibrillator (ICD) chronic Type 2 diabetes mellitus chr onic Gout acute Hypothyroidism acute Type 2 diabetes mellitus chr onic Travel advice encounter none active Influenza vaccination given noneactive [facility] Work Phone: Evaluation note* Diagnosis Onset Date Resolution Status Atherosclerotic heart diseas e of [place] coronary artery without angina pectoris chronic Essential hypertension chron ic Hyperlipidemia chronic Ischemic cardiomyopathy 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 [place] penitent[facility] current use of amiodarone chronic Presence of implantable card ioverter-defibrillator (ICD) chronic Ventricular tachycardia 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 kendall Essential hypertension chron ic Left shoulder pain chronic Pain of right thumb chronic Type 2 diabetes mellitus chr onic Coronary artery disease 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 kendall Essential hypertension chron ic Hyperlipidemia chronic Ischemic cardiomyopathy 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 k[place]all Presence of implantable card ioverter-defibrillator (ICD) chronic Type 2 diabetes mellitus chr onic Gout acute Hypothyroidism acute Type 2 diabetes mellitus chr onic Travel advice encounter none active Influenza vaccination given noneactive Ischemic cardiomyopathy 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 k[place]all Presence of implantable card ioverter-defibrillator (ICD) chronic [facility] Work Phone: Evaluation note* Diagnosis Onset Date Resolution Status Essential hypertension chron ic Left shoulder pain chronic Pain of right thumb chronic Type 2 diabetes mellitus chr onic Coronary artery disease 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 kendall Essential hypertension chron ic Hyperlipidemia chronic Ischemic cardiomyopathy 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 k[place]all Presence of implantable card ioverter-defibrillator (ICD) chronic Type 2 diabetes mellitus chr onic Gout acute Hypothyroidism acute Type 2 diabetes mellitus chr onic Travel advice encounter none active Influenza vaccination given noneactive Ischemic cardiomyopathy 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 kendall Presence of implantable card ioverter-defibrillator (ICD) chronic Hypothyroidism acute Essential hypertension chron ic Left shoulder pain chronic Type 2 diabetes mellitus [facility] Work Phone: Evaluation note* Diagnosis Onset Date Resolution Status Ischemic cardiomyopathy 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 kendall Presence of implantable card ioverter-defibrillator (ICD) chronic Coronary artery disease 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 kendall Essential hypertension chron ic Hyperlipidemia chronic Ischemic cardiomyopathy 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 k[place]all Presence of implantable card ioverter-defibrillator (ICD) chronic Type 2 diabetes mellitus [facility] Work Phone: Evaluation note* Diagnosis Onset Date Resolution Status Coronary artery disease 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 kendall Essential hypertension chron ic Hyperlipidemia chronic Ischemic cardiomyopathy 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 kendall Presence of implantable card ioverter-defibrillator (ICD) chronic Type 2 diabetes mellitus [facility] Work Phone: Evaluation note* Diagnosis Onset Date Resolution Status Spasm of eyelids acute BPH (benign prostatic hyperplasia) chronic Essential hypertension chron ic Hyperlipidemia chronic Neuropathy chronic Type 2 diabetes mellitus [facility] Work Phone: Evaluation noteNo assessment information available [facility] Work Phone: Reason for referral (narrative)No reason for referral information [facility] Work Phone: Summary Purpose Family History Relationship Condition Age at Onset Recorded Date/T mehul Not Specified Tuberculosis Unknown Coronary artery disease Unknown Myocardial infarction Unknown Advance Directives Advance Directive Response Recorded Date/ Time Advance Directives No January 26 9:23am Living Will No February 05, 2019 2:41am Power of Bronc Breaker No February 05 2:41am Advance Directive Response Recorded Date/ Time Advance Directives No January 26 8:23am Living Will No February 05, 2019 1:41am Power of Bronc Breaker No February 05 1:41am Advance Directive Response Recorded Date/ Time Advance Directives No January 26 9:23am Hospital Course Note HNO ID: [id number] Author: Sebastian Payton Service: Hospital Medicine Author Type: Physician Type: Discharge Summary Filed: 02/08/2019 12:18 PM Note Text: DISCHARGE SUMMARY PATIENT NAME: Zaid Eddy Code Status: Not on file Highest Readmission Risk Score: 11 The 30 day readmissions risk score is derived from an internally validated risk model which evaluates patient level characteristics, utilization history, medication orders and lab results up until the day of discharge. Patients with a score of 40 or above are considered highest risk for readmission. Specific patient level drivers will be listed at the bottom of the summary. Admission Information Admission Information ADMIT DATE: 02/05/2019 DISCHARGE DATE: 02/08/19 MY DOCTORS AND MEDICAL TEAM: [facility] Doctor: Jalyn Payton Primary Care Provider: Erick King MD My Medical Team Members: Treatment Team: Attending Provider: Jalyn Payton Primary Service: Lalito Nelson Consulting: Augustin Jarrell (more content not included)... 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 and Reason for Visit 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 F/U E ORDERS Reason for Visit Atherosclerotic hear t disease of [place] coronary artery without angina pectoris Essential hypertension Hyperlipidemia Ischemic cardiomyopathy penitentiary current use of amiodarone Presence of implantable cardioverter-defibrillator (ICD) Ventricular tachycardia 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 F/U E ORDERS fu EORDER Amb Documentation Reason for Visit Atherosclerotic hear t disease of [place] coronary artery without angina pectoris Essential hypertension Hyperlipidemia Ischemic cardiomyopathy penitentiary current use of amiodarone Presence of implantable cardioverter-defibrillator (ICD) Ventricular tachycardia Essential hypertension Left shoulder pain Pain of right thumb Type 2 diabetes mellitus 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 F/U E ORDERS fu EORDER Amb Documentation PAIN RT THUMB AND LEFT SHOULDER/RX HERE ISCHEMIC CARDIOMYOPATHY Reason for Visit Atherosclerotic hear t disease of [place] coronary artery without angina pectoris Essential hypertension Hyperlipidemia Ischemic cardiomyopathy 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 Presence of implantable cardioverter-defibrillator (ICD) Ventricular tachycardia Essential hypertension Left shoulder pain Pain of right thumb Type 2 diabetes mellitus 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 F/U E ORDERS fu EORDER Amb Documentation PAIN RT THUMB AND LEFT SHOULDER/RX HERE ISCHEMIC CARDIOMYOPATHY 3 m fu (new to Jorge) gout Reason for Visit Atherosclerotic hear t disease of [place] coronary artery without angina pectoris Essential hypertension Hyperlipidemia Ischemic cardiomyopathy 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 Presence of implantable cardioverter-defibrillator (ICD) Ventricular tachycardia Essential hypertension Left shoulder pain Pain of right thumb Type 2 diabetes mellitus Coronary artery disease Essential hypertension Hyperlipidemia Ischemic cardiomyopathy Presence of implantable cardioverter-defibrillator (ICD) Type 2 diabetes mellitus Gout Hypothyroidism Type 2 diabetes mellitus Travel advice encounter Influenza vaccination given 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 F/U E ORDERS fu EORDER Amb Documentation PAIN RT THUMB AND LEFT SHOULDER/RX HERE ISCHEMIC CARDIOMYOPATHY 3 m fu (new to Jorge) gout REMOTE CHECK Reason for Visit Atherosclerotic hear t disease of [place] coronary artery without angina pectoris Essential hypertension Hyperlipidemia Ischemic cardiomyopathy penitentiary current use of amiodarone Presence of implantable cardioverter-defibrillator (ICD) Ventricular tachycardia Essential hypertension Left shoulder pain Pain of right thumb Type 2 diabetes mellitus Coronary artery disease Essential hypertension Hyperlipidemia Ischemic cardiomyopathy Presence of implantable cardioverter-defibrillator (ICD) Type 2 diabetes mellitus Gout Hypothyroidism Type 2 diabetes mellitus Travel advice encounter Influenza vaccination given Ischemic cardiomyopathy Presence of implantable cardioverter-defibrillator (ICD) 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 fu EORDER Amb Documentation PAIN RT THUMB AND LEFT SHOULDER/RX HERE ISCHEMIC CARDIOMYOPATHY 3 m fu (new to Jorge) gout REMOTE CHECK 3 m fu Reason for Visit Essential hypertensi on Left shoulder pain Pain of right thumb Type 2 diabetes mellitus Coronary artery disease Essential hypertension Hyperlipidemia Ischemic cardiomyopathy Presence of implantable cardioverter-defibrillator (ICD) Type 2 diabetes mellitus Gout Hypothyroidism Type 2 diabetes mellitus Travel advice encounter Influenza vaccination given Ischemic cardiomyopathy Presence of implantable cardioverter-defibrillator (ICD) Hypothyroidism Essential hypertension Left shoulder pain Type 2 diabetes mellitus 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 3 mos remote ICD f/u Amb Documentation 6 m fu INT LABS Reason for Visit Ischemic cardiomyopa thy Presence of implantable cardioverter-defibrillator (ICD) Coronary artery disease Essential hypertension Hyperlipidemia Ischemic cardiomyopathy Presence of implantable cardioverter-defibrillator (ICD) Type 2 diabetes mellitus 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 Amb Documentation 6 m fu INT LABS Other long filler cigar roller machine (current) drug therapy Ventricular tachycardia, unspecified Ventricular tachycardia, unspecified Reason for Visit Coronary artery dise ase Essential hypertension Hyperlipidemia Ischemic cardiomyopathy Presence of implantable cardioverter-defibrillator (ICD) Type 2 diabetes mellitus 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 Pacer Check Remote FOLLOW UP Amb Documentation Reason for Visit Spasm of eyelids BPH (benign prostatic hyperplasia) Essential hypertension Hyperlipidemia Neuropathy Type 2 diabetes mellitus 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 Admit Date Nose Bleeds. Nose is bleeding like craz y July 05, 2025 11:09am Additional Source Comments (unrecognized sect ion and content) No Status Records FoundNo Status Records FoundNo Status Records FoundNo Status Records Found INFORMATION SOURCE (unrecogn ized section and content) DATE CREATED AUTHOR [facility] DATE CREATED AUTHOR AUTHOR'S ORGANIZ ATION 11/09/2019 [facility] DATE CREATED AUTHOR AUTHOR'S ORGANIZ ATION 11/27/2021 [facility] DATE CREATED AUTHOR AUTHOR'S ORGANIZ ATION 02/10/2025 [facility] Goals (unrecognized section and content) Goals may be documented in a n alternate sectionGoals may be documented in an alternate sectionGoals may be documented in an alternate sectionGoals may be documented in an alternate sectionGoals may be documented in an alternate sectionGoals may be documented in an alternate sectionGoals may be documented in an alternate sectionGoals may be documented in an alternate sectionGoals may be documented in an alternate sectionGoals may be documented in an alternate sectionGoals may be documented in an alternate section Care Teams (unrecognized sec tion and content) Team Status: Active Member Role Status Dates Dr. Omar King MD Family Provider Active Dr. Antonina Means MD Primary Care Provider Active Team Status: Inactive Member Role Status Dates Dr. Antonina Means MD Primary Care Provider, Refer ring Provider Active Dr. Paola Patel MD Attending Provider Active Team Status: Inactive Member Role Status Dates Dr. Antonina Means MD Primary Care P roviloni, Attending Provider, Referring Provider Active Team Status: Active Member Role Status Dates Dr. Antonina Means MD Primary Care Provider Active Perri Sierra Attending Provider Active Team Status: Active Member Role Status Dates Dr. Antonina Means MD Primary Care Provider Active Dr. Paola Patel MD Attending Provider Active Team Status: Inactive Member Role Status Dates Dr. Antonina Means MD Primary Care Provider, Refer ring Provider Active ОЛЬГА Kam Attending Provider Active Team Status: Inactive Member Role Status Dates Dr. Antonina Means MD Primary Care Provider, Refer ring Provider Active Tiffanie Morelos Attending Provider Active Team Status: Inactive Member Role Status Dates Dr. Antonina Means MD Primary Care Provider Active Peggy Alvarenga DIAMOND SIZER, DIAMOND SIZER-C Attending Provider, Referring P ronathanielder Active Team Status: Inactive Member Role Status Dates Dr. Antonina Means MD Primary Care Provider Active Dr. Paola Patel MD Attending Provider Active Team Status: Inactive Member Role Status Dates Dr. Antonina Means MD Primary Care Provider Active Tiffanie Morelos Active Dr. Robert Saucedo MD Attending Provider, Referring Pro vider Active Team Status: Active Member Role Status Dates Dr. Antonina Means MD Primary Care Provider Active Clifton Azar Attending Provider Active Team Status: Inactive Member Role Status Dates Dr. Antonina Means MD Primary Care Provider Active Dr. Paola Patel MD Attending Provider, Referring Pr ovider Active Team Status: Active Member Role Status Dates Dr. Antonina Means MD Primary Care Provider Active Dr. Kishore Baker MD Attending Provider Active Team Status: Active Member Role Status Dates Dr. Antonina Means MD Primary Care Provider Active Dr. Paola Patel MD Referring Provider, Other Provid er Active Dr. Bairon Yañez DO Attending Provider Active Team Status: Inactive Member Role Status Dates Dr. Antonina Means MD Primary Care Provider Active Dr. Robert Saucedo MD Attending Provider, Referring Pro vider Active Team Status: Active Member Role Status Dates Dr. Antonina Means MD Primary Care Provider Active Chioma Feliz MA Attending Provider Active Team Status: Active Member Role/Relationship Status Dates Dr. Omar King MD Primary care physician Act shan Dr. Antonina Means MD Primary care physician Activ e Team Status: Inactive Member Role/Relationship Status Dates Dr. Antonina Means MD Primary care physician Activ e Start: July 05, 2025 End: July 05, 2025 Dr. Antonina Means MD Referring Provider Active Start: July 05, 2025 End: July 05, 2025 ОЛЬГА Alcantar Attending physician Active S tart: July 05, 2025 End: July 05, 2025 Team Status: Active Member Role/Relationship Status Dates Dr. Antonina Means MD Primary care physician Activ e Start: July 05, 2025 ОЛЬГА Alcantar Attending physician Active S tart: July 05, 2025 FOR RECORDS PERTAINING TO PATIENTS WHO ARE OR HAVE BEEN ENROLLED IN A CHEMICAL DEPENDENCY/SUBSTANCEABUSE PROGRAM, SOME INFORMATION MAY BE OMITTED. This clinical summary was aggregated from multiple sources. Caution should be exercised in using it in the provision of clinical care. This summary normalizes information from multiple sources, and as a consequence, information in this document may materially change the coding, format and clinical context of patient data. In addition, data may be omitted in some cases. CLINICAL DECISIONS SHOULD BE BASED ON THE PRIMARY CLINICAL RECORDS. [facility] [employer] [facility]. provides no warranty or guarantee of the accuracy or completeness of information in this document.
== END | disposition home or self-care (01) ==
LOC: BIMLAB 12:05
PROVIDERS: PCP Internal Medicine; Visit Provider Physician Assistant
DX: I12.9 Hypertensive chronic kidney disease with stage 1 through stage 4 chronic kidney disease, or unspecified chronic kidney disease (principal); E78.00 Pure hypercholesterolemia, unspecified; N18.9 Chronic kidney disease, unspecified; E03.9 Hypothyroidism, unspecified; R04.0 Epistaxis; Z12.5 Encounter for screening for malignant neoplasm of prostate
CPT/HCPCS: 84153; 36415; 80053; 80061; 83036; 84443; 85027; 85245; 85610; G0103